=== PATIENT | female | born 1955 | race Caucasian/White ===

== ENCOUNTER 2019-09-24 20:10 | Observation (INO) | payer BC, SELFPAY ==
[2019-09-24] VITALS (7 sets, daily range): BP systolic 118–213; BP diastolic 63–106; PULSE 86–95; RESP 12–21; TEMP 36.7–37.2; O2SAT 86–98; BMI 42.7
--- NOTE | 2019-09-24 20:25 | ED.RN ---
PT HASN'T TAKEN BP MEDS YESTERDAY OR TODAY D/T, N/V.
--- NOTE | 2019-09-24 21:09 | RAD_ITS ---
STUDY: X-RAY CHEST REASON FOR EXAM: Female, 64 years old. Cough, congestion. TECHNIQUE: PA and lateral chest. COMPARISON: None. FINDINGS: Calcified granuloma in the right midlung. Mild atelectasis in the right lung base. The lungs are otherwise clear. No pleural effusion. Hilar and mediastinal shadows are normal. Soft tissues and bony structures are unremarkable. RAD/Chest PA and Lateral IMPRESSION: 1. Right basilar atelectasis, otherwise no acute findings. Electronically Signed: Alyssa Araujo MD at 22:00 EST Tel , Service support ,
[2019-09-24] MEDS: cloNIDine HCl 0.1 MG Tablet PO (21:10)
[2019-09-24 21:24] LABS: Absolute Lymphocyte Count 1.68 X10^3/uL (0.83-4.51); Absolute Neutrophil Count 12.8 X10^3/uL (2.0-7.7); Basophil# 0.02 X10^3/uL; Basophil% 0.1 % (0-1); Hematocrit 41.9 % (37-47); Lymphocyte # 1.68 X10^3/ul (4.0); Lymphocyte % 10.9 % (19-41); Mean Corp Hgb Conc 33.4 g/dL (32-36); Mean Corpuscular Hgb 31.7 pg (27.0-32.0); Mean Corpuscular Volume 94.8 fL (81-99); Monocyte# 0.75 X10^3/uL; Monocyte% 4.9 % (0-10); NRBC Flagged by Analyzer 0 % (0-5); Neutrophil # 12.84 X10^3/uL (2.7-7.7); Neutrophil % 83.5 % (47-70); Platelet Count 304 K/mm3 (150-450); RBC Distribution Width CV 13.2 % (11.6-14.6); RBC Distribution Width SD 45.4 fl (35.1-43.9); Red Blood Count 4.42 M/mm3 (4.2-5.4); White Blood Count 15.4 K/mm3 (4.4-11.0)
[2019-09-24] MEDS: Ipratropium/Albuterol Sulfate 3 ML AMPUL.NEB INHALATION (21:27)
[2019-09-24 21:39] LABS: Anion Gap 7 (5-15); BUN 18 mg/dL (7-18); BUN/Creat Ratio 22.5 RATIO (10-20); Calcium,Total 9.6 mg/dL (8.5-10.1); Chloride 102 mmol/L (98-107); EST Glomerular Filtration Rate 77 mL/min (>60); Est Glom Filt Rate - Afr Amer 94 mL/min (>60); Estimated Creatinine Clearance 60.31 ml/min; Glucose 129 mg/dL (74-106); Potassium 3.7 mmol/L (3.5-5.1); Sodium Level 140 mmol/L (136-145)
[2019-09-24] MEDS: Ketorolac 30 MG/ML Syringe IV (21:41)
[2019-09-25] VITALS (12 sets, daily range): BP systolic 155–163; BP diastolic 78–99; PULSE 74–88; RESP 12–20; TEMP 36.4–37.2; O2SAT 92–98; BMI 42.7; BMI 42.8
--- NOTE | 2019-09-25 00:03 | PCM.HP.STD ---
Problem List (1) Pneumonia Status: Acute Qualifiers: Pneumonia type: due to unspecified organism Laterality: unspecified laterality Lung location: unspecified part of lung Qualified Code(s): J18.9 - Pneumonia, unspecified organism (2) Hypoxia Status: Acute (3) Hypertension Status: Chronic Qualifiers: Hypertension type: essential hypertension Qualified Code(s): I10 - Essential (primary) hypertension (4) Asthma Status: Chronic Qualifiers: Asthma severity: unspecified severity Asthma persistence: unspecified Asthma complication type: unspecified Qualified Code(s): J45.909 - Unspecified asthma, uncomplicated (5) Morbid obesity Status: Chronic History of Present Illness Date of Admission: 09/25/19 Chief Complaint: Cough, congestion, dyspnea, sinus pressure, headache, N/V The patient is a 64 y/o F w/ PMHx: Morbid Obesity, HTN, Asthma who presents to the [facility] ED on 09/25/19 with history of recent onset of productive cough with sinus congestion, rhinorrhea, myalgia, intermittent throbbing diffuse headache with dyspnea, worse with activity with PCP initiation on Augmentin the day prior to current presentation but inability to take secondary to onset of intractable nausea with occasional emesis prompting eventual ED presentation. Patient does note concurrent subjective fevers and chills as well. Work-up in the ED included T 98.6, heart rate 89, BP initially 178/100 with repeat 150/78 as patient noted she had not taken her blood pressure medications for the last 24 to 48 hours, respiratory rate 18, initially 91% on room air however with exertion patient dropped to 86% on room air with improvement to 98% on 2 L nasal cannula, CBC with WC 15.4, hemoglobin 14, platelet 304 with left shift, BMP with glucose 129 otherwise unremarkable, chest x-ray with right basilar atelectasis otherwise no acute cardia pulmonary findings. In the ED patient administered DuoNeb, Toradol, Catapres 0.1 mg p.o. x1 in addition to Rocephin and azithromycin. Past Medical History Past Medical History (Chronic Problems): Chronic Problems Hypertension (Chronic) Asthma (Chronic) Morbid obesity (Chronic) Allergies Sulfa (Sulfonamide Antibiotics) Allergy (Verified 09/24/19 20:14) Rash sulfamethoxazole [From Bactrim] Allergy (Verified 09/24/19 20:14) Rash trimethoprim [From Bactrim] Allergy (Verified 09/24/19 20:14) Rash Home Medications: Ambulatory Orders Medication Instructions Recorded Amoxicillin/Potassium Clav 1 tab PO BID 09/24/19 [Amox-Clav 875-125 mg Tablet] Carvedilol 6.25 mg PO BID 09/24/19 Hydrochlorothiazide [Hctz] 25 mg PO DAILY 09/24/19 Surgical History: - - Cholecystectomy, right knee surgery, foot surgery and use. Psychiatric History: No pertinent psych hx DIRECTOR OF SOCIAL SERVICES History: No pertinent DIRECTOR OF SOCIAL SERVICES history Lives: With Family - Patient notes that her children and their children live with her. Smoking Status: Never smoker Tobacco Use: Non-smoker Alcohol: None Drugs: None - *Family History Maternal History Items: - - Patient notes a maternal family history of cancer, unclear type, at the age of 97. Paternal History Items: - - Patient notes a paternal family history of heart disease. Review of Systems Constitutional: Reports: Anorexia, Chills, Fever, Malaise, Weakness, Fatigue. Denies: Weight Change HEENT: Reports: Head Aches, Nasal Congestion, Post Nasal Drip, Sinus Congestion, Sinus Drainage Cardiovascular: Denies: Chest Pain, Palpitations Respiratory: Reports: Cough, Pleuritic Pain, Shortness of Breath, Shortness of breath at rest, Shortness of breath upon exertion, Sputum production Gastrointestinal: Reports: Nausea, Vomiting. Denies: Abdominal Pain Genitourinary: Denies: Dysuria Musculoskeletal: Reports: Joint Pain, Muscle pain. Denies: Joint Tenderness Skin: Denies: Rash, Wounds Neurological: Denies: Numbness, Tingling, Focal weakness Psychiatric: Denies: Anxiety, Depression, Homicidal Ideations, Suicidal Ideations Hematologic/ Lymphatic: Denies: Easy Bruising, Easy Bleeding VTE Information - Inpt Only VTE Present on Admission: No VTE Mechan Device Prophylaxis: SCD's VTE Pharm Prophylaxis ordered?: Yes Patient Problems: Active and Suspected Problems Pneumonia (Acute) Hypoxia (Acute) Subjective: Seated upright in ED bed, fatigued and ill-appearing. Objective: Physical Examination: General: awake, alert, oriented x 3 and cooperative, seated upright in the ED bed, fatigued appearance, ill-appearing. Skin: normal color, turgor, no icterus, cyanosis. HEENT: AT/NC, EOMI, PERRLA, dry MM, inflamed nares, rhinorrhea evident, posterior OP with erythema, no exudate, some discomfort with facial palpation no carotid bruits or JVD noted. Lungs: Diminished breath sounds throughout, greater bases, mildly rhonchorous, coughing elicited with deep inspiratory effort attempts, no rales or wheezing. Heart: Regular rate and rhythm; no gallop, rub audible. Abdomen: soft, obese, NTTP, ND, normal BS, no HSM. Extremities: no cyanosis, clubbing, or edema. Neurological: patient awake, alert, oriented x 3; cognitive function intact; pupils equally reactive to light and accomodation; cranial nerves II-XII grossly normal, moving all 4 extremities, no focal deficits, strength severely global decrease secondary to acute presentation. Psychiatric: affect appears fatigued, no acute evidence of depressive or anxiety feelings. - Physical Exam Vitals/I&O's: Vital Signs Temp Pulse Resp BP Pulse Ox 98.9 F 86 21 H 150/78 H 97 09/24/19 23:20 09/24/19 23:20 09/24/19 23:20 09/24/19 23:20 09/24/19 23:20 Oxygen Flow Rate (L/min) 2 Oxygen Delivery Method Nasal Cannula Weight: 241 lb 2.971 oz Body Mass Index (BMI) 42.7 Laboratory Results 09/24/19 21:10: WBC 15.4 H, RBC 4.42, Hgb 14.0, Hct 41.9, MCV 94.8, MCH 31.7, MCHC 33.4, RDW Std Deviation 45.4 H, RDW Coeff of Ximena 13.2, Plt Count 304, MPV 11.0, Immature Gran % (Auto) 0.600, Neut % (Auto) 83.5 H, Lymph % (Auto) 10.9 L, Lucas % (Auto) 4.9, Eos % (Auto) 0.0, Baso % (Auto) 0.1, Absolute Neuts (auto) 12.8 H, Absolute Lymphs (auto) 1.68, Nucleated RBC % 0 09/24/19 21:10: Sodium 140, Potassium 3.7, Chloride 102, Carbon Dioxide 31.0, Anion Gap 7, BUN 18, Creatinine 0.80, Estim Creat Clear Calc 60.31, Est GFR (MDRD) Af Amer 94, Est GFR (MDRD) Non-Af 77, BUN/Creatinine Ratio 22.5 H, Glucose 129 H, Calcium 9.6 Assessment/Plan All Active Problems Pneumonia (Acute) Hypoxia (Acute) The patient is a 64 y/o F w/ PMHx: Morbid Obesity, HTN, Asthma who presents to the [facility] ED on 09/25/19 with history of recent onset of productive cough with sinus congestion, rhinorrhea, myalgia, intermittent throbbing diffuse headache with dyspnea, worse with activity with PCP initiation on Augmentin the day prior to current presentation but inability to take secondary to onset of intractable nausea with occasional emesis prompting eventual ED presentation. 1. Community Acquired Pneumonia w/ Hypoxia: Will admit to [facility], maintain on oxygen with wean as tolerated to room air, continue ATC duonebs, PRN albuterol, maintained on IV Rocephin and Azithromycin, HOB, IS parameters w/ pending sputum cultures, respiratory viral panel and urine antigens. 2. Recent Sinus Infection: Recently diagnosed with a sinus infection although may be associated with #1, will maintain on antibiotic therapy as noted, Flonase, conservative interventions. 3. Chronic asthma: As noted above #1, will maintain on ATC DuoNebs, PRN albuterol, HOB, IS. 4. Hypertension: Continue home regimen including Coreg, hydrochlorthiazide if able to tolerate oral otherwise in the interim we will also have IV PRN hydralazine. 5. Morbid Obesity: Weight loss and lifestyle changes encouraged, nutrition consulted. 6. DVT prophylaxis: SCDs, Lovenox. Code Visit Inpatient E&M: 11976 Init Hosp L3
--- NOTE | 2019-09-25 00:03 | ED.VISSUMM ---
- ER Visit Summary Date of Service: 09/25/19 Chief Complaint: Cough, congestion, and sinus pressure History of Present Illness: The patient is a 64 F who presents with cough, congestion, and sinus pressure that is been getting worse over the past week. Patient was recently started on Augmentin for sinusitis. Patient states she has been having some nausea and vomiting and has not been able to keep anything down. Patient states she has pressure over her frontal and maxillary sinuses. Patient admits to a cough with clear sputum. Patient also admits to a sore throat and rhinorrhea. Patient admits to subjective chills and sweats. Patient did not take her temperature. Physical Examination: Vital signs showed an elevated blood pressure of 213/106. Patient is afebrile. Patient is in no acute distress. Oral mucosa is pink and moist. There is tenderness over the maxillary sinuses bilaterally, worse on the right. Neck is supple. Trachea is midline. There is no JVD. Heart was regular rate and rhythm. Lungs are diminished in the bases. There is good respiratory effort. Abdomen is soft. Bowel sounds are normal. There is no tenderness. Cranial nerves II through XII are intact. There are no focal motor or sensory deficits noted. Test Results: CBC shows a leukocytosis of 15.4. Basic metabolic profile showed glucose of 129. The remaining labs were normal. PA and lateral chest x-ray was obtained. There is atelectasis in the right base. There is no acute infiltrate noted. Emergency Department Course and Treatment: Patient was given a dose of clonidine here for her blood pressure. Patient had improvement of her blood pressure to 150/78. Patient was given a DuoNeb aerosol here. Patient was also given an injection of Toradol here for her headache. Patient was ambulated with a pulse oximeter. Patient's pulse oximeter was 87% on room air while ambulating. Patient was started on Rocephin and Zithromax. Case was discussed with the hospitalist. She will admit the patient to the hospital. Patient understood and was agreeable with the plan. All questions were answered. Disposition: Admit to hospital Impression: 1. Clinical pneumonia 2. Hypoxia This note was generated with [employer] software. It may contain incorrect words, spelling, and punctuation that were not noted in review of the chart prior to signing ED Disposition - Plan for ED Patient: Disposition: Acute Care Hospital [facility] Diagnosis: Pneumonia, Hypoxia Referrals: Denise Marvin MD [Primary Care Provider] -
[2019-09-25] MEDS: Ceftriaxone 1 GM/50 ML BAG IV (00:33)
[2019-09-25] MEDS: 0.9% Normal Saline 1,000 ML 125 ML IV ×2 (02:05→10:56)
[2019-09-25 05:46] LABS: Absolute Lymphocyte Count 3.37 X10^3/uL (0.83-4.51); Absolute Neutrophil Count 9.7 X10^3/uL (2.0-7.7); Basophil# 0.02 X10^3/uL; Basophil% 0.1 % (0-1); Eosinophil# 0.01 X10^3/uL; Eosinophils% 0.1 % (0-5); Hemoglobin 11.7 g/dL (12.0-15.0); Lymphocyte # 3.37 X10^3/ul (4.0); Lymphocyte % 23.7 % (19-41); Mean Corp Hgb Conc 32.5 g/dL (32-36); Mean Corpuscular Hgb 30.9 pg (27.0-32.0); Mean Platelet Vol. 11.4 fl (6.2-12.0); Monocyte# 1.11 X10^3/uL; Monocyte% 7.8 % (0-10); NRBC Flagged by Analyzer 0 % (0-5); Neutrophil # 9.67 X10^3/uL (2.7-7.7); Platelet Count 246 K/mm3 (150-450); RBC Distribution Width CV 13.4 % (11.6-14.6); RBC Distribution Width SD 46.3 fl (35.1-43.9); Red Blood Count 3.79 M/mm3 (4.2-5.4); White Blood Count 14.2 K/mm3 (4.4-11.0)
[2019-09-25 06:20] LABS: Anion Gap 5 (5-15); BUN 24 mg/dL (7-18); BUN/Creat Ratio 28.8 RATIO (10-20); Calcium,Total 8.9 mg/dL (8.5-10.1); Chloride 104 mmol/L (98-107); Creatinine, Serum 0.83 mg/dL (0.55-1.02); EST Glomerular Filtration Rate 74 mL/min (>60); Est Glom Filt Rate - Afr Amer 89 mL/min (>60); Estimated Creatinine Clearance 58.13 ml/min; Glucose 100 mg/dL (74-106); Potassium 3.4 mmol/L (3.5-5.1); Sodium Level 141 mmol/L (136-145)
[2019-09-25] MEDS: Ipratropium/Albuterol Sulfate 3 ML AMPUL.NEB INHALATION ×2 (07:05→10:52)
[2019-09-25] MEDS: Carvedilol 6.25 MG Tablet PO (08:01)
[2019-09-25] MEDS: Fluticasone 0.05% 1 SPRAY NASAL.SRY NASAL (08:01)
[2019-09-25] MEDS: Famotidine 20 MG Tablet PO (08:02)
[2019-09-25] MEDS: hydroCHLOROthiazide 25 MG Tablet PO (08:02)
[2019-09-25] MEDS: Acetaminophen 325 MG Tablet 650 MG PO (11:02)
[2019-09-25] MEDS: guaiFENesin 10 ML UDC (200MG/10ML) 20 ML PO (11:02)
--- NOTE | 2019-09-25 11:25 | CASEMGMT ---
RN CAITY Face to Face with patient for initial transition planning/care coordination assessment. RN CM introduced self and role at [facility]. Patient lying in bed, alert and oriented. Patient willing to participate in assessment and is able to answer all questions appropriately. Care providers, pharmacy, and demographics verified. Patient wishes to discharge home, denies need for home health at this time. Patient states he has no further needs or concerns at this time. CM to follow for discharge planning needs that may arise. PCP: Shavonne Specialists: None Preferred Pharmacy: [facility] Insurance: [employer] Prescription Benefit:yes Living Will/HPOA: sonKleber LNOK: son Living Arrangements: Patient lives with son in 1 story home with 3 steps to enter the home. Patient is independent at home. Transportation: self/son DME/HHC: Patient denies any DME in the home. Patient denies HHC. Disposition Plan: Patient to discharge home with family support and follow-up plans in place. Azeb CAMARILLO, RN, CM
--- NOTE | 2019-09-25 11:59 | DCINST_ITS ---
- Discharge Diagnoses Current Active Problems: Current Active and Chronic Problems Pneumonia (Acute) Hypoxia (Acute) Hypertension (Chronic) Asthma (Chronic) Morbid obesity (Chronic) You will use the following diet at home:: No restrictions Your food should be the consistency of: Regular Your liquids should be the consistency of: Regular/Thin Discharge Activity: Return to Normal Activity Weight Bearing Status: Full weight bearing Allergies/Adverse Reactions: Allergies Sulfa (Sulfonamide Antibiotics) Allergy (Verified 09/24/19 20:14) Rash sulfamethoxazole [From Bactrim] Allergy (Verified 09/24/19 20:14) Rash trimethoprim [From Bactrim] Allergy (Verified 09/24/19 20:14) Rash Medications to take at Discharge Carvedilol 6.25 mg PO BID 09/24/19 Hydrochlorothiazide [Hctz] 25 mg PO DAILY 09/24/19 Cefdinir [Omnicef [equiv]] 600 mg PO DAILY #20 cap 09/25/19 The following prescriptions were given: Cefdinir [Omnicef [equiv]] 600 mg PO DAILY #20 cap Transmission Status: Pending to [id number] Primary Care Physician: Denise Marvin MD [Primary Care Provider] - Please follow up with your Primary Care Physician in: in two Test Results: Test results from this visit will be discussed in further detail at your follow- up appointment, if applicable.
--- NOTE | 2019-09-25 18:29 | PCM.DC.SUM ---
Discharge Date and Diagnosis Date of Admission: 09/25/19 Date of Discharge: 09/25/19 - Primary Discharge Diagnosis #1 acute sinusitis #2 upper respiratory infection (viral) #3 nausea and vomiting-etiology unclear #4 transient hypoxia-etiology unclear #5 essential hypertension - Secondary Discharge Diagnosis Chronic Problems Hypertension (Chronic) Asthma (Chronic) Morbid obesity (Chronic) Hospital Course and Treatment Operations: None Procedures: None Summary of Care Provided: The patient is a 64 year old F was seen in the emergency room at [facility] with a chief complaint of cough, nasal congestion, and sinus pressure. Patient been taking Augmentin for sinusitis, she admitted to having some nausea and vomiting and has not been able to keep her medications down. Patient complained of pressure over her frontal and maxillary sinuses, she admitted to cough with clear sputum. She also admitted to some rhinorrhea. Work-up in the emergency room showed a leukocytosis with a white count of 15.4, PA and lateral chest x-ray was obtained which showed no evidence of acute infiltrate. Remaining labs are normal. Patient was slightly hypoxic on walking on room air. Patient was admitted for possible pneumonia based on clinical suspicion, she was given IV Rocephin and Zithromax, she was also placed on IV fluids. Patient was seen and examined later that day and she was able to eat breakfast without difficulty and also able to eat lunch. Patient was not on oxygen any longer, it was this examiner's feeling that the patient had acute sinusitis and an upper respiratory viral syndrome. It was felt that she would be safe for discharge, she had not taken her blood pressure medications in 2 days and her blood pressure was elevated and she was going to resume these at home. On examination she appeared in good health and spirits. Vital signs as documented. Skin warm and dry and without overt rashes. Neck without JVD. Lungs clear. Heart exam notable for regular rhythm, normal sounds and absence of murmurs, rubs or gallops. Abdomen unremarkable and without evidence of organomegaly, masses, or abdominal aortic enlargement. Extremities nonedematous. Neuro: Cranial nerves II through XII are grossly intact, no focal motor deficits were noted, sensation to light touch and pinprick is intact. Psych: Patient is alert and oriented x3, she does not appear anxious or depressed Patient was discharged on 09/25/2019 in stable condition Diagnosis of community-acquired pneumonia was ruled out. - Physical Exam Vitals/I&O's: Vital Signs Temp Pulse Resp BP Pulse Ox 97.5 F L 76 12 163/99 H 92 09/25/19 13:20 09/25/19 13:20 09/25/19 13:20 09/25/19 13:20 09/25/19 13:20 Oxygen Flow Rate (L/min) 2 Oxygen Delivery Method Room Air Weight: 109.5 kg Body Mass Index (BMI) 42.7 Intake and Output for Last 24 Hours 09/23/19 09/24/19 09/25/19 23:59 23:59 23:59 Intake Total 2125.24 / 2125.24 Balance 2125.24 / 2125. Microbiology Past 72 Hours 09/25/19 07:36 Sputum, Expectorated/Coughed Gram Stain - Final 09/25/19 05:15 Mucosa - Nasopharyngeal Respiratory Panel (PCR) - Final 09/25/19 07:00 Urine, Clean Catch Streptococcus pneumoniae Antigen (M - Final 09/25/19 07:00 Urine, Clean Catch Legionella Antigen - Final Laboratory Results 09/24/19 21:10: WBC 15.4 H, RBC 4.42, Hgb 14.0, Hct 41.9, MCV 94.8, MCH 31.7, MCHC 33.4, RDW Std Deviation 45.4 H, RDW Coeff of Ximena 13.2, Plt Count 304, MPV 11.0, Immature Gran % (Auto) 0.600, Neut % (Auto) 83.5 H, Lymph % (Auto) 10.9 L, [place] % (Auto) 4.9, Eos % (Auto) 0.0, Baso % (Auto) 0.1, Absolute Neuts (auto) 12.8 H, Absolute Lymphs (auto) 1.68, Nucleated RBC % 0 09/24/19 21:10: Sodium 140, Potassium 3.7, Chloride 102, Carbon Dioxide 31.0, Anion Gap 7, BUN 18, Creatinine 0.80, Estim Creat Clear Calc 60.31, Est GFR (MDRD) Af Amer 94, Est GFR (MDRD) Non-Af 77, BUN/Creatinine Ratio 22.5 H, Glucose 129 H, Calcium 9.6 09/25/19 05:00: WBC 14.2 H, RBC 3.79 L, Hgb 11.7 L, Hct 36.0 L, MCV 95.0, MCH 30.9, MCHC 32.5, RDW Std Deviation 46.3 H, RDW Coeff of Ximena 13.4, Plt Count 246, MPV 11.4, Immature Gran % (Auto) 0.300, Neut % (Auto) 68.0, Lymph % (Auto) 23.7, [place] % (Auto) 7.8, Eos % (Auto) 0.1, Baso % (Auto) 0.1, Absolute Neuts (auto) 9.7 H, Absolute Lymphs (auto) 3.37, Nucleated RBC % 0 09/25/19 05:00: Sodium 141, Potassium 3.4 L, Chloride 104, Carbon Dioxide 32.0, Anion Gap 5, BUN 24 H, Creatinine 0.83, Estim Creat Clear Calc 58.13, Est GFR (MDRD) Af Amer 89, Est GFR (MDRD) Non-Af 74, BUN/Creatinine Ratio 28.8 H, Glucose 100, Calcium 8.9 Discharge Activity: Return to Normal Activity Weight Bearing Status: Full weight bearing Home Medications: Medications to take at Discharge Carvedilol 6.25 mg PO BID 09/24/19 Hydrochlorothiazide [Hctz] 25 mg PO DAILY 09/24/19 Cefdinir [Omnicef [equiv]] 600 mg PO DAILY #20 cap 09/25/19 Following Prescrptions Were Given to Patient: Cefdinir [Omnicef [equiv]] 600 mg PO DAILY #20 cap Transmission Status: Received by [id number] Primary Care Physician: Denise Marvin MD [Primary Care Provider] - Please follow up with your Primary Care Physician in: in two Disposition: Home Minutes spent on discharge:: 30 Patient Condition:: Stable Medical Necessity - Tobacco Use Smoking Status: Never smoker Tobacco Use: Non-smoker Meaningful Use Info Meaningful Use Diagnoses (Choose all that apply): None applicable Code Visit OBSV E&M: 21157 Observ/hosp same date L3
== END 2019-09-25 13:25 | disposition home or self-care (01) ==
LOC: ED 20:47 → MS3 09-25 07:18
PROVIDERS: Admitting Provider Family Medicine; Emergency Provider Emergency Medicine; Family Provider Internal Medicine; PCP Internal Medicine; Visit Provider Internal Medicine
DX: J01.90 Acute sinusitis, unspecified (principal); J06.9 Acute upper respiratory infection, unspecified; I10 Essential (primary) hypertension; R11.2 Nausea with vomiting, unspecified; R09.02 Hypoxemia; J45.909 Unspecified asthma, uncomplicated; E66.01 Morbid (severe) obesity due to excess calories; Z68.41 Body mass index [BMI] 40.0-44.9, adult; Z71.3 Dietary counseling and surveillance; Z79.899 Other long term (current) drug therapy
CPT/HCPCS: 36415; 71046; 80048; 85025; 87070; 87205; 87449; 87633; 94640; 96361; 96365; 96367; 96375; 97802; 99218; 99251; 99285; J7030; J7050; A4216; G0378; G0463

== ENCOUNTER 2020-04-13 05:34 | Emergency (ER) | payer BC, SELFPAY ==
[2019-09-25 01:37] VITALS: BMI 42.7
[2020-04-13 05:35] VITALS: BP 212/113; PULSE 78; RESP 20; TEMP 36.4; O2SAT 99; BMI 47.3
[2020-04-13 05:58] VITALS: BP 218/114; PULSE 104; RESP 16; O2SAT 94
[2020-04-13] MEDS: cloNIDine HCl 0.1 MG Tablet 0.2 MG PO (06:28)
[2020-04-13] MEDS: Mixture 30 ML Bottle TOPICAL (06:42)
--- NOTE | 2020-04-13 07:05 | ED.DCSUM_ITS ---
History of Present Illness Chief Complaint: Nosebleed Informant: Patient Onset: Hours - 1 Context: Sudden Onset - spontaneous Timing: Continuous Quality: bleeding Location: both nostrils, seems worse on right Current Severity: Moderate Maximum Severity: Moderate Worsened by: nothing Relieved by: holding pressure on nose Associated Symptoms: none Narrative: Patient states she has never had a nosebleed like this. She does not take antiplatelet or anticoagulant medications. She has no other symptoms and incidentally in triage was noted to have a very high blood pressure. She does take medications for her blood pressure and has been compliant with them, with exception that she forgot her dose last night. When she woke up with a nosebleed, she did take that dose at about 4 AM. It is carvedilol 6.25 mg, she takes it twice daily. She does not have heart issues, she takes it only for blood pressure. She also states she was prescribed prednisone that she has been taking for 1 day so far, for a cough that she cannot seem to get rid of. She already was tested for COVID and tested negative. She denies any dyspnea or chest pain. - Past Medical History (1) Asthma Status: Chronic (2) Hypertension Status: Chronic (3) Morbid obesity Status: Chronic Past Medical History - Allergies and Home Meds Allergies/Adverse Reactions: Allergies Sulfa (Sulfonamide Antibiotics) Allergy (Verified 04/13/20 05:38) Rash sulfamethoxazole [From Bactrim] Allergy (Verified 04/13/20 05:38) Rash trimethoprim [From Bactrim] Allergy (Verified 04/13/20 05:38) Rash Primary Care Physician: Denise Marvin MD [Primary Care Provider] - 3-5 Days Surgical History: - - Cholecystectomy, right knee surgery, foot surgery and use. Smoking Status: Never smoker - Family History Maternal Family History: Reports: - - Patient notes a maternal family history of cancer, unclear type, at the age of 97. Paternal Family History: Reports: - - Patient notes a paternal family history of heart disease. Review of Systems General: Denies: Chills, Fever, Sweats Eyes: Denies: Visual changes - bilaterally, Diplopia ENT: Reports: Rhinorrhea - Nosebleed. See HPI.. Denies: Sore throat Cardiovascular: Denies: Chest pain, Palpitations Respiratory: Reports: Cough. Denies: Dyspnea, Sputum, Dyspnea on exertion Gastrointestinal: Denies: Abdominal pain, Nausea, Vomiting, Diarrhea, Melena, Hematochezia Genitourinary: Denies: Dysuria, Hematuria, Frequency Musculoskeletal: Denies: Back pain, Extremity Pain Skin: Denies: Rash, Wounds Neurological: Denies: Headache, Weakness, Numbness Physical Exam Vital Signs/Narrative: Vital Signs Temp Pulse Resp BP Pulse Ox 04/13/20 05:58 104 H 16 218/114 H 94 04/13/20 05:35 97.6 F L 78 20 H 212/113 H 99 Inital Vital Signs reviewed: Yes General: Well nourished, Well developed, Obese, No Acute Distress Head: Normocephalic, Atraumatic Eyes: Perrl, EOMI ENT: Moist mucous membranes, - - Blood present in both nares. No active bleeding at this time, examined just after removing nose clamp.. Negative for: Sinus tenderness Neck: Supple, Nontender, No lymphadenopathy Cardiovascular: Regular rate, Regular rhythm Respiratory: No distress, CTA bilaterally, Chest nontender Extremities: Nontender, No edema Skin: Normal color, No rash, No Trauma Neurological: Alert, Oriented x3, Cranial nerves II-XII grossly intact, Normal Strength, Normal Sensation, Normal Gait Psychological: Normal affect, Normal Mood Diagnostic/Tx/Re-eval - Medical Decision Making I had patient expel her nasal contents, which was very minimal, using tissues. This was followed by injecting 2 cc of Michael mix into her nose, having her taking it back into her throat, she spat it out, I immediately placed a nasal pledget soaked with same mix into her right nostril. She was observed for a while and had no recurrent bleeding. I took the pledget out and reexamined her. There is no blood or obvious etiology of the bleeding on the right, but on the left there is a very small punctate-sized clot on the septum. I dabbed it with a cotton ball, and it immediately started oozing blood. I placed the pledget that was removed from the right and had basically no blood on it into the left side, and observed her further. There was good hemostasis as a result. It was cauterized with silver nitrate successfully. She was given clonidine prior to all of this. On reevaluation of her blood pressure it is 167/96. I advised her to take another dose of her carvedilol when she gets home, possibly doubling it up tonight as well and then going back to her regular dosing. She is comfort able with that plan of following up with her doctor for recheck. Procedures Procedure(s): Epistaxis treatment/cauterization --see medical decision making for further details. Hemostasis at small lesion at Kesselbach plexus left naris obtained. Lightly cauterized with silver nitrate. No complications, hemostasis maintained. ED Disposition - Plan for ED Patient: Disposition: Home or Assisted Living Diagnosis: Acute anterior epistaxis, Episode of hypertension Instructions: ED Epistaxis Adult, ED High Blood Pressure Established Out of Control Referrals: Denise Marvin MD [Primary Care Provider] - 3-5 Days Additional Instructions: Take another carvedilol this morning, then double your dose tonight, taking 12.5 mg, then go back to normal dosing in the morning.
[2020-04-13 07:22] VITALS: BP 167/96; PULSE 81; RESP 18; O2SAT 93
[2020-04-13] MEDS: Silver Nitrate (BKC) 1 EACH TOPICAL (07:23)
[2020-04-13 07:52] VITALS: BP 148/75
== END 2020-04-13 07:55 | disposition home or self-care (01) ==
PROVIDERS: Emergency Provider Emergency Medicine; PCP Internal Medicine
DX: R04.0 Epistaxis (principal); I10 Essential (primary) hypertension; J45.909 Unspecified asthma, uncomplicated; E66.01 Morbid (severe) obesity due to excess calories; Z79.899 Other long term (current) drug therapy
CPT/HCPCS: 30901; 99283

== ENCOUNTER 2020-06-02 09:20 | Inpatient (IN) | payer BC, SELFPAY ==
[2020-06-02] VITALS (16 sets, daily range): BP systolic 145–215; BP diastolic 82–119; PULSE 70–88; RESP 15–21; TEMP 36.2–37.6; O2SAT 87–99; BMI 43.9; BMI 44.1
[2020-06-02] MEDS: 0.9% Normal Saline 1,000 ML 999 ML IV (10:10)
--- NOTE | 2020-06-02 10:23 | ED.DCSUM_ITS ---
- ER Visit Summary Date of Service: 06/02/20 Chief Complaint: Fever History of Present Illness: The patient is a [address] coffey to. She reports she has a fever that began today. Is been 102 degrees. She denies sore throat. She reports she has a little bit of cough that began this morning. It is productive yellow sputum without blood. Denies any chest pain or shortness of breath. She reports she has been nauseated, but has not vomited. She denies any abdominal pain. She does report she has dysuria and frequency that began yesterday. She denies any back pain or rash. Reports she has a headache yesterday, but does not have a headache today. She denies any numbness or weakness. Patient does report that she has had sick contacts and that her son and granddaughter both had headaches. However, she denies any known exposure to coronavirus. Physical Examination: Vitals: Stable. Afebrile. General: Well-nourished and well-developed. Head: Normocephalic atraumatic. Neck: Supple, no lymphadenopathy. No JVD. Nontender. Cardiovascular: Regular rate and rhythm. No murmurs. Respiratory: No respiratory distress. Clear to auscultation bilaterally. Abdominal: Soft, nontender, nondistended, normal bowel sounds. No guarding, rebound, or peritoneal signs. Back: Nontender. Extremities: Nontender, no edema. Skin: Normal color, no rash. Neurologic: Alert and oriented ?3. Cranial nerves II through XII are intact. Normal strength and sensation. Psych: Normal affect. Test Results: CBC shows segmented neutrophils 80 lymphocytes of 11. INR is 1.1. PTT is 28.3. UA is normal. Chem-7 shows a potassium 3.3 and glucose 115. LFTs are normal. Lactic acid is normal. Clinical Impression(s) from Imaging Studies Chest X-Ray 06/02/20 10:23 IMPRESSION: No active pulmonary disease. Electronically Signed: Abhay Jones MD at 11:00 EDT Tel , Service support , Emergency Department Course and Treatment: Patient had an IV placed. She was given a liter normal saline. She is resting comfortably. Patient was given a dose of Diflucan p.o. for the burning as she is concerned she may have a yeast infection. On repeat exam her pulse ox is 88% with a good waveform. Treatment Plan: Patient was discussed with the hospitalist. She will be admitted to the hospital for further evaluation and treatment. Disposition: To home in improved and stable condition. Impression: 1. Fever. 2. URI, possible COVID-19 infection. 3. Dysuria. 4. Hypoxia. This note was generated with [employer] dictation software. It may contain incorrect words, spelling, and punctuation that were not noted in review of the chart prior to signing ED Disposition - Plan for ED Patient: Instructions: ED Upper Resp Infec No Abx Tx Referrals: Denise Marvin MD [Primary Care Provider] - 10-14 Days if not better
--- NOTE | 2020-06-02 10:23 | RAD_ITS ---
STUDY: X-RAY CHEST REASON FOR EXAM: Female, 64 years old. Headache, Cough, Fever, Chills For 2 Days. TECHNIQUE: Single AP portable view of the chest. COMPARISON: 09/24/2019. FINDINGS: Mild elevation of the of the right hemidiaphragm. No focal infiltrate is seen. There is no demonstrated pleural abnormality. Normal size heart. Normal mediastinum and renetta. Normal visualized pulmonary arteries. There is atherosclerotic calcification of the aortic arch with tortuosity. Normal visualized thoracic spine. Normal visualized ribs, clavicles, and shoulders. There is no demonstrated abnormality of the visualized soft tissue structures of the upper abdomen. RAD/Chest 1 View (Portable) IMPRESSION: No active pulmonary disease. Electronically Signed: Abhay Jones MD at 11:00 EDT Tel , Service support ,
[2020-06-02 10:27] LABS: Bacteria 0 SEEN /hpf (None Seen); Mucous, Urine 0 SEEN /hpf (<or=2+); Red Blood Cells-Urine 0 SEEN /hpf (0-5); Squamous Epithelial Cells - UA 0 SEEN /hpf (5-10); White Blood Cells 0 SEEN /hpf (0-5)
[2020-06-02 10:33] LABS: Absolute Lymphocyte Count 1.21 X10^3/uL (0.83-4.51); Absolute Neutrophil Count 8.8 X10^3/uL (2.0-7.7); Basophil# 0.06 X10^3/uL; Basophil% 0.5 % (0-1); Eosinophil# 0.05 X10^3/uL; Eosinophils% 0.5 % (0-5); Hematocrit 41.3 % (37-47); Hemoglobin 13.2 g/dL (12.0-15.0); Lymphocyte # 1.21 X10^3/ul (4.0); Mean Corpuscular Hgb 30.1 pg (27.0-32.0); Mean Corpuscular Volume 94.1 fL (81-99); Monocyte# 0.85 X10^3/uL; Monocyte% 7.7 % (0-10); NRBC Flagged by Analyzer 0 % (0-5); Neutrophil # 8.76 X10^3/uL (2.7-7.7); Neutrophil % 79.9 % (47-70); Platelet Count 198 K/mm3 (150-450); RBC Distribution Width CV 13.4 % (11.6-14.6); RBC Distribution Width SD 46.3 fl (35.1-43.9); Red Blood Count 4.39 M/mm3 (4.2-5.4)
[2020-06-02 10:34] LABS: Color, Urine Yellow (Yellow); Glucose, Dipstick Normal (Normal); Ketone-Dipstick Negative (Negative); Leukocyte Esterase-Dipstick Negative /ul (Negative); Nitrite-Dipstick Negative (Negative); Occult Blood-Urine Negative /ul (Negative); Protein-Dipstick Negative (Negative); Specific Gravity, Urine 1.015 (1.002-1.030); Urine Bilirubin Dipstick Negative (Negative); Urine Clarity Clear (Clear); Urine Urobilinogen Normal (Normal); Urine pH 6.5 (5.0 - 8.0)
[2020-06-02 10:40] LABS: International Normalized Ratio 1.1; Prothrombin Time (Protime)PT. 13.2 SECONDS (11.7-14.9)
[2020-06-02 10:41] LABS: Partial Thromboplast Time 28.3 Seconds (24.1-36.2)
[2020-06-02 10:48] LABS: ALB/GLOB Ratio 0.9 RATIO (0.9-2.4); AST(SGOT) 25 U/L (15-37); Alanine Aminotransfer ALT/SGPT 35 U/L (13-56); Albumin, Serum 3.7 g/dL (3.2-5.0); Alkaline Phosphatase 99 U/L (45-117); Anion Gap 5 (5-15); BUN 9 mg/dL (7-18); Calcium,Total 8.8 mg/dL (8.5-10.1); Chloride 104 mmol/L (98-107); Creatinine, Serum 0.82 mg/dL (0.55-1.02); EST Glomerular Filtration Rate 75 mL/min (>60); Est Glom Filt Rate - Afr Amer 91 mL/min (>60); Estimated Creatinine Clearance 58.84 ml/min; Glucose 115 mg/dL (74-106); Potassium 3.3 mmol/L (3.5-5.1); Protein, Total 7.7 g/dL (6.4-8.2); Sodium Level 139 mmol/L (136-145)
[2020-06-02 10:59] LABS: Lactic Acid 0.9 mmol/L (0.4-1.9)
--- NOTE | 2020-06-02 11:34 | PCM.HP.STD ---
Problem List (1) Hypoxia Status: Acute (2) Hypertension Status: Chronic Qualifiers: Hypertension type: essential hypertension Qualified Code(s): I10 - Essential (primary) hypertension (3) Asthma Status: Chronic Qualifiers: Asthma severity: unspecified severity Asthma persistence: unspecified Asthma complication type: unspecified Qualified Code(s): J45.909 - Unspecified asthma, uncomplicated (4) Morbid obesity Status: Chronic (5) Suspected COVID-19 virus infection Status: Acute History of Present Illness Date of Admission: 06/02/20 Chief Complaint: Headache, high-grade fever The patient is a 64 year old F with history of asthma but is stable on occasional rescue inhaler came to ED with headache for 2 to 3 days along with high fever. Fever started today with 102 degrees F at home, along with nausea and cough. Cough is productive with yellow sputum. Denies any chest pain or subjective shortness of breath. Patient denies vomiting, diarrhea,hematemesis or melena. Patient came in contact with her daughter who came from [place] about 2 to 3 days ago. Her daughter herself is asymptomatic. In ED, vitals shows blood pressure 195/109, heart rate 83 but afebrile. Pulse ox 89% on room air. Blood pressure is still high. Chest x-ray was done shows chronic mild elevation of right hemidiaphragm but no new focal infiltrate. Past Medical History Past Medical History (Chronic Problems): Chronic Problems Hypertension (Chronic) Asthma (Chronic) Morbid obesity (Chronic) Allergies Sulfa (Sulfonamide Antibiotics) Allergy (Verified 06/02/20 09:23) Rash sulfamethoxazole [From Bactrim] Allergy (Verified 06/02/20 09:23) Rash trimethoprim [From Bactrim] Allergy (Verified 06/02/20 09:23) Rash Home Medications: Ambulatory Orders Medication Instructions Recorded Carvedilol 6.25 mg PO BID 09/24/19 Hydrochlorothiazide [Hctz] 25 mg PO DAILY 09/24/19 Surgical History: - - Cholecystectomy, right knee surgery, foot surgery and use. 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 Paternal History Items: - - Patient notes a paternal family history of heart disease. Review of Systems Constitutional: Reports: Anorexia, Chills, Fever, Malaise, Weakness, Fatigue HEENT: Denies: Head Aches, Sinus Congestion, Sinus Drainage Cardiovascular: Denies: Chest Pain, Palpitations Respiratory: Reports: Cough, Shortness of breath upon exertion. Denies: Hemoptysis, Shortness of breath at rest, Sputum production Gastrointestinal: Reports: Nausea. Denies: Abdominal Pain, Constipation, Diarrhea, Hematemesis, Hematochezia, Melena, Vomiting Genitourinary: Denies: Dysuria, Frequency, Incontinence, Urgency Musculoskeletal: Reports: Joint Pain. Denies: Joint Tenderness Skin: Denies: Rash, Wounds Neurological: Denies: Numbness, Tingling, Focal weakness Psychiatric: Denies: Anxiety, Depression, Homicidal Ideations, Suicidal Ideations Hematologic/ Lymphatic: Denies: Easy Bruising, Easy Bleeding VTE Information - Inpt Only VTE Present on Admission: No VTE Mechan Device Prophylaxis: None VTE Pharm Prophylaxis ordered?: Yes Patient Problems: Active and Suspected Problems Suspected COVID-19 virus infection (Acute) - Physical Exam Vitals/I&O's: Vital Signs Temp Pulse Resp BP Pulse Ox 97.5 F L 82 21 H 190/109 H 89 06/02/20 09:24 06/02/20 10:23 06/02/20 10:23 06/02/20 10:23 06/02/20 10:23 Oxygen Delivery Method Room Air Weight: 248 lb Body Mass Index (BMI) 43.9 General: Alert, Oriented x3, Cooperative HEENT: Atraumatic, PERRLA, EOMI, Normocephalic Oral: No Gingival or Mucosal Lesions/ Ulcerations, Dry Mucosa Neck: Supple, No JVD, Negative Carotid Bruits Lungs: No rhonchi, No wheeze, No rales, Diminished - Air entry diminished in bilateral lungs. Cardiovascular: Regular rate, Regular Rhythm, Normal S1, Normal S2, No murmurs Abdomen: Bowel Sounds Present, Soft, Non Tender, Non-Distended Extremities: Capillary Refill Less than 3 Seconds, Edema Skin: No rashes, No breakdown Musculoskeletal: No Tenderness to Palpation of Joints or Extremities, Arthritic Changes Neurological: Cranial nerves II-XII grossly intact, Deep Tendon Reflexes 2+/4 and Symmetrical, Neuro grossly intact Psych/Mental Status: Normal Affect, Appropriate Laboratory Results 06/02/20 10:00: COVID-19 ([place]) Pending 06/02/20 10:00: Urine Color Yellow, Urine Clarity Clear, Urine pH 6.5, Ur Specific [place] 1.015, Urine Protein Negative, Urine Glucose (UA) Normal, Urine Ketones Negative, Urine Occult Blood Negative, Urine Nitrite Negative, Urine Bilirubin Negative, Urine Urobilinogen Normal, Ur Leukocyte Esterase Negative, Urine RBC 0 SEEN, Urine WBC 0 SEEN, Ur Squamous Epith Cells 0 SEEN, Urine Bacteria 0 SEEN, Urine Mucus 0 SEEN 06/02/20 10:10: WBC 11.0, RBC 4.39, Hgb 13.2, Hct 41.3, MCV 94.1, MCH 30.1, MCHC 32.0, RDW Std Deviation 46.3 H, RDW Coeff of Ximena 13.4, Plt Count 198, MPV 11.0, Immature Gran % (Auto) 0.400, Neut % (Auto) 79.9 H, Lymph % (Auto) 11.0 L, [place] % (Auto) 7.7, Eos % (Auto) 0.5, Baso % (Auto) 0.5, Absolute Neuts (auto) 8.8 H, Absolute Lymphs (auto) 1.21, Nucleated RBC % 0 06/02/20 10:10: PT 13.2, INR 1.1, APTT 28.3 06/02/20 10:10: Sodium 139, Potassium 3.3 L, Chloride 104, Carbon Dioxide 30.0, Anion Gap 5, BUN 9, Creatinine 0.82, Estim Creat Clear Calc 58.84, Est GFR (MDRD) Af Amer 91, Est GFR (MDRD) Non-Af 75, BUN/Creatinine Ratio 11.0, Glucose 115 H, Calcium 8.8, Total Bilirubin 0.60, AST 25, ALT 35, Alkaline Phosphatase 99, Total Protein 7.7, Albumin 3.7, Globulin 4.0, Albumin/Globulin Ratio 0.9 06/02/20 10:10: Lactic Acid 0.9 Current Medications Labetalol HCl (Trandate) 10 mg IV X1 ONE Stop: 06/02/20 11:30 Assessment/Plan All Active Problems Hypoxia (Acute) Suspected COVID-19 virus infection (Acute) The patient is a 64 year old F with history of asthma but is stable on occasional rescue inhaler came to ED with headache for 2 to 3 days along with high fever. Clinical assessment consistent with high suspicion of COVID-19. In ED, vitals shows blood pressure 195/109, heart rate 83 but afebrile. Pulse ox 89% on room air. Chest x-ray was done shows chronic mild elevation of right hemidiaphragm but no new focal infiltrate. 1. High suspicion of COVID-19 infection: Although COVID-19 PCR is negative but patient came in contact with the daughter who came from [place] along with high-grade fever, productive cough and severe headache. Admit on the COVID floor. Started empirically on IV ceftriaxone and Zithromax for high fever. Lactic acid normal. Inflammatory markers were ordered. D-dimer 2.73, fibrinogen 479. CRP, CK, LDH elevated. BNP 180. Procalcitonin 0.[address] angiogram of chest was done was negative for PE but shows left atrium severely enlarged, LV mildly enlarged. Diffuse mosaic attenuation of pulmonary parenchyma without focal renal lesion. UA is negative. WBC count 11,000, lymphocyte count 11%. ID consult. 2. Asthma: Patient does not have wheezing on very short of breath. Bronchodilator every 6 hourly, albuterol PRN, Pulmicort inhalation. Incentive spirometry, chest physiotherapy. 3. Hypertensive emergency: Patient has headache for about 2-3 days along with high blood pressure 195/109. Labetalol 10 mg IV ordered. Patient home medication HCTZ and Coreg resumed. Labetalol and hydralazine IV PRN ordered. Patient also has leg edema, recent onset. BNP elevated but as patient had CT angiogram, will continue IV fluid. CT head without contrast reported as normal. 4. Morbid obesity: Weight loss counseling done. DVT prophylaxis: On Lovenox 40 mg subcu twice daily. Living will/advanced directive/end of life care: Patient does have living will or advanced directive. Her son Kleber is power of pharmacy salesperson for health. After discussion of procedures involved with full code, DNR CC arrest and DNR CC, the patient opted for full code. Patient does want artificial life support including intubation, tube feed, ventilator and/chest compression, central venous catheter, vasopressor and DC shock if needed Total time spent in [id number] encounter in discussion of advanced directive 16 minutes Inpatient E&M: 60598 Init Hosp L3 Procedures: 26039 Advncd Care Plan 30 Min
[2020-06-02] MEDS: Fluconazole 100 MG Tablet 150 MG PO (11:43)
--- NOTE | 2020-06-02 11:56 | EKG12_ITS ---
Test Reason : Blood Pressure : / mmHG Vent. Rate : 087 BPM Atrial Rate : 087 BPM P-R Int : 140 ms QRS Dur : 098 ms QT Int : 378 ms P-R-T Axes : 054 040 080 degrees QTc Int : 454 ms Sinus rhythm with Premature atrial complexes Nonspecific ST/T wave abnormality Confirmed by AUGUSTUS VEGA, CHRIS ([id number]), editor department HUAN STOVER ([id number]) on 06/06/2020 4:01:05 PM Referred By: JAMIE Confirmed By:CHRIS COFFMAN MD
[2020-06-02 12:05] LABS: Probe Check PASS; Specimen Processing Control PASS
[2020-06-02 12:34] LABS: Fibrinogen 479 mg/dl (203-444)
[2020-06-02 12:35] LABS: CPK Total, Creatine Kinase 195 U/L (26-192); D-Dimer Quantitative (DVT/PE) 2.73 FEU/ug/m (0.27-0.49)
[2020-06-02 12:38] LABS: BNP,B-Type NATRIURETIC PEPTIDE 183.8 pg/mL (0-100)
[2020-06-02 12:42] LABS: Ferritin 77 ng/mL (8-252); LDH 292 U/L (84-246); Magnesium 1.9 mg/dL (1.6-2.6)
--- NOTE | 2020-06-02 12:42 | CT_ITS ---
STUDY: CT BRAIN WITHOUT CONTRAST REASON FOR EXAM: Female, 64 years old. Headache and fever RADIATION DOSAGE (If Supplied By Facility): CTDIvol = ( 44.99 ) mGy, DLP = ( 796.11 ) mGycm TECHNIQUE: Transaxial CT imaging of the brain was performed without administration of intravenous contrast material. Individualized dose optimization techniques were used for this CT. COMPARISON: April 03 2011 FINDINGS: Brain parenchyma is without focal lesions, mass effect, acute intracranial hemorrhage, extra parenchymal fluid collections, hydrocephalus or herniation. The skull is intact. CT/Brain/Head without Contrast IMPRESSION: 1. Normal CT brain. Electronically Signed: Brenton Francisco, at 13:32 EDT Tel , Service support ,
--- NOTE | 2020-06-02 12:52 | CT_ITS ---
STUDY: CTA CHEST REASON FOR EXAM: Female, 64 years old. Shortness of breath fever cough elevated d-dimer evaluation for pulmonary embolism RADIATION DOSAGE (If Supplied By Facility): CTDIvol = ( 13.88 ) mGy, DLP = ( 479.45 ) mGycm TECHNIQUE: The examination was performed with the intravenous administration of 100 ML ISOVUE 370. Post-processing of the angiographic images was performed, with multiplanar reformation and 3D reconstruction. Individualized dose optimization techniques were used for this CT. COMPARISON: None. FINDINGS: There is no acute or chronic pulmonary embolism. Aorta is of normal caliber. Central pulmonary arteries are mildly enlarged. Right ventricle and right atrium are normal. Left ventricle is mildly enlarged. Left atrium is severely enlarged. Left atrial appendage is clear. Pericardium is normal. There are reactive mediastinal lymph nodes. There is diffuse mosaic attenuation of the pulmonary parenchyma without focal or regional lesions. This is a chronic pulmonary finding and does not require acute medical attention. Central airways are patent. The liver is diffusely fatty infiltrated. There is abdominal lipomatosis and elevated BMI. CT/CTA Chest W/WO Contrast IMPRESSION: 1. No pulmonary embolism 2. Left heart enlargement, presumed diastolic/systolic dysfunction. Echocardiography and cardiology referral are advised. 3. Possible early pulmonary arterial hypertension. 4. Mosaic attenuation of the lungs. Pulmonary referral is advised. This can be definitively evaluated with elective follow-up pulmonary protocol high resolution CT. 5. Hepatic steatosis. Hepatology referral is advised. Electronically Signed: Amarilismoris Maryam, at 14:18 EDT Tel , Service support ,
[2020-06-02 13:25] LABS: Procalcitonin 0.13 ng/mL (0.00-0.09)
[2020-06-02] MEDS: Labetalol (Prefilled) 20 MG/4 ML 10 MG IV (14:20)
[2020-06-02] MEDS: Ipratropium/Albuterol Sulfate 3 ML AMPUL.NEB INHALATION (19:11)
[2020-06-02] MEDS: Budesonide Respules 0.5 MG/2 ML AMPUL.NEB. INHALATION (19:12)
[2020-06-02] MEDS: hydroCHLOROthiazide 25 MG Tablet PO (20:57)
[2020-06-02] MEDS: Acetaminophen 325 MG Tablet 650 MG PO (22:16)
[2020-06-03] VITALS (10 sets, daily range): BP systolic 153–155; BP diastolic 85–90; PULSE 65–100; RESP 18; TEMP 36.7–37.4; O2SAT 95–96
[2020-06-03] MEDS: 0.9% Saline Lock 10 ML Syringe IV ×2 (04:12→10:10)
--- NOTE | 2020-06-03 05:55 | ECHOD_ITS ---
Reason For Study: HTN Procedure This was a 2D Doppler, Color Flow transthoracic echocardiogram. The study was technically difficult. Due to COVID PRECAUTIONS. Exam performed portable in ICU/CCU. The exam was abbreviated due to the COVID 19 protocol. Left Ventricle Normal LV size. Left ventricular systolic function is normal. The estimated ejection fraction is 60 %. Stage 2 diastolic dysfunction. No regional wall motion abnormalities noted. Right Ventricle Normal RV size. Normal systolic function. Atria The left atrium is mildly enlarged. Normal right atrium. Mitral Valve Normal mitral valve. Tricuspid Valve Normal tricuspid valve. Aortic Valve Normal aortic valve. Trisinus/trileaflet aortic valve. Pulmonic Valve Normal pulmonic valve. Great Vessels Normal aortic root. The pulmonary artery is normal size. Normal inferior vena cava. Pericardium/Pleural No pericardial effusion. MMode/2D Measurements & Calculations LVIDd: 5.3 cm IVSd: 1.0 cm Ao root diam: 3.4 cm LVIDs: 3.1 cm LVPWd: 0.98 cm RVDd: 3.5 cm FS: 41.8 % LAV(MOD-bp): 87.3 ml LA A4 area: 24.2 cm2 RA A4 area: 15.6 cm2 LAV(MOD-bp) Indexed: 41.1 ml/m2 LAV(MOD-sp2): 94.4 ml LAV(MOD-sp4): 80.5 ml Time Measurements MV dec time: 0.16 sec Doppler Measurements & Calculations MV E max topher: 107.8 cm/sec Lat Peak E' Topher: 10.2 cm/sec Med Peak E' Topher: 6.9 cm/sec MV A max topher: 60.7 cm/sec E/E' lat: 10.6 E/E' med: 15.6 MV E/A: 1.8 Ao V2 max: 158.2 cm/sec LV V1 max: 149.9 cm/sec PA V2 max: 115.6 cm/sec Ao max P.0 mmHg LV V1 max P.0 mmHg Interpretation Summary Normal LV size. Left ventricular systolic function is normal. The estimated ejection fraction is 60 %. The left atrium is mildly enlarged. Stage 2 diastolic dysfunction. Structurally normal valves. Ordering Physician: Brendon Pineda Referring Physician: Denise Marvin Performed By: Joyce Mcdonald, MIKCS, RVT
[2020-06-03] MEDS: Ipratropium/Albuterol Sulfate 3 ML AMPUL.NEB INHALATION ×2 (06:59→13:28)
[2020-06-03] MEDS: Budesonide Respules 0.5 MG/2 ML AMPUL.NEB. INHALATION (06:59)
[2020-06-03] MEDS: hydroCHLOROthiazide 25 MG Tablet PO (10:29)
[2020-06-03] MEDS: Acetaminophen 325 MG Tablet 650 MG PO (10:31)
--- NOTE | 2020-06-03 10:50 | PCM.HP.ID ---
Problem List (1) Suspected COVID-19 virus infection Status: Acute Reason for Consult: suspected covid Consulted by: Dr. Pineda History of Present Illness: The patient is a 64 year old F who presented yesterday to ED with 2-3 days of cough, headache, congestion, mild fever/chills. No change in taste or smell. No muscle aches, no n/v/d. Son and 12 yo granddaughter with several days of headaches about a week prior. Daughter got back from trip to [place] about 2-3 days ago but has been asymptomatic. No known covid (+) contacts. Came to ED, hypoxic to 89%, started on azithro/ceftriaxone. Now off O2, feeling ok. Some clear sputum. Full ROS performed and neg except as noted above. - Medical History Past Medical History (Chronic Problems): Chronic Problems Hypertension (Chronic) Asthma (Chronic) Morbid obesity (Chronic) Allergies/Adverse Reactions: Allergies Sulfa (Sulfonamide Antibiotics) Allergy (Verified 06/02/20 09:23) Rash sulfamethoxazole [From Bactrim] Allergy (Verified 06/02/20 09:23) Rash trimethoprim [From Bactrim] Allergy (Verified 06/02/20 09:23) Rash Home Medications: Ambulatory Orders Medication Instructions Recorded Carvedilol 6.25 mg PO BID 09/24/19 Hydrochlorothiazide [Hctz] 12.5 mg PO DAILY 09/24/19 - Social History Tobacco Use: non-smoker Vital Signs Temp Pulse Resp BP Pulse Ox 99.4 F H 85 18 155/90 H 95 06/03/20 10:23 06/03/20 10:23 06/03/20 10:23 06/03/20 10:23 06/03/20 10:23 Oxygen Flow Rate (L/min) 2 Oxygen Delivery Method Room Air Weight: 113 kg Body Mass Index (BMI) 44.1 Laboratory Tests Past 24 Hrs 06/02/20 06/02/20 06/02/20 10:00 10:10 10:10 Fibrinogen 479 H D-Dimer Quant (PE/DVT) 2.73 H* Lactic Acid 0.9 Magnesium Ferritin Lactate Dehydrogenase Total Creatine Kinase C-React Prot Ext Range B-Natriuretic Peptide Procalcitonin COVID-19 ([facility]) Negative 06/02/20 06/02/20 06/02/20 10:10 10:10 10:10 Fibrinogen D-Dimer Quant (PE/DVT) Lactic Acid Magnesium 1.9 Ferritin 77 Lactate Dehydrogenase 292 H Total Creatine Kinase 195 H C-React Prot Ext Range 26.80 H B-Natriuretic Peptide 183.8 H Procalcitonin COVID-19 ([facility]) 06/02/20 06/03/20 12:30 10:32 Fibrinogen D-Dimer Quant (PE/DVT) Lactic Acid Magnesium Ferritin Lactate Dehydrogenase Total Creatine Kinase C-React Prot Ext Range B-Natriuretic Peptide Procalcitonin 0.13 H COVID-19 ([place]) Pending - Other Studies Radiology: [] reviewed CT images, mild diffuse changes Other Studies: [] Route of nutrition/ use of supplements: [] Nutritional Intake: [] IV Site: [] Almendarez Catheter: [] - Physical Exam General: Alert, Oriented x3, Cooperative HEENT: Atraumatic, PERRLA, EOMI Neck: Supple, No Nodes Lungs: Clear to auscultation, Normal air movement Cardiovascular: Regular rate, Regular Rhythm Abdomen: Soft, Non Tender, Non-Distended Extremities: No edema Skin: No rashes IV Site: Peripheral, without redness Musculoskeletal: No Tenderness to Palpation of Joints or Extremities Neurological: Cranial nerves II-XII grossly intact - Assessment/Plan Antibiotics: [] Assessment/Plan: [] Active and Suspected Problems Suspected COVID-19 virus infection (Acute) Elevated d-dimer, some hypoxia, no fever overnight, overall feeling ok. No lymphopenia. Increased CRP. Does live with family who recently had several days of headaches. Will repeat covid and do resp pcr panel. With hypoxia, will start dexamethasone. Possible discharge home today or tomorrow if she is feeling better, remains off O2. Would recommend quarantine for 2 weeks at home starting from initial symptoms. Will follow, thank you, d/w Dr. Rowley.
[2020-06-03] MEDS: dexAMETHasone 4 MG Tablet 6 MG PO (11:34)
--- NOTE | 2020-06-03 13:18 | CASEMGMT ---
RN CM Assessment Note Intro role of CM to patient via phone to room. Pt is awake, alert and able to participate in assessment. COVID testing has returned negative x 2. Pt states she is independent, no ambulatory DME and does not anticipate any needs on discharge. Presentation: cough, congestion, fever, chills. Diagnosis: Suspected COVID- testing negative PCP: Dr. Marvin Specialists: None Insurance: [facility]: [facility] Prescription Benefit: yes LNOK: [facility] Living Arrangements: Lives independently, no care needs. Tranportation: drives DME: none HHC: none SNF: none Patient DC Goals: Home DC Plan: Home on discharge today. Patient is on room air. No discharge needs identified. Dino CAMARILLO RN ACM
--- NOTE | 2020-06-03 13:30 | DCINST_ITS ---
- Discharge Diagnoses Current Active Problems: Current Active and Chronic Problems Suspected COVID-19 virus infection (Acute) You will use the following diet at home:: No restrictions Your food should be the consistency of: Regular Your liquids should be the consistency of: Regular/Thin Discharge Activity: Return to Normal Activity Call your doctor if you observe: Fever of 101 or Higher, Shortness of breath Instructions: ED Upper Resp Infec No Abx Tx Additional Instructions: Quarantine for the next week. Wear a mask around others. Allergies/Adverse Reactions: Allergies Sulfa (Sulfonamide Antibiotics) Allergy (Verified 06/02/20 09:23) Rash sulfamethoxazole [From Bactrim] Allergy (Verified 06/02/20 09:23) Rash trimethoprim [From Bactrim] Allergy (Verified 06/02/20 09:23) Rash Medications to take at Discharge Carvedilol 6.25 mg PO BID 09/24/19 Hydrochlorothiazide [Hctz] 12.5 mg PO DAILY 09/24/19 Primary Care Physician: Denise Marvin MD [Primary Care Provider] - 10-14 Days if not better Test Results: Test results from this visit will be discussed in further detail at your follow- up appointment, if applicable. Proposed Discharge Date: 06/03/20
--- NOTE | 2020-06-03 13:32 | PCM.DC.SUM ---
Discharge Date and Diagnosis Date of Admission: 06/02/20 Date of Discharge: 06/03/20 - Primary Discharge Diagnosis Acute Problems: Active Problems acute hypoxic respiratory insufficiency - Secondary Discharge Diagnosis Chronic Problems: Chronic Problems Hypertension (Chronic) Asthma (Chronic) Morbid obesity (Chronic) Hospital Course and Treatment Imaging Results: 06/03/20 05:55 Echo Complete [ECHO] Routine Operations: None Procedures: None Summary of Care Provided: The patient is a 64 year old F presents with headache, fever and was hypoxic at 89% on room air. No clear COVID-19 contacts, COVID-19 test was negative. Seen by ID who recommends patient to quarantine for the next week. Patient is overall improving. Discharge home. Will check an ambulatory pulse ox prior to discharge. [] - Physical Exam Vitals/I&O's: Vital Signs Temp Pulse Resp BP Pulse Ox 36.7 C 100 18 154/85 H 96 06/03/20 12:57 06/03/20 13:29 06/03/20 13:29 06/03/20 12:57 06/03/20 12:57 Oxygen Flow Rate (L/min) 2 Oxygen Delivery Method Room Air Weight: 113 kg Body Mass Index (BMI) 44.1 Intake and Output for Last 24 Hours 06/01/20 06/02/20 06/03/20 23:59 23:59 23:59 Intake Total 2145 / 2145 800 / 800 Output Total 800 / 800 850 / 850 Balance 1345 / 1345 -50 / -50 General: Alert, No apparent distress HEENT: Atraumatic, Normocephalic Oral: Moist Mucosa, No Gingival or Mucosal Lesions/ Ulcerations Neck: No Nodes, Thyroid Normal Size and Texture Lungs: Clear to auscultation, Normal air movement, No rhonchi, No wheeze, No rales Cardiovascular: Regular rate, Regular Rhythm, Normal S1, Normal S2, No murmurs Abdomen: Bowel Sounds Present, Soft, Non Tender, Non-Distended Extremities: No edema, No Calf Tenderness Psych/Mental Status: Normal Affect, Appropriate Microbiology Past 72 Hours 06/02/20 10:00 Urine, Clean Catch Urine Culture - Final Mixed Gram Positive Organisms Laboratory Results 06/03/20 10:32: COVID-19 ([facility]) Not Detected Current Medications Acetaminophen (Tylenol) 650 mg PO Q6H PRN PRN PRN Reason: HEADACHE Last Admin: 06/03/20 10:31 Dose: 650 mg Documented by: Albuterol/Ipratropium (Duoneb) 3 ml INHALATION Q6HWA.RT [facility] Last Admin: 06/03/20 13:28 Dose: 3 ml Documented by: Budesonide (Pulmicort Aerosol) 0.5 mg INHALATION Q12H.RT [facility] Last Admin: 06/03/20 06:59 Dose: 0.5 mg Documented by: Enoxaparin Sodium (Lovenox) 40 mg SC BID [facility] Last Admin: 06/03/20 10:30 Dose: Not Given Documented by: Hydrochlorothiazide (Hctz) 25 mg PO DAILY [facility] Last Admin: 06/03/20 10:29 Dose: 25 mg Documented by: Azithromycin 500 mg/ Dextrose 255 mls @ 250 mls/hr IV Q24 [facility] Last Admin: 06/03/20 12:30 Dose: Not Given Documented by: Ceftriaxone Sodium 2 gm/ (Sodium Chloride) 50 mls @ 100 mls/hr IV Q24 [facility] Last Admin: 06/03/20 12:30 Dose: Not Given Documented by: Sodium Chloride () 10 - 40 ml IV UD PRN PRN Reason: SALINE FLUSH Last Admin: 06/03/20 10:10 Dose: 10 ml Documented by: Discharge Diet: No Restrictions Discharge Activity: Return to Normal Activity Call your doctor if you observe: Fever of 101 or Higher, Shortness of breath Home Medications: Medications to take at Discharge Carvedilol 6.25 mg PO BID 09/24/19 Hydrochlorothiazide [Hctz] 12.5 mg PO DAILY 09/24/19 Primary Care Physician: Denise Marvin MD [Primary Care Provider] - 10-14 Days if not better Patient Instructions: ED Upper Resp Infec No Abx Tx Disposition: Home Minutes spent on discharge:: 32 Patient Condition:: Fair Medical Necessity - Tobacco Use Smoking Status: Never smoker Meaningful Use Info Meaningful Use Diagnoses (Choose all that apply): None applicable Inpatient E&M: 90525 Disch Hosp
--- NOTE | 2020-06-04 13:50 | CASEMGMT ---
[place] [place] DC PHONE CALL DC DATE: 06/03/2020 DC DISPOSITION: Home DC DIAGNOSIS: Hypoxic Resp Insufficiency. COVID testing negative LACE/STRATA: 10 F/U APPTS MADE PRIOR TO DC: No PRESCRIPTIONS ACQUIRED BY PT: no new prescriptions ordered Intro role of CM to patient at home. Pt states she is feeling better but did not know why she was not given prescription for antibiotic on dc. RN CAITY reviewed that she received antibiotic during her stay, but physician note did not mention po antibiotics for discharge. Reviewed symptoms of fever, shortness of breath, worsening cough or return of sputum production (pt stated she had on admission, but had resolved) and to notify PCP if any of these recur. Reviewed that recommendation is patient remain quarantined for 2 weeks on discharge. Patient is able to do this and has people to assist with bringing groceries, etc. No further questions, and patient does not have care improvement suggestions. Dino VALLEN RN ACM
== END 2020-06-03 14:20 | disposition home or self-care (01) | DRG 206 ==
LOC: ED 11:16 → ICU 06-03 07:21
PROVIDERS: Internal Medicine Infectious Disease; Admitting Provider Internal Medicine; Emergency Provider Emergency Medicine; PCP Internal Medicine
DX: R09.02 Hypoxemia (principal); Z68.41 Body mass index [BMI] 40.0-44.9, adult; I16.1 Hypertensive emergency; R06.89 Other abnormalities of breathing; I10 Essential (primary) hypertension; J45.909 Unspecified asthma, uncomplicated; E66.01 Morbid (severe) obesity due to excess calories; Z79.899 Other long term (current) drug therapy; Z03.818 Encounter for observation for suspected exposure to other biological agents ruled out
CPT/HCPCS: 70450; 71045; 71275; 80053; 81001; 82550; 82728; 83605; 83615; 83735; 83880; 84145; 85025; 85379; 85384; 85610; 85730; 86140; 87040; 87086; 87088; 87633; 87635; 93005; 93306; 94640; 94667; 94668; 94799; 99251; 99285; J7030; Q9957; Q9967; A4216; G0463; J0696; U0003

== ENCOUNTER 2020-12-17 15:17 | Emergency (ER) | payer BC, SELFPAY ==
[2020-06-02 13:46] VITALS: BMI 44.1
[2020-12-17 15:18] VITALS: BP 198/104; PULSE 99; RESP 19; TEMP 37.7; O2SAT 92; BMI 44.9
[2020-12-17 15:22] VITALS: BP 187/102
--- NOTE | 2020-12-17 16:07 | ED.VIS.GEN ---
History of Present Illness Chief Complaint: Shortness of Breath Informant: Patient Narrative: 65-year-old female presents with shortness of breath. Patient states that on Wednesday she began to have fever headache diarrhea cough loss of taste/smell. She found out today she tested Covid positive. She states that she went to her doctor's office today and they recommended that she come here because her pulse ox was 91%. She has a history of asthma and hypertension. She uses albuterol MDI. She feels tightness in her chest. Cough nonproductive. - Past Medical History (1) Asthma Status: Chronic (2) Hypertension Status: Chronic (3) Morbid obesity Status: Chronic Past Medical History - Allergies and Home Meds Allergies/Adverse Reactions: Allergies Sulfa (Sulfonamide Antibiotics) Allergy (Verified 12/17/20 15:17) Rash sulfamethoxazole [From Bactrim] Allergy (Verified 12/17/20 15:17) Rash trimethoprim [From Bactrim] Allergy (Verified 12/17/20 15:17) Rash Primary Care Physician: Denise Marvin MD [Primary Care Provider] - Surgical History: - - Cholecystectomy, right knee surgery, foot surgery and use. Smoking Status: Never smoker - Family History Maternal Family History: Reports: - - Patient notes a maternal family history of cancer, unclear type, at the age of 97. Paternal Family History: Reports: - - Patient notes a paternal family history of heart disease. Review of Systems General: Reports: Chills, Fever, Malaise. Denies: Sweats Eyes: Denies: Visual changes - bilaterally, Diplopia ENT: Denies: Rhinorrhea, Sore throat Cardiovascular: Denies: Chest pain, Palpitations Respiratory: Reports: Dyspnea, Cough. Denies: Dyspnea on exertion Gastrointestinal: Reports: Diarrhea. Denies: Abdominal pain, Nausea, Vomiting, Melena, Hematochezia Genitourinary: Denies: Dysuria, Hematuria, Frequency Musculoskeletal: Reports: Myalgias. Denies: Back pain, Extremity Pain Skin: Denies: Rash, Wounds Neurological: Reports: Headache. Denies: Weakness, Numbness Physical Exam Vital Signs/Narrative: Vital Signs Temp Pulse Resp BP Pulse Ox 12/17/20 15:22 187/102 H 12/17/20 15:18 100 F H 99 19 H 198/104 H 92 Inital Vital Signs reviewed: Yes General: Well nourished, Well developed, Obese, No Acute Distress Head: Normocephalic, Atraumatic Eyes: Perrl, EOMI ENT: Moist mucous membranes, No rhinorrhea Neck: Supple, Nontender Cardiovascular: Regular rate, Regular rhythm, No murmurs Respiratory: No distress, CTA bilaterally, Chest nontender Abdomen: Soft, Nontender, Nondistended, Normal bowel sounds Back: Nontender, Normal Inspection Extremities: Nontender, No edema Skin: Normal color, No rash Neurological: Alert, Oriented x3, Cranial nerves II-XII grossly intact, Normal Strength, Normal Sensation Psychological: Normal affect, Normal Mood Diagnostic/Tx/Re-eval Clinical Impression(s) from Imaging Studies Chest X-Ray 12/17/20 16:35 IMPRESSION: No active disease. Electronically Signed: Damien Parr MD at 16:59 EST Tel , Service support , Chest CTA 12/17/20 17:32 IMPRESSION: 1. No CT evidence of pulmonary embolism. 2. Bilateral patchy groundglass opacities which may represent subsegmental atelectasis, pneumonitis, or nodules. 3. Mild mediastinal lymphadenopathy which may be reactive. However, primary tuberculosis should be excluded. Electronically Signed: Damien Parr MD at 18:05 EST Tel , Service support , Laboratory Last Values WBC 7.8 K/mm3 (4.4-11.0) 12/17/20 16: RBC 4.73 M/mm3 (4.2-5.4) 12/17/20 16: Hgb 14.2 g/dL (12.0-15.0) 12/17/20 16: Hct 44.2 % (37-47) 12/17/20 16: MCV 93.4 fL (81-99) 12/17/20 16: MCH 30.0 pg (27.0-32.0) 12/17/20 16: MCHC 32.1 g/dL (32-36) 12/17/20 16:27 RDW Std Deviation 46.5 fl (35.1-43.9) H 12/17/20 16: RDW Coeff of Ximena 13.5 % (11.6-14.6) 12/17/20: Plt Count 228 K/mm3 (150-450) 12/17/20 16: MPV 10.5 fl (6.2-12.0) 12/17/20: Immature Gran % (Auto) 0.300 % (0.0-0.9) 12/17/20 16: Neut % (Auto) 76.5 % (47-70) H 12/17/20 16: Lymph % (Auto) 12.0 % (19-41) L 12/17/20: [place] % (Auto) 10.8 % (0-10) H 12/17/20: Eos % (Auto) 0.1 % (0-5) 12/17/20: Baso % (Auto) 0.3 % (0-1) 12/17/20: Absolute Neuts (auto) 6.0 X10^3/uL (2.0-7.7) 12/17/20 16: Absolute Lymphs (auto) 0.94 X10^3/uL (0.83-4.51) 12/17/20: Nucleated RBC % 0 % (0-5) 12/17/20: Fibrinogen 571 mg/dl (203-444) H 12/17/20 16: D-Dimer Quant (PE/DVT) 0.62 FEU/ug/m (0.27-0.49) H* 12/17/20 16: Sodium 137 mmol/L (136-145) 12/17/20 16: Potassium 3.5 mmol/L (3.5-5.1) 12/17/20 16: Chloride 102 mmol/L (98-107) 12/17/20 16: Carbon Dioxide 32.0 mmol/L (21.0-32.0) 12/17/20 16: Anion Gap 3 (5-15) L 12/17/20: BUN 13 mg/dL (7-18) 12/17/20 16: Creatinine 0.83 mg/dL (0.55-1.02) 12/17/20 16:27 Estim Creat Clear Calc 59.91 ml/min 12/17/20 16: Est GFR (MDRD) Af Amer 89 mL/min (>60) 12/17/20 16: Est GFR (MDRD) Non-Af 74 mL/min (>60) 12/17/20 16: BUN/Creatinine Ratio 15.7 RATIO (10-20) 12/17/20 16: Glucose 103 mg/dL (74-106) 12/17/20 16: Calcium 9.0 mg/dL (8.5-10.1) 12/17/20 16: Total Bilirubin 0.40 mg/dL (0.20-1.00) 12/17/20: AST 33 U/L (15-37) 12/17/20: ALT 46 U/L (13-56) 12/17/20: Alkaline Phosphatase 106 U/L (45-117) 12/17/20: Total Creatine Kinase 265 U/L (26-192) H 12/17/20 16: Troponin I < 0.015 ng/mL (<0.045) 12/17/20: Total Protein 8.1 g/dL (6.4-8.2) 12/17/20: Albumin 3.8 g/dL (3.2-5.0) 12/17/20: Globulin 4.3 g/dL (2.2-4.2) H 12/17/20: Albumin/Globulin Ratio 0.9 RATIO (0.9-2.4) 12/17/20 16: - Medical Decision Making My interpretation of the portable single view chest x-ray is no acute process. CTA demonstrates focal areas of pneumonitis but no pulmonary embolism. The patient has had some desaturations to 86%. She is stable around 90-91 with focus of breathing. Blood work shows a slight elevation in fibrinogen and D-dimer. Her lung sounds are clear. Request see if we can get her set up for home oxygen. If we get her set up on home oxygen I will write for half Decadron because of the elevated fibrinogen and D-dimer we will also set her up for Eliquis for the next 30 days. Risk benefits were discussed with the patient who notes understanding. ED Disposition - Plan for ED Patient: Disposition: Home or Assisted Living Diagnosis: COVID-19, Hypoxemia, Dyspnea Instructions: Coronavirus Disease 2019 (COVID-19): Caring for Yourself or Others Prescriptions: Dexamethasone [Decadron] 6 mg PO DAILY 5 Days #5 tab Prescription Printed Apixaban [Eliquis] 5 mg PO BID #74 tab Prescription Printed Albuterol Inhaler [Ventolin Hfa] 2 puff INHALATION Q4H PRN PRN #1 inhaler PRN Reason: Wheezing Prescription Printed Referrals: Denise Marvin MD [Primary Care Provider] - As Needed
--- NOTE | 2020-12-17 16:35 | RAD_ITS ---
STUDY: X-RAY CHEST REASON FOR EXAM: Female, 65 years old. PT COVID POSITIVE YESTERDAY, SX STARTED WEDNESDAY, INCREASED SOB, FEVER, COUGH, WHEEZING. TECHNIQUE: Single AP portable view of the chest. COMPARISON: 06/02/2020 FINDINGS: The lungs are clear and expanded. Slightly elevated right hemidiaphragm which is unchanged. Normal size heart. Normal mediastinum and renetta. Normal visualized pulmonary arteries. Normal visualized aortic arch and descending thoracic aorta. Normal visualized thoracic spine. Normal visualized ribs, clavicles, and shoulders. There is no demonstrated abnormality of the visualized soft tissue structures of the upper abdomen. RAD/Chest 1 View (Portable) IMPRESSION: No active disease. Electronically Signed: Damien Parr MD at 16:59 EST Tel , Service support ,
[2020-12-17 16:48] LABS: Absolute Lymphocyte Count 0.94 X10^3/uL (0.83-4.51); Basophil# 0.02 X10^3/uL; Basophil% 0.3 % (0-1); Eosinophil# 0.01 X10^3/uL; Eosinophils% 0.1 % (0-5); Hematocrit 44.2 % (37-47); Hemoglobin 14.2 g/dL (12.0-15.0); Lymphocyte # 0.94 X10^3/ul (4.0); Mean Corp Hgb Conc 32.1 g/dL (32-36); Mean Corpuscular Volume 93.4 fL (81-99); Mean Platelet Vol. 10.5 fl (6.2-12.0); Monocyte# 0.85 X10^3/uL; Monocyte% 10.8 % (0-10); NRBC Flagged by Analyzer 0 % (0-5); Neutrophil % 76.5 % (47-70); Platelet Count 228 K/mm3 (150-450); RBC Distribution Width CV 13.5 % (11.6-14.6); RBC Distribution Width SD 46.5 fl (35.1-43.9); Red Blood Count 4.73 M/mm3 (4.2-5.4); White Blood Count 7.8 K/mm3 (4.4-11.0)
[2020-12-17 16:58] LABS: Fibrinogen 571 mg/dl (203-444)
[2020-12-17 17:00] LABS: ALB/GLOB Ratio 0.9 RATIO (0.9-2.4); AST(SGOT) 33 U/L (15-37); Alanine Aminotransfer ALT/SGPT 46 U/L (13-56); Albumin, Serum 3.8 g/dL (3.2-5.0); Alkaline Phosphatase 106 U/L (45-117); Anion Gap 3 (5-15); BUN 13 mg/dL (7-18); BUN/Creat Ratio 15.7 RATIO (10-20); CPK Total, Creatine Kinase 265 U/L (26-192); Chloride 102 mmol/L (98-107); Creatinine, Serum 0.83 mg/dL (0.55-1.02); EST Glomerular Filtration Rate 74 mL/min (>60); Est Glom Filt Rate - Afr Amer 89 mL/min (>60); Estimated Creatinine Clearance 59.91 ml/min; Globulin 4.3 g/dL (2.2-4.2); Glucose 103 mg/dL (74-106); Potassium 3.5 mmol/L (3.5-5.1); Protein, Total 8.1 g/dL (6.4-8.2); Sodium Level 137 mmol/L (136-145)
[2020-12-17 17:17] VITALS: BP 168/100; PULSE 99; RESP 24; O2SAT 92
[2020-12-17] MEDS: Ibuprofen 400 MG Tablet 800 MG PO (17:28)
[2020-12-17 17:32] LABS: D-Dimer Quantitative (DVT/PE) 0.62 FEU/ug/m (0.27-0.49)
--- NOTE | 2020-12-17 17:32 | CT_ITS ---
STUDY: CTA CHEST REASON FOR EXAM: Female, 65 years old. Worsening dyspnea, COVID +, fever, cough, wheezing. Hx hypertension. RADIATION DOSAGE (If Supplied By Facility): CTDIvol = ( 11.45 ) mGy, DLP = ( 514.57 ) mGycm TECHNIQUE: The examination was performed with the intravenous administration of IV 100mL Isovue-370. Post-processing of the angiographic images was performed, with multiplanar reformation and 3D reconstruction. Individualized dose optimization techniques were used for this CT. COMPARISON: 06/02/2020 FINDINGS: Normal enhancement of the main pulmonary artery and right and left pulmonary arteries. Normal enhancement of the bilateral peripheral pulmonary arteries. There is no demonstrated pulmonary embolism. Normal thoracic aorta and visualized great vessels. There is no demonstrated aortic dissection. Normal heart and pericardium. Several mediastinal lymph nodes including precarinal lymph node measuring 1.2 x 1.8 cm a subcarinal lymph node measuring 1.0 x 2.0 cm. Normal hilar regions. Normal visualized trachea and bronchi. The lungs are well expanded. Bilateral patchy groundglass opacities may represent subsegmental atelectasis, pneumonitis, or nodules. Normal pleura. Normal chest wall structures. Normal osseous structures. Normal visualized upper abdomen. CT/CTA Chest W/WO Contrast IMPRESSION: 1. No CT evidence of pulmonary embolism. 2. Bilateral patchy groundglass opacities which may represent subsegmental atelectasis, pneumonitis, or nodules. 3. Mild mediastinal lymphadenopathy which may be reactive. However, primary tuberculosis should be excluded. Electronically Signed: Damien Parr MD at 18:05 EST Tel , Service support ,
--- NOTE | 2020-12-17 18:40 | ED.RN ---
this rn has attempted multiple times to contact [facility] urgent care to obtain pt positive covid results to place on chart. not able to contact
--- NOTE | 2020-12-17 18:45 | CM.ED ---
SOCIAL WORK Informant: Dr. Estrella Reason for Consult: Discharge Planning-Home O2 due to COVID-19 positive Call to patient due to positive COVID-19 precautions. Discussed home O2 needs. Patient reports lives home with family, does not smoke and does not have pulse ox. Patient in agreement with home O2 needs being set up through [employer]. Informed a pulse ox will be provided with portable tank. [facility]'s need for home O2. Worker states a volunteer patient representative will be out to deliver portable tank as one is not available here in the ER. [facility], COVID-19 positive test result and ER physician report faxed to [employer] [facility]. Plan: Home with home O2 through [employer]. Case management notified of patient's discharge with home O2. Fermin Avendaño, LOOM CLEANER, [employer]
--- NOTE | 2020-12-17 18:51 | ED.RN ---
Spoke with Sharon at [facility] urgent care in [place], she is faxing over patients positive COVID results to the ED for patient being sent home with home O2.
[2020-12-17 19:39] VITALS: BP 167/89; PULSE 89; RESP 19; O2SAT 93
--- NOTE | 2020-12-18 13:44 | CASEMGMT ---
Addendum entered by David Moura 12/18/20 14:57: Call received from [facility] pharmacist, Ree, who states the $10 co-pay card would not go through. She was provided with Free 30-day trial offer card information and was able to process the Eliquis. Medication will be free for pt. Original Note: [facility] [place] COVID ER f/u phone call: Pt was @ [facility] ER 12/17/20 and was discharged home w/oxygen. Call placed to pt at this time to inquire about how she is doing. She states she has been wearing the oxygen on/off today, depending on what her oxygen levels have been. She states pulse ox has been showing in 80's at times and then she will put the oxygen on (at 2 L) but states she has not checked it again with the oxygen in place. [place] advised her to also check her oxygen level periodically with the oxygen in place to ensure that it is staying in the 90's. When inquired if she has been having any shortness of breath, she states it is mostly more of wheezing and coughing that has been bothering her, not the SOB. She states she has not gotten her prescriptions filled yet, but she has someone coming to [place] pick[place] the scripts today and will take them to [facility] to have them filled. [place] [place] provided pt with Eliquis savings card info/numbers and instructed on use. She was also provided with this RN CM contact number and instructed to call this RN CM back if there are any issues at the pharmacy with having the prescription filled or with high cost. She voices understanding. [place] advised pt to take the medications as soon as she gets them, as the inhaler and steroid may help with the wheezing and coughing. She was also made aware that the Eliquis is to be taken twice a day, but since it will be later in the day today, to not double-dose it in an attempt to get caught up. She voices understanding. Pt made aware this RN CAITY will be available until 4 PM today and to call if she has any concerns/questions. Otherwise, this RN CAITY will f/u with her again tomorrow to inquire how she is doing. She voices appreciation. Petty CAMARILLO RN, CM
--- NOTE | 2020-12-19 13:35 | CASEMGMT ---
[facility] [place] COVID ER discharge with O2 f/u phone call: Call placed to pt to inquire how she is doing. She states she was able to get her prescriptions yesterday and she is taking them as prescribed. She states she is still having some wheezing and the inhaler is helping. She is still coughing frequently and has some pink-tinged sputum, but this has not changed. She states she was having that when she came into the ER and before starting the Eliquis and the color/frequency has not changed. She has also notified her doctor of this. [place] [place] instructed pt to carefully monitor for any increase in pink-tinged sputum. She was made aware that if she would notice any bright red blood in her sputum or blood/bleeding elsewhere to notify her PCP or to come to the ED. She voices understanding. She states her pulse ox has been maintaining close to 90 on RA and then when she has the O2 on, it has been around 94%. She states she has been sleeping sitting up, as it helps with the frequent coughing and has been wearing the O2 @ HS as it helps her feel better. She denies having any SOB when ambulating/with exertion. Pt states she has been having some eye pain. She denies any change in her vision or headache. ALL[place] [place] informed pt this may be d/t the frequent coughing. Pt was advised to notify her MD if she would notice any vision changes or other concerns. She voices understanding. She denies further questions/concerns. Petty CAMARILLO RN, CM
--- NOTE | 2020-12-20 11:34 | CASEMGMT ---
[facility] [place] COVID ER discharge with O2 f/u phone call: Call placed to pt and inquired how she is doing today. She states she is hanging in there and states breathing is about the same. She is still wearing the oxygen intermittently during the day and @ HS. She states pulse ox occasionally will be 91-92% RA at times, but if it drops down, then she will apply the oxygen and pulse ox comes up to low 90's. She states she is still coughing a lot, but that she just got a nebulizer (ordered by Dr Marvin) with Albuterol and is going to start using that. It is ordered for Q 6 hrs. Education provided with pt that this is the same medication as was ordered via inhaler by ER MD and that she should use one or the other, not both. She voices understanding and appreciation of this information. She states she is still having some pink-tinged sputum but it is getting contracts manager. Her eye pain is improving. She states she has 2 more tabs of Decadron remaining and inquired if she should call her doctor to have more prescribed. [place] [place] advised her to take it Sat and Sun as ordered, and if by Wednesday if she does not feel any improvement or continues to have a lot of coughing/wheezing to f/u with her PCP at that time. She denies having other questions and denies concerns. Petty CAMARILLO RN, CM
== END 2020-12-17 19:58 | disposition home or self-care (01) ==
PROVIDERS: Emergency Provider Emergency Medicine; PCP Internal Medicine
DX: U07.1 COVID-19 (principal); R09.02 Hypoxemia; R06.02 Shortness of breath; I10 Essential (primary) hypertension; J45.909 Unspecified asthma, uncomplicated; E66.01 Morbid (severe) obesity due to excess calories; Z79.51 Long term (current) use of inhaled steroids; Z79.899 Other long term (current) drug therapy
CPT/HCPCS: 71045; 71275; 80053; 82550; 84484; 85025; 85379; 85384; 99284; Q9967; A4216

== ENCOUNTER 2023-02-08 17:00 | Inpatient (IN) | payer MEDICARE, SELFPAY ==
[2023-02-08] VITALS (11 sets, daily range): BP systolic 136–174; BP diastolic 86–133; PULSE 60–165; RESP 17–29; TEMP 36.2–37.3; O2SAT 91–98; BMI 46.2; BMI 45.3
--- NOTE | 2023-02-08 17:39 | ED.VIS.DYS ---
HPI History of Present Illness Chief Complaint: Palpitations Narrative Narrative: 67-year-old female presenting in new onset A-fib. This was presumed by her primary care physician who saw her in office and noted that her heart rate was tachycardic and possibly irregular. She did not perform an EKG in office. Patient states that she has a history of asthma but notes that over the last couple of weeks she has been very dyspneic with exertion. She is walking shorter distance. She states she only sleeps a little bit elevated at night. She does note lower extremity edema. She is not able to tell me she had a weight change. She states she has not been eating as much as she normally does. No chest pain. Patient states she was previously on Eliquis during COVID as a preventative measure to prevent blood clots. She states he has not had one. No fevers or chills. No history of A-fib. [facility] Medical History Asthma Cholecystectomy planned HTN (hypertension) Morbid obesity Home Medications carvedilol 6.25 mg tablet 6.25 mg PO BID BP 09/24/19 [History Last Taken 02/08/23] hydrochlorothiazide 25 mg tablet 12.5 mg PO DAILY bp 09/24/19 [History Last Taken 02/08/23] albuterol sulfate 90 mcg/actuation aerosol inhaler 2 puff IH Q4H PRN PRN Wheezing 12/17/20 [History Last Taken 02/08/23] losartan 25 mg tablet 25 mg PO DAILY 12/17/20 [History Last Taken 02/08/23] L.acidophilus-L.plantarum-B.animalis-B.longum 2 billion cell capsule (Probiotic Acidophilus Beads) 1 cap PO DAILY 02/08/23 [History Last Taken 02/08/23] albuterol sulfate 2.5 mg/3 mL (0.083 %) solution for nebulization 2.5 mg continuous nebulization Q6H PRN SOB 02/08/23 [History Last Taken 02/08/23] dicyclomine 10 mg capsule 10 mg PO ACHS . 02/08/23 [History Last Taken 02/08/23] multivitamin 1 tab PO DAILY 02/08/23 [History Last Taken 02/08/23] omega-3 fatty acids 1,000 mg PO DAILY 02/08/23 [History Last Taken 02/08/23] psyllium husk-calcium 1 gram-60 mg capsule (Metamucil Plus Calcium) 1 cap PO DAILY 02/08/23 [History Last Taken 02/08/23] Allergy/AdvReac Type Severity Reaction Status Date / Time Sulfa (Sulfonamide Allergy Rash Verified 02/08/23 17:03 Antibiotics) sulfamethoxazole Allergy Rash Verified 02/08/23 17:03 [From Bactrim] trimethoprim [From Bactrim] Allergy Rash Verified 02/08/23 17:03 Family History (Updated 02/08/23 @ 21:[address] Nargis Cochran DO) Other Diabetes Hypertension Social History (Updated 02/08/23 @ 21:[address] Nargis Cochran DO) household members: spouse housing: house Smoking Status: Never smoker alcohol intake: never substance use type: does not use ROS ROS ED Constitutional Constitutional ED: Denies chills or fever(s) Eyes Eyes: Denies change in vision or diplopia ENT ENT ED: Denies rhinorrhea or sore throat Cardiovascular Cardiovascular: Reports palpitations and racing heartbeat; Denies chest pain Respiratory/Chest Respiratory/Chest: Reports cough and dyspnea Gastrointestinal Gastrointestinal: Denies abdominal pain, nausea or vomiting Genitourinary Genitourinary ED: Denies dysuria or hematuria Musculoskeletal Musculoskeletal: Denies arthralgias Integumentary Denies abscess or Abrasions Neurologic Neurologic: Denies headache(s) Psychiatric Psychiatric: Denies anxiety or depression EXAM Physical Exam Const Vital Signs: 02/08/23 17:01 02/08/23 17:25 02/08/23 17:28 Temperature 97.2 F L Temperature Source Temporal Pulse Rate 60 139 H Respiratory Rate 18 Respiratory Effort Blood Pressure 165/133 H Blood Pressure Mean 143 Pulse Ox 98 96 Oxygen Delivery Method Room Air Room Air 02/08/23 17:28 02/08/23 17:43 02/08/23 17:47 Temperature Temperature Source Pulse Rate 165 H 94 Respiratory Rate 24 H 24 H Respiratory Effort Short of Breath Blood Pressure 174/132 H 145/93 H Blood Pressure Mean 146 110 Pulse Ox 98 95 Oxygen Delivery Method Room Air Room Air 02/08/23 18:00 02/08/23 19:33 04/10/23 20:19 Temperature Temperature Source Pulse Rate 109 H 110 H 133 H Respiratory Rate 29 H 24 H 18 Respiratory Effort Blood Pressure 155/86 H 174/103 H 169/105 H Blood Pressure Mean 109 126 126 Pulse Ox 92 91 Oxygen Delivery Method Room Air Room Air Positive well nourished and obese General Appearance ED: NAD; Negative for pallor Nutritional Appearance: obese HEENT Reports moist mucous membranes atraumatic Eyes PERRL and EOMs intact bilaterally Resp normal respiratory effort Auscultation: Negative for rales, rhonchi or wheezes Cardio Rate: tachycardic Rhythm: abnormal rhythm irregularly irregular Back/Spine no CVA tenderness Extremity General Extremety ED: Yes edema; Negative for tenderness General Extremity: edema Neuro oriented x3 and CN's II-XII intact bilaterally Motor Exam: strength 5/5 throughout Psych mental status grossly normal Skin no wounds General Skin Exam: Negative for jaundice or pallor MDM MDM MDM Narrative Medical decision making narrative: 67-year-old female presenting with shortness of breath. She also has lower extremity edema, dyspnea with exertion which is worse. She is in A-fib. EKG was obtained and on my interpretation she is in atrial fibrillation at a rate of 139 bpm. Differential diagnosis ACS, PE, pneumonia, CHF, asthma flare. Most likely patient has been in atrial fibrillation at a rapid ventricular rate and is post into heart failure. CBC to assess white blood cell count, hemoglobin, platelet, differential. BMP to assess renal function, electrolytes, glucose, anion gap. High-sensitivity troponin presents for cardiac senior. BNP was used to assess for CHF. Chest x-ray will be obtained due to shortness of breath to rule out pneumonia versus heart failure. Cardizem 25 mg IV was given to the patient for rate control. D-dimer was added to rule out PE. Repeat EKG A-fib at [address] elevations or depressions. Chest x-ray showing interstitial edema on my interpretation. Radiologist are present and agrees and states it could be an atypical pneumonia versus interstitial past. White blood cell count 15.5. Hemoglobin 13.3, micro 44.3, platelets 280. Potassium slightly low at 3.2. Renal function within normal limits. Glucose 121. BNP elevated at 4.1. D-dimer elevated 1.9 therefore patient had a CTA of the chest performed which shows pleural effusions there is also a small pericardial effusion. No PEs or dissection. Patient's heart rate did become fast again she was given 20 of Cardizem. At this point she was given 25 mg of her home carvedilol. Her blood pressure has been elevated. This will need to be monitored. Patient with new onset A-fib likely pushed into CHF she will need admission and treatment. Discussed with hospitalist. She requested rapid COVID and rapid influenza as well as viral respiratory panel. This was performed. Patient mated stable condition. Impression: 1. Acute CHF 2. A-fib with RVR 3. Leukocytosis 4. Dyspnea Lab Data Labs: Laboratory Results - last 24 hr 02/08/23 02/08/23 02/08/23 17:22 17:22 17:22 WBC 15.5 H RBC 4.67 Hgb 13.3 Hct 44.3 MCV 94.9 MCH 28.5 MCHC 30.0 L RDW Std Deviation 49.8 H RDW Coeff of Ximena 14.3 Plt Count 280 MPV 11.9 Immature Gran % (Auto) 0.500 Neut % (Auto) 76.5 H Lymph % (Auto) 14.4 L Garrett % (Auto) 7.5 Eos % (Auto) 0.6 Baso % (Auto) 0.5 Absolute Neuts (auto) 11.9 H Absolute Lymphs (auto) 2.24 Nucleated RBC % 0 D-Dimer Quant (PE/DVT) 1.90 H* Sodium 141 Potassium 3.2 L Chloride 103 Carbon Dioxide 34.0 H Anion Gap 4 L BUN 13 Creatinine 0.88 Estim Creat Clear Calc 55.04 Est GFR (MDRD) Af Amer 83 Est GFR (MDRD) Non-Af 68 BUN/Creatinine Ratio 14.8 Glucose 121 H Calcium 10.0 Troponin I High Sens 16 B-Natriuretic Peptide 02/08/23 17:22 WBC RBC Hgb Hct MCV MCH MCHC RDW Std Deviation RDW Coeff of Ximena Plt Count MPV Immature Gran % (Auto) Neut % (Auto) Lymph % (Auto) Garrett % (Auto) Eos % (Auto) Baso % (Auto) Absolute Neuts (auto) Absolute Lymphs (auto) Nucleated RBC % D-Dimer Quant (PE/DVT) Sodium Potassium Chloride Carbon Dioxide Anion Gap BUN Creatinine Estim Creat Clear Calc Est GFR (MDRD) Af Amer Est GFR (MDRD) Non-Af BUN/Creatinine Ratio Glucose Calcium Troponin I High Sens B-Natriuretic Peptide 504.1 H Radiography Diagnostic Testing: Clinical Impression(s) from Imaging Studies Chest X-Ray 02/08/23 17:41 IMPRESSION: Interstitial opacities in the lung bases, possible atypical pneumonia. Electronically Signed: Gregory Styles MD at 18:04 EDT , Chest CTA 02/08/23 18:49 IMPRESSION: No pulmonary embolism or aortic dissection. Small pericardial effusion. Trace right pleural effusion and right basilar atelectasis. Mosaic attenuation appearance of the lungs, atelectasis, edema or air trapping. Persistent enlarged mediastinal lymph nodes. Small ascites. Electronically Signed: Gregory Styles MD at 20:07 EDT , Discharge Plan Disposition Disposition: Acute Care Hospital [facility] Discharge Date/Time: 02/08/23 22:12
--- NOTE | 2023-02-08 17:41 | RAD_ITS ---
INDICATION: Chest pain. EXAMINATION/TECHNIQUE: X-RAY - XR Chest 1 View COMPARISON: December 17, 2020 chest x-ray. FINDINGS: LINES/DEVICES: None. LUNGS: Interstitial thickening/opacities in the lung bases. Low lung volumes, elevation of the rectum. No pneumothorax. MEDIASTINUM AND CARDIOVASCULAR STRUCTURES: Cardiac silhouette mildly enlarged, stable. Aortic calcification unchanged. Pulmonary vascularity unchanged. BONES AND SOFT TISSUES: Stable degenerative changes. RAD/Chest 1 View (Portable) IMPRESSION: Interstitial opacities in the lung bases, possible atypical pneumonia. Electronically Signed: Gregory Styles MD at 18:04 EDT ,
[2023-02-08] MEDS: dilTIAZem 25 MG/5 ML Vial IV BOLUS (17:42)
[2023-02-08 18:00] LABS: Absolute Lymphocyte Count 2.24 X10^3/uL (0.83-4.51); Absolute Neutrophil Count 11.9 X10^3/uL (2.0-7.7); Basophil# 0.07 X10^3/uL; Basophil% 0.5 % (0-1); Eosinophil# 0.09 X10^3/uL; Eosinophils% 0.6 % (0-5); Hematocrit 44.3 % (37-47); Hemoglobin 13.3 g/dL (12.0-15.0); Lymphocyte # 2.24 X10^3/ul (0.83-4.51); Lymphocyte % 14.4 % (19-41); Mean Corpuscular Hgb 28.5 pg (27.0-32.0); Mean Corpuscular Volume 94.9 fL (81-99); Mean Platelet Vol. 11.9 fl (6.2-12.0); Monocyte# 1.16 X10^3/uL; Monocyte% 7.5 % (0-10); NRBC Flagged by Analyzer 0 % (0-5); Neutrophil % 76.5 % (47-70); Platelet Count 280 K/mm3 (150-450); RBC Distribution Width CV 14.3 % (11.6-14.6); RBC Distribution Width SD 49.8 fl (35.1-43.9); Red Blood Count 4.67 M/mm3 (4.2-5.4); White Blood Count 15.5 K/mm3 (4.4-11.0)
[2023-02-08 18:06] LABS: Anion Gap 4 (5-15); BUN 13 mg/dL (7-18); BUN/Creat Ratio 14.8 RATIO (10-20); Chloride 103 mmol/L (98-107); Creatinine, Serum 0.88 mg/dL (0.55-1.02); EST Glomerular Filtration Rate 68 mL/min (>60); Est Glom Filt Rate - Afr Amer 83 mL/min (>60); Estimated Creatinine Clearance 55.04 ml/min; Glucose 121 mg/dL (74-106); Potassium 3.2 mmol/L (3.5-5.1); Sodium Level 141 mmol/L (136-145); Troponin-I HS (w/2H Reflex) 16 pg/mL (3.0-54.0)
[2023-02-08 18:37] LABS: BNP,B-Type NATRIURETIC PEPTIDE 504.1 pg/mL (0-100)
--- NOTE | 2023-02-08 18:49 | CT_ITS ---
STUDY: CTA CHEST REASON FOR EXAM: Female, 67 years old. Chest pain. Dyspnea. RADIATION DOSAGE (If Supplied By Facility): CTDIvol = ( 14.93 ) mGy, DLP = ( 471.42 ) mGycm TECHNIQUE: The examination was performed with the intravenous administration of IV 100 mL [id number]. Post-processing of the angiographic images was performed, with multiplanar reformation and 3D reconstruction. Individualized dose optimization techniques were used for this CT. COMPARISON: CTA chest December 17, 2020. Chest x-ray February 08, 2023. FINDINGS: Upper normal caliber. Normal enhancement of the main pulmonary artery and right and left pulmonary arteries. Normal enhancement of the bilateral peripheral pulmonary arteries. There is no demonstrated pulmonary embolism. Normal caliber thoracic aorta and visualized great vessels. No dissection. Mild cardiomegaly. Small pericardial effusion. No significant coronary artery calcification. Mild central pulmonary venous congestion. Elevation of the right hemidiaphragm. Trace right pleural effusion. Scattered groundglass opacities, mosaic attenuation appearance of the lungs. Right basilar atelectasis. No focal consolidation. No pneumothorax. Mildly enlarged mediastinal lymph nodes. Small hilar lymph nodes. Trachea and esophagus are unremarkable. Thyroid gland is unremarkable. Small ascites surrounding the liver. Degenerative changes without acute osseous injury. CT/CTA Chest W/WO Contrast IMPRESSION: No pulmonary embolism or aortic dissection. Small pericardial effusion. Trace right pleural effusion and right basilar atelectasis. Mosaic attenuation appearance of the lungs, atelectasis, edema or air trapping. Persistent enlarged mediastinal lymph nodes. Small ascites. Electronically Signed: Gregory Styles MD at 20:07 EDT ,
[2023-02-08] MEDS: dilTIAZem 25 MG/5 ML Vial 20 MG IV BOLUS (20:17)
--- NOTE | 2023-02-08 20:38 | PCM.HP.STD ---
HPI - General General Date of Admission: 02/08/23 Date of Service: 02/08/23 Chief Complaint: Palpitations HPI Narrative MAGUI PULIDO, is a 67 F who presented to see department at [facility] due to worsening lower extremity swelling. Patient states over the last 2 weeks she is developed more swelling in her lower extremities, shortness of breath with exertion and she feels that now the swelling is moved up and she has some tightness in her abdomen. She is never had this before. She does have a history of sleep apnea for which she has a CPAP but has not been compliant with this as it is a new machine and she has not been able to get set up as of yet. She has no history of atrial fibrillation. She denies any fever or chills associated with this, she has a chronic cough its been ongoing for proximately 3 years but has not really complained to anybody else with regards to this. It does appear her blood pressures are chronically elevated. Patient does report she is compliant with her home antihypertensives. Upon presentation she was found to be in new onset A-fib with RVR. Vital signs on presentation demonstrated temperature of 97.2, heart rate 139 with a max of 165. At the time of my evaluation heart rate rate was in the low 100s to 110 range. Blood pressure has been elevated in the 160s to 170s over 80s to 100s, respiratory rate has been anywhere from 18-29 and oxygen saturations have been anywhere from 91-95 on room air. CBC shows a leukocytosis with a white count of 15.5 and a left shift that 76.5% neutrophilia but was otherwise unremarkable. Chemistry panel shows mild hypokalemia with potassium of 3.2 and an elevated serum bicarb at 34. This appears to be close to her baseline. Her glucose was slightly elevated at 121. Initial troponin was 16. BNP was elevated at 504.1. Chest x-ray showed interstitial opacities in the lung bases. They did obtain a D-dimer which was elevated and therefore CTA of her chest was performed and showed no pulmonary embolism, small pericardial effusion, trace right pleural effusion with right basilar atelectasis, pulmonary edema, chronically enlarged mediastinal lymph nodes and small ascites. EKG shows A-fib with RVR, normal intervals and no ST-T wave changes concerning for acute ischemia. The emergency department she was given Cardizem and request for admission was made. [facility] Medical History Asthma Cholecystectomy planned HTN (hypertension) Morbid obesity Home Medications carvedilol 6.25 mg tablet 6.25 mg PO BID BP 09/24/19 [History Last Taken 02/08/23] hydrochlorothiazide 25 mg tablet 12.5 mg PO DAILY bp 09/24/19 [History Last Taken 02/08/23] albuterol sulfate 90 mcg/actuation aerosol inhaler 2 puff IH Q4H PRN PRN Wheezing 12/17/20 [History Last Taken 02/08/23] losartan 25 mg tablet 25 mg PO DAILY 12/17/20 [History Last Taken 02/08/23] L.acidophilus-L.plantarum-B.animalis-B.longum 2 billion cell capsule (Probiotic Acidophilus Beads) 1 cap PO DAILY 02/08/23 [History Last Taken 02/08/23] albuterol sulfate 2.5 mg/3 mL (0.083 %) solution for nebulization 2.5 mg continuous nebulization Q6H PRN SOB 02/08/23 [History Last Taken 02/08/23] dicyclomine 10 mg capsule 10 mg PO ACHS . 02/08/23 [History Last Taken 02/08/23] multivitamin 1 tab PO DAILY 02/08/23 [History Last Taken 02/08/23] omega-3 fatty acids 1,000 mg PO DAILY 02/08/23 [History Last Taken 02/08/23] psyllium husk-calcium 1 gram-60 mg capsule (Metamucil Plus Calcium) 1 cap PO DAILY 02/08/23 [History Last Taken 02/08/23] Allergy/AdvReac Type Severity Reaction Status Date / Time Sulfa (Sulfonamide Allergy Rash Verified 02/08/23 17:03 Antibiotics) sulfamethoxazole Allergy Rash Verified 02/08/23 17:03 [From Bactrim] trimethoprim [From Bactrim] Allergy Rash Verified 02/08/23 17:03 Family History (Updated 02/08/23 @ 21:[address] Nargis Cochran DO) Other Diabetes Hypertension no surgical history Social History (Updated 02/08/23 @ 21:[address] Nargis Cochran DO) household members: spouse housing: house Smoking Status: Never smoker alcohol intake: never substance use type: does not use ROS Constitutional Constitutional: Reports fatigue and weakness; Denies anorexia, change in weight, chills, fever(s), malaise, night sweats or other Eyes Eyes: Denies blurry vision, change in eye color, change in vision, discharge from eye(s), double vision, erythema, eye pain, loss of vision or other ENT HEENT: Denies abnormal hearing, dysphagia, ear pain, epistaxis, headache(s), hearing loss, nasal congestion, nasal discharge, post nasal drip, sinus pressure, sore throat or other Cardiovascular Cardiovascular: Reports dyspnea on exertion, edema, orthopnea and palpitations; Denies chest pain, claudication, lightheadedness, paroxysmal nocturnal dyspnea, rapid heart rate, syncope or other Respiratory/Chest Respiratory/Chest: Reports cough, dyspnea, shortness of breath at rest and shortness of breath with exertion; Denies excessive phlegm production, hemoptysis, productive cough, wheezing or other Gastrointestinal Gastrointestinal: Reports other Details: Patient notes some swelling in the abdomen that has progressively gotten worse with time ; Denies abdominal pain, coffee ground emesis, constipation, diarrhea, dyspepsia, hematemesis, hematochezia, loose stools, melena, nausea or vomiting Musculoskeletal Musculoskeletal: Denies arthralgias, back pain, joint pain, joint stiffness, joint swelling, myalgias, neck pain or other Psychiatric Psychiatric: Denies anxiety, depression, homicidal ideation, suicidal ideation or other Endocrine Endocrinology: Denies change in body appearance, cold intolerance, excessive sweating, heat intolerance, polydipsia, polyuria or other Hematologic/Lymphatic Hematologic/Lymphatic: Denies anemia, easy bleeding, easy bruising, lymphadenopathy or other Allergic/Immunologic Allergic/Immunologic: Denies rhinitis, hives, eczemia, asthma or other Vital Signs Vital Signs Vital Signs: 02/08/23 17:01 02/08/23 17:25 02/08/23 17:28 Temperature 97.2 F L Temperature Source Temporal Pulse Rate 60 139 H Respiratory Rate 18 Respiratory Effort Blood Pressure 165/133 H Blood Pressure Mean 143 Pulse Ox 98 96 Oxygen Delivery Method Room Air Room Air 02/08/23 17:28 02/08/23 17:43 02/08/23 17:47 Temperature Temperature Source Pulse Rate 165 H 94 Respiratory Rate 24 H 24 H Respiratory Effort Short of Breath Blood Pressure 174/132 H 145/93 H Blood Pressure Mean 146 110 Pulse Ox 98 95 Oxygen Delivery Method Room Air Room Air 02/08/23 18:00 02/08/23 19:33 02/08/23 20:19 Temperature Temperature Source Pulse Rate 109 H 110 H 133 H Respiratory Rate 29 H 24 H 18 Respiratory Effort Blood Pressure 155/86 H 174/103 H 169/105 H Blood Pressure Mean 109 126 126 Pulse Ox 92 91 Oxygen Delivery Method Room Air Room Air Weight Weight: 122.2 kg Body Mass Index (BMI) 46.2 Physical Exam Const alert, oriented x3, no apparent distress and well nourished Constitutional Narrative: Morbidly obese, upper middle-aged white female, sitting up in bed, family at bedside, patient appears comfortable and nontoxic at this time General Appearance: cooperative HEENT normocephalic, head/scalp atraumatic, hearing grossly normal bilaterally and moist oral mucous membranes HEENT Narrative: Marion 3, no thrush, dentition is good Eyes PERRL, EOMs intact bilaterally and conjunctivae normal Eyes Narrative: No scleral icterus Neck no lymphadenopathy, supple, No no JVD and no carotid bruits Neck Narrative: Mild JVD, trachea is midline, no thyroid enlargement or nodules noted on exam Resp no retractions and no use of accessory muscles Resp Narrative: Few crackles at the bases bilaterally, very mild tachypnea Auscultation: crackles; Negative for rhonchi or wheezes Cardio S1 normal heart sound, S2 normal heart sound, no murmurs, no rub, no gallops and no clicks; Negative for regular rate or regular rhythm Cardio Narrative: Mild tachycardia with irregularly irregular rhythm GI normal to inspection, nondistended, normoactive bowel sounds, soft to palpation and non-tender Extremity Extremity Narrative: 2+ bilateral lower extremity pitting edema, no cyanosis or clubbing Skin no rashes or lesions noted, no wounds, skin turgor normal, no jaundice, no petechiae and no mottling Neuro oriented x3, CN's II-XII intact bilaterally, moves all extremities and no focal motor deficits Speech: speech normal Motor Exam: strength 5/5 throughout Psych affect normal Psych Narrative: Very pleasant, appropriately interactive Results Lab / Micro Data Attestation: I reviewed the patient's lab results. Result Diagrams: 02/08/23 17:22 02/08/23 17:22 Labs: Laboratory Results - last 24 hr 02/08/23 17:22: WBC 15.5 H, RBC 4.67, Hgb 13.3, Hct 44.3, MCV 94.9, MCH 28.5, MCHC 30.0 L, RDW Std Deviation 49.8 H, RDW Coeff of Ximena 14.3, Plt Count 280, MPV 11.9, Immature Gran % (Auto) 0.500, Neut % (Auto) 76.5 H, Lymph % (Auto) 14.4 L, Mckean % (Auto) 7.5, Eos % (Auto) 0.6, Baso % (Auto) 0.5, Absolute Neuts (auto) 11.9 H, Absolute Lymphs (auto) 2.24, Nucleated RBC % 0 02/08/23 17:22: Sodium 141, Potassium 3.2 L, Chloride 103, Carbon Dioxide 34.0 H, Anion Gap 4 L, BUN 13, Creatinine 0.88, Estim Creat Clear Calc 55.04, Est GFR (MDRD) Af Amer 83, Est GFR (MDRD) Non-Af 68, BUN/Creatinine Ratio 14.8, Glucose 121 H, Calcium 10.0, Troponin I High Sens 16 02/08/23 17:22: D-Dimer Quant (PE/DVT) 1.90 H* 02/08/23 17:22: B-Natriuretic Peptide 504.1 H Radiology Impression Chest X-Ray 02/08/23 17:41 IMPRESSION: Interstitial opacities in the lung bases, possible atypical pneumonia. Electronically Signed: Gregory Styles MD at 18:04 EDT , Chest CTA 02/08/23 18:49 IMPRESSION: No pulmonary embolism or aortic dissection. Small pericardial effusion. Trace right pleural effusion and right basilar atelectasis. Mosaic attenuation appearance of the lungs, atelectasis, edema or air trapping. Persistent enlarged mediastinal lymph nodes. Small ascites. Electronically Signed: Gregory Styles MD at 20:07 EDT , Assessment & Plan Assessment/Plan (1) Hypertension: QUALIFIERS: Hypertension type: essential hypertension Qualified Code(s): I10 - Essential (primary) hypertension (2) Paroxysmal atrial fibrillation with RVR: (3) Acute heart failure with preserved ejection fraction (HFpEF): (4) Hypokalemia: (5) Leukocytosis: (6) Elevated d-dimer: (7) Hyperglycemia: PLAN: Plan New onset A-fib with RVR -Recommend improved compliance with CPAP -Current heart rates after 2 doses of Cardizem are in the low 100s to 110 -Patient is on Coreg at home and has plenty of blood pressure so we will increase this from 6.25 twice daily to 25 p.o. twice daily with a dose given now -Start Eliquis -Check echocardiogram -Patient has previous echocardiogram from June 03, 2020 that shows an EF of 60%, mildly enlarged left atrium and stage II diastolic dysfunction with normal valves -Check TSH -Patient overall will likely not tolerate A-fib with RVR well with her marked diastolic dysfunction at baseline and blood pressures are still elevated so improved control with this needs to be addressed Acute decompensated HFpEF -Secondary to the development of A-fib and diastolic dysfunction -Check echo as above -Daily weights -Fluid restrict -Sodium restriction -Bilateral lower extremity Butch bandages -Check TSH -Lasix 40 mg IV push twice daily Uncontrolled hypertension -Patient has been on Coreg 6.25 mg p.o. twice daily as well as losartan 25 mg p.o. twice daily at home -Stage II diastolic dysfunction noted on echocardiogram from 2019 -Review of our data with regard to her blood pressure shows chronically elevated blood pressure -Continue losartan as above -Increase Coreg to 25 mg p.o. twice daily to help with blood pressure and rate control -Recommend improved compliance with CPAP as this may improve her blood pressure control as well Leukocytosis -Etiology unclear -Suspect reactive -Viral etiology work-up pending Elevated D-dimer -CTA of the chest was negative for any PE -With lower extremity edema we will check ultrasound however patient will be started on Eliquis but dosing change would need to be pursued with loading dose if patient does have VTE Hypokalemia -40 mill equivalents p.o. potassium given -Repeat lab in a.m. -Check a.m. magnesium level -We will have to monitor closely with initiation of diuretics Hyperglycemia -Mild -Check hemoglobin A1c DEBRA -Patient has CPAP machine but has not yet started utilizing -Patient to bring in CPAP machine and will initiate here -Strongly recommend improved compliance with treatment for her sleep apnea Asthma -As needed albuterol IBS -Continue home dicyclomine Morbid obesity -BMI is 46.2 -Recommend weight loss -Complicates treatment, prognosis, outcomes -Suspect some of this is fluid weight related to heart failure as above CODE STATUS Full code Charges/Coding Visit Charges Inpatient E&M: 71753 Init Hosp L3
[2023-02-08] MEDS: Carvedilol 25 MG Tablet PO (21:38)
--- NOTE | 2023-02-08 22:19 | VDLE_ITS ---
Reason For Study: Swelling RIGHT LEFT GSV is normal. GSV is normal. CFV is compressible, spontaneous, phasic, CFV is compressible, spontaneous, phasic, competent and demonstrates normal competent, and demonstrates normal augmentation. augmentation. FV is compressible, spontaneous, phasic, FV is compressible, spontaneous, phasic, competent and demonstrates normal competent and demonstrates normal augmentation. augmentation. POP V is compressible, spontaneous, phasic, POP V is compressible, spontaneous, phasic, competent and demonstrates normal competent and demonstrates normal augmentation. augmentation. T/P Trunk is compressible. T/P Trunk is compressible. PTV is compressible. PTV is compressible. RT PerV is compressible. LT PerV is compressible. Procedure This is a venous duplex using B-mode, color flow and spectral Doppler. Exam performed portable in patient room. A preliminary report was called and/or faxed to [facility]. VL/Venous Duplex US - Justin Extrem Interpretation Summary Deep veins of the bilateral lower extremities are patent and compressible segme ntally. There is no evidence of bilateral lower extremity deep vein thrombosis. The bilateral great saphenous veins appear patent and compressible segmentally Ordering Physician: Nargis Cochran Referring Physician: Denise Marvin Performed By: Azeb Addison RVT
--- NOTE | 2023-02-08 22:19 | ECHOD_ITS ---
Reason For Study: New Onset AFib Procedure This was a 2D Doppler, Color Flow transthoracic echocardiogram. Exam performed portable in patient room. Left Ventricle Normal LV size. Mild concentric left ventricular hypertrophy. The left ventricular ejection fraction is 55 %. Unable to assess diastolic dysfunction due to arrhythmia. Right Ventricle Normal right ventricle. Atria The left atrium is severely enlarged. The right atrium is moderately enlarged. Bubble contrast study is negative for PFO/ASD. Mitral Valve Mild (1+) mitral valve insufficiency. Tricuspid Valve Moderate (2+) tricuspid valve insufficiency. Pulmonary artery systolic pressure is 46 mmHg. Mild pulmonary hypertension. Aortic Valve Trisinus/trileaflet aortic valve. Trivial aortic valve insufficiency. Pulmonic Valve The pulmonic valve is not well visualized. Great Vessels Normal sized aortic root. Pericardium/Pleural No pericardial effusion. Medication Performed a rapid injection of agitated mix of 9 cc saline and 1cc air to assess for atrial septal defect. MMode/2D Measurements & Calculations LVIDd: 4.9 cm IVSd: 1.5 cm Ao root diam: 3.5 cm LVIDs: 2.9 cm LVPWd: 1.2 cm LA dimension: 4.8 cm RVDd: 4.1 cm FS: 40.5 % LAV(MOD-bp): 80.4 ml LA A4 area: 24.5 cm2 RA A4 area: 18.6 cm2 LAV(MOD-bp) Indexed: 36.5 ml/m2 LAV(MOD-sp2): 84.5 ml LAV(MOD-sp4): 76.8 ml Doppler Measurements & Calculations MV E max henrry: 89.7 cm/sec MV V2 max: 92.1 cm/sec Ao V2 max: 126.4 cm/sec MV max P.5 mmHg Ao max P.4 mmHg MV V2 mean: 55.9 cm/sec Ao V2 mean: 91.9 cm/sec MV mean P.5 mmHg Ao mean P.7 mmHg MV V2 VTI: 21.6 cm Ao V2 VTI: 19.8 cm AV (velocity ratio): 0.83 LV V1 max: 90.9 cm/sec MR max henrry: 514.2 cm/sec PA V2 max: 91.2 cm/sec LV V1 max P.3 mmHg MR max P.8 mmHg LV V1 mean P.8 mmHg MR mean henrry: 461.1 cm/sec LV V1 mean: 62.5 cm/sec MR mean P.2 mmHg LV V1 VTI: 16.4 cm MR VTI: 172.9 cm TR max henrry: 321.3 cm/sec TR max P.3 mmHg ECHO/Echo Complete Interpretation Summary Mild concentric left ventricular hypertrophy. The left ventricular ejection fraction is 55 %. Unable to assess diastolic dysfunction due to arrhythmia. The left atrium is severely enlarged. Mild (1+) mitral valve insufficiency. Moderate (2+) tricuspid valve insufficiency. Mild pulmonary hypertension. The right atrium is moderately enlarged. Ordering Physician: Nargis Cochran Referring Physician: Denise Marvin Performed By: Hung Richard RCS
[2023-02-08 23:35] LABS: Troponin-I HS 19 pg/mL (3.0-54.0)
[2023-02-08] MEDS: APIXABAN 5 MG TABLET PO (23:57)
[2023-02-08] MEDS: Furosemide 40 MG/4 ML Vial IV (23:58)
[2023-02-09 01:34] LABS: Troponin-I HS 17 pg/mL (3.0-54.0)
--- NOTE | 2023-02-09 01:41 | CPS ---
Pt is on home cpap unit with a 2L 02 bleed in
[2023-02-09 03:39] VITALS: BP 134/111; PULSE 90; RESP 16; TEMP 36.9; O2SAT 97
[2023-02-09 04:09] VITALS: BMI 45.3
[2023-02-09 05:16] LABS: Absolute Lymphocyte Count 2.29 X10^3/uL (0.83-4.51); Absolute Neutrophil Count 10.2 X10^3/uL (2.0-7.7); Basophil# 0.06 X10^3/uL; Basophil% 0.4 % (0-1); Eosinophil# 0.06 X10^3/uL; Eosinophils% 0.4 % (0-5); Hematocrit 39.3 % (37-47); Hemoglobin 11.9 g/dL (12.0-15.0); Lymphocyte # 2.29 X10^3/ul (0.83-4.51); Lymphocyte % 16.7 % (19-41); Mean Corp Hgb Conc 30.3 g/dL (32-36); Mean Corpuscular Hgb 28.5 pg (27.0-32.0); Mean Corpuscular Volume 94.2 fL (81-99); Mean Platelet Vol. 11.4 fl (6.2-12.0); Monocyte# 1.05 X10^3/uL; Monocyte% 7.7 % (0-10); NRBC Flagged by Analyzer 0 % (0-5); Neutrophil # 10.18 X10^3/uL (2.7-7.7); Neutrophil % 74.4 % (47-70); Platelet Count 223 K/mm3 (150-450); RBC Distribution Width CV 14.4 % (11.6-14.6); RBC Distribution Width SD 49.7 fl (35.1-43.9); Red Blood Count 4.17 M/mm3 (4.2-5.4); White Blood Count 13.7 K/mm3 (4.4-11.0)
[2023-02-09 05:48] LABS: Troponin-I HS 17 pg/mL (3.0-54.0)
[2023-02-09 06:35] LABS: BUN 12 mg/dL (7-18); Creatinine, Serum 0.82 mg/dL (0.55-1.02); EST Glomerular Filtration Rate 75 mL/min (>60); Estimated Creatinine Clearance 59.06 ml/min; Glucose 97 mg/dL (74-106)
[2023-02-09 06:36] LABS: ALB/GLOB Ratio 0.9 RATIO (0.9-2.4); AST(SGOT) 46 U/L (15-37); Alanine Aminotransfer ALT/SGPT 30 U/L (13-56); Albumin, Serum 3.1 g/dL (3.2-5.0); Alkaline Phosphatase 127 U/L (45-117); Anion Gap 2 (5-15); BUN/Creat Ratio 14.7 RATIO (10-20); Calcium,Total 9.6 mg/dL (8.5-10.1); Chloride 104 mmol/L (98-107); Cholesterol 141 mg/dL (200); Est Glom Filt Rate - Afr Amer 90 mL/min (>60); Globulin 3.5 g/dL (2.2-4.2); High Density Lipoprotein 29 mg/dL; Magnesium 1.8 mg/dL (1.6-2.6); Phosphorus 3.3 mg/dL (2.5-4.9); Potassium 3.2 mmol/L (3.5-5.1); Protein, Total 6.6 g/dL (6.4-8.2); Sodium Level 141 mmol/L (136-145); Thyroid Stim Hormone (TSH) 2.33 uIU/mL (0.358-3.74); Triglycerides 99 mg/dL; Very Low Density Lipoprotein 20 mg/dL (5-40)
[2023-02-09 08:03] LABS: Hemoglobin A1c 5.4 % (3.8-5.6)
[2023-02-09] MEDS: Multivitamins,Therapeutic Tablet 1 TABLET PO (08:55)
[2023-02-09] MEDS: 0.9% Saline Lock 10 ML Syringe IV ×2 (09:00→17:52)
[2023-02-09] MEDS: Psyllium 1 PACKET PO (09:01)
[2023-02-09] MEDS: APIXABAN 5 MG TABLET PO ×2 (09:01→21:35)
[2023-02-09] MEDS: Carvedilol 25 MG Tablet PO ×2 (09:01→21:35)
[2023-02-09] MEDS: Furosemide 40 MG/4 ML Vial IV ×2 (09:01→17:52)
[2023-02-09] MEDS: Losartan Potassium 25 MG Tablet PO (09:01)
[2023-02-09 09:30] VITALS: BP 152/124; PULSE 109; RESP 18; TEMP 36.7; O2SAT 95
--- NOTE | 2023-02-09 10:19 | PCM.PN.HOSP ---
Reason for Visit Reason for Visit: Diagnoses Elevated white blood cell count, unspecified (02/08/23) Hypokalemia (02/08/23) Essential (primary) hypertension (02/08/23) Paroxysmal atrial fibrillation (02/08/23) Acute diastolic (congestive) heart failure (02/08/23) Hyperglycemia, unspecified (02/08/23) Other specified abnormal findings of blood chemistry (02/08/23) Subjective Subjective Still some swelling in her legs and some shortness of breath and intermittent productive cough Objective Data Objective Data Vital Signs: Vital Signs Temp Pulse Resp BP Pulse Ox O2 Del Method O2 Flow Rate 98.4 F 90 16 134/111 H 97 Nasal Cannula 2 02/09/23 03:39 02/09/23 03:39 02/09/23 03:39 02/09/23 03:39 02/09/23 03:39 02/09/23 09:11 02/09/23 09:11 Oxygen Flow Rate (L/min) 2 Oxygen Delivery Method Nasal Cannula Weight: 119.9 kg Body Mass Index (BMI) 45.3 Intake & Output: Intake and Output for Last 24 Hours 02/07/23 02/08/23 02/09/23 23:59 23:59 23:59 Output Total 1400 / 1400 Balance -1400 / -1400 Lab / Micro Data Result Diagrams: 02/09/23 04:58 02/09/23 04:58 Labs: Laboratory Results - last 24 hr 02/08/23 17:22: WBC 15.5 H, RBC 4.67, Hgb 13.3, Hct 44.3, MCV 94.9, MCH 28.5, MCHC 30.0 L, RDW Std Deviation 49.8 H, RDW Coeff of Ximena 14.3, Plt Count 280, MPV 11.9, Immature Gran % (Auto) 0.500, Neut % (Auto) 76.5 H, Lymph % (Auto) 14.4 L, [place] % (Auto) 7.5, Eos % (Auto) 0.6, Baso % (Auto) 0.5, Absolute Neuts (auto) 11.9 H, Absolute Lymphs (auto) 2.24, Nucleated RBC % 0 02/08/23 17:22: Sodium 141, Potassium 3.2 L, Chloride 103, Carbon Dioxide 34.0 H, Anion Gap 4 L, BUN 13, Creatinine 0.88, Estim Creat Clear Calc 55.04, Est GFR (MDRD) Af Amer 83, Est GFR (MDRD) Non-Af 68, BUN/Creatinine Ratio 14.8, Glucose 121 H, Calcium 10.0, Troponin I High Sens 16 02/08/23 17:22: D-Dimer Quant (PE/DVT) 1.90 H* 02/08/23 17:22: B-Natriuretic Peptide 504.1 H 02/08/23 22:50: Troponin I High Sens 19 02/09/23 01:10: Troponin I High Sens 17 02/09/23 04:58: Hemoglobin A1c 5.4 02/09/23 04:58: WBC 13.7 H, RBC 4.17 L, Hgb 11.9 L, Hct 39.3, MCV 94.2, MCH 28.5, MCHC 30.3 L, RDW Std Deviation 49.7 H, RDW Coeff of Ximena 14.4, Plt Count 223, MPV 11.4, Immature Gran % (Auto) 0.400, Neut % (Auto) 74.4 H, Lymph % (Auto) 16.7 L, [place] % (Auto) 7.7, Eos % (Auto) 0.4, Baso % (Auto) 0.4, Absolute Neuts (auto) 10.2 H, Absolute Lymphs (auto) 2.29, Nucleated RBC % 0 02/09/23 04:58: Sodium 141, Potassium 3.2 L, Chloride 104, Carbon Dioxide 35.0 H, Anion Gap 2 L, BUN 12, Creatinine 0.82, Estim Creat Clear Calc 59.06, Est GFR (MDRD) Af Amer 90, Est GFR (MDRD) Non-Af 75, BUN/Creatinine Ratio 14.7, Glucose 97, Calcium 9.6, Phosphorus 3.3, Magnesium 1.8, Total Bilirubin 0.80, AST 46 H, ALT 30, Alkaline Phosphatase 127 H, Total Protein 6.6, Albumin 3.1 L, Globulin 3.5, Albumin/Globulin Ratio 0.9, Triglycerides 99, Cholesterol 141, LDL Cholesterol 92, VLDL Cholesterol 20, HDL Cholesterol 29 L, TSH 2.33 02/09/23 04:58: Troponin I High Sens 17 Micro: Microbiology 02/08/23 20:52 Nasal Secretion SARS-CoV-2 & FLU Antigen (Rapid) - Final Radiography Diagnostic Testing: Radiology Impression Chest X-Ray 02/08/23 17:41 IMPRESSION: Interstitial opacities in the lung bases, possible atypical pneumonia. Electronically Signed: Gregory Styles MD at 18:04 EDT , Chest CTA 02/08/23 18:49 IMPRESSION: No pulmonary embolism or aortic dissection. Small pericardial effusion. Trace right pleural effusion and right basilar atelectasis. Mosaic attenuation appearance of the lungs, atelectasis, edema or air trapping. Persistent enlarged mediastinal lymph nodes. Small ascites. Electronically Signed: Gregory Styles MD at 20:07 EDT , Physical Exam Narrative General: Alert, oriented, no apparent distress HEENT: Atraumatic, normocephalic Eyes: Anicteric, normal conjunctiva, extraocular movements grossly intact Neck: Supple Respiratory: Somewhat diminished at the bases, normal respiratory effort Cardiovascular: Irregularly irregular GI: Soft, nontender, nondistended Extremities: 1+ bilateral lower extremity edema Musculoskeletal: Moving all extremities Neuro: No overt focal neurological deficits Skin: No rashes appreciated Psych: Cooperative Assessment & Plan Assessment/Plan (1) Hypertension: QUALIFIERS: Hypertension type: essential hypertension Qualified Code(s): I10 - Essential (primary) hypertension (2) Paroxysmal atrial fibrillation with RVR: (3) Acute heart failure with preserved ejection fraction (HFpEF): (4) Hypokalemia: (5) Leukocytosis: (6) Elevated d-dimer: (7) Hyperglycemia: PLAN: Plan #New onset A-fib with RVR -Recommend improved compliance with CPAP -Current heart rates after 2 doses of Cardizem are in the low 100s to 110 -Patient is on Coreg at home and has plenty of blood pressure so we will increase this from 6.25 twice daily to 25 p.o. twice daily with a dose given now -Start Eliquis -Check echocardiogram -Patient has previous echocardiogram from June 03, 2020 that shows an EF of 60%, mildly enlarged left atrium and stage II diastolic dysfunction with normal valves -Check TSH -Patient overall will likely not tolerate A-fib with RVR well with her marked diastolic dysfunction at baseline and blood pressures are still elevated so improved control with this needs to be addressed -02/09: Given persistently elevated heart rate and blood pressure will give an additional 12.5 of Coreg and monitor how she does, echo pending. Continue to monitor on telemetry #Acute decompensated HFpEF -Secondary to the development of A-fib and diastolic dysfunction -Check echo as above -Daily weights -Fluid restrict -Sodium restriction -Bilateral lower extremity Butch bandages -Check TSH -Lasix 40 mg IV push twice daily -02/09: Continue daily weights and current dose of Lasix, distal of some swelling in lower extremities. Echo pending #Uncontrolled hypertension -Patient has been on Coreg 6.25 mg p.o. twice daily as well as losartan 25 mg p.o. twice daily at home -Stage II diastolic dysfunction noted on echocardiogram from 2019 -Review of our data with regard to her blood pressure shows chronically elevated blood pressure -Continue losartan as above -Increase Coreg to 25 mg p.o. twice daily to help with blood pressure and rate control -Recommend improved compliance with CPAP as this may improve her blood pressure control as well -02/09: Added Coreg dose as above, will continue to adjust medications #Leukocytosis -Etiology unclear -Suspect reactive -Viral etiology work-up pending -02/09: Respiratory panel pending, COVID-negative, downtrending without antibiotics, low suspicion for infection #Elevated D-dimer -CTA of the chest was negative for any PE -With lower extremity edema we will check ultrasound however patient will be started on Eliquis but dosing change would need to be pursued with loading dose if patient does have VTE -02/09: Lower extremity duplex also negative for DVT, continue current dose of Eliquis Hypokalemia -40 mill equivalents p.o. potassium given -Repeat lab in a.m. -Check a.m. magnesium level -We will have to monitor closely with initiation of diuretics -02/09: Replaced Hyperglycemia -Mild -Check hemoglobin A1c -02/09: Hemoglobin A1c 5.4 #DEBRA -Patient has CPAP machine but has not yet started utilizing -Patient to bring in CPAP machine and will initiate here -Strongly recommend improved compliance with treatment for her sleep apnea #Asthma -As needed albuterol #IBS -Continue home dicyclomine #Morbid obesity -BMI is 46.2 -Recommend weight loss -Complicates treatment, prognosis, outcomes -Suspect some of this is fluid weight related to heart failure as above DVT ppx: eliquis Charges/Coding Visit Charges Inpatient E&M: 80164 Subs Hosp L2
--- NOTE | 2023-02-09 10:35 | CASEMGMT ---
RN CM Face to Face with patient for initial transition planning/care coordination assessment. RN CM introduced self and role at [facility]. Patient sitting in chair, alert and oriented. Patient willing to participate in assessment and is able to answer all questions appropriately. Care providers, pharmacy, and demographics verified. Patient wishes to discharge home, denies need for home health at this time. Patient states she has no further needs or concerns at this time. CM to follow for discharge planning needs that may arise. PCP: Shavonne Specialists: none Preferred Pharmacy: [facility] Insurance: [employer] [facility] Prescription Benefit: yes Living Will/HPOA: yes, son Kleber [place] LNOK: son Living Arrangements: Patient lives with son and granddaughter in a single story home with 4 steps to enter the home. Patient states she is independent at home. Transportation: self, son DME/HHC: Patient has grab bars, cpap, nebulizer, and [employer] at 2lpm at . No previous HHC or SNF. Will monitor for increase in home oxygen. Disposition Plan: Patient to discharge home with family support and follow-up plans in place. Azeb CAMARILLO, RN, CM
[2023-02-09] MEDS: Potassium Chloride Oral Tablet 20 MEQ 40 MEQ PO ×2 (12:22)
[2023-02-09] MEDS: Carvedilol 12.5 MG Tablet PO (13:26)
[2023-02-09 13:35] VITALS: O2SAT 92
--- NOTE | 2023-02-09 13:35 | CPS ---
Patient has 2lpm oxygen bled in to her own CPAP
[2023-02-09 15:30] VITALS: BP 140/66; PULSE 97; RESP 18; TEMP 36.5; O2SAT 97
[2023-02-09 21:30] VITALS: BP 150/105; PULSE 86; RESP 16; TEMP 36.6; O2SAT 96
[2023-02-10 04:16] VITALS: BP 127/100; PULSE 101; RESP 18; TEMP 36.6; O2SAT 96
[2023-02-10 06:00] VITALS: BMI 44.6
[2023-02-10 06:23] LABS: Absolute Lymphocyte Count 2.37 X10^3/uL (0.83-4.51); Absolute Neutrophil Count 8.9 X10^3/uL (2.0-7.7); Basophil# 0.06 X10^3/uL; Basophil% 0.5 % (0-1); Eosinophil# 0.13 X10^3/uL; Hematocrit 42.6 % (37-47); Hemoglobin 12.8 g/dL (12.0-15.0); Lymphocyte # 2.37 X10^3/ul (0.83-4.51); Mean Corpuscular Hgb 28.7 pg (27.0-32.0); Mean Corpuscular Volume 95.5 fL (81-99); Mean Platelet Vol. 11.7 fl (6.2-12.0); Monocyte# 0.98 X10^3/uL; Monocyte% 7.8 % (0-10); NRBC Flagged by Analyzer 0 % (0-5); Neutrophil # 8.89 X10^3/uL (2.7-7.7); Neutrophil % 71.2 % (47-70); Platelet Count 238 K/mm3 (150-450); RBC Distribution Width CV 14.3 % (11.6-14.6); RBC Distribution Width SD 49.7 fl (35.1-43.9); Red Blood Count 4.46 M/mm3 (4.2-5.4); White Blood Count 12.5 K/mm3 (4.4-11.0)
[2023-02-10 06:42] LABS: Anion Gap 2 (5-15); BUN 14 mg/dL (7-18); BUN/Creat Ratio 16.2 RATIO (10-20); Calcium,Total 9.6 mg/dL (8.5-10.1); Chloride 102 mmol/L (98-107); Creatinine, Serum 0.86 mg/dL (0.55-1.02); EST Glomerular Filtration Rate 70 mL/min (>60); Est Glom Filt Rate - Afr Amer 85 mL/min (>60); Estimated Creatinine Clearance 56.32 ml/min; Glucose 88 mg/dL (74-106); Potassium 3.1 mmol/L (3.5-5.1); Sodium Level 141 mmol/L (136-145)
[2023-02-10 08:21] VITALS: O2SAT 98
[2023-02-10 08:21] LABS: Magnesium 1.7 mg/dL (1.6-2.6)
[2023-02-10 10:00] VITALS: BP 140/96; PULSE 87; RESP 18; TEMP 36.5; O2SAT 95
[2023-02-10] MEDS: Potassium Chloride Oral Tablet 20 MEQ 60 MEQ PO (10:10)
[2023-02-10] MEDS: Carvedilol 25 MG Tablet 37.5 MG PO ×2 (10:12→21:15)
[2023-02-10] MEDS: Multivitamins,Therapeutic Tablet 1 TABLET PO (10:12)
[2023-02-10] MEDS: APIXABAN 5 MG TABLET PO ×2 (10:13→21:15)
[2023-02-10] MEDS: Losartan Potassium 25 MG Tablet PO (10:13)
[2023-02-10] MEDS: Furosemide 40 MG Tablet PO (10:17)
--- NOTE | 2023-02-10 12:20 | PN.HOSP_ITS ---
Reason for Visit Reason for Visit: Diagnoses Elevated white blood cell count, unspecified (02/08/23) Hypokalemia (02/08/23) Essential (primary) hypertension (02/08/23) Paroxysmal atrial fibrillation (02/08/23) Acute diastolic (congestive) heart failure (02/08/23) Hyperglycemia, unspecified (02/08/23) Other specified abnormal findings of blood chemistry (02/08/23) Subjective Subjective Still some shortness of breath and leg swelling but is slowly beginning to feel better. Still has some cough Objective Data Objective Data Vital Signs: Vital Signs Temp Pulse Resp BP Pulse Ox O2 Del Method O2 Flow Rate 97.7 F L 87 18 140/96 H 95 Room Air 2 02/10/23 10:00 02/10/23 10:00 02/10/23 10:00 02/10/23 10:00 02/10/23 10:00 02/10/23 10:00 02/10/23 08:21 Oxygen Flow Rate (L/min) 2 Oxygen Delivery Method Room Air Weight: 118.1 kg Body Mass Index (BMI) 44.6 Intake & Output: Intake and Output for Last 24 Hours 02/08/23 02/09/23 02/10/23 23:59 23:59 23:59 Output Total 3900 / 3900 200 / 200 Balance -3900 / -3900 -200 / -200 Lab / Micro Data Result Diagrams: 02/10/23 05:22 02/10/23 05:22 Labs: Laboratory Results - last 24 hr 02/10/23 05:22: WBC 12.5 H, RBC 4.46, Hgb 12.8, Hct 42.6, MCV 95.5, MCH 28.7, MCHC 30.0 L, RDW Std Deviation 49.7 H, RDW Coeff of Ximena 14.3, Plt Count 238, MPV 11.7, Immature Gran % (Auto) 0.500, Neut % (Auto) 71.2 H, Lymph % (Auto) 19.0, [place] % (Auto) 7.8, Eos % (Auto) 1.0, Baso % (Auto) 0.5, Absolute Neuts (auto) 8.9 H, Absolute Lymphs (auto) 2.37, Nucleated RBC % 0 02/10/23 05:22: Sodium 141, Potassium 3.1 L, Chloride 102, Carbon Dioxide 37.0 H , Anion Gap 2 L, BUN 14, Creatinine 0.86, Estim Creat Clear Calc 56.32, Est GFR (MDRD) Af Amer 85, Est GFR (MDRD) Non-Af 70, BUN/Creatinine Ratio 16.2, Glucose 88, Calcium 9.6 02/10/23 05:22: Magnesium 1.7 Micro: Microbiology 02/08/23 20:52 Mucosa - Nasopharyngeal Respiratory Panel (PCR) - Final 02/08/23 20:52 Nasal Secretion SARS-CoV-2 & FLU Antigen (Rapid) - Final Radiography Diagnostic Testing: Radiology Impression Echocardiogram 02/08/23 22:19 Interpretation Summary Mild concentric left ventricular hypertrophy. The left ventricular ejection fraction is 55 %. Unable to assess diastolic dysfunction due to arrhythmia. The left atrium is severely enlarged. Mild (1+) mitral valve insufficiency. Moderate (2+) tricuspid valve insufficiency. Mild pulmonary hypertension. The right atrium is moderately enlarged. Ordering Physician: Nargis Cochran Referring Physician: Denise Marvin Performed By: Hung Richard RCS Physical Exam Narrative General: Alert, oriented, no apparent distress HEENT: Atraumatic, normocephalic Eyes: Anicteric, normal conjunctiva, extraocular movements grossly intact Neck: Supple Respiratory: Somewhat diminished at the bases, normal respiratory effort Cardiovascular: Irregularly irregular GI: Soft, nontender, nondistended Extremities: 1+ bilateral lower extremity edema Musculoskeletal: Moving all extremities Neuro: No overt focal neurological deficits Skin: No rashes appreciated Psych: Cooperative Assessment & Plan Assessment/Plan (1) Hypertension: QUALIFIERS: Hypertension type: essential hypertension Qualified Code(s): I10 - Essential (primary) hypertension (2) Paroxysmal atrial fibrillation with RVR: (3) Acute heart failure with preserved ejection fraction (HFpEF): (4) Hypokalemia: (5) Leukocytosis: (6) Elevated d-dimer: (7) Hyperglycemia: PLAN: Plan #New onset A-fib with RVR -Recommend improved compliance with CPAP -Current heart rates after 2 doses of Cardizem are in the low 100s to 110 -Patient is on Coreg at home and has plenty of blood pressure so we will increase this from 6.25 twice daily to 25 p.o. twice daily with a dose given now -Start Eliquis -Check echocardiogram -Patient has previous echocardiogram from June 03, 2020 that shows an EF of 60%, mildly enlarged left atrium and stage II diastolic dysfunction with normal valves -Check TSH -Patient overall will likely not tolerate A-fib with RVR well with her marked di astolic dysfunction at baseline and blood pressures are still elevated so improved control with this needs to be addressed -02/09: Given persistently elevated heart rate and blood pressure will give an additional 12.5 of Coreg and monitor how she does, echo pending. Continue to monitor on telemetry -02/10: Improving, increased Coreg #Acute decompensated HFpEF -Secondary to the development of A-fib and diastolic dysfunction -Check echo as above -Daily weights -Fluid restrict -Sodium restriction -Bilateral lower extremity Butch bandages -Check TSH -Lasix 40 mg IV push twice daily -02/09: Continue daily weights and current dose of Lasix, distal of some swelling in lower extremities. Echo pending -02/10: Echo resulted with EF of 55%, moderate tricuspid valve insufficiency, mild pulmonary hypertension, unable to comment on diastolic function. Lasix changed to p.o. today. Patient tolerates oral Lasix and heart rate under control with present medication may be able to DC tomorrow #Uncontrolled hypertension -Patient has been on Coreg 6.25 mg p.o. twice daily as well as losartan 25 mg p.o. twice daily at home -Stage II diastolic dysfunction noted on echocardiogram from 2019 -Review of our data with regard to her blood pressure shows chronically elevated blood pressure -Continue losartan as above -Increase Coreg to 25 mg p.o. twice daily to help with blood pressure and rate control -Recommend improved compliance with CPAP as this may improve her blood pressure control as well -02/09: Added Coreg dose as above, will continue to adjust medications #Leukocytosis -Etiology unclear -Suspect reactive -Viral etiology work-up pending -02/09: Respiratory panel pending, COVID-negative, downtrending without antibiotics, low suspicion for infection -02/10: Downtrending #Elevated D-dimer -CTA of the chest was negative for any PE -With lower extremity edema we will check ultrasound however patient will be started on Eliquis but dosing change would need to be pursued with loading dose if patient does have VTE -02/09: Lower extremity duplex also negative for DVT, continue current dose of Eliquis Hypokalemia -40 mill equivalents p.o. potassium given -Repeat lab in a.m. -Check a.m. magnesium level -We will have to monitor closely with initiation of diuretics -02/09: Replaced Hyperglycemia -Mild -Check hemoglobin A1c -02/09: Hemoglobin A1c 5.4 #DEBRA -Patient has CPAP machine but has not yet started utilizing -Patient to bring in CPAP machine and will initiate here -Strongly recommend improved compliance with treatment for her sleep apnea #Asthma -As needed albuterol #IBS -Continue home dicyclomine #Morbid obesity -BMI is 46.2 -Recommend weight loss -Complicates treatment, prognosis, outcomes -Suspect some of this is fluid weight related to heart failure as above DVT ppx: eliquis Charges/Coding Visit Charges Inpatient E&M: 62935 Subs Hosp L2
[2023-02-10] MEDS: 0.9% Saline Lock 10 ML Syringe IV (15:08)
[2023-02-10 15:25] VITALS: BP 121/69; PULSE 99; RESP 16; TEMP 36.6; O2SAT 95
[2023-02-10 21:30] VITALS: BP 139/103; PULSE 92; RESP 16; TEMP 36.8; O2SAT 95
[2023-02-11] VITALS (7 sets, daily range): BP systolic 109–155; BP diastolic 74–118; PULSE 70–105; RESP 15–20; TEMP 36.5–36.8; O2SAT 91–96; BMI 44.6
[2023-02-11 05:49] LABS: Absolute Lymphocyte Count 2.35 X10^3/uL (0.83-4.51); Absolute Neutrophil Count 8.7 X10^3/uL (2.0-7.7); Basophil# 0.06 X10^3/uL; Basophil% 0.5 % (0-1); Eosinophil# 0.12 X10^3/uL; Hematocrit 40.2 % (37-47); Hemoglobin 12.7 g/dL (12.0-15.0); Lymphocyte # 2.35 X10^3/ul (0.83-4.51); Lymphocyte % 19.2 % (19-41); Mean Corp Hgb Conc 31.6 g/dL (32-36); Mean Corpuscular Hgb 29.6 pg (27.0-32.0); Mean Corpuscular Volume 93.7 fL (81-99); Mean Platelet Vol. 11.4 fl (6.2-12.0); Monocyte% 8.2 % (0-10); NRBC Flagged by Analyzer 0 % (0-5); Neutrophil # 8.66 X10^3/uL (2.7-7.7); Neutrophil % 70.8 % (47-70); Platelet Count 234 K/mm3 (150-450); RBC Distribution Width CV 14.4 % (11.6-14.6); RBC Distribution Width SD 49.8 fl (35.1-43.9); Red Blood Count 4.29 M/mm3 (4.2-5.4); White Blood Count 12.2 K/mm3 (4.4-11.0)
[2023-02-11 06:14] LABS: Anion Gap 3 (5-15); BUN 17 mg/dL (7-18); BUN/Creat Ratio 20.6 RATIO (10-20); Calcium,Total 9.2 mg/dL (8.5-10.1); Chloride 104 mmol/L (98-107); Creatinine, Serum 0.83 mg/dL (0.55-1.02); EST Glomerular Filtration Rate 74 mL/min (>60); Est Glom Filt Rate - Afr Amer 89 mL/min (>60); Estimated Creatinine Clearance 58.35 ml/min; Glucose 89 mg/dL (74-106); Magnesium 2.1 mg/dL (1.6-2.6); Potassium 3.2 mmol/L (3.5-5.1); Sodium Level 141 mmol/L (136-145)
[2023-02-11] MEDS: Potassium Chloride Oral Tablet 20 MEQ 60 MEQ PO (08:21)
[2023-02-11] MEDS: Carvedilol 25 MG Tablet 50 MG PO (08:22)
[2023-02-11] MEDS: Furosemide 40 MG Tablet PO (08:23)
[2023-02-11] MEDS: Losartan Potassium 25 MG Tablet PO (08:23)
[2023-02-11] MEDS: Multivitamins,Therapeutic Tablet 1 TABLET PO (08:23)
[2023-02-11] MEDS: APIXABAN 5 MG TABLET PO ×2 (08:23→22:49)
--- NOTE | 2023-02-11 09:20 | PCM.CONS.C ---
Assessment & Plan Assessment/Plan (1) Atrial fibrillation with rapid ventricular response: PLAN: Start on diltiazem 60 mg every 6 hours. Decrease carvedilol back to 25 mg twice daily. Continue Eliquis for prophylaxis of thromboembolic phenomenon. Discussed with patient. Risks and benefits of chronic oral anticoagulation discussed. She understands and agrees. (2) Hypertension: QUALIFIERS: Hypertension type: essential hypertension Qualified Code(s): I10 - Essential (primary) hypertension PLAN: Uncontrolled. Add diltiazem as noted above. Start losartan. Continue diuretics. (3) Acute heart failure with preserved ejection fraction (HFpEF): PLAN: Change Lasix to IV. Start on SGLT2 inhibitors. For ventricular rate control. (4) Morbid obesity: PLAN: Lose weight. (5) Hypokalemia: PLAN: Replace as per internal medicine. HPI Consult Data Date of Consult: 02/11/23 HPI Narrative Reason for Consultation: Atrial fibrillation HPI Narrative: The patient presented to the hospital with complaints of progressive swelling of her lower extremities over the last 4 weeks. Also complaining of increasing shortness of breath with exertion. No chest pain. In the hospital, she was noted to have atrial fibrillation. Her beta-horacio dose has since been escalated however her ventricular rate is still not controlled. We have therefore been consulted. Patient denies any palpitations. She has obstructive sleep apnea and sleeps with CPAP. Echocardiogram done showed normal left ventricular systolic function. Mild pulmonary hypertension noted. Severely dilated left atrium. [facility] Medical History (Updated 02/11/23 @ 09:[address] Douglas Russo MD) Asthma Cholecystectomy planned HTN (hypertension) Morbid obesity Home Medications carvedilol 6.25 mg tablet 6.25 mg PO BID BP 09/24/19 [History Last Taken 02/08/23] hydrochlorothiazide 25 mg tablet 12.5 mg PO DAILY bp 09/24/19 [History Last Taken 02/08/23] albuterol sulfate 90 mcg/actuation aerosol inhaler 2 puff IH Q4H PRN PRN Wheezing 12/17/20 [History Last Taken 02/08/23] losartan 25 mg tablet 25 mg PO DAILY 12/17/20 [History Last Taken 02/08/23] L.acidophilus-L.plantarum-B.animalis-B.longum 2 billion cell capsule (Probiotic Acidophilus Beads) 1 cap PO DAILY 02/08/23 [History Last Taken 02/08/23] albuterol sulfate 2.5 mg/3 mL (0.083 %) solution for nebulization 2.5 mg continuous nebulization Q6H PRN SOB 02/08/23 [History Last Taken 02/08/23] dicyclomine 10 mg capsule 10 mg PO ACHS . 02/08/23 [History Last Taken 02/08/23] multivitamin 1 tab PO DAILY 02/08/23 [History Last Taken 02/08/23] omega-3 fatty acids 1,000 mg PO DAILY 02/08/23 [History Last Taken 02/08/23] psyllium husk-calcium 1 gram-60 mg capsule (Metamucil Plus Calcium) 1 cap PO DAILY 02/08/23 [History Last Taken 02/08/23] Allergy/AdvReac Type Severity Reaction Status Date / Time Sulfa (Sulfonamide Allergy Rash Verified 02/08/23 17:03 Antibiotics) sulfamethoxazole Allergy Rash Verified 02/08/23 17:03 [From Bactrim] trimethoprim [From Bactrim] Allergy Rash Verified 02/08/23 17:03 Family History (Updated 02/08/23 @ 21:[address] Nargis Cochran DO) Other Diabetes Hypertension Surgical History no surgical history Social History (Updated 02/08/23 @ 21:[address] Nargis Cochran DO) household members: spouse housing: house Smoking Status: Never smoker alcohol intake: never substance use type: does not use Physical Exam Narrative Obese. Comfortable. No apparent distress. Positive jugular venous distention. Heart sounds 1 and 2 noted. Irregularly irregular. Chest clear to auscultation bilaterally. Abdomen soft. Alert oriented x3. 3+ bilateral lower extremity edema. Risk Stratification Risk Stratification Applicable: No Objective Data Vital Signs: Vital Signs Temp Pulse Resp BP Pulse Ox O2 Del Method O2 Flow Rate 98.1 F 100 15 155/86 H 91 Room Air 2 02/11/23 08:17 02/11/23 08:17 02/11/23 08:17 02/11/23 08:17 02/11/23 08:17 02/11/23 08:32 02/10/23 08:21 Oxygen Flow Rate (L/min) 2 Oxygen Delivery Method Room Air Weight: 259 lb 11.272 oz Body Mass Index (BMI) 44.6 Intake & Output: Intake and Output for Last 24 Hours 02/09/23 02/10/23 02/11/23 23:59 23:59 23:59 Intake Total 104 / 104 375 / 375 Output Total 3900 / 3900 600 / 600 Balance -3900 / -3900 -496 / -496 375 / 375 Lab / Micro Data Attestation: I reviewed the patient's lab results. Result Diagrams: 02/11/23 05:19 02/11/23 05:19 Labs: Laboratory Results - last 24 hr 02/11/23 05:19: WBC 12.2 H, RBC 4.29, Hgb 12.7, Hct 40.2, MCV 93.7, MCH 29.6, MCHC 31.6 L D, RDW Std Deviation 49.8 H, RDW Coeff of Ximena 14.4, Plt Count 234, MPV 11.4, Immature Gran % (Auto) 0.300, Neut % (Auto) 70.8 H, Lymph % (Auto) 19.2, [place] % (Auto) 8.2, Eos % (Auto) 1.0, Baso % (Auto) 0.5, Absolute Neuts (auto) 8.7 H, Absolute Lymphs (auto) 2.35, Nucleated RBC % 0 02/11/23 05:19: Sodium 141, Potassium 3.2 L, Chloride 104, Carbon Dioxide 34.0 H, Anion Gap 3 L, BUN 17, Creatinine 0.83, Estim Creat Clear Calc 58.35, Est GFR (MDRD) Af Amer 89, Est GFR (MDRD) Non-Af 74, BUN/Creatinine Ratio 20.6 H, Glucose 89, Calcium 9.2, Magnesium 2.1 Rhythm Strip Rhythm Strip: A-fib Cardiology Labs/Tests 02/11/23 05:19: WBC 12.2 H, RBC 4.29, Hgb 12.7, Hct 40.2, MCV 93.7, MCH 29.6, MCHC 31.6 L D, Plt Count 234, MPV 11.4, Immature Gran % (Auto) 0.300, Neut % (Auto) 70.8 H, Lymph % (Auto) 19.2, [place] % (Auto) 8.2, Eos % (Auto) 1.0, Baso % (Auto) 0.5, Absolute Neuts (auto) 8.7 H, Nucleated RBC % 0 02/11/23 05:19: Sodium 141, Potassium 3.2 L, Chloride 104, Carbon Dioxide 34.0 H, Anion Gap 3 L, BUN 17, Creatinine 0.83, Est GFR (MDRD) Af Amer 89, Est GFR (MDRD) Non-Af 74, BUN/Creatinine Ratio 20.6 H, Glucose 89, Calcium 9.2, Magnesium 2.1 Rhythm: Atrial fibrillation with rapid ventricular response EKG: Atrial fibrillation ECHO: Stress Test: Cardiac Cath: PCI: CT Surgery: Holter monitor: EPS: PPM: CXR: Chest CT Scan:
--- NOTE | 2023-02-11 09:33 | PN.HOSP_ITS ---
Reason for Visit Reason for Visit: Diagnoses Elevated white blood cell count, unspecified (02/08/23) Morbid (severe) obesity due to excess calories (02/08/23) Hypokalemia (02/08/23) Essential (primary) hypertension (02/08/23) Paroxysmal atrial fibrillation (02/08/23) Unspecified atrial fibrillation (02/08/23) Acute diastolic (congestive) heart failure (02/08/23) Hyperglycemia, unspecified (02/08/23) Other specified abnormal findings of blood chemistry (02/08/23) Subjective Subjective Slowly improving but on telemetry overnight continue to have heart rates from 140s to 170s despite escalating beta-horacio doses Objective Data Objective Data Vital Signs: Vital Signs Temp Pulse Resp BP Pulse Ox O2 Del Method O2 Flow Rate 98.1 F 100 15 155/86 H 91 Room Air 2 02/11/23 08:17 02/11/23 08:17 02/11/23 08:17 02/11/23 08:17 02/11/23 08:17 02/11/23 08:32 02/10/23 08:21 Oxygen Flow Rate (L/min) 2 Oxygen Delivery Method Room Air Weight: 117.8 kg Body Mass Index (BMI) 44.6 Intake & Output: Intake and Output for Last 24 Hours 02/09/23 02/10/23 02/11/23 23:59 23:59 23:59 Intake Total 104 / 104 375 / 375 Output Total 3900 / 3900 600 / 600 Balance -3900 / -3900 -496 / -496 375 / 375 Lab / Micro Data Result Diagrams: 02/11/23 05:19 02/11/23 05:19 Labs: Laboratory Results - last 24 hr 02/11/23 05:19: WBC 12.2 H, RBC 4.29, Hgb 12.7, Hct 40.2, MCV 93.7, MCH 29.6, MCHC 31.6 L D, RDW Std Deviation 49.8 H, RDW Coeff of Ximena 14.4, Plt Count 234, MPV 11.4, Immature Gran % (Auto) 0.300, Neut % (Auto) 70.8 H, Lymph % (Auto) 19.2, [place] % (Auto) 8.2, Eos % (Auto) 1.0, Baso % (Auto) 0.5, Absolute Neuts (auto) 8.7 H, Absolute Lymphs (auto) 2.35, Nucleated RBC % 0 02/11/23 05:19: Sodium 141, Potassium 3.2 L, Chloride 104, Carbon Dioxide 34.0 H , Anion Gap 3 L, BUN 17, Creatinine 0.83, Estim Creat Clear Calc 58.35, Est GFR (MDRD) Af Amer 89, Est GFR (MDRD) Non-Af 74, BUN/Creatinine Ratio 20.6 H, Glucose 89, Calcium 9.2, Magnesium 2.1 Micro: Microbiology 02/08/23 20:52 Mucosa - Nasopharyngeal Respiratory Panel (PCR) - Final 02/08/23 20:52 Nasal Secretion SARS-CoV-2 & FLU Antigen (Rapid) - Final Rhythm Strip Rhythm Strip: A-fib Physical Exam Narrative General: Alert, oriented, no apparent distress HEENT: Atraumatic, normocephalic Eyes: Anicteric, normal conjunctiva, extraocular movements grossly intact Neck: Supple Respiratory: Somewhat diminished at the bases, normal respiratory effort Cardiovascular: Irregularly irregular GI: Soft, nontender, nondistended Extremities: 1+ bilateral lower extremity edema Musculoskeletal: Moving all extremities Neuro: No overt focal neurological deficits Skin: No rashes appreciated Psych: Cooperative Assessment & Plan Assessment/Plan (1) Hypertension: QUALIFIERS: Hypertension type: essential hypertension Qualified Code(s): I10 - Essential (primary) hypertension (2) Paroxysmal atrial fibrillation with RVR: (3) Acute heart failure with preserved ejection fraction (HFpEF): (4) Hypokalemia: (5) Leukocytosis: (6) Elevated d-dimer: (7) Hyperglycemia: PLAN: Plan #New onset A-fib with RVR * -Recommend improved compliance with CPAP * -Current heart rates after 2 doses of Cardizem are in the low 100s to 110 * -Patient is on Coreg at home and has plenty of blood pressure so we will increase this from 6.25 twice daily to 25 p.o. twice daily with a dose given now * -Start Eliquis * -Check echocardiogram * -Patient has previous echocardiogram from June 03, 2020 that shows an EF of 60%, mildly enlarged left atrium and stage II diastolic dysfunction with normal valves * -Check TSH * -Patient overall will likely not tolerate A-fib with RVR well with her marked diastolic dysfunction at baseline and blood pressures are still elevated so improved control with this needs to be addressed -02/09: Given persistently elevated heart rate and blood pressure will give an additional 12.5 of Coreg and monitor how she does, echo pending. Continue to monitor on telemetry -02/10: Improving, increased Coreg -02/11: Despite medication adjustments heart rate was 140s to 170s overnight, cardiology consulted and decrease carvedilol back to 25 mg twice daily and started on diltiazem 60 mg every 6 hours. Lasix changed back to IV twice daily and she was started on SGLT2 inhibitor #Acute decompensated HFpEF * -Secondary to the development of A-fib and diastolic dysfunction * -Check echo as above * -Daily weights * -Fluid restrict * -Sodium restriction * -Bilateral lower extremity Butch bandages * -Check TSH * -Lasix 40 mg IV push twice daily -02/09: Continue daily weights and current dose of Lasix, distal of some swelling in lower extremities. Echo pending -02/10: Echo resulted with EF of 55%, moderate tricuspid valve insufficiency, mild pulmonary hypertension, unable to comment on diastolic function. Lasix changed to p.o. today. Patient tolerates oral Lasix and heart rate under control with present medication may be able to DC tomorrow -02/11: Lasix changed back to IV twice daily, SGLT2 inhibitor started, carvedilol decreased to 25 twice daily and diltiazem started. #Uncontrolled hypertension * -Patient has been on Coreg 6.25 mg p.o. twice daily as well as losartan 25 mg p.o. twice daily at home * -Stage II diastolic dysfunction noted on echocardiogram from 2019 * -Review of our data with regard to her blood pressure shows chronically elevated blood pressure * -Continue losartan as above * -Increase Coreg to 25 mg p.o. twice daily to help with blood pressure and rate control * -Recommend improved compliance with CPAP as this may improve her blood pressure control as well -02/09: Added Coreg dose as above, will continue to adjust medications -02/11: Medications adjusted as above #Leukocytosis * -Etiology unclear * -Suspect reactive * -Viral etiology work-up pending -02/09: Respiratory panel pending, COVID-negative, downtrending without antibiotics, low suspicion for infection -02/10: Downtrending #Elevated D-dimer * -CTA of the chest was negative for any PE * -With lower extremity edema we will check ultrasound however patient will be started on Eliquis but dosing change would need to be pursued with loading dose if patient does have VTE -02/09: Lower extremity duplex also negative for DVT, continue current dose of Eliquis Hypokalemia * -40 mill equivalents p.o. potassium given * -Repeat lab in a.m. * -Check a.m. magnesium level * -We will have to monitor closely with initiation of diuretics -02/09: Replaced Hyperglycemia * -Mild * -Check hemoglobin A1c -02/09: Hemoglobin A1c 5.4 #DEBRA * -Patient has CPAP machine but has not yet started utilizing * -Patient to bring in CPAP machine and will initiate here * -Strongly recommend improved compliance with treatment for her sleep apnea #Asthma * -As needed albuterol #IBS * -Continue home dicyclomine #Morbid obesity * -BMI is 46.2 * -Recommend weight loss * -Complicates treatment, prognosis, outcomes * -Suspect some of this is fluid weight related to heart failure as above DVT ppx: [email or web address] Charges/Coding Visit Charges Inpatient E&M: 89064 Subs Hosp L2
[2023-02-11] MEDS: Empagliflozin 10 MG Tablet PO (11:31)
[2023-02-11] MEDS: 0.9% Saline Lock 10 ML Syringe IV ×3 (11:31→18:06)
[2023-02-11] MEDS: dilTIAZem 60 MG Tablet PO ×3 (11:31→22:49)
[2023-02-11] MEDS: Furosemide 40 MG/4 ML Vial IV ×2 (11:31→17:21)
[2023-02-11] MEDS: Carvedilol 25 MG Tablet PO (17:21)
[2023-02-11] MEDS: Potassium Chloride Oral Tablet 20 MEQ PO (17:21)
[2023-02-11] MEDS: Benzonatate 100 MG Capsule PO (22:49)
[2023-02-12 04:49] VITALS: O2SAT 88
[2023-02-12 04:51] VITALS: BP 118/89; PULSE 84; RESP 18; TEMP 36.7; O2SAT 98
[2023-02-12] MEDS: dilTIAZem 60 MG Tablet PO ×2 (04:57→11:50)
[2023-02-12] MEDS: Benzonatate 100 MG Capsule PO (04:57)
[2023-02-12 06:00] VITALS: BMI 44.6
[2023-02-12 06:32] LABS: Absolute Lymphocyte Count 2.23 X10^3/uL (0.83-4.51); Absolute Neutrophil Count 9.5 X10^3/uL (2.0-7.7); Basophil# 0.06 X10^3/uL; Basophil% 0.5 % (0-1); Eosinophil# 0.14 X10^3/uL; Eosinophils% 1.1 % (0-5); Hematocrit 40.3 % (37-47); Hemoglobin 12.2 g/dL (12.0-15.0); Lymphocyte # 2.23 X10^3/ul (0.83-4.51); Lymphocyte % 17.2 % (19-41); Mean Corp Hgb Conc 30.3 g/dL (32-36); Mean Corpuscular Hgb 28.7 pg (27.0-32.0); Mean Corpuscular Volume 94.8 fL (81-99); Mean Platelet Vol. 11.5 fl (6.2-12.0); Monocyte% 7.7 % (0-10); NRBC Flagged by Analyzer 0 % (0-5); Neutrophil # 9.47 X10^3/uL (2.7-7.7); Platelet Count 214 K/mm3 (150-450); RBC Distribution Width CV 14.6 % (11.6-14.6); Red Blood Count 4.25 M/mm3 (4.2-5.4)
[2023-02-12 07:33] LABS: Anion Gap 4 (5-15); BUN 18 mg/dL (7-18); BUN/Creat Ratio 21.3 RATIO (10-20); Calcium,Total 9.3 mg/dL (8.5-10.1); Chloride 102 mmol/L (98-107); Creatinine, Serum 0.85 mg/dL (0.55-1.02); EST Glomerular Filtration Rate 72 mL/min (>60); Est Glom Filt Rate - Afr Amer 87 mL/min (>60); Estimated Creatinine Clearance 56.98 ml/min; Glucose 81 mg/dL (74-106); Magnesium 2.4 mg/dL (1.6-2.6); Potassium 3.2 mmol/L (3.5-5.1); Sodium Level 140 mmol/L (136-145)
[2023-02-12 07:46] VITALS: O2SAT 98
[2023-02-12 09:50] VITALS: BP 138/98; PULSE 84; RESP 18; TEMP 36.7; O2SAT 94
[2023-02-12] MEDS: APIXABAN 5 MG TABLET PO ×2 (09:56→22:48)
[2023-02-12] MEDS: Carvedilol 25 MG Tablet PO ×2 (09:56→16:33)
[2023-02-12] MEDS: Empagliflozin 10 MG Tablet PO (09:56)
[2023-02-12] MEDS: Losartan Potassium 25 MG Tablet PO (09:57)
[2023-02-12] MEDS: Potassium Chloride Oral Tablet 20 MEQ PO (09:57)
[2023-02-12] MEDS: Furosemide 40 MG/4 ML Vial IV ×2 (09:57→17:47)
[2023-02-12] MEDS: 0.9% Saline Lock 10 ML Syringe IV ×2 (09:57→17:47)
[2023-02-12] MEDS: Multivitamins,Therapeutic Tablet 1 TABLET PO (09:57)
--- NOTE | 2023-02-12 10:49 | PN.HOSP_ITS ---
Reason for Visit Reason for Visit: Diagnoses Elevated white blood cell count, unspecified (02/08/23) Morbid (severe) obesity due to excess calories (02/08/23) Hypokalemia (02/08/23) Essential (primary) hypertension (02/08/23) Paroxysmal atrial fibrillation (02/08/23) Unspecified atrial fibrillation (02/08/23) Acute diastolic (congestive) heart failure (02/08/23) Hyperglycemia, unspecified (02/08/23) Other specified abnormal findings of blood chemistry (02/08/23) Subjective Subjective Still having some shortness of breath, still complains of a dry cough. Does also still have some lower extremity swelling Objective Data Objective Data Vital Signs: Vital Signs Temp Pulse Resp BP Pulse Ox O2 Del Method O2 Flow Rate 98.1 F 84 18 138/98 H 94 Room Air 2 02/12/23 09:50 02/12/23 09:50 02/12/23 09:50 02/12/23 09:50 02/12/23 09:50 02/12/23 09:50 02/12/23 07:46 Oxygen Flow Rate (L/min) 2 Oxygen Delivery Method Room Air Weight: 117.8 kg Body Mass Index (BMI) 44.6 Intake & Output: Intake and Output for Last 24 Hours 02/10/23 02/11/23 02/12/23 23:59 23:59 23:59 Intake Total 104 / 104 1185 / 1185 Output Total 600 / 600 2575 / 2575 200 / 200 Balance -496 / -496 -1390 / -1390 -200 / -200 Lab / Micro Data Result Diagrams: 02/12/23 05:43 02/12/23 05:43 Labs: Laboratory Results - last 24 hr 02/12/23 05:43: WBC 13.0 H, RBC 4.25, Hgb 12.2, Hct 40.3, MCV 94.8, MCH 28.7, MCHC 30.3 L, RDW Std Deviation 50.0 H, RDW Coeff of Ximena 14.6, Plt Count 214, MPV 11.5, Immature Gran % (Auto) 0.500, Neut % (Auto) 73.0 H, Lymph % (Auto) 17.2 L, [place] % (Auto) 7.7, Eos % (Auto) 1.1, Baso % (Auto) 0.5, Absolute Neuts (auto) 9.5 H, Absolute Lymphs (auto) 2.23, Nucleated RBC % 0 02/12/23 05:43: Sodium 140, Potassium 3.2 L, Chloride 102, Carbon Dioxide 34.0 H , Anion Gap 4 L, BUN 18, Creatinine 0.85, Estim Creat Clear Calc 56.98, Est GFR (MDRD) Af Amer 87, Est GFR (MDRD) Non-Af 72, BUN/Creatinine Ratio 21.3 H, Glucose 81, Calcium 9.3, Magnesium 2.4 Micro: Microbiology 02/08/23 20:52 Mucosa - Nasopharyngeal Respiratory Panel (PCR) - Final 02/08/23 20:52 Nasal Secretion SARS-CoV-2 & FLU Antigen (Rapid) - Final Rhythm Strip Rhythm Strip: A-fib Physical Exam Narrative General: Alert, oriented, no apparent distress HEENT: Atraumatic, normocephalic Eyes: Anicteric, normal conjunctiva, extraocular movements grossly intact Neck: Supple Respiratory: Somewhat diminished at the bases, normal respiratory effort Cardiovascular: Irregularly irregular GI: Soft, nontender, nondistended Extremities: 1+ bilateral lower extremity edema Musculoskeletal: Moving all extremities Neuro: No overt focal neurological deficits Skin: No rashes appreciated Psych: Cooperative Assessment & Plan Assessment/Plan (1) Hypertension: QUALIFIERS: Hypertension type: essential hypertension Qualified Code(s): I10 - Essential (primary) hypertension (2) Paroxysmal atrial fibrillation with RVR: (3) Acute heart failure with preserved ejection fraction (HFpEF): (4) Hypokalemia: (5) Leukocytosis: (6) Elevated d-dimer: (7) Hyperglycemia: PLAN: Plan #New onset A-fib with RVR * -Recommend improved compliance with CPAP * -Current heart rates after 2 doses of Cardizem are in the low 100s to 110 * -Patient is on Coreg at home and has plenty of blood pressure so we will increase this from 6.25 twice daily to 25 p.o. twice daily with a dose given now * -Start Eliquis * -Check echocardiogram * -Patient has previous echocardiogram from June 03, 2020 that shows an EF of 60%, mildly enlarged left atrium and stage II diastolic dysfunction with normal valves * -Check TSH * -Patient overall will likely not tolerate A-fib with RVR well with her marked diastolic dysfunction at baseline and blood pressures are still elevated so improved control with this needs to be addressed -02/09: Given persistently elevated heart rate and blood pressure will give an additional 12.5 of Coreg and monitor how she does, echo pending. Continue to monitor on telemetry -02/10: Improving, increased Coreg -02/11: Despite medication adjustments heart rate was 140s to 170s overnight, cardiology consulted and decrease carvedilol back to 25 mg twice daily and started on diltiazem 60 mg every 6 hours. Lasix changed back to IV twice daily and she was started on SGLT2 inhibitor -02/12: Improving on present management, remains on Lasix IV twice daily. Will assess BMP and clinical status tomorrow and possibly de-escalate Lasix for the following day #Acute decompensated HFpEF * -Secondary to the development of A-fib and diastolic dysfunction * -Check echo as above * -Daily weights * -Fluid restrict * -Sodium restriction * -Bilateral lower extremity Butch bandages * -Check TSH * -Lasix 40 mg IV push twice daily -02/09: Continue daily weights and current dose of Lasix, distal of some swelling in lower extremities. Echo pending -02/10: Echo resulted with EF of 55%, moderate tricuspid valve insufficiency, mild pulmonary hypertension, unable to comment on diastolic function. Lasix changed to p.o. today. Patient tolerates oral Lasix and heart rate under control with present medication may be able to DC tomorrow -02/11: Lasix changed back to IV twice daily, SGLT2 inhibitor started, carvedilol decreased to 25 twice daily and diltiazem started. -02/12:Improving on present management, remains on Lasix IV twice daily. Will assess BMP and clinical status tomorrow and possibly de-escalate Lasix for the following day #Uncontrolled hypertension * -Patient has been on Coreg 6.25 mg p.o. twice daily as well as losartan 25 mg p.o. twice daily at home * -Stage II diastolic dysfunction noted on echocardiogram from 2019 * -Review of our data with regard to her blood pressure shows chronically elevated blood pressure * -Continue losartan as above * -Increase Coreg to 25 mg p.o. twice daily to help with blood pressure and rate control * -Recommend improved compliance with CPAP as this may improve her blood pressure control as well -02/09: Added Coreg dose as above, will continue to adjust medications -02/11: Medications adjusted as above #Leukocytosis * -Etiology unclear * -Suspect reactive * -Viral etiology work-up pending -02/09: Respiratory panel pending, COVID-negative, downtrending without antibiotics, low suspicion for infection -02/10: Downtrending #Elevated D-dimer * -CTA of the chest was negative for any PE * -With lower extremity edema we will check ultrasound however patient will be started on Eliquis but dosing change would need to be pursued with loading dose if patient does have VTE -02/09: Lower extremity duplex also negative for DVT, continue current dose of Eliquis Hypokalemia * -40 mill equivalents p.o. potassium given * -Repeat lab in a.m. * -Check a.m. magnesium level * -We will have to monitor closely with initiation of diuretics -02/09: Replaced Hyperglycemia * -Mild * -Check hemoglobin A1c -02/09: Hemoglobin A1c 5.4 #DEBRA * -Patient has CPAP machine but has not yet started utilizing * -Patient to bring in CPAP machine and will initiate here * -Strongly recommend improved compliance with treatment for her sleep apnea #Asthma * -As needed albuterol #IBS * -Continue home dicyclomine #Morbid obesity * -BMI is 46.2 * -Recommend weight loss * -Complicates treatment, prognosis, outcomes * -Suspect some of this is fluid weight related to heart failure as above DVT ppx: [email or web address] Charges/Coding Visit Charges Inpatient E&M: 98329 [facility] Hosp L2
[2023-02-12] MEDS: Potassium Chloride Oral Tablet 20 MEQ 40 MEQ PO (11:50)
--- NOTE | 2023-02-12 14:00 | PN.CARD_ITS ---
Subjective Subjective Seen and valuated today at bedside Still having symptoms of shortness of breath walking to the bathroom and still having lower extremity swelling and edema. Objective Data Vital Signs: Vital Signs Temp Pulse Resp BP Pulse Ox O2 Del Method O2 Flow Rate 98.1 F 84 18 138/98 H 94 Room Air 2 02/12/23 09:50 02/12/23 09:50 02/12/23 09:50 02/12/23 09:50 02/12/23 09:50 02/12/23 09:50 02/12/23 07:46 Oxygen Flow Rate (L/min) 2 Oxygen Delivery Method Room Air Weight: 259 lb 11.272 oz Body Mass Index (BMI) 44.6 Intake & Output: Intake and Output for Last 24 Hours 02/10/23 02/11/23 02/12/23 23:59 23:59 23:59 Intake Total 104 / 104 1185 / 1185 240 / 240 Output Total 600 / 600 2575 / 2575 800 / 800 Balance -496 / -496 -1390 / -1390 -560 / -560 Lab / Micro Data Result Diagrams: 02/12/23 05:43 02/12/23 05:43 Labs: Laboratory Results - last 24 hr 02/12/23 05:43: WBC 13.0 H, RBC 4.25, Hgb 12.2, Hct 40.3, MCV 94.8, MCH 28.7, MCHC 30.3 L, RDW Std Deviation 50.0 H, RDW Coeff of Ximena 14.6, Plt Count 214, MPV 11.5, Immature Gran % (Auto) 0.500, Neut % (Auto) 73.0 H, Lymph % (Auto) 17.2 L, [place] % (Auto) 7.7, Eos % (Auto) 1.1, Baso % (Auto) 0.5, Absolute Neuts (auto) 9.5 H, Absolute Lymphs (auto) 2.23, Nucleated RBC % 0 02/12/23 05:43: Sodium 140, Potassium 3.2 L, Chloride 102, Carbon Dioxide 34.0 H , Anion Gap 4 L, BUN 18, Creatinine 0.85, Estim Creat Clear Calc 56.98, Est GFR (MDRD) Af Amer 87, Est GFR (MDRD) Non-Af 72, BUN/Creatinine Ratio 21.3 H, Glucose 81, Calcium 9.3, Magnesium 2.4 Rhythm Strip Rhythm Strip: A-fib Cardiology Labs/Tests 02/12/23 05:43: WBC 13.0 H, RBC 4.25, Hgb 12.2, Hct 40.3, MCV 94.8, MCH 28.7, MCHC 30.3 L, Plt Count 214, MPV 11.5, Immature Gran % (Auto) 0.500, Neut % (Auto) 73.0 H, Lymph % (Auto) 17.2 L, [place] % (Auto) 7.7, Eos % (Auto) 1.1, Baso % (Auto) 0.5, Absolute Neuts (auto) 9.5 H, Nucleated RBC % 0 02/12/23 05:43: Sodium 140, Potassium 3.2 L, Chloride 102, Carbon Dioxide 34.0 H , Anion Gap 4 L, BUN 18, Creatinine 0.85, Est GFR (MDRD) Af Amer 87, Est GFR (MDRD) Non-Af 72, BUN/Creatinine Ratio 21.3 H, Glucose 81, Calcium 9.3, Magnesium 2.4 Rhythm: EKG: ECHO: Stress Test: Cardiac Cath: PCI: CT Surgery: Holter monitor: EPS: PPM: CXR: Chest CT Scan: Physical Exam Narrative Review of cardiac telemetry patient had underlying A-fib with controlled ventricular rate Cardiovascular exam S1-S2 is regular Chest exam she had mild bilateral basal rales Examination lower extremity she had +2 lower extremity edema. Assessment & Plan Assessment/Plan (1) Acute heart failure with preserved ejection fraction (HFpEF): (2) Hypertension: QUALIFIERS: Hypertension type: essential hypertension Qualified Code(s): I10 - Essential (primary) hypertension (3) Hypokalemia: (4) Morbid obesity: (5) Atrial fibrillation with rapid ventricular response: PLAN: Plan 67-year-old patient, with new onset A-fib with RVR Based on [id number] score high risk of stroke was high and started on antic oagulation for prevention of thromboembolic stroke Patient has heart failure with preserved ejection fraction Has A-fib with RVR currently rate is better controlled on medical treatment Including calcium channel horacio, beta-horcaio as well patient is in anticoagulation with Eliquis Cardiac care plan recommendations; We will continue to monitor and follow-up clinically Patient understand the need of taking long-term anticoagulation We will continue to monitor the electrolytes and correction of the hyperkalemia Also patient advised weight loss due to morbid obesity and the blood pressure is controlled on the current treatment. 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 Son at [facility] team
[2023-02-12 16:31] VITALS: BP 145/91; PULSE 87; RESP 20; TEMP 36.6; O2SAT 94
[2023-02-12] MEDS: guaiFENesin 10 ML UDC (200MG/10ML) PO ×2 (17:47→22:50)
[2023-02-12 22:57] VITALS: BP 122/84; PULSE 95; RESP 18; TEMP 36.5; O2SAT 98
[2023-02-13 04:05] VITALS: BP 135/90; PULSE 116; RESP 16; TEMP 36.7; O2SAT 93
[2023-02-13] MEDS: guaiFENesin 10 ML UDC (200MG/10ML) PO ×2 (04:34→21:16)
[2023-02-13 06:00] VITALS: BMI 44.1
[2023-02-13 07:40] LABS: Absolute Lymphocyte Count 2.13 X10^3/uL (0.83-4.51); Absolute Neutrophil Count 9.6 X10^3/uL (2.0-7.7); Basophil# 0.07 X10^3/uL; Basophil% 0.5 % (0-1); Eosinophil# 0.11 X10^3/uL; Eosinophils% 0.8 % (0-5); Hematocrit 41.3 % (37-47); Hemoglobin 12.3 g/dL (12.0-15.0); Lymphocyte # 2.13 X10^3/ul (0.83-4.51); Lymphocyte % 16.3 % (19-41); Mean Corp Hgb Conc 29.8 g/dL (32-36); Mean Corpuscular Hgb 28.3 pg (27.0-32.0); Mean Corpuscular Volume 95.2 fL (81-99); Mean Platelet Vol. 11.7 fl (6.2-12.0); Monocyte# 1.09 X10^3/uL; Monocyte% 8.4 % (0-10); NRBC Flagged by Analyzer 0 % (0-5); Neutrophil % 73.7 % (47-70); Platelet Count 219 K/mm3 (150-450); RBC Distribution Width CV 14.5 % (11.6-14.6); RBC Distribution Width SD 50.7 fl (35.1-43.9); Red Blood Count 4.34 M/mm3 (4.2-5.4)
[2023-02-13 08:00] VITALS: PULSE 142
[2023-02-13] MEDS: dilTIAZem CD 120 MG Capsule PO (08:26)
[2023-02-13] MEDS: Carvedilol 25 MG Tablet PO ×2 (08:27→18:01)
[2023-02-13] MEDS: Multivitamins,Therapeutic Tablet 1 TABLET PO (08:27)
[2023-02-13] MEDS: Potassium Chloride Oral Tablet 20 MEQ PO (08:29)
[2023-02-13 08:42] LABS: Anion Gap 3 (5-15); BUN 17 mg/dL (7-18); BUN/Creat Ratio 19.9 RATIO (10-20); Calcium,Total 9.3 mg/dL (8.5-10.1); Chloride 104 mmol/L (98-107); Creatinine, Serum 0.85 mg/dL (0.55-1.02); EST Glomerular Filtration Rate 71 mL/min (>60); Est Glom Filt Rate - Afr Amer 86 mL/min (>60); Estimated Creatinine Clearance 56.98 ml/min; Glucose 79 mg/dL (74-106); Magnesium 2.3 mg/dL (1.6-2.6); Potassium 3.6 mmol/L (3.5-5.1); Sodium Level 140 mmol/L (136-145)
--- NOTE | 2023-02-13 09:22 | PN.HOSP_ITS ---
Reason for Visit Reason for Visit: Diagnoses Elevated white blood cell count, unspecified (02/08/23) Morbid (severe) obesity due to excess calories (02/08/23) Hypokalemia (02/08/23) Essential (primary) hypertension (02/08/23) Paroxysmal atrial fibrillation (02/08/23) Unspecified atrial fibrillation (02/08/23) Acute diastolic (congestive) heart failure (02/08/23) Hyperglycemia, unspecified (02/08/23) Other specified abnormal findings of blood chemistry (02/08/23) Subjective Subjective Cough slightly improved, still has peripheral edema, breathing roughly unchanged Objective Data Objective Data Vital Signs: Vital Signs Temp Pulse Resp BP Pulse Ox O2 Del Method O2 Flow Rate 98.0 F 116 H 16 135/90 H 93 Room Air 2 02/13/23 04:05 02/13/23 04:05 02/13/23 04:05 02/13/23 04:05 02/13/23 04:05 02/13/23 04:07 02/13/23 04:07 Oxygen Flow Rate (L/min) 2 Oxygen Delivery Method Room Air Weight: 116.5 kg Body Mass Index (BMI) 44.1 Intake & Output: Intake and Output for Last 24 Hours 02/11/23 02/12/23 02/13/23 23:59 23:59 23:59 Intake Total 1185 / 1185 560 / 710 150 / 150 Output Total 2575 / 2575 1200 / 1600 400 / 400 Balance -1390 / -1390 -640 / -890 -250 / -250 Lab / Micro Data Result Diagrams: 02/13/23 06:50 02/13/23 06:50 Labs: Laboratory Results - last 24 hr 02/13/23 06:50: WBC 13.0 H, RBC 4.34, Hgb 12.3, Hct 41.3, MCV 95.2, MCH 28.3, MCHC 29.8 L, RDW Std Deviation 50.7 H, RDW Coeff of Ximena 14.5, Plt Count 219, MPV 11.7, Immature Gran % (Auto) 0.300, Neut % (Auto) 73.7 H, Lymph % (Auto) 16.3 L, [place] % (Auto) 8.4, Eos % (Auto) 0.8, Baso % (Auto) 0.5, Absolute Neuts (auto) 9.6 H, Absolute Lymphs (auto) 2.13, Nucleated RBC % 0 02/13/23 06:50: Sodium 140, Potassium 3.6, Chloride 104, Carbon Dioxide 33.0 H, Anion Gap 3 L, BUN 17, Creatinine 0.85, Estim Creat Clear Calc 56.98, Est GFR (MDRD) Af Amer 86, Est GFR (MDRD) Non-Af 71, BUN/Creatinine Ratio 19.9, Glucose 79, Calcium 9.3, Magnesium 2.3 Micro: Microbiology 02/08/23 20:52 Mucosa - Nasopharyngeal Respiratory Panel (PCR) - Final 02/08/23 20:52 Nasal Secretion SARS-CoV-2 & FLU Antigen (Rapid) - Final Rhythm Strip Rhythm Strip: A-fib Physical Exam Narrative General: Alert, oriented, no apparent distress HEENT: Atraumatic, normocephalic Eyes: Anicteric, normal conjunctiva, extraocular movements grossly intact Neck: Supple Respiratory: Somewhat diminished at the bases, normal respiratory effort Cardiovascular: Irregularly irregular, intermittently tacky GI: Soft, nontender, nondistended Extremities: 1+ bilateral lower extremity edema Musculoskeletal: Moving all extremities Neuro: No overt focal neurological deficits Skin: No rashes appreciated Psych: Cooperative Assessment & Plan Assessment/Plan (1) Hypertension: QUALIFIERS: Hypertension type: essential hypertension Qualified Code(s): I10 - Essential (primary) hypertension (2) Paroxysmal atrial fibrillation with RVR: (3) Acute heart failure with preserved ejection fraction (HFpEF): (4) Hypokalemia: (5) Leukocytosis: (6) Elevated d-dimer: (7) Hyperglycemia: PLAN: Plan #New onset A-fib with RVR * -Recommend improved compliance with CPAP * -Current heart rates after 2 doses of Cardizem are in the low 100s to 110 * -Patient is on Coreg at home and has plenty of blood pressure so we will increase this from 6.25 twice daily to 25 p.o. twice daily with a dose given now * -Start Eliquis * -Check echocardiogram * -Patient has previous echocardiogram from June 03, 2020 that shows an EF of 60%, mildly enlarged left atrium and stage II diastolic dysfunction with normal valves * -Check TSH * -Patient overall will likely not tolerate A-fib with RVR well with her marked diastolic dysfunction at baseline and blood pressures are still elevated so improved control with this needs to be addressed -02/09: Given persistently elevated heart rate and blood pressure will give an additional 12.5 of Coreg and monitor how she does, echo pending. Continue to monitor on telemetry -02/10: Improving, increased Coreg -02/11: Despite medication adjustments heart rate was 140s to 170s overnight, cardiology consulted and decrease carvedilol back to 25 mg twice daily and started on diltiazem 60 mg every 6 hours. Lasix changed back to IV twice daily and she was started on SGLT2 inhibitor -02/12: Improving on present management, remains on Lasix IV twice daily. Will assess BMP and clinical status tomorrow and possibly de-escalate Lasix for the following day -02/13: Had been better yesterday from a heart perspective but today still having frequent accelerated heart rate, Cardizem changed to 120 CD, cardiology presently managing medications. Remains on 40 IV Lasix twice daily #Acute decompensated HFpEF * -Secondary to the development of A-fib and diastolic dysfunction * -Check echo as above * -Daily weights * -Fluid restrict * -Sodium restriction * -Bilateral lower extremity Butch bandages * -Check TSH * -Lasix 40 mg IV push twice daily -02/09: Continue daily weights and current dose of Lasix, distal of some swelling in lower extremities. Echo pending -02/10: Echo resulted with EF of 55%, moderate tricuspid valve insufficiency, mild pulmonary hypertension, unable to comment on diastolic function. Lasix changed to p.o. today. Patient tolerates oral Lasix and heart rate under control with present medication may be able to DC tomorrow -02/11: Lasix changed back to IV twice daily, SGLT2 inhibitor started, carvedilol decreased to 25 twice daily and diltiazem started. -02/12:Improving on present management, remains on Lasix IV twice daily. Will assess BMP and clinical status tomorrow and possibly de-escalate Lasix for the following day -02/13: Cardizem changed to CD by cardiology, remains on losartan and carvedilol. Is on 40 IV twice daily of Lasix with stable BUN and creatinine. Continue at this time. Weight on admission 122.2 kg, down to 116.5 kg #Uncontrolled hypertension * -Patient has been on Coreg 6.25 mg p.o. twice daily as well as losartan 25 mg p.o. twice daily at home * -Stage II diastolic dysfunction noted on echocardiogram from 2019 * -Review of our data with regard to her blood pressure shows chronically elevated blood pressure * -Continue losartan as above * -Increase Coreg to 25 mg p.o. twice daily to help with blood pressure and rate control * -Recommend improved compliance with CPAP as this may improve her blood pressure control as well -02/09: Added Coreg dose as above, will continue to adjust medications -02/11: Medications adjusted as above #Leukocytosis * -Etiology unclear * -Suspect reactive * -Viral etiology work-up pending -02/09: Respiratory panel pending, COVID-negative, downtrending without antibiotics, low suspicion for infection -02/10: Downtrending #Elevated D-dimer * -CTA of the chest was negative for any PE * -With lower extremity edema we will check ultrasound however patient will be started on Eliquis but dosing change would need to be pursued with loading dose if patient does have VTE -02/09: Lower extremity duplex also negative for DVT, continue current dose of Eliquis Hypokalemia * -40 mill equivalents p.o. potassium given * -Repeat lab in a.m. * -Check a.m. magnesium level * -We will have to monitor closely with initiation of diuretics -02/09: Replaced Hyperglycemia * -Mild * -Check hemoglobin A1c -02/09: Hemoglobin A1c 5.4 #DEBRA * -Patient has CPAP machine but has not yet started utilizing * -Patient to bring in CPAP machine and will initiate here * -Strongly recommend improved compliance with treatment for her sleep apnea #Asthma * -As needed albuterol #IBS * -Continue home dicyclomine #Morbid obesity * -BMI is 46.2 * -Recommend weight loss * -Complicates treatment, prognosis, outcomes * -Suspect some of this is fluid weight related to heart failure as above DVT ppx: eliquis Charges/Coding Visit Charges Inpatient E&M: 64798 Subs Hosp L2
[2023-02-13 10:00] VITALS: BP 115/89; PULSE 98; RESP 16; TEMP 36.6; O2SAT 93
[2023-02-13] MEDS: Empagliflozin 10 MG Tablet PO (10:09)
[2023-02-13] MEDS: APIXABAN 5 MG TABLET PO ×2 (10:09→21:11)
[2023-02-13] MEDS: Furosemide 40 MG/4 ML Vial IV ×2 (10:10→18:01)
[2023-02-13] MEDS: Losartan Potassium 25 MG Tablet PO (10:10)
[2023-02-13] MEDS: Dicyclomine 10 MG Capsule PO (11:52)
[2023-02-13 16:30] VITALS: BP 129/75; PULSE 89; RESP 16; TEMP 36.5; O2SAT 95
[2023-02-13] MEDS: 0.9% Saline Lock 10 ML Syringe IV (18:01)
[2023-02-13 21:17] VITALS: BP 103/77; PULSE 69; RESP 16; TEMP 36.7; O2SAT 94
[2023-02-14 03:53] VITALS: BMI 44.1
[2023-02-14 04:10] VITALS: BP 118/71; PULSE 100; RESP 18; TEMP 36.7; O2SAT 98
[2023-02-14 06:57] LABS: Absolute Lymphocyte Count 2.39 X10^3/uL (0.83-4.51); Absolute Neutrophil Count 8.9 X10^3/uL (2.0-7.7); Basophil# 0.06 X10^3/uL; Basophil% 0.5 % (0-1); Eosinophil# 0.12 X10^3/uL; Hematocrit 41.6 % (37-47); Hemoglobin 12.6 g/dL (12.0-15.0); Lymphocyte # 2.39 X10^3/ul (0.83-4.51); Lymphocyte % 19.1 % (19-41); Mean Corp Hgb Conc 30.3 g/dL (32-36); Mean Corpuscular Hgb 28.8 pg (27.0-32.0); Mean Corpuscular Volume 95.2 fL (81-99); Mean Platelet Vol. 11.7 fl (6.2-12.0); Monocyte# 0.99 X10^3/uL; Monocyte% 7.9 % (0-10); NRBC Flagged by Analyzer 0 % (0-5); Neutrophil % 71.1 % (47-70); Platelet Count 205 K/mm3 (150-450); RBC Distribution Width CV 14.4 % (11.6-14.6); RBC Distribution Width SD 50.4 fl (35.1-43.9); Red Blood Count 4.37 M/mm3 (4.2-5.4); White Blood Count 12.5 K/mm3 (4.4-11.0)
[2023-02-14 07:11] LABS: Anion Gap 0 (5-15); BUN 18 mg/dL (7-18); BUN/Creat Ratio 22.9 RATIO (10-20); Calcium,Total 9.1 mg/dL (8.5-10.1); Chloride 103 mmol/L (98-107); Creatinine, Serum 0.79 mg/dL (0.55-1.02); EST Glomerular Filtration Rate 78 mL/min (>60); Est Glom Filt Rate - Afr Amer 94 mL/min (>60); Estimated Creatinine Clearance 61.31 ml/min; Glucose 86 mg/dL (74-106); Magnesium 2.4 mg/dL (1.6-2.6); Potassium 3.5 mmol/L (3.5-5.1); Sodium Level 139 mmol/L (136-145)
[2023-02-14 07:34] VITALS: O2SAT 97
--- NOTE | 2023-02-14 08:04 | PN.HOSP_ITS ---
Reason for Visit Reason for Visit: Diagnoses Elevated white blood cell count, unspecified (02/08/23) Morbid (severe) obesity due to excess calories (02/08/23) Hypokalemia (02/08/23) Essential (primary) hypertension (02/08/23) Paroxysmal atrial fibrillation (02/08/23) Unspecified atrial fibrillation (02/08/23) Acute diastolic (congestive) heart failure (02/08/23) Hyperglycemia, unspecified (02/08/23) Other specified abnormal findings of blood chemistry (02/08/23) Subjective Subjective Continues to slowly improve, remains on IV Lasix Objective Data Objective Data Vital Signs: Vital Signs Temp Pulse Resp BP Pulse Ox O2 Del Method O2 Flow Rate 98.0 F 100 18 118/71 97 Room Air 2 02/14/23 04:10 02/14/23 04:10 02/14/23 04:10 02/14/23 04:10 02/14/23 07:34 02/14/23 07:45 02/14/23 07:34 Oxygen Flow Rate (L/min) 2 Oxygen Delivery Method Room Air Weight: 116.8 kg Body Mass Index (BMI) 44.1 Intake & Output: Intake and Output for Last 24 Hours 02/12/23 02/13/23 02/14/23 23:59 23:59 23:59 Intake Total 560 / 710 390 / 690 350 / 350 Output Total 1200 / 1600 1200 / 1200 700 / 700 Balance -640 / -890 -810 / -510 -350 / -350 Lab / Micro Data Result Diagrams: 02/14/23 06:28 02/14/23 06:28 Labs: Laboratory Results - last 24 hr 02/13/23 06:50: Sodium 140, Potassium 3.6, Chloride 104, Carbon Dioxide 33.0 H, Anion Gap 3 L, BUN 17, Creatinine 0.85, Estim Creat Clear Calc 56.98, Est GFR (MDRD) Af Amer 86, Est GFR (MDRD) Non-Af 71, BUN/Creatinine Ratio 19.9, Glucose 79, Calcium 9.3, Magnesium 2.3 02/14/23 06:28: WBC 12.5 H, RBC 4.37, Hgb 12.6, Hct 41.6, MCV 95.2, MCH 28.8, MCHC 30.3 L, RDW Std Deviation 50.4 H, RDW Coeff of Ximena 14.4, Plt Count 205, MPV 11.7, Immature Gran % (Auto) 0.400, Neut % (Auto) 71.1 H, Lymph % (Auto) 19.1, [place] % (Auto) 7.9, Eos % (Auto) 1.0, Baso % (Auto) 0.5, Absolute Neuts (auto) 8.9 H, Absolute Lymphs (auto) 2.39, Nucleated RBC % 0 02/14/23 06:28: Sodium 139, Potassium 3.5, Chloride 103, Carbon Dioxide 36.0 H, Anion Gap 0 L, BUN 18, Creatinine 0.79, Estim Creat Clear Calc 61.31, Est GFR (MDRD) Af Amer 94, Est GFR (MDRD) Non-Af 78, BUN/Creatinine Ratio 22.9 H, Glucose 86, Calcium 9.1, Magnesium 2.4 Micro: Microbiology 02/08/23 20:52 Mucosa - Nasopharyngeal Respiratory Panel (PCR) - Final 02/08/23 20:52 Nasal Secretion SARS-CoV-2 & FLU Antigen (Rapid) - Final Rhythm Strip Rhythm Strip: A-fib Physical Exam Narrative General: Alert, oriented, no apparent distress HEENT: Atraumatic, normocephalic Eyes: Anicteric, normal conjunctiva, extraocular movements grossly intact Neck: Supple Respiratory: Somewhat diminished at the bases, normal respiratory effort Cardiovascular: Irregularly irregular, intermittently tacky GI: Soft, nontender, nondistended Extremities: 1+ bilateral lower extremity edema Musculoskeletal: Moving all extremities Neuro: No overt focal neurological deficits Skin: No rashes appreciated Psych: Cooperative Assessment & Plan Assessment/Plan (1) Hypertension: QUALIFIERS: Hypertension type: essential hypertension Qualified Code(s): I10 - Essential (primary) hypertension (2) Paroxysmal atrial fibrillation with RVR: (3) Acute heart failure with preserved ejection fraction (HFpEF): (4) Hypokalemia: (5) Leukocytosis: (6) Elevated d-dimer: (7) Hyperglycemia: PLAN: Plan #New onset A-fib with RVR * -Recommend improved compliance with CPAP * -Current heart rates after 2 doses of Cardizem are in the low 100s to 110 * -Patient is on Coreg at home and has plenty of blood pressure so we will increase this from 6.25 twice daily to 25 p.o. twice daily with a dose given now * -Start Eliquis * -Check echocardiogram * -Patient has previous echocardiogram from June 03, 2020 that shows an EF of 60%, mildly enlarged left atrium and stage II diastolic dysfunction with normal valves * -Check TSH * -Patient overall will likely not tolerate A-fib with RVR well with her marked diastolic dysfunction at baseline and blood pressures are still elevated so improved control with this needs to be addressed -02/09: Given persistently elevated heart rate and blood pressure will give an additional 12.5 of Coreg and monitor how she does, echo pending. Continue to monitor on telemetry -02/10: Improving, increased Coreg -02/11: Despite medication adjustments heart rate was 140s to 170s overnight, cardiology consulted and decrease carvedilol back to 25 mg twice daily and started on diltiazem 60 mg every 6 hours. Lasix changed back to IV twice daily and she was started on SGLT2 inhibitor -02/12: Improving on present management, remains on Lasix IV twice daily. Will assess BMP and clinical status tomorrow and possibly de-escalate Lasix for the following day -02/13: Had been better yesterday from a heart perspective but today still having frequent accelerated heart rate, Cardizem changed to 120 CD, cardiology presently managing medications. Remains on 40 IV Lasix twice daily -02/14: Still has occasional episodes of RVR but is significantly improving with time and Lasix, cardiology has been adjusting her medications #Acute decompensated HFpEF * -Secondary to the development of A-fib and diastolic dysfunction * -Check echo as above * -Daily weights * -Fluid restrict * -Sodium restriction * -Bilateral lower extremity Butch bandages * -Check TSH * -Lasix 40 mg IV push twice daily -02/09: Continue daily weights and current dose of Lasix, distal of some swelling in lower extremities. Echo pending -02/10: Echo resulted with EF of 55%, moderate tricuspid valve insufficiency, mild pulmonary hypertension, unable to comment on diastolic function. Lasix changed to p.o. today. Patient tolerates oral Lasix and heart rate under control with present medication may be able to DC tomorrow -02/11: Lasix changed back to IV twice daily, SGLT2 inhibitor started, carvedilol decreased to 25 twice daily and diltiazem started. -02/12:Improving on present management, remains on Lasix IV twice daily. Will assess BMP and clinical status tomorrow and possibly de-escalate Lasix for the following day -02/13: Dixon changed to CD by cardiology, remains on losartan and carvedilol. Is on 40 IV twice daily of Lasix with stable BUN and creatinine. Continue at this time. Weight on admission 122.2 kg, down to 116.5 kg -02/14: Continues to tolerate 40 IV Lasix twice daily, continue through today, can consider de-escalation tomorrow pending renal function and heart rate #Uncontrolled hypertension * -Patient has been on Coreg 6.25 mg p.o. twice daily as well as losartan 25 mg p.o. twice daily at home * -Stage II diastolic dysfunction noted on echocardiogram from 2019 * -Review of our data with regard to her blood pressure shows chronically elevated blood pressure * -Continue losartan as above * -Increase Coreg to 25 mg p.o. twice daily to help with blood pressure and rate control * -Recommend improved compliance with CPAP as this may improve her blood pressure control as well -02/09: Added Coreg dose as above, will continue to adjust medications -02/11: Medications adjusted as above #Leukocytosis * -Etiology unclear * -Suspect reactive * -Viral etiology work-up pending -02/09: Respiratory panel pending, COVID-negative, downtrending without antibiotics, low suspicion for infection -02/10: Downtrending #Elevated D-dimer * -CTA of the chest was negative for any PE * -With lower extremity edema we will check ultrasound however patient will be started on Eliquis but dosing change would need to be pursued with loading dose if patient does have VTE -02/09: Lower extremity duplex also negative for DVT, continue current dose of Eliquis Hypokalemia * -40 mill equivalents p.o. potassium given * -Repeat lab in a.m. * -Check a.m. magnesium level * -We will have to monitor closely with initiation of diuretics -02/09: Replaced Hyperglycemia * -Mild * -Check hemoglobin A1c -02/09: Hemoglobin A1c 5.4 #DEBRA * -Patient has CPAP machine but has not yet started utilizing * -Patient to bring in CPAP machine and will initiate here * -Strongly recommend improved compliance with treatment for her sleep apnea #Asthma * -As needed albuterol #IBS * -Continue home dicyclomine #Morbid obesity * -BMI is 46.2 * -Recommend weight loss * -Complicates treatment, prognosis, outcomes * -Suspect some of this is fluid weight related to heart failure as above DVT ppx: eliquis Charges/Coding Visit Charges Inpatient E&M: 90339 Subs Hosp L2
[2023-02-14 08:21] VITALS: BP 134/83; PULSE 98; RESP 18; TEMP 36.6; O2SAT 93
[2023-02-14] MEDS: Multivitamins,Therapeutic Tablet 1 TABLET PO (08:25)
[2023-02-14] MEDS: Carvedilol 25 MG Tablet PO ×2 (08:25→17:49)
[2023-02-14] MEDS: Furosemide 40 MG/4 ML Vial IV ×2 (09:26→17:49)
[2023-02-14] MEDS: Losartan Potassium 25 MG Tablet PO (09:26)
[2023-02-14] MEDS: dilTIAZem CD 120 MG Capsule PO (09:26)
[2023-02-14] MEDS: Potassium Chloride Oral Tablet 20 MEQ PO (09:26)
[2023-02-14] MEDS: APIXABAN 5 MG TABLET PO ×2 (09:26→21:38)
[2023-02-14] MEDS: Empagliflozin 10 MG Tablet PO (09:26)
[2023-02-14] MEDS: guaiFENesin 10 ML UDC (200MG/10ML) PO ×2 (14:35→21:45)
[2023-02-14 14:37] VITALS: BP 126/84; PULSE 80; RESP 18; TEMP 36.6; O2SAT 95
[2023-02-14 21:37] VITALS: BP 123/89; PULSE 82; RESP 20; TEMP 36.9; O2SAT 94
[2023-02-15 03:35] VITALS: BP 143/100; PULSE 86; RESP 16; TEMP 36.8; O2SAT 99
[2023-02-15 05:36] VITALS: BMI 43.2
[2023-02-15 06:03] LABS: Absolute Lymphocyte Count 2.18 X10^3/uL (0.83-4.51); Absolute Neutrophil Count 10.3 X10^3/uL (2.0-7.7); Basophil# 0.06 X10^3/uL; Basophil% 0.4 % (0-1); Eosinophil# 0.11 X10^3/uL; Eosinophils% 0.8 % (0-5); Hemoglobin 12.9 g/dL (12.0-15.0); Lymphocyte # 2.18 X10^3/ul (0.83-4.51); Lymphocyte % 15.6 % (19-41); Mean Corp Hgb Conc 30.7 g/dL (32-36); Mean Corpuscular Hgb 28.7 pg (27.0-32.0); Mean Corpuscular Volume 93.5 fL (81-99); Mean Platelet Vol. 11.5 fl (6.2-12.0); Monocyte# 1.21 X10^3/uL; Monocyte% 8.7 % (0-10); NRBC Flagged by Analyzer 0 % (0-5); Neutrophil # 10.31 X10^3/uL (2.7-7.7); Platelet Count 243 K/mm3 (150-450); RBC Distribution Width CV 14.4 % (11.6-14.6); Red Blood Count 4.49 M/mm3 (4.2-5.4); White Blood Count 13.9 K/mm3 (4.4-11.0)
[2023-02-15 06:41] LABS: Anion Gap 3 (5-15); BUN 17 mg/dL (7-18); BUN/Creat Ratio 20.9 RATIO (10-20); Calcium,Total 9.3 mg/dL (8.5-10.1); Chloride 103 mmol/L (98-107); Creatinine, Serum 0.82 mg/dL (0.55-1.02); EST Glomerular Filtration Rate 75 mL/min (>60); Est Glom Filt Rate - Afr Amer 91 mL/min (>60); Estimated Creatinine Clearance 59.06 ml/min; Glucose 89 mg/dL (74-106); Magnesium 2.4 mg/dL (1.6-2.6); Potassium 3.5 mmol/L (3.5-5.1); Sodium Level 141 mmol/L (136-145)
[2023-02-15 07:32] VITALS: O2SAT 94
--- NOTE | 2023-02-15 09:02 | PN.HOSP_ITS ---
Reason for Visit Reason for Visit: Diagnoses Elevated white blood cell count, unspecified (02/08/23) Morbid (severe) obesity due to excess calories (02/08/23) Hypokalemia (02/08/23) Essential (primary) hypertension (02/08/23) Paroxysmal atrial fibrillation (02/08/23) Unspecified atrial fibrillation (02/08/23) Acute diastolic (congestive) heart failure (02/08/23) Hyperglycemia, unspecified (02/08/23) Other specified abnormal findings of blood chemistry (02/08/23) Subjective Subjective Feels well. Denies any chest pain. Objective Data Objective Data Vital Signs: Vital Signs Temp Pulse Resp BP Pulse Ox O2 Del Method O2 Flow Rate 36.8 C 86 16 143/100 H 99 Nasal Cannula 2 02/15/23 03:35 02/15/23 03:35 02/15/23 03:35 02/15/23 03:35 02/15/23 03:35 02/15/23 04:31 02/15/23 04:31 Oxygen Flow Rate (L/min) 2 Oxygen Delivery Method Nasal Cannula Weight: 114.1 kg Body Mass Index (BMI) 43.2 Intake & Output: Intake and Output for Last 24 Hours 02/13/23 02/14/23 02/15/23 23:59 23:59 23:59 Intake Total 390 / 690 990 / 990 60 / 60 Output Total 1200 / 1200 1750 / 1750 250 / 250 Balance -810 / -510 -760 / -760 -190 / -190 Lab / Micro Data Result Diagrams: 02/15/23 05:40 02/15/23 05:40 Labs: Laboratory Results - last 24 hr 02/15/23 05:40: WBC 13.9 H, RBC 4.49, Hgb 12.9, Hct 42.0, MCV 93.5, MCH 28.7, MCHC 30.7 L, RDW Std Deviation 49.0 H, RDW Coeff of Ximena 14.4, Plt Count 243, MPV 11.5, Immature Gran % (Auto) 0.500, Neut % (Auto) 74.0 H, Lymph % (Auto) 15.6 L, [place] % (Auto) 8.7, Eos % (Auto) 0.8, Baso % (Auto) 0.4, Absolute Neuts (auto) 10.3 H, Absolute Lymphs (auto) 2.18, Nucleated RBC % 0 02/15/23 05:40: Sodium 141, Potassium 3.5, Chloride 103, Carbon Dioxide 35.0 H, Anion Gap 3 L, BUN 17, Creatinine 0.82, Estim Creat Clear Calc 59.06, Est GFR (MDRD) Af Amer 91, Est GFR (MDRD) Non-Af 75, BUN/Creatinine Ratio 20.9 H, Glucose 89, Calcium 9.3, Magnesium 2.4 Micro: Microbiology 02/08/23 20:52 Mucosa - Nasopharyngeal Respiratory Panel (PCR) - Final 02/08/23 20:52 Nasal Secretion SARS-CoV-2 & FLU Antigen (Rapid) - Final Rhythm Strip Rhythm Strip: A-fib Physical Exam Const alert and no apparent distress HEENT head/scalp atraumatic and moist oral mucous membranes Resp normal respiratory effort, no retractions, no use of accessory muscles and clear to auscultation bilaterally Cardio Cardio Narrative: irregularly irregular. GI normal to inspection, nondistended, normoactive bowel sounds and soft to palpation Extremity normal to inspection and full ROM Psych affect normal Assessment & Plan Assessment/Plan (1) Paroxysmal atrial fibrillation with RVR: PLAN: #New onset A-fib with RVR * -Recommend improved compliance with CPAP * -Current heart rates after 2 doses of Cardizem are in the low 100s to 110 * -Patient is on Coreg at home and has plenty of blood pressure so we will increase this from 6.25 twice daily to 25 p.o. twice daily with a dose given now * -Start Eliquis * -Check echocardiogram * -Patient has previous echocardiogram from June 03, 2020 that shows an EF of 60%, mildly enlarged left atrium and stage II diastolic dysfunction with normal valves * -Check TSH * -Patient overall will likely not tolerate A-fib with RVR well with her marked diastolic dysfunction at baseline and blood pressures are still elevated so improved control with this needs to be addressed -02/09: Given persistently elevated heart rate and blood pressure will give an additional 12.5 of Coreg and monitor how she does, echo pending. Continue to monitor on telemetry -02/10: Improving, increased Coreg -02/11: Despite medication adjustments heart rate was 140s to 170s overnight, cardiology consulted and decrease carvedilol back to 25 mg twice daily and started on diltiazem 60 mg every 6 hours. Lasix changed back to IV twice daily and she was started on SGLT2 inhibitor -02/12: Improving on present management, remains on Lasix IV twice daily. Will assess BMP and clinical status tomorrow and possibly de-escalate Lasix for the following day -02/13: Had been better yesterday from a heart perspective but today still having frequent accelerated heart rate, Cardizem changed to 120 CD, cardiology presently managing medications. Remains on 40 IV Lasix twice daily -02/14: Still has occasional episodes of RVR but is significantly improving with time and Lasix, cardiology has been adjusting her medications (2) Acute heart failure with preserved ejection fraction (HFpEF): PLAN: #Acute decompensated HFpEF * -Secondary to the development of A-fib and diastolic dysfunction * -Daily weights * -Fluid restrict * -Sodium restriction * -Bilateral lower extremity Butch bandages * -Check TSH * -Lasix 40 mg IV push twice daily -02/09: Continue daily weights and current dose of Lasix, distal of some swelling in lower extremities. Echo pending -02/10: Echo resulted with EF of 55%, moderate tricuspid valve insufficiency, m ild pulmonary hypertension, unable to comment on diastolic function. Lasix changed to p.o. today. Patient tolerates oral Lasix and heart rate under control with present medication may be able to DC tomorrow -02/11: Lasix changed back to IV twice daily, SGLT2 inhibitor started, carvedilol decreased to 25 twice daily and diltiazem started. -02/12:Improving on present management, remains on Lasix IV twice daily. Will assess BMP and clinical status tomorrow and possibly de-escalate Lasix for the following day -02/13: Cardizem changed to CD by cardiology, remains on losartan and carvedilol. Is on 40 IV twice daily of Lasix with stable BUN and creatinine. Continue at this time. Weight on admission 122.2 kg, down to 116.5 kg -02/14: Continues to tolerate 40 IV Lasix twice daily, continue through today, can consider de-escalation tomorrow pending renal function and heart rate (3) Hypertension: QUALIFIERS: Hypertension type: essential hypertension Qualified Code(s): I10 - Essential (primary) hypertension PLAN: #Uncontrolled hypertension * -Patient has been on Coreg 6.25 mg p.o. twice daily as well as losartan 25 mg p.o. twice daily at home * -Stage II diastolic dysfunction noted on echocardiogram from 2019 * -Review of our data with regard to her blood pressure shows chronically elevated blood pressure * -Continue losartan as above * -Increase Coreg to 25 mg p.o. twice daily to help with blood pressure and rate control * -Recommend improved compliance with CPAP as this may improve her blood pressure control as well -02/09: Added Coreg dose as above, will continue to adjust medications -02/11: Medications adjusted as above (4) Hypokalemia: PLAN: Hypokalemia * -40 mill equivalents p.o. potassium given * -Repeat lab in a.m. * -Check a.m. magnesium level * -We will have to monitor closely with initiation of diuretics -02/09: Replaced (5) Leukocytosis: PLAN: #Leukocytosis * -Etiology unclear * -Suspect reactive * -Viral etiology work-up pending -02/09: Respiratory panel pending, COVID-negative, downtrending without antibiotics, low suspicion for infection -02/10: Downtrending (6) Elevated d-dimer: PLAN: #Elevated D-dimer * -CTA of the chest was negative for any PE * -With lower extremity edema we will check ultrasound however patient will be started on Eliquis but dosing change would need to be pursued with loading dose if patient does have VTE -02/09: Lower extremity duplex also negative for DVT, continue current dose of Eliquis (7) Hyperglycemia: PLAN: Hyperglycemia * -Mild * -Check hemoglobin A1c -02/09: Hemoglobin A1c 5.4 PLAN: Plan Chronic conditions: * DEBRA-Patient has CPAP machine but has not yet started utilizing-Patient to bring in CPAP machine and will initiate here-Strongly recommend improved compliance with treatment for her sleep apnea * Asthma-As needed albuterol * IBS-Continue home dicyclomine * Morbid obesity-BMI is 46.2-Recommend weight loss-Complicates treatment, prognosis, outcomes-Suspect some of this is fluid weight related to heart failure as above DVT ppx: eliquis Charges/Coding Visit Charges Inpatient E&M: 71825 Subs Hosp L2
[2023-02-15 10:42] VITALS: BP 140/87; PULSE 111; RESP 16; TEMP 36.6; O2SAT 94
[2023-02-15] MEDS: dilTIAZem CD 120 MG Capsule PO (10:50)
[2023-02-15] MEDS: Carvedilol 25 MG Tablet PO ×2 (10:50→17:02)
[2023-02-15] MEDS: Empagliflozin 10 MG Tablet PO (10:50)
[2023-02-15] MEDS: Multivitamins,Therapeutic Tablet 1 TABLET PO (10:50)
[2023-02-15] MEDS: Losartan Potassium 25 MG Tablet PO (10:50)
[2023-02-15] MEDS: APIXABAN 5 MG TABLET PO (10:51)
[2023-02-15] MEDS: Potassium Chloride Oral Tablet 20 MEQ PO (10:56)
[2023-02-15] MEDS: Furosemide 40 MG/4 ML Vial IV (10:56)
--- NOTE | 2023-02-15 16:44 | DCINST_ITS ---
Discharge Instructions Diet Discharge Diet: 8 Cup Fluid Restriction and 2000 mg Sodium Diet Dressing / Incision Call your doctor if you observe: Shortness of breath and Increased palpitations (irregular heartbeat) Follow Up Care Test Results: Test results from this visit will be discussed in further detail at your follow- up appointment, if applicable. Discharge Plan Admission Admit Date/Time: 02/08/23 20:26 Primary Reason for Your Visit: heart failure exacerbation. atrial fibrillation with rapid ventriuclar rate Attending Provider: Bronson Rowley Primary Care Provider: Denise Marvin Consulting Providers: Nargis Cochran ; Douglas Russo ; Chelsie Camargo Instructions Additional Instructions / Restrictions: Daily weights and keep a record. Notify physician if weight increased 2 pounds in 1 day or 3 pounds in 1 week. Discharge Orders/Prescriptions Prescriptions: New carvedilol 25 mg Tablet 25 mg PO BIDCM Qty: 60 0RF Eliquis 5 mg Tablet 5 mg PO BID Qty: 60 0RF diltiazem HCl 120 mg Capsule,Extended Release 24hr 120 mg PO DAILY Qty: 30 0RF Jardiance 10 mg Tablet 10 mg PO DAILY Qty: 30 0RF potassium chloride [Klor-Con M20] 20 mEq Tablet,Er Particles/Crystals 20 meq PO DAILYCM Qty: 30 0RF guaifenesin [Mucinex] 600 mg tablet extended release 12hr 600 mg PO BID Qty: 20 0RF furosemide 40 mg tablet 40 mg PO DAILY Qty: 30 0RF Continued losartan 25 MG tablet 25 mg PO DAILY albuterol sulfate 1 PUFF inhaler 2 puff IH Q4H PRN PRN (Reason: Wheezing) Label Comments: INHALE 2 PUFFS BY MOUTH EVERY 6 HOURS NEEDED DIRECTED multivitamin Tablet 1 tab PO DAILY omega-3 fatty acids Capsule 1,000 mg PO DAILY Metamucil Plus Calcium 1-60 gram-mg Capsule 1 cap PO DAILY Rx Instructions: administer with large glass of water Probiotic Acidophilus Beads 2 billion cell Capsule 1 cap PO DAILY albuterol sulfate 2.5 mg /3 mL (0.083 %) solution for nebulization 2.5 mg continuous nebulization Q6H PRN (Reason: SOB) Label Comments: USE 1 VIAL IN NEBULIZER EVERY 6 HOURS NEEDED FOR WHEEZING OR SHORTNESS OF BREATH dicyclomine 10 mg capsule 10 mg PO ACHS Label Comments: TAKE 1 CAPSULE BY MOUTH BEFORE MEAL(S) AND AT BEDTIME Discontinued carvedilol 6.25 MG tablet 6.25 mg PO BID Label Comments: TAKE 1 TABLET BY MOUTH TWICE DAILY hydrochlorothiazide 25 MG tablet 12.5 mg PO DAILY Referrals / Follow Up: [facility] [Provider Group] - Within 1 Month Denise Marvin MD [Primary Care Provider] - Within 2 Weeks Disposition Disposition (needs filled in before D/C Order can be placed): Home, Self Care
--- NOTE | 2023-02-15 16:51 | DS.PCM_ITS ---
Providers Date of Admission: 02/08/23 Primary Care Physician: Dr. Denise Marvin MD Consultations 02/11/23 06:43 Consult: Cardiology Routine Consulting Provider: Douglas Russo Reason for Consult: afib w/ RVR, on tele still into 140's-170's despite escalating doses of BB EMERGENT Consult: No MD Notified: Yes Date Notified: 02/11/23 Time Notified: 08:07 Method of Notification: Text Comments:: Widly variable HR but still frequent bouts of RVR Reason For Visit: HFPEEF/NEW ONSET AFIB Diagnosis Discharge Diagnosis (1) Paroxysmal atrial fibrillation with RVR: Status: Acute Code(s): I48.0 - Paroxysmal atrial fibrillation Plan: #New onset A-fib with RVR * -Recommend improved compliance with CPAP * -Current heart rates after 2 doses of Cardizem are in the low 100s to 110 * -Patient is on Coreg at home and has plenty of blood pressure so we will increase this from 6.25 twice daily to 25 p.o. twice daily with a dose given now * -Start Eliquis * -Check echocardiogram * -Patient has previous echocardiogram from June 03, 2020 that shows an EF of 60%, mildly enlarged left atrium and stage II diastolic dysfunction with normal valves * -Check TSH * -Patient overall will likely not tolerate A-fib with RVR well with her marked diastolic dysfunction at baseline and blood pressures are still elevated so improved control with this needs to be addressed -02/09: Given persistently elevated heart rate and blood pressure will give an additional 12.5 of Coreg and monitor how she does, echo pending. Continue to monitor on telemetry -02/10: Improving, increased Coreg -02/11: Despite medication adjustments heart rate was 140s to 170s overnight, cardiology consulted and decrease carvedilol back to 25 mg twice daily and started on diltiazem 60 mg every 6 hours. Lasix changed back to IV twice daily and she was started on SGLT2 inhibitor -02/12: Improving on present management, remains on Lasix IV twice daily. Will assess BMP and clinical status tomorrow and possibly de-escalate Lasix for the following day -02/13: Had been better yesterday from a heart perspective but today still having frequent accelerated heart rate, Cardizem changed to 120 CD, cardiology presently managing medications. Remains on 40 IV Lasix twice daily -02/14: Still has occasional episodes of RVR but is significantly improving with time and Lasix, cardiology has been adjusting her medications 02/15: Improved. continue carvedilol and diltiazem. Anticoagulation with apixaban. (2) Acute heart failure with preserved ejection fraction (HFpEF): Status: Acute Code(s): I50.31 - Acute diastolic (congestive) heart failure Plan: #Acute decompensated HFpEF * -Secondary to the development of A-fib and diastolic dysfunction * -Daily weights * -Fluid restrict * -Sodium restriction * -Bilateral lower extremity Butch bandages * -Check TSH * -Lasix 40 mg IV push twice daily -02/09: Continue daily weights and current dose of Lasix, distal of some swelling in lower extremities. Echo pending -02/10: Echo resulted with EF of 55%, moderate tricuspid valve insufficiency, mild pulmonary hypertension, unable to comment on diastolic function. Lasix changed to p.o. today. Patient tolerates oral Lasix and heart rate under control with present medication may be able to DC tomorrow -02/11: Lasix changed back to IV twice daily, SGLT2 inhibitor started, carvedilol decreased to 25 twice daily and diltiazem started. -02/12:Improving on present management, remains on Lasix IV twice daily. Will assess BMP and clinical status tomorrow and possibly de-escalate Lasix for the following day -02/13: Cardizem changed to CD by cardiology, remains on losartan and carvedilol. Is on 40 IV twice daily of Lasix with stable BUN and creatinine. Continue at this time. Weight on admission 122.2 kg, down to 116.5 kg -02/14: Continues to tolerate 40 IV Lasix twice daily, continue through today, can consider de-escalation tomorrow pending renal function and heart rate 02/15: continue furosemide with subsequent potassium supplementation. Follow up with cardiology as outpt. (3) Hypertension: Status: Chronic Code(s): I10 - Essential (primary) hypertension Qualifiers: Hypertension type: essential hypertension Qualified Code(s): I10 - Essential (primary) hypertension Plan: #Uncontrolled hypertension * -Patient has been on Coreg 6.25 mg p.o. twice daily as well as losartan 25 mg p.o. twice daily at home * -Stage II diastolic dysfunction noted on echocardiogram from 2019 * -Review of our data with regard to her blood pressure shows chronically elevated blood pressure * -Continue losartan as above * -Increase Coreg to 25 mg p.o. twice daily to help with blood pressure and rate control * -Recommend improved compliance with CPAP as this may improve her blood pressure control as well -02/09: Added Coreg dose as above, will continue to adjust medications -02/11: Medications adjusted as above (4) Hypokalemia: Status: Acute Code(s): E87.6 - Hypokalemia Plan: Hypokalemia * -40 mill equivalents p.o. potassium given * -Repeat lab in a.m. * -Check a.m. magnesium level * -We will have to monitor closely with initiation of diuretics -02/09: Replaced (5) Leukocytosis: Status: Acute Code(s): D72.829 - Elevated white blood cell count, unspecified Plan: #Leukocytosis * -Etiology unclear * -Suspect reactive * -Viral etiology work-up pending -02/09: Respiratory panel pending, COVID-negative, downtrending without ant ibiotics, low suspicion for infection -02/10: Downtrending (6) Elevated d-dimer: Status: Acute Code(s): R79.89 - Other specified abnormal findings of blood chemistry Plan: #Elevated D-dimer * -CTA of the chest was negative for any PE * -With lower extremity edema we will check ultrasound however patient will be started on Eliquis but dosing change would need to be pursued with loading dose if patient does have VTE -02/09: Lower extremity duplex also negative for DVT, continue current dose of Eliquis (7) Hyperglycemia: Status: Acute Code(s): R73.9 - Hyperglycemia, unspecified Plan: Hyperglycemia * -Mild * -Check hemoglobin A1c -02/09: Hemoglobin A1c 5.4 Plan Chronic conditions: * DEBRA-Patient has CPAP machine but has not yet started utilizing-Patient to bring in CPAP machine and will initiate here-Strongly recommend improved compliance with treatment for her sleep apnea * Asthma-As needed albuterol * IBS-Continue home dicyclomine * Morbid obesity-BMI is 46.2-Recommend weight loss-Complicates treatment, prognosis, outcomes-Suspect some of this is fluid weight related to heart failure as above DVT ppx: eliquis Medications at Discharge Home Medications albuterol sulfate 90 mcg/actuation aerosol inhaler 2 puff IH Q4H PRN PRN Wheezing 12/17/20 losartan 25 mg tablet 25 mg PO DAILY 12/17/20 L.acidophilus-L.plantarum-B.animalis-B.longum 2 billion cell capsule (Probiotic Acidophilus Beads) 1 cap PO DAILY 02/08/23 albuterol sulfate 2.5 mg/3 mL (0.083 %) solution for nebulization 2.5 mg continuous nebulization Q6H PRN SOB 02/08/23 dicyclomine 10 mg capsule 10 mg PO ACHS . 02/08/23 multivitamin 1 tab PO DAILY 02/08/23 omega-3 fatty acids 1,000 mg PO DAILY 02/08/23 psyllium husk-calcium 1 gram-60 mg capsule (Metamucil Plus Calcium) 1 cap PO DAILY 02/08/23 apixaban 5 mg tablet (Eliquis) 5 mg PO BID #60 tabs 02/15/23 carvedilol 25 mg tablet 25 mg PO BIDCM #60 tabs 02/15/23 diltiazem HCl 120 mg capsule,extended release 24 hr 120 mg PO DAILY #30 caps 02/15/23 empagliflozin 10 mg tablet (Jardiance) 10 mg PO DAILY #30 tabs 02/15/23 furosemide 40 mg tablet 40 mg PO DAILY #30 tabs 02/15/23 guaifenesin 600 mg tablet, extended release 12 hr (Mucinex) 600 mg PO BID #20 tabs 02/15/23 potassium chloride 20 mEq tablet,extended release(part/cryst) (Klor-Con M) 20 m eq PO DAILYCM #30 tabs 02/15/23 Hospital Course Operations None Procedures 2-D Echocardiogram Summary of Care Provided Minutes Spent on Discharge: 35 Weight / BMI Weight Weight: 114.1 kg Body Mass Index (BMI) 43.2 ABG / Lab / Microbiology Data Result Diagrams: 02/15/23 05:40 02/15/23 05:40 Laboratory: Laboratory Results - last 24 hr 02/15/23 05:40: WBC 13.9 H, RBC 4.49, Hgb 12.9, Hct 42.0, MCV 93.5, MCH 28.7, MCHC 30.7 L, RDW Std Deviation 49.0 H, RDW Coeff of Ximena 14.4, Plt Count 243, MPV 11.5, Immature Gran % (Auto) 0.500, Neut % (Auto) 74.0 H, Lymph % (Auto) 15.6 L, [place] % (Auto) 8.7, Eos % (Auto) 0.8, Baso % (Auto) 0.4, Absolute Neuts (auto) 10.3 H, Absolute Lymphs (auto) 2.18, Nucleated RBC % 0 02/15/23 05:40: Sodium 141, Potassium 3.5, Chloride 103, Carbon Dioxide 35.0 H, Anion Gap 3 L, BUN 17, Creatinine 0.82, Estim Creat Clear Calc 59.06, Est GFR (MDRD) Af Amer 91, Est GFR (MDRD) Non-Af 75, BUN/Creatinine Ratio 20.9 H, Glucose 89, Calcium 9.3, Magnesium 2.4 Microbiology: Microbiology 02/08/23 20:52 Mucosa - Nasopharyngeal Respiratory Panel (PCR) - Final 02/08/23 20:52 Nasal Secretion SARS-CoV-2 & FLU Antigen (Rapid) - Final D/C Instructions Discharge Diet: 8 Cup Fluid Restriction and 2000 mg Sodium Diet Call your doctor if you observe: Shortness of breath and Increased palpitations (irregular heartbeat) Meaningful Use Info Meaningful Use Diagnoses (Choose all that apply): CHF CHF BUTCH/ARB ordered at discharge?: Yes Documented LVEF (%): 55 Discharge Plan Admission Admit Date/Time: 02/08/23 20:26 Primary Reason for Your Visit: heart failure exacerbation. atrial fibrillation with rapid ventriuclar rate Attending Provider: Bronson Rowley Primary Care Provider: Denise Marvin Consulting Providers: Nargis Cochran ; Douglas Russo ; Chelsie Camargo Instructions Additional Instructions / Restrictions: Daily weights and keep a record. Notify physician if weight increased 2 pounds in 1 day or 3 pounds in 1 week. Discharge Orders/Prescriptions Prescriptions: New carvedilol 25 mg Tablet 25 mg PO BIDCM Qty: 60 0RF Eliquis 5 mg Tablet 5 mg PO BID Qty: 60 0RF diltiazem HCl 120 mg Capsule,Extended Release 24hr 120 mg PO DAILY Qty: 30 0RF Jardiance 10 mg Tablet 10 mg PO DAILY Qty: 30 0RF potassium chloride [Klor-Con M20] 20 mEq Tablet,Er Particles/Crystals 20 meq PO DAILYCM Qty: 30 0RF guaifenesin [Mucinex] 600 mg tablet extended release 12hr 600 mg PO BID Qty: 20 0RF furosemide 40 mg tablet 40 mg PO DAILY Qty: 30 0RF Continued losartan 25 MG tablet 25 mg PO DAILY albuterol sulfate 1 PUFF inhaler 2 puff IH Q4H PRN PRN (Reason: Wheezing) Label Comments: INHALE 2 PUFFS BY MOUTH EVERY 6 HOURS NEEDED DIRECTED multivitamin Tablet 1 tab PO DAILY omega-3 fatty acids Capsule 1,000 mg PO DAILY Metamucil Plus Calcium 1-60 gram-mg Capsule 1 cap PO DAILY Rx Instructions: administer with large glass of water Probiotic Acidophilus Beads 2 billion cell Capsule 1 cap PO DAILY albuterol sulfate 2.5 mg /3 mL (0.083 %) solution for nebulization 2.5 mg continuous nebulization Q6H PRN (Reason: SOB) Label Comments: USE 1 VIAL IN NEBULIZER EVERY 6 HOURS NEEDED FOR WHEEZING OR SHORTNESS OF BREATH dicyclomine 10 mg capsule 10 mg PO ACHS Label Comments: TAKE 1 CAPSULE BY MOUTH BEFORE MEAL(S) AND AT BEDTIME Discontinued carvedilol 6.25 MG tablet 6.25 mg PO BID Label Comments: TAKE 1 TABLET BY MOUTH TWICE DAILY hydrochlorothiazide 25 MG tablet 12.5 mg PO DAILY Referrals / Follow Up: [facility] [Provider Group] - Within 1 Month Denise Marvin MD [Primary Care Provider] - Within 2 Weeks Disposition Disposition (needs filled in before D/C Order can be placed): Home, Self Care Charges/Coding Visit Charges Inpatient E&M: 20516 Disch Hosp >30min
[2023-02-15 17:00] VITALS: BP 146/91; PULSE 74; RESP 16; TEMP 36.6; O2SAT 95
--- NOTE | 2023-02-19 10:45 | NURSING ---
ALLYSON CM Discharge follow-up phone call LACE:10 Strata:3 Date of call:02/19/23 Time of Call:1045 Admitting diagnosis:HFpEEF/ New onset Atrial Fibrillation Summary of call: Spoke with patient regarding recent hospitalization. Pt denies questions or concerns regarding recent care. Pt instructed to contact PCP with any questions or concerns should they arise.
== END 2023-02-15 19:08 | disposition home or self-care (01) | DRG 291 ==
LOC: ED 20:54 → PCU 21:08
PROVIDERS: Internal Medicine; Admitting Provider Internal Medicine; Emergency Provider Student in an Organized Health Care Education/Training Program; PCP Internal Medicine
DX: I11.0 Hypertensive heart disease with heart failure (principal); I50.31 Acute diastolic (congestive) heart failure; Z68.42 Body mass index [BMI] 45.0-49.9, adult; D72.829 Elevated white blood cell count, unspecified; I48.0 Paroxysmal atrial fibrillation; E66.01 Morbid (severe) obesity due to excess calories; E87.6 Hypokalemia; G47.33 Obstructive sleep apnea (adult) (pediatric); K58.9 Irritable bowel syndrome, unspecified; J45.909 Unspecified asthma, uncomplicated; R73.9 Hyperglycemia, unspecified; Z20.822 Contact with and (suspected) exposure to COVID-19; Z79.899 Other long term (current) drug therapy
CPT/HCPCS: 36415; 71045; 71275; 80048; 80053; 80061; 83036; 83735; 83880; 84100; 84443; 84484; 85025; 85379; 87428; 87633; 93005; 93306; 93970; 94668; 99283; Q9957; Q9967; A4216; J1940

== ENCOUNTER → 2023-03-10 | Outpatient (CLI) | payer MEDICARE, SELFPAY ==
[2023-03-10 10:36] LABS: Absolute Lymphocyte Count 1.73 X10^3/uL (0.83-4.51); Absolute Neutrophil Count 9.8 X10^3/uL (2.0-7.7); Basophil# 0.04 X10^3/uL; Basophil% 0.3 % (0-1); Eosinophil# 0.05 X10^3/uL; Eosinophils% 0.4 % (0-5); Hematocrit 41.1 % (37-47); Hemoglobin 12.6 g/dL (12.0-15.0); Lymphocyte # 1.73 X10^3/ul (0.83-4.51); Lymphocyte % 13.7 % (19-41); Mean Corp Hgb Conc 30.7 g/dL (32-36); Mean Corpuscular Hgb 28.3 pg (27.0-32.0); Mean Corpuscular Volume 92.4 fL (81-99); Mean Platelet Vol. 11.5 fl (6.2-12.0); Monocyte# 0.97 X10^3/uL; Monocyte% 7.7 % (0-10); NRBC Flagged by Analyzer 0 % (0-5); Neutrophil # 9.77 X10^3/uL (2.7-7.7); Neutrophil % 77.4 % (47-70); Platelet Count 218 K/mm3 (150-450); RBC Distribution Width CV 15.1 % (11.6-14.6); RBC Distribution Width SD 51.3 fl (35.1-43.9); Red Blood Count 4.45 M/mm3 (4.2-5.4); White Blood Count 12.6 K/mm3 (4.4-11.0)
[2023-03-10 10:43] LABS: Anion Gap 8 (5-15); BUN 11 mg/dL (7-18); BUN/Creat Ratio 12.5 RATIO (10-20); Calcium,Total 9.8 mg/dL (8.5-10.1); Chloride 103 mmol/L (98-107); Creatinine, Serum 0.88 mg/dL (0.55-1.02); EST Glomerular Filtration Rate 68 mL/min (>60); Est Glom Filt Rate - Afr Amer 83 mL/min (>60); Glucose 98 mg/dL (74-106); Potassium 3.6 mmol/L (3.5-5.1); Sodium Level 142 mmol/L (136-145)
[2023-03-10 10:44] LABS: BNP,B-Type NATRIURETIC PEPTIDE 368.3 pg/mL (0-100)
== END | disposition home or self-care (01) ==
LOC: LAB 10:04
PROVIDERS: PCP Internal Medicine; Referring Provider Nurse Practitioner Gerontology; Visit Provider Nurse Practitioner Gerontology
DX: R06.02 Shortness of breath (principal); I10 Essential (primary) hypertension; R53.83 Other fatigue
CPT/HCPCS: 36415; 80048; 83880; 85025

== ENCOUNTER → 2023-03-19 | Outpatient (CLI) | payer MEDICARE, SELFPAY ==
[2023-03-19 16:01] LABS: Anion Gap 3 (5-15); BUN 10 mg/dL (7-18); BUN/Creat Ratio 13.3 RATIO (10-20); Calcium,Total 9.8 mg/dL (8.5-10.1); Chloride 104 mmol/L (98-107); Creatinine, Serum 0.75 mg/dL (0.55-1.02); EST Glomerular Filtration Rate 82 mL/min (>60); Est Glom Filt Rate - Afr Amer 100 mL/min (>60); Glucose 90 mg/dL (74-106); Potassium 3.7 mmol/L (3.5-5.1); Sodium Level 141 mmol/L (136-145)
== END | disposition home or self-care (01) ==
LOC: LAB 13:56
PROVIDERS: PCP Internal Medicine; Referring Provider Nurse Practitioner Gerontology; Visit Provider Nurse Practitioner Gerontology
DX: I50.31 Acute diastolic (congestive) heart failure (principal)
CPT/HCPCS: 36415; 80048

== ENCOUNTER 2023-04-15 15:15 | Emergency (ER) | payer MEDICARE, SELFPAY ==
[2023-04-15 15:15] VITALS: BP 139/71; PULSE 101; PULSE 80; RESP 18; RESP 20; TEMP 36.3; O2SAT 96; O2SAT 97
[2023-04-15 15:17] VITALS: BMI 42.0
--- NOTE | 2023-04-15 15:38 | EKG12_ITS ---
Test Reason : SOB Blood Pressure : / mmHG Vent. Rate : 095 BPM Atrial Rate : 000 BPM P-R Int : 000 ms QRS Dur : 096 ms QT Int : 324 ms P-R-T Axes : 000 075 222 degrees QTc Int : [address] & T wave abnormality, consider inferolateral ischemia Abnormal ECG Confirmed by GENOVEVA VEGA, MONICA ([id number]), pictures editor KATE DODGE ([id number]) on 04/19/2023 10:43:20 A M Referred By: Confirmed By:DELFINA TOMAS MD
--- NOTE | 2023-04-15 15:44 | EDS_ITS ---
HPI History of Present Illness Chief Complaint: Edema Informant: patient and other (Eliezer Galindo) Narrative Narrative: Patient was sent after evaluation by pulm and allergy as an outpatient due to suspicion for acute decompensated congestive heart failure. Patient has had increased fluid retention in her legs especially in the past week or 2, for the past month or 2, she has been having fatigue, mild dyspnea with exertion, she states often she has lower chest/upper abdominal tightness with exertion and makes her rest and then goes away, she denies orthopnea or PND. She was admitted 1 or 2 months ago for this and states she is a lot of medication adjustments and she is not necessarily getting worse but nothing seems to be getting better but her main issue is persistent nonproductive cough. She states it often keeps her up at night. [facility] Medical History Acute heart failure with preserved ejection fraction (HFpEF) Asthma Asthma Cholecystectomy planned HTN (hypertension) Morbid obesity DEBRA on CPAP Home Medications losartan 25 mg tablet 25 mg PO DAILY 12/17/20 [History Last Taken 02/08/23] L.acidophilus-L.plantarum-B.animalis-B.longum 2 billion cell capsule (Probiotic Acidophilus Beads) 1 cap PO DAILY 02/08/23 [History Last Taken 02/08/23] multivitamin 1 tab PO DAILY 02/08/23 [History Last Taken 02/08/23] omega-3 fatty acids 1,000 mg PO DAILY 02/08/23 [History Last Taken 02/08/23] apixaban 5 mg tablet (Eliquis) 5 mg PO BID #180 tabs 03/10/23 [Rx Last Taken Unknown] blood pressure monitor #1 ea 03/10/23 [Rx Last Taken Unknown] carvedilol 25 mg tablet 25 mg PO BIDCM #180 tabs 03/10/23 [Rx Last Taken Unknown] dapagliflozin propanediol 5 mg tablet (Farxiga) 5 mg PO DAILY #30 tabs 03/10/23 [Rx Last Taken Unknown] dicyclomine 10 mg capsule 10 mg PO ACHS PRN . 03/10/23 [History Last Taken Unknown] diltiazem HCl 180 mg capsule,extended release 24 hr 180 mg PO DAILY #30 caps 03/10/23 [Rx Last Taken Unknown] potassium chloride 20 mEq tablet,extended release(part/cryst) (Klor-Con M) 20 meq PO DAILYCM #30 tabs 03/15/23 [Rx Last Taken Unknown] cetirizine 10 mg capsule (Zyrtec) 10 mg PO DAILY PRN allergies 04/15/23 [History Last Taken Unknown] cholecalciferol (vitamin D3) 10 mcg (400 unit) capsule 10 mcg PO DAILY 04/15/23 [History Last Taken Unknown] furosemide 40 mg tablet 40 mg PO DAILY #30 tabs 04/15/23 [Rx Last Taken Unknown] Allergy/AdvReac Type Severity Reaction Status Date / Time Sulfa (Sulfonamide Allergy Rash Verified 04/15/23 13:56 Antibiotics) sulfamethoxazole Allergy Rash Verified 04/15/23 13:56 [From Bactrim] trimethoprim [From Bactrim] Allergy Rash Verified 04/15/23 13:56 Family History Other Diabetes Hypertension Surgical History (Updated 04/15/23 @ 14:00 by Gabriela Gilbetr) History of cholecystectomy History of dilatation and curettage History of foot surgery Social History household members: spouse housing: house Smoking Status: Never smoker alcohol intake: never substance use type: does not use ROS ROS ED Constitutional Constitutional ED: Reports fatigue; Denies chills or fever(s) Eyes Eyes: Denies change in vision or diplopia ENT ENT ED: Denies rhinorrhea or sore throat Cardiovascular Cardiovascular: Reports chest pain and pedal edema; Denies orthopnea, palpitations or paroxysmal nocturnal dyspnea Respiratory/Chest Respiratory/Chest: Reports cough and dyspnea on exertion; Denies orthopnea or paroxysmal nocturnal dyspnea Gastrointestinal Gastrointestinal: Reports abdominal pain; Denies diarrhea, nausea or vomiting Genitourinary Genitourinary ED: Denies dysuria or hematuria Musculoskeletal Musculoskeletal: Denies back pain or neck pain Integumentary Denies abscess or rash Neurologic Neurologic: Denies headache(s), paresthesias or weakness Psychiatric Psychiatric: Denies anxiety or suicidal thoughts EXAM Physical Exam Const Vital Signs: 04/15/23 15:15 04/15/23 15:52 04/15/23 15:15 Temperature 97.4 F L Temperature Source Temporal Pulse Rate 80 101 H Respiratory Rate 18 20 H Respiratory Effort Normal Non-Labored Respiratory Pattern Normal Blood Pressure 139/71 H Blood Pressure Mean 93 Pulse Ox 97 96 Oxygen Delivery Method Room Air Positive well nourished and well developed General Appearance ED: well developed and NAD HEENT Reports moist mucous membranes normocephalic and atraumatic Eyes PERRL and EOMs intact bilaterally Neck full ROM and supple Neck Narrative: Mild JVD Resp normal respiratory effort and clear to auscultation bilaterally Cardio no murmurs Rhythm: abnormal rhythm irregularly irregular GI non-tender and non-distended Auscultation: normoactive bowel sounds Palpation: soft Back/Spine no CVA tenderness General Back: other FROM Extremity normal to inspection General Extremety ED: Yes edema; Negative for pulses abnormal or tenderness General Extremity: edema bilateral lower extremity Details: moderate; Negative for pulses abnormal Neuro oriented x3, CN's II-XII intact bilaterally and no sensory deficits noted Sensorium / Orientation: awake and alert Motor Exam: strength 5/5 throughout Psych mental status grossly normal Skin no rashes or lesions noted and no wounds MDM MDM MDM Narrative Medical decision making narrative: Center out of concern for acute decompensated congestive heart failure and po ssible need for admission. Clinically she looks pretty well, her vital signs look really good, she is not hypoxic even with ambulation after we gave her Lasix here and she urinated a lot. 2 view chest x-ray on mitral rotation shows mild CHF, radiology agrees saying she has increased interstitial markings that would be consistent with that. She does have a leukocytosis, pulmonary thought her chronic cough would get better when her heart failure was treated which may be the case. I see nothing that requires antibiotics at this time. She does not have significant dyspnea with exertion here. Her troponin is normal, her EKG shows [id number] which she is not symptomatic from right now, her rate varies at 1 point it was 80 another time it was in the low 100s, but it is 6 PM and she is about to take her evening medications for rate control which were increased at her last clinic visit 03/10. I reviewed the visit. She was offered cardioversion and antidysrhythmic's because of her fatigue potentially being related to her A-fib, she declined and preferred medical treatment so they increased her Cardizem and carvedilol and she continued anticoagulation. She does not feel bad enough that she needs to be admitted to the hospital and I think medically it would be reasonable to adjust her medications, I cannot see why she had furosemide discontinued but according to her medication list that is what happened and what was replaced with HCTZ. I am going to do the opposite, put her back on her furosemide and have her continue her potassium tablets. I discussed all this with Dr. Graham he is in agreement with that plan and close outpatient follow-up after the weekend. History & Record Review Additional record(s) reviewed:: Prior outpatient record and Prior labs Lab Data Attestation: I reviewed the patient's lab results. Labs: Laboratory Results - last 24 hr 04/15/23 04/15/23 04/15/23 15:48 15:48 15:48 WBC 16.0 H RBC 4.58 Hgb 13.1 Hct 42.5 MCV 92.8 MCH 28.6 MCHC 30.8 L RDW Std Deviation 60.2 H RDW Coeff of Ximena 17.6 H Plt Count 252 MPV 11.8 Immature Gran % (Auto) 0.500 Neut % (Auto) 78.4 H Lymph % (Auto) 12.3 L [place] % (Auto) 8.1 Eos % (Auto) 0.3 Baso % (Auto) 0.4 Absolute Neuts (auto) 12.5 H Absolute Lymphs (auto) 1.97 Nucleated RBC % 0 Sodium 139 Potassium 3.9 Chloride 105 Carbon Dioxide 30.0 Anion Gap 4 L BUN 11 Creatinine 0.84 Estim Creat Clear Calc 57.66 Est GFR (MDRD) Af Amer 88 Est GFR (MDRD) Non-Af 73 BUN/Creatinine Ratio 13.2 Glucose 104 Calcium 11.8 H Troponin I High Sens 10 B-Natriuretic Peptide 493.7 H Radiography Diagnostic Testing: Clinical Impression(s) from Imaging Studies Chest X-Ray 04/15/23 16:05 IMPRESSION: Slight increase in interstitial markings may represent edema and/or infection. 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 Discharge Plan Triage Chief Complaint: Edema ED Provider: Brian Parkinson Dx/Rx/DC Orders Clinical Impression: Acute heart failure with preserved ejection fraction (HFpEF), Atrial fibrillation, Chronic cough Instructions: ED Heart Failure, Congestive (CHF) Prescriptions: New furosemide 40 mg tablet 40 mg PO DAILY Qty: 30 0RF Continued Farxiga 5 mg tablet 5 mg PO DAILY Qty: 30 11RF Eliquis 5 mg tablet 5 mg PO BID Qty: 180 3RF carvedilol 25 mg tablet 25 mg PO BIDCM Qty: 180 3RF diltiazem HCl 180 mg capsule,extended release 24hr 180 mg PO DAILY Qty: 30 11RF (DME) blood pressure monitor Kit See Rx Instructions .Route Qty: 1 0RF Rx Instructions: As directed cholecalciferol (vitamin D3) 10 mcg (400 unit) capsule 10 mcg PO DAILY Zyrtec 10 mg capsule 10 mg PO DAILY PRN (Reason: allergies) losartan 25 MG tablet 25 mg PO DAILY multivitamin Tablet 1 tab PO DAILY omega-3 fatty acids Capsule 1,000 mg PO DAILY Probiotic Acidophilus Beads 2 billion cell Capsule 1 cap PO DAILY dicyclomine 10 mg capsule 10 mg PO ACHS PRN (Reason: .) Label Comments: TAKE 1 CAPSULE BY MOUTH BEFORE MEAL(S) AND AT BEDTIME potassium chloride [Klor-Con M20] 20 mEq tablet,ER particles/crystals 20 meq PO DAILYCM Qty: 30 12RF Discontinued hydrochlorothiazide 25 mg tablet 25 mg PO DAILY Qty: 30 11RF Primary Care Provider: Denise Marvin Referrals: Denise Marvin MD [Primary Care Provider] - Michael Graham MD [Med Staff - Active Staff] - 3-5 Days (Call for appointment to be seen with the first available financial report service sales agent or nurse practitioner/PA for reevaluation) Disposition Disposition: Home, Self Care
[2023-04-15 15:58] LABS: Absolute Lymphocyte Count 1.97 X10^3/uL (0.83-4.51); Absolute Neutrophil Count 12.5 X10^3/uL (2.0-7.7); Basophil# 0.06 X10^3/uL; Basophil% 0.4 % (0-1); Eosinophil# 0.05 X10^3/uL; Eosinophils% 0.3 % (0-5); Hematocrit 42.5 % (37-47); Hemoglobin 13.1 g/dL (12.0-15.0); Lymphocyte # 1.97 X10^3/ul (0.83-4.51); Lymphocyte % 12.3 % (19-41); Mean Corp Hgb Conc 30.8 g/dL (32-36); Mean Corpuscular Hgb 28.6 pg (27.0-32.0); Mean Corpuscular Volume 92.8 fL (81-99); Mean Platelet Vol. 11.8 fl (6.2-12.0); Monocyte# 1.29 X10^3/uL; Monocyte% 8.1 % (0-10); NRBC Flagged by Analyzer 0 % (0-5); Neutrophil # 12.53 X10^3/uL (2.7-7.7); Neutrophil % 78.4 % (47-70); Platelet Count 252 K/mm3 (150-450); RBC Distribution Width CV 17.6 % (11.6-14.6); RBC Distribution Width SD 60.2 fl (35.1-43.9); Red Blood Count 4.58 M/mm3 (4.2-5.4)
--- NOTE | 2023-04-15 16:05 | RAD_ITS ---
INDICATION: sob, cp EXAMINATION/TECHNIQUE: X-RAY - XR Chest 2 Views COMPARISON: 02/08/2023. FINDINGS: Slight increase in interstitial markings. Tortuous and calcified thoracic aorta. The heart is mildly enlarged. Elevation the right hemidiaphragm. No pleural effusion or pneumothorax. Degenerative changes of the thoracic spine. RAD/Chest PA and Lateral IMPRESSION: Slight increase in interstitial markings may represent edema and/or infection. Electronically Signed: Edwin Jensen MD at 16:34 EDT ,
[2023-04-15] MEDS: Furosemide 20 MG/2 ML VIAL IV (16:16)
[2023-04-15 16:23] LABS: Anion Gap 4 (5-15); BUN 11 mg/dL (7-18); BUN/Creat Ratio 13.2 RATIO (10-20); Calcium,Total 11.8 mg/dL (8.5-10.1); Chloride 105 mmol/L (98-107); Creatinine, Serum 0.84 mg/dL (0.55-1.02); EST Glomerular Filtration Rate 73 mL/min (>60); Est Glom Filt Rate - Afr Amer 88 mL/min (>60); Estimated Creatinine Clearance 57.66 ml/min; Glucose 104 mg/dL (74-106); Potassium 3.9 mmol/L (3.5-5.1); Sodium Level 139 mmol/L (136-145); Troponin-I HS 10 pg/mL (3.0-54.0)
[2023-04-15 16:31] LABS: BNP,B-Type NATRIURETIC PEPTIDE 493.7 pg/mL (0-100)
[2023-04-15 17:15] VITALS: BP 127/56; PULSE 102; RESP 17; O2SAT 96
[2023-04-15 18:20] VITALS: O2SAT 97
[2023-04-15 18:32] VITALS: BP 125/74; PULSE 100; RESP 18; O2SAT 96
== END 2023-04-15 19:01 | disposition home or self-care (01) ==
PROVIDERS: Emergency Provider Emergency Medicine; PCP Internal Medicine; Visit Provider Emergency Medicine
DX: I50.31 Acute diastolic (congestive) heart failure (principal); I11.0 Hypertensive heart disease with heart failure; I48.91 Unspecified atrial fibrillation; J45.909 Unspecified asthma, uncomplicated; Z79.01 Long term (current) use of anticoagulants; Z79.899 Other long term (current) drug therapy
CPT/HCPCS: 71046; 80048; 83880; 84484; 85025; 93005; 96374; 99284; A4216; J1940

== ENCOUNTER → 2023-06-10 | Outpatient (CLI) | payer MEDICARE, SELFPAY ==
--- NOTE | 2023-06-10 12:25 | RAD_ITS ---
INDICATION: Cough EXAMINATION/TECHNIQUE: X-RAY - XR Chest 2 Views COMPARISON: April 15, 2023., February 08, 2023 FINDINGS: LINES/DEVICES: None. LUNGS: Chronic elevation right hemidiaphragm. No consolidation, edema or effusion. Linear subsegmental atelectasis in the left lung base. No pneumothorax. MEDIASTINUM AND CARDIOVASCULAR STRUCTURES: Cardiac silhouette not enlarged. BONES AND SOFT TISSUES: Unremarkable. RAD/Chest PA and Lateral IMPRESSION: No radiographic evidence of acute cardiopulmonary disease. Chronic elevation of the right hemidiaphragm. Electronically Signed: Gómez Cartagena MD at 2:40 EDT ,
[2023-06-10 13:07] LABS: Absolute Lymphocyte Count 1.73 X10^3/uL (0.83-4.51); Absolute Neutrophil Count 9.4 X10^3/uL (2.0-7.7); Basophil# 0.06 X10^3/uL; Basophil% 0.5 % (0-1); Eosinophil# 0.04 X10^3/uL; Eosinophils% 0.3 % (0-5); Hematocrit 40.9 % (37-47); Hemoglobin 12.4 g/dL (12.0-15.0); Lymphocyte # 1.73 X10^3/ul (0.83-4.51); Mean Corp Hgb Conc 30.3 g/dL (32-36); Mean Corpuscular Hgb 30.5 pg (27.0-32.0); Mean Corpuscular Volume 100.7 fL (81-99); Mean Platelet Vol. 11.2 fl (6.2-12.0); Monocyte# 1.05 X10^3/uL; Monocyte% 8.5 % (0-10); NRBC Flagged by Analyzer 0 % (0-5); Neutrophil % 76.2 % (47-70); Platelet Count 236 K/mm3 (150-450); RBC Distribution Width CV 17.2 % (11.6-14.6); RBC Distribution Width SD 64.6 fl (35.1-43.9); Red Blood Count 4.06 M/mm3 (4.2-5.4); White Blood Count 12.3 K/mm3 (4.4-11.0)
[2023-06-10 13:30] LABS: BNP,B-Type NATRIURETIC PEPTIDE 395.9 pg/mL (0-100)
[2023-06-10 13:34] LABS: Vitamin D,25 Hydroxy 71.4 ng/mL
[2023-06-10 13:54] LABS: Anion Gap 4 (5-15); BUN 31 mg/dL (7-18); BUN/Creat Ratio 19.1 RATIO (10-20); Calcium,Total 12.9 mg/dL (8.5-10.1); Chloride 107 mmol/L (98-107); Creatinine, Serum 1.62 mg/dL (0.55-1.02); EST Glomerular Filtration Rate 34 mL/min (>60); Est Glom Filt Rate - Afr Amer 41 mL/min (>60); Free T3 1.6 pg/mL (2.18-3.98); Glucose 104 mg/dL (74-106); Potassium 4.4 mmol/L (3.5-5.1); Sodium Level 140 mmol/L (136-145); T4 Free Direct 1.45 ng/dL (0.76-1.46)
[2023-06-10 14:19] LABS: PTHIN 8.4 pg/mL (18.4-80.1)
== END | disposition home or self-care (01) ==
PROVIDERS: PCP Internal Medicine; Referring Provider Nurse Practitioner Gerontology; Visit Provider Nurse Practitioner Gerontology
DX: R53.83 Other fatigue (principal); I50.31 Acute diastolic (congestive) heart failure; I48.91 Unspecified atrial fibrillation; R05.9 Cough, unspecified; E55.9 Vitamin D deficiency, unspecified
CPT/HCPCS: 36415; 71046; 80048; 82306; 83880; 83970; 84439; 84443; 84481; 85025

== ENCOUNTER 2023-06-11 13:18 | Inpatient (IN) | payer MEDICARE, SELFPAY ==
[2023-06-11] VITALS (7 sets, daily range): BP systolic 98–114; BP diastolic 54–74; PULSE 83–102; RESP 16–24; TEMP 35.7–36.7; O2SAT 93–98; BMI 40.1; BMI 39.4
[2023-06-11 14:31] LABS: Absolute Lymphocyte Count 1.68 X10^3/uL (0.83-4.51); Absolute Neutrophil Count 9.6 X10^3/uL (2.0-7.7); Basophil# 0.06 X10^3/uL; Basophil% 0.5 % (0-1); Eosinophil# 0.04 X10^3/uL; Eosinophils% 0.3 % (0-5); Hematocrit 40.1 % (37-47); Hemoglobin 12.5 g/dL (12.0-15.0); Lymphocyte # 1.68 X10^3/ul (0.83-4.51); Lymphocyte % 13.4 % (19-41); Mean Corp Hgb Conc 31.2 g/dL (32-36); Mean Corpuscular Volume 99.5 fL (81-99); Mean Platelet Vol. 11.7 fl (6.2-12.0); Monocyte# 1.06 X10^3/uL; Monocyte% 8.5 % (0-10); NRBC Flagged by Analyzer 0 % (0-5); Neutrophil # 9.62 X10^3/uL (2.7-7.7); Neutrophil % 76.8 % (47-70); Platelet Count 213 K/mm3 (150-450); RBC Distribution Width CV 17.4 % (11.6-14.6); RBC Distribution Width SD 64.1 fl (35.1-43.9); Red Blood Count 4.03 M/mm3 (4.2-5.4); White Blood Count 12.5 K/mm3 (4.4-11.0)
[2023-06-11 14:53] LABS: Anion Gap 1 (5-15); BUN 29 mg/dL (7-18); BUN/Creat Ratio 17.6 RATIO (10-20); Chloride 107 mmol/L (98-107); Creatinine, Serum 1.65 mg/dL (0.55-1.02); EST Glomerular Filtration Rate 33 mL/min (>60); Est Glom Filt Rate - Afr Amer 40 mL/min (>60); Glucose 110 mg/dL (74-106); Potassium 4.4 mmol/L (3.5-5.1); Sodium Level 139 mmol/L (136-145)
--- NOTE | 2023-06-11 15:59 | EDS_ITS ---
HPI History of Present Illness Chief Complaint: Abn Labs Detail of Chief Complaint: Sent in by the pigment pusher office for high calcium and hypothyroidism. Informant: patient Onset/Context/Timing Onset: Days Context: Gradual Onset Timing: Continuous Current Severity: Mild Maximum Severity: Mild Narrative Narrative: 67-year-old female history of A-fib on Eliquis, CHF, hypertension. Recent labs from her pigment pusher office revealed elevated calcium level. Also elevated TSH. She was sent in for probable hypothyroidism. She denies recent illness. She denies vomiting, diarrhea or fever. Prior similar symptoms: No Recent Illness/Hospitalization: No [facility] Medical History Acute heart failure with preserved ejection fraction (HFpEF) Asthma Asthma Cholecystectomy planned HTN (hypertension) Morbid obesity DEBRA on CPAP Home Medications losartan 25 mg tablet 25 mg PO DAILY 12/17/20 [History Last Taken 02/08/23] L.acidophilus-L.plantarum-B.animalis-B.longum 2 billion cell capsule (Probiotic Acidophilus Beads) 1 cap PO DAILY 02/08/23 [History Last Taken 02/08/23] multivitamin 1 tab PO DAILY 02/08/23 [History Last Taken 02/08/23] omega-3 fatty acids 1,000 mg PO DAILY 02/08/23 [History Last Taken 02/08/23] apixaban 5 mg tablet (Eliquis) 5 mg PO BID #180 tabs 03/10/23 [Rx Last Taken Unknown] blood pressure monitor #1 ea 03/10/23 [Rx Last Taken Unknown] carvedilol 25 mg tablet 25 mg PO BIDCM #180 tabs 03/10/23 [Rx Last Taken Unknown] dapagliflozin propanediol 5 mg tablet (Farxiga) 5 mg PO DAILY #30 tabs 03/10/23 [Rx Last Taken Unknown] dicyclomine 10 mg capsule 10 mg PO ACHS PRN . 03/10/23 [History Last Taken Unknown] diltiazem HCl 180 mg capsule,extended release 24 hr 180 mg PO DAILY #30 caps 03/10/23 [Rx Last Taken Unknown] potassium chloride 20 mEq tablet,extended release(part/cryst) (Klor-Con M) 20 meq PO DAILYCM #30 tabs 03/15/23 [Rx Last Taken Unknown] cetirizine 10 mg capsule (Zyrtec) 10 mg PO DAILY PRN allergies 04/15/23 [History Last Taken Unknown] cholecalciferol (vitamin D3) 10 mcg (400 unit) capsule 10 mcg PO DAILY 04/15/23 [History Last Taken Unknown] furosemide 40 mg tablet 40 mg PO DAILY #90 tabs 05/06/23 [Rx Last Taken Unknown] levothyroxine 25 mcg capsule 25 mcg PO DAILY #30 caps 06/11/23 [Rx Last Taken Unknown] Allergy/AdvReac Type Severity Reaction Status Date / Time Sulfa (Sulfonamide Allergy Rash Verified 06/11/23 13:21 Antibiotics) sulfamethoxazole Allergy Rash Verified 06/11/23 13:21 [From Bactrim] trimethoprim [From Bactrim] Allergy Rash Verified 06/11/23 13:21 Family History Other Diabetes Hypertension Surgical History History of cholecystectomy History of dilatation and curettage History of foot surgery Social History household members: spouse housing: house Smoking Status: Never smoker alcohol intake: never substance use type: does not use ROS ROS ED ROS Narrative Denies recent illness. Chronic cough. Review of Systems ROS Unobtainable: Denies due to encephalopathy Constitutional Constitutional ED: Denies chills or fever(s) Eyes Eyes: Denies blurry vision ENT ENT ED: Denies ear pain Cardiovascular Cardiovascular: Denies chest pain Respiratory/Chest Respiratory/Chest: Reports cough Gastrointestinal Gastrointestinal: Denies abdominal pain Genitourinary Genitourinary ED: Denies dysuria or hematuria Musculoskeletal Musculoskeletal: Denies arthralgias Integumentary Denies abscess Neurologic Neurologic: Denies headache(s) Psychiatric Psychiatric: Denies anxiety Endocrine Endocrinology: Denies polyuria Hematologic/Lymphatic Hematologic/Lymphatic: Reports none Allergic/Immunologic Allergic/Immunologic ED: Denies mouth swelling, tongue swelling or urticaria EXAM Physical Exam Narrative Exam Narrative: 67 female no acute distress. Vital signs are stable. Blood pressure is 99/54. She does not look septic or toxic. She is in no distress. H EENT exam unremarkable. Neck nontender. Lungs clear to auscultation bilaterally. Heart regular rhythm rate about 80 no murmur. Chest wall nontender. Abdomen soft nontender. Moving all 4 extremities. Chronic lower extremity edema. She has wraps on both lower legs below the knees. Neurologically she is awake and alert with no focal motor deficits. Const Vital Signs: 06/11/23 13:19 06/11/23 15:53 06/11/23 15:55 Temperature 97.8 F Temperature Source Temporal Pulse Rate 102 H 83 Respiratory Rate 18 21 H Respiratory Effort Short of Breath Labored Respiratory Pattern Tachypnea Blood Pressure 98/67 99/54 L Blood Pressure Mean 77 69 Pulse Ox 98 95 Oxygen Delivery Method Room Air Room Air 06/11/23 15:57 Temperature Temperature Source Pulse Rate Respiratory Rate Respiratory Effort Short of Breath Labored Respiratory Pattern Tachypnea Blood Pressure Blood Pressure Mean Pulse Ox Oxygen Delivery Method Room Air Positive well nourished and well developed; Negative for cachectic, contractures or unkempt General Appearance ED: well developed and NAD; Negative for unkempt, cachectic, contractures, cyanotic, diaphoretic or pallor Nutritional Appearance: Negative for cachectic HEENT Reports moist mucous membranes; Denies dry mucous membranes Negative for trauma or tenderness Mouth ED: No dry mucous membranes Mouth: No dry mucous membranes Eyes PERRL and EOMs intact bilaterally General Eye ED: Negative for pale conjunctiva or scleral icterus Neck no lymphadenopathy, supple and no JVD General: Negative for tenderness Lymph Lymphatic: Negative for other Chest Wall inspection of chest normal and palpation of chest normal Chest: Negative for other Resp normal respiratory effort and clear to auscultation bilaterally Effort and Inspection: Negative for retractions or pain with movement Auscultation: Negative for rales, rhonchi or wheezes Cardio regular rate, regular rhythm, S1 normal heart sound, S2 normal heart sound and no murmurs GI normal to inspection, nondistended, normoactive bowel sounds, non-tender, non- distended and no masses Inspection: Negative for abdominal distention Auscultation: normoactive bowel sounds Palpation: soft; Negative for tender or guarding Back/Spine no CVA tenderness General Back: Negative for CVA tenderness Cervical Spine: Negative for cervical spine tenderness Thoracic Spine / Upper Back: Negative for thoracic spinal tenderness or parasp inal muscle tenderness Lumbar Spine / Lower Back: Negative for lumbar spinal tenderness Extremity Negative for normal to inspection General Extremety ED: Yes edema; Negative for tenderness General Extremity: edema Neuro oriented x3 and CN's II-XII intact bilaterally Sensorium / Orientation: alert; Negative for orientation impaired, lethargic or stuporous Motor Exam: strength 5/5 throughout Psych mental status grossly normal Appearance: Negative for unkempt Attitude: No agitated Mood & Affect: Negative for depressed, anxious or tearful Skin no rashes or lesions noted, no wounds and skin turgor normal General Skin Exam: elasticity normal; Negative for jaundice or pallor Lesions: No lesion noted Rashes: No rashes noted Trauma: Negative for abrasion Wounds: Negative for wounds noted MDM MDM MDM Narrative Medical decision making narrative: 67-year-old female has A-fib and CHF. Had labs drawn yesterday in the pigment pusher office. Her calcium was high at 12.9. Her TSH was high at 12.4. They started on a new prescription for hypothyroidism. Sent her in today to be evaluated. She has no complaints. I discussed the patient's case with the nurse practitioner from the cardiology office and also the hospitalist. Hospitalist will admit her for hypercalcemia. Renal insufficiency. She will be started on normal saline at 100 mL an hour. I will discuss all this with patient. Hypercalcemia may be from parathyroid disease or other etiologies. History & Record Review Discussion w/independent historian: Patient Lab Data Attestation: I reviewed the patient's lab results. Lab results narrative: CBC shows white count 12.5. H&H 12.5 and 40. Platelets 213. Electrolytes show a gap of 1. BUN and creatinine 29 and 1.65 which is her baseline consistent with labs from yesterday. Glucose 110. Calcium was 13.0 and was 12.9 yesterday and 11.8 in January. TSH is also elevated 12.4 Labs: Laboratory Results - last 24 hr 06/11/23 14:20 WBC 12.5 H RBC 4.03 L Hgb 12.5 Hct 40.1 MCV 99.5 H MCH 31.0 MCHC 31.2 L RDW Std Deviation 64.1 H RDW Coeff of Ximena 17.4 H Plt Count 213 MPV 11.7 Immature Gran % (Auto) 0.500 Neut % (Auto) 76.8 H Lymph % (Auto) 13.4 L [place] % (Auto) 8.5 Eos % (Auto) 0.3 Baso % (Auto) 0.5 Absolute Neuts (auto) 9.6 H Absolute Lymphs (auto) 1.68 Nucleated RBC % 0 Sodium 139 Potassium 4.4 Chloride 107 Carbon Dioxide 31.0 Anion Gap 1 L BUN 29 H Creatinine 1.65 H Est GFR (MDRD) Af Amer 40 L Est GFR (MDRD) Non-Af 33 L BUN/Creatinine Ratio 17.6 Glucose 110 H Calcium 13.0 H* Discharge Plan Triage Chief Complaint: Abn Labs ED Provider: Wilfred Lopez Dx/Rx/DC Orders Clinical Impression: Acute kidney injury, History of chronic CHF, Chronic anticoagulation, History of atrial fibrillation, Hypercalcemia Prescriptions: No Action Farxiga 5 mg tablet 5 mg PO DAILY Qty: 30 11RF Eliquis 5 mg tablet 5 mg PO BID Qty: 180 3RF carvedilol 25 mg tablet 25 mg PO BIDCM Qty: 180 3RF diltiazem HCl 180 mg capsule,extended release 24hr 180 mg PO DAILY Qty: 30 11RF (DME) blood pressure monitor Kit See Rx Instructions .Route Qty: 1 0RF Rx Instructions: As directed cholecalciferol (vitamin D3) 10 mcg (400 unit) capsule 10 mcg PO DAILY Zyrtec 10 mg capsule 10 mg PO DAILY PRN (Reason: allergies) furosemide 40 mg tablet 40 mg PO DAILY Qty: 90 3RF losartan 25 MG tablet 25 mg PO DAILY multivitamin Tablet 1 tab PO DAILY omega-3 fatty acids Capsule 1,000 mg PO DAILY Probiotic Acidophilus Beads 2 billion cell Capsule 1 cap PO DAILY dicyclomine 10 mg capsule 10 mg PO ACHS PRN (Reason: .) Patient Comments: TAKE 1 CAPSULE BY MOUTH BEFORE MEAL(S) AND AT BEDTIME potassium chloride [Klor-Con M20] 20 mEq tablet,ER particles/crystals 20 meq PO DAILYCM Qty: 30 12RF levothyroxine 25 mcg capsule 25 mcg PO DAILY Qty: 30 6RF Rx Instructions: Take levothyroxine on an empty stomach with water at least four hours after eating. Then wait 30-60 minutes before consuming any other food or beverage, especially coffee. Separate levothyroxine from vitamins by at least 4 hours. Primary Care Provider: Denise Marvin Referrals: Denise Marvin MD [Primary Care Provider] - Disposition Disposition: Acute Care [facility]
[2023-06-11] MEDS: 0.9% Normal Saline 1,000 ML 100 ML IV (16:58)
--- NOTE | 2023-06-11 19:38 | PCM.HP.STD ---
[facility] - General General Date of Admission: 06/11/23 HPI Narrative MAGUI PULIDO, is a 67 F who presents to the hospital for abnormal lab work. She was being seen by her radiologist physician for follow-up for new onset A-fib and heart failure and during routine lab work was noted to be hypercalcemic to 12.9, she had been 11.8 on 04/15/2023 and is currently 13 on admission today. In March her calcium was normal at 9.8. She was also recently diagnosed with hypothyroidism, she was found to have a TSH of 12.4 with a free T3 of 1.6 and a normal T4. They also added on lab work for a vitamin D and a PTH the vitamin D was normal but her parathyroid hormone was low which would be an appropriate response for her hypercalcemia. She states that she has been feeling unwell since about November she has lost an appetite and and therefore has lost some weight and she feels it is all attributed to her A-fib and her heart failure. [facility] Medical History Acute heart failure with preserved ejection fraction (HFpEF) Asthma Asthma Cholecystectomy planned HTN (hypertension) Morbid obesity DEBRA on CPAP Home Medications losartan 25 mg tablet 25 mg PO DAILY 12/17/20 [History Last Taken 06/11/23] L.acidophilus-L.plantarum-B.animalis-B.longum 2 billion cell capsule (Probiotic Acidophilus Beads) 1 cap PO DAILY 02/08/23 [History Last Taken 06/11/23] multivitamin 1 tab PO DAILY 02/08/23 [History Last Taken 06/11/23] omega-3 fatty acids 1,000 mg PO DAILY 02/08/23 [History Last Taken 06/11/23] apixaban 5 mg tablet (Eliquis) 5 mg PO BID #180 tabs 03/10/23 [Rx Last Taken 06/11/23] blood pressure monitor #1 ea 03/10/23 [Rx Last Taken Unknown] carvedilol 25 mg tablet 25 mg PO BIDCM #180 tabs 03/10/23 [Rx Last Taken 06/11/23] dapagliflozin propanediol 5 mg tablet (Farxiga) 5 mg PO DAILY #30 tabs 03/10/23 [Rx Last Taken 06/11/23] dicyclomine 10 mg capsule 10 mg PO ACHS PRN . 03/10/23 [History Last Taken Unknown] potassium chloride 20 mEq tablet,extended release(part/cryst) (Klor-Con M) 20 meq PO DAILYCM #30 tabs 03/15/23 [Rx Last Taken 06/11/23] cetirizine 10 mg capsule (Zyrtec) 10 mg PO DAILY PRN allergies 04/15/23 [History Last Taken 06/11/23] cholecalciferol (vitamin D3) 10 mcg (400 unit) capsule 10 mcg PO DAILY 04/15/23 [History Last Taken 06/11/23] furosemide 40 mg tablet 40 mg PO BID 06/11/23 [History Last Taken 06/11/23] Allergy/AdvReac Type Severity Reaction Status Date / Time Sulfa (Sulfonamide Allergy Rash Verified 06/11/23 13:21 Antibiotics) sulfamethoxazole Allergy Rash Verified 06/11/23 13:21 [From Bactrim] trimethoprim [From Bactrim] Allergy Rash Verified 06/11/23 13:21 Family History Other Diabetes Hypertension Surgical History History of cholecystectomy History of dilatation and curettage History of foot surgery Social History (Updated 06/11/23 @ 18:41 by Angle Perea) household members: children housing: house Smoking Status: Never smoker alcohol intake: never substance use type: does not use ROS Constitutional Constitutional: Reports fatigue and malaise; Denies chills or fever(s) Eyes Eyes: Denies blurry vision ENT HEENT: Denies headache(s) or nasal discharge Cardiovascular Cardiovascular: Denies chest pain, dyspnea on exertion or syncope Respiratory/Chest Respiratory/Chest: Reports cough; Denies shortness of breath at rest or shortness of breath with exertion Gastrointestinal Gastrointestinal: Denies constipation, diarrhea, nausea or vomiting Genitourinary Genitourinary: Denies dysuria Neurologic Neurologic: Denies focal weakness, numbness or tremor(s) Psychiatric Psychiatric: Denies anxiety or depression Vital Signs Vital Signs Vital Signs: 06/11/23 13:19 06/11/23 15:53 06/11/23 15:55 Temperature 97.8 F Temperature Source Temporal Pulse Rate 102 H 83 Respiratory Rate 18 21 H Respiratory Effort Short of Breath Labored Respiratory Pattern Tachypnea Blood Pressure 98/67 99/54 L Blood Pressure Mean 77 69 Blood Pressure Source Blood Pressure Position Blood Pressure Location Pulse Ox 98 95 Oxygen Delivery Method Room Air Room Air 06/11/23 15:57 06/11/23 16:56 06/11/23 17:49 Temperature 98.0 F Temperature Source Oral Pulse Rate 90 88 Respiratory Rate 24 H 24 H Respiratory Effort Short of Breath Labored Respiratory Pattern Tachypnea Blood Pressure 114/71 107/68 Blood Pressure Mean 85 81 Blood Pressure Source Blood Pressure Position Blood Pressure Location Pulse Ox 95 94 Oxygen Delivery Method Room Air Room Air Room Air 06/11/23 18:19 Temperature 96.2 F L Temperature Source Temporal Pulse Rate 92 Respiratory Rate 16 Respiratory Effort Respiratory Pattern Blood Pressure 106/74 Blood Pressure Mean 84 Blood Pressure Source Monitor Blood Pressure Position Semi-Fowlers Blood Pressure Location Left Arm Pulse Ox 94 Oxygen Delivery Method Room Air Weight Weight: 229 lb 12.605 oz Body Mass Index (BMI) 39.4 Physical Exam Narrative General: Alert, Oriented x3, Cooperative, No apparent distress HEENT: Atraumatic, PERRLA, EOMI, Normocephalic Oral: Moist Mucosa Neck: Supple, No JVD Lungs: Diminished, Normal air movement, No rhonchi, No wheeze, No rales Cardiovascular: Regular rate, Regular Rhythm, Normal S1, Normal S2, No murmurs Abdomen: Soft, Non Tender, Non-Distended, No Hepato-splenomegaly Extremities: No edema, Capillary Refill Less than 3 Seconds Skin: No rashes, No breakdown Musculoskeletal: No Tenderness to Palpation of Joints or Extremities Neurological: Motor Exam 5/5 strength throughout, Sensory exam intact to light touch and pain Psych/Mental Status: Flat affect Results Lab / Micro Data 06/11/23 14:20 06/11/23 14:20 Labs: Laboratory Results - last 24 hr 06/11/23 14:20: WBC 12.5 H, RBC 4.03 L, Hgb 12.5, Hct 40.1, MCV 99.5 H, MCH 31.0, MCHC 31.2 L, RDW Std Deviation 64.1 H, RDW Coeff of Ximena 17.4 H, Plt Count 213, MPV 11.7, Immature Gran % (Auto) 0.500, Neut % (Auto) 76.8 H, Lymph % (Auto) 13.4 L, [place] % (Auto) 8.5, Eos % (Auto) 0.3, Baso % (Auto) 0.5, Absolute Neuts (auto) 9.6 H, Absolute Lymphs (auto) 1.68, Nucleated RBC % 0, Sodium 139, Potassium 4.4, Chloride 107, Carbon Dioxide 31.0, Anion Gap 1 L, BUN 29 H, Creatinine 1.65 H, Est GFR (MDRD) Af Amer 40 L, Est GFR (MDRD) Non-Af 33 L, BUN/Creatinine Ratio 17.6, Glucose 110 H, Calcium 13.0 H* Assessment & Plan Assessment/Plan (1) Hypercalcemia: PLAN: Plan 1. Hypercalcemia ? At this moment etiology is unclear her calcium is 13 and her PTH is low at 8.4, vitamin D is normal ? We will obtain a PTH related peptide and will also obtain a CT scan of her abdomen and pelvis as well as her chest with contrast tomorrow hoping that the IV fluids will help improve her creatinine ? Given her renal impairment we will hold her Lasix and continue with IV fluids we will also provide a dose of pamidronate 2. HTN/HLD/chronic diastolic CHF/A-fib ? We will hold her losartan and her Lasix secondary to her renal failure ? Can resume her Coreg and her Eliquis ? We will hold her Farxiga given her ALFRED 3. Elevated TSH ? Her TSH in January was normal and given the abnormality in her T4 being normal and her T3 being low would recommend repeat testing prior to treatment DVT: Angel 77 minutes was spent on direct patient care, including documentation as well as chart review and collaboration with colleagues Charges/Coding Visit Charges Inpatient E&M: 17941 Init Hosp L3
[2023-06-11 21:17] LABS: Phosphorus 3.8 mg/dL (2.5-4.9)
[2023-06-11] MEDS: APIXABAN 5 MG TABLET PO (22:43)
[2023-06-12] VITALS (14 sets, daily range): BP systolic 99–134; BP diastolic 58–77; PULSE 87–139; RESP 16–21; TEMP 36.3–37.1; O2SAT 90–97
[2023-06-12] MEDS: guaiFENesin 10 ML UDC (200MG/10ML) PO (00:37)
--- NOTE | 2023-06-12 02:10 | CT_ITS ---
INDICATION: Hypercalcemia r/o malignancy EXAMINATION: CT CHEST, ABDOMEN AND PELVIS WITH CONTRAST TECHNIQUE: Helically acquired images were obtained of the chest, abdomen, and pelvis following IV contrast, including delayed imaging of abdomen and pelvis. Sagittal and coronal reconstructions reviewed. A radiation dose optimization technique was used for this scan. IV Contrast dosage and agent: 100 cc Isovue-370 Oral contrast: None. COMPARISON: CTA chest from 02/08/2023 FINDINGS: ----Chest: LUNGS, PLEURA AND LARGE AIRWAYS: Chronically elevated right hemidiaphragm with adjacent mild atelectasis. No pulmonary mass or consolidation. No significant pleural effusion. No pneumothorax. THYROID: Unremarkable as visualized. HEART AND PERICARDIUM: Stable borderline cardiomegaly. Trace pericardial effusion noted. VESSELS: No thoracic aortic aneurysm or dissection. Great vessels are patent. No obvious central pulmonary embolism although this study was not performed with the pulmonary embolism protocol. MEDIASTINUM AND DIONTE: No pathologically enlarged mediastinal or hilar lymph nodes detected. Esophagus is unremarkable. BONES: Intact with no suspicious osseous lesion. Multilevel endplate spondylosis along spine. ----Abdomen/Pelvis: LIVER: Enlarged liver contains innumerable low-attenuation lesions with heterogeneous peripheral enhancement. Secondary lobulated contour of liver. Liver measures 26.5 cm craniocaudal length. GALLBLADDER AND BILIARY TREE: No calcified gallstones. No significant biliary ductal dilation. PANCREAS: No discrete mass or peripancreatic edema. SPLEEN: Enlarged spleen measures 16 cm craniocaudal length. No discrete splenic mass. ADRENAL GLANDS: Unremarkable. KIDNEYS AND URETERS: Normal renal size and position. No hydronephrosis. Small simple appearing 1.8 cm left renal cyst requiring no additional follow-up. No concerning renal lesion. PERITONEUM: Moderate volume ascites. No free peritoneal air. BOWEL: Normal appendix within right lower quadrant. No bowel obstruction or significant bowel thickening. Scattered colonic diverticula. No focal inflammatory change. LYMPH NODES: Enlarged upper abdominal celiac and mesenteric lymph nodes measuring up to 15 mm short axis diameter. Borderline enlarged periaortic lymph nodes. VESSELS: Major vessels are patent. Minimal atherosclerosis. URINARY BLADDER: Almendarez catheter within urinary bladder. REPRODUCTIVE ORGANS: Prominent and heterogeneous attenuation endometrium measuring up to 17 mm diameter. Small 1.5 cm enhancing nodule along uterine fundus likely subserosal fibroid. There is separate punctate uterine myometrial calcification, also likely fibroid. ABDOMINAL WALL: Mild abdominal wall subcutaneous edema. BONES: Couple small sclerotic foci within pelvic bones with no associated cortical destruction or periosteal reaction. CT/CT Chest, Abd, Pel w/Contrast IMPRESSION: 1. Hepatosplenomegaly with innumerable complex liver lesions highly suggestive of metastatic disease, unknown primary. There is also moderate volume ascites. 2. Thickened and abnormal appearance of uterine endometrium. Considering above findings, further evaluation recommended for possible endometrial carcinoma. Differential also includes endometrial hemorrhage secondary to uterine fibroids. 3. Chronically elevated right hemidiaphragm. Otherwise, no acute intrathoracic abnormality. 4. Pathologically enlarged upper abdominal lymph nodes possibly related to malignancy. 5. Couple small nonaggressive sclerotic lesions within pelvis. Favor benign bone islands but early sclerotic metastases also in the differential. 6. Colonic diverticulosis with no evidence of diverticulitis. 7. Other nonurgent findings within body of report. Electronically Signed: César Hackett MD at 4:09 EDT ,
--- NOTE | 2023-06-12 03:01 | CPS ---
Pt has home unit set up by RT with 2L Bled in.
[2023-06-12] MEDS: 0.9% Normal Saline 1,000 ML 100 ML IV (05:00)
[2023-06-12 08:16] LABS: Absolute Lymphocyte Count 1.42 X10^3/uL (0.83-4.51); Absolute Neutrophil Count 9.2 X10^3/uL (2.0-7.7); Basophil# 0.04 X10^3/uL; Basophil% 0.3 % (0-1); Eosinophil# 0.02 X10^3/uL; Eosinophils% 0.2 % (0-5); Hematocrit 39.3 % (37-47); Hemoglobin 12.1 g/dL (12.0-15.0); Lymphocyte # 1.42 X10^3/ul (0.83-4.51); Lymphocyte % 12.1 % (19-41); Mean Corp Hgb Conc 30.8 g/dL (32-36); Mean Corpuscular Hgb 31.3 pg (27.0-32.0); Mean Corpuscular Volume 101.6 fL (81-99); Monocyte# 1.02 X10^3/uL; Monocyte% 8.7 % (0-10); NRBC Flagged by Analyzer 0 % (0-5); Neutrophil # 9.16 X10^3/uL (2.7-7.7); Neutrophil % 78.4 % (47-70); POSITIVE MORPHOLOGY YES; Platelet Count 219 K/mm3 (150-450); RBC Distribution Width CV 17.5 % (11.6-14.6); RBC Distribution Width SD 65.4 fl (35.1-43.9); Red Blood Count 3.87 M/mm3 (4.2-5.4); White Blood Count 11.7 K/mm3 (4.4-11.0)
[2023-06-12 08:22] LABS: Differential Indicated SCAN CRITERIA MET
[2023-06-12 08:34] LABS: ALB/GLOB Ratio 0.6 RATIO (0.9-2.4); AST(SGOT) 61 U/L (15-37); Alanine Aminotransfer ALT/SGPT 28 U/L (13-56); Albumin, Serum 2.6 g/dL (3.2-5.0); Alkaline Phosphatase 351 U/L (45-117); Anion Gap 1 (5-15); BUN 28 mg/dL (7-18); BUN/Creat Ratio 18.4 RATIO (10-20); Calcium,Total 12.5 mg/dL (8.5-10.1); Chloride 108 mmol/L (98-107); Creatinine, Serum 1.52 mg/dL (0.55-1.02); EST Glomerular Filtration Rate 36 mL/min (>60); Est Glom Filt Rate - Afr Amer 44 mL/min (>60); Estimated Creatinine Clearance 31.86 ml/min; Globulin 4.2 g/dL (2.2-4.2); Glucose 108 mg/dL (74-106); Potassium 4.5 mmol/L (3.5-5.1); Protein, Total 6.8 g/dL (6.4-8.2); Sodium Level 139 mmol/L (136-145)
[2023-06-12 08:59] LABS: Anisocytosis 2+; Differential Comment SCANNED
[2023-06-12] MEDS: Enoxaparin 100 MG/ML Syringe SC ×2 (09:23→21:07)
[2023-06-12] MEDS: Carvedilol 25 MG Tablet PO ×2 (09:23→17:16)
--- NOTE | 2023-06-12 11:53 | CON.PCM_ITS ---
Assessment & Plan Assessment/Plan (1) Thickened endometrium: PLAN: Reviewed with patient findings on CT scan that are concerning for an e ndometrial cancer. Discussed cannot say for certain that this is an endometrial cancer unless we are able to obtain pathology. She denies any past or current vaginal bleeding. Discussed patient with hospitalist who reports she will likely be discharged within the next few days. If this is the case, will schedule patient in office this week for an endometrial biopsy given it could be technically difficult to perform in PCU bed with age, BMI, and on anticoagulation. However if anticipated discharge is not anytime soon, can attempt an endometrial biopsy in the PCU tomorrow. Will allow patient some time today to process CT scan results, and will re evaluate tomorrow. HPI Consult Data Date of Consult: 06/12/23 HPI Narrative Reason for Consultation: thickened endometrium HPI Narrative: MAGUI PULIDO, is a 67 F who presented weakness, cough, and difficulty with ambulation. She was found to have hypercalcemia for which she is currently admitted and being treated for by the medicine team. A consult was placed given concern for endometrial cancer. The patient reports that she has seen Dr. Kelsi Garza and our nurse practitioners in our office in the past, although it has been several years since she has been seen per her report. She states she went through menopause around age 52 and has had no vaginal bleeding since then. She reports some difficulty eating. No nausea or vomiting. No bloating. No pelvic pain. She reports she has had 4 pregnancies and 4 vaginal deliveries. She believes she had several D&Cs in the past, but she is not uncertain as to why she had these D&Cs. [facility] Medical History Acute heart failure with preserved ejection fraction (HFpEF) Asthma Asthma Cholecystectomy planned HTN (hypertension) Morbid obesity DEBRA on CPAP Home Medications losartan 25 mg tablet 25 mg PO DAILY 12/17/20 [History Last Taken 06/11/23] L.acidophilus-L.plantarum-B.animalis-B.longum 2 billion cell capsule (Probiotic Acidophilus Beads) 1 cap PO DAILY 02/08/23 [History Last Taken 06/11/23] multivitamin 1 tab PO DAILY 02/08/23 [History Last Taken 06/11/23] omega-3 fatty acids 1,000 mg PO DAILY 02/08/23 [History Last Taken 06/11/23] apixaban 5 mg tablet (Eliquis) 5 mg PO BID #180 tabs 03/10/23 [Rx Last Taken 06/11/23] blood pressure monitor #1 ea 03/10/23 [Rx Last Taken Unknown] carvedilol 25 mg tablet 25 mg PO BIDCM #180 tabs 03/10/23 [Rx Last Taken 06/11/23] dapagliflozin propanediol 5 mg tablet (Farxiga) 5 mg PO DAILY #30 tabs 03/10/23 [Rx Last Taken 06/11/23] dicyclomine 10 mg capsule 10 mg PO ACHS PRN . 03/10/23 [History Last Taken Unknown] potassium chloride 20 mEq tablet,extended release(part/cryst) (Klor-Con M) 20 meq PO DAILYCM #30 tabs 03/15/23 [Rx Last Taken 06/11/23] cetirizine 10 mg capsule (Zyrtec) 10 mg PO DAILY PRN allergies 04/15/23 [History Last Taken 06/11/23] cholecalciferol (vitamin D3) 10 mcg (400 unit) capsule 10 mcg PO DAILY 04/15/23 [History Last Taken 06/11/23] furosemide 40 mg tablet 40 mg PO BID 06/11/23 [History Last Taken 06/11/23] Allergy/AdvReac Type Severity Reaction Status Date / Time Sulfa (Sulfonamide Allergy Rash Verified 06/11/23 13:21 Antibiotics) sulfamethoxazole Allergy Rash Verified 06/11/23 13:21 [From Bactrim] trimethoprim [From Bactrim] Allergy Rash Verified 06/11/23 13:21 Family History Other Diabetes Hypertension Surgical History History of cholecystectomy History of dilatation and curettage History of foot surgery Social History (Updated 06/11/23 @ 18:41 by Angle Perea) household members: children housing: house Smoking Status: Never smoker alcohol intake: never substance use type: does not use Physical Exam Const alert and no apparent distress General Appearance: comfortable Lab / Micro Data 06/12/23 07:04 06/12/23 07:04 Labs: Laboratory Results - last 24 hr 06/11/23 14:20: WBC 12.5 H, RBC 4.03 L, Hgb 12.5, Hct 40.1, MCV 99.5 H, MCH 31.0, MCHC 31.2 L, RDW Std Deviation 64.1 H, RDW Coeff of Ximena 17.4 H, Plt Count 213, MPV 11.7, Immature Gran % (Auto) 0.500, Neut % (Auto) 76.8 H, Lymph % (Auto) 13.4 L, [place] % (Auto) 8.5, Eos % (Auto) 0.3, Baso % (Auto) 0.5, Absolute Neuts (auto) 9.6 H, Absolute Lymphs (auto) 1.68, Nucleated RBC % 0, Sodium 139, Potassium 4.4, Chloride 107, Carbon Dioxide 31.0, Anion Gap 1 L, BUN 29 H, Creatinine 1.65 H, Est GFR (MDRD) Af Amer 40 L, Est GFR (MDRD) Non-Af 33 L, BUN/Creatinine Ratio 17.6, Glucose 110 H, Calcium 13.0 H* 06/11/23 20:46: Phosphorus 3.8 06/12/23 07:04: WBC 11.7 H, RBC 3.87 L, Hgb 12.1, Hct 39.3, MCV 101.6 H, MCH 31.3, MCHC 30.8 L, RDW Std Deviation 65.4 H, RDW Coeff of Ximena 17.5 H, Plt Count 219, MPV 12.0, Immature Gran % (Auto) 0.300, Neut % (Auto) 78.4 H, Lymph % (Auto) 12.1 L, [place] % (Auto) 8.7, Eos % (Auto) 0.2, Baso % (Auto) 0.3, Absolute Neuts (auto) 9.2 H, Absolute Lymphs (auto) 1.42, Nucleated RBC % 0, Differential Comment SCANNED, Anisocytosis 2+, Sodium 139, Potassium 4.5, Chloride 108 H, Carbon Dioxide 30.0, Anion Gap 1 L, BUN 28 H, Creatinine 1.52 H, Estim Creat Clear Calc 31.86, Est GFR (MDRD) Af Amer 44 L, Est GFR (MDRD) Non-Af 36 L, BUN/Creatinine Ratio 18.4, Glucose 108 H, Calcium 12.5 H, Total Bilirubin 1.10 H , AST 61 H, ALT 28, Alkaline Phosphatase 351 H, Total Protein 6.8, Albumin 2.6 L , Globulin 4.2, Albumin/Globulin Ratio 0.6 L Radiology Impression Chest/Abdomen/Pelvis CT 06/12/23 02:10 IMPRESSION: 1. Hepatosplenomegaly with innumerable complex liver lesions highly suggestive of metastatic disease, unknown primary. There is also moderate volume ascites. 2. Thickened and abnormal appearance of uterine endometrium. Considering above findings, further evaluation recommended for possible endometrial carcinoma. Differential also includes endometrial hemorrhage secondary to uterine fibroids. 3. Chronically elevated right hemidiaphragm. Otherwise, no acute intrathoracic abnormality. 4. Pathologically enlarged upper abdominal lymph nodes possibly related to malignancy. 5. Couple small nonaggressive sclerotic lesions within pelvis. Favor benign bone islands but early sclerotic metastases also in the differential. 6. Colonic diverticulosis with no evidence of diverticulitis. 7. Other nonurgent findings within body of report. Electronically Signed: César Hackett MD at 4:09 EDT ,
[2023-06-12] MEDS: Acetaminophen 325 MG Tablet 650 MG PO (11:56)
--- NOTE | 2023-06-12 12:38 | CASEMGMT ---
Social Work SW introduced self and role to patient. Pt admission indicated SDOH needed. SW explained SDOH and completed assessment with patient. Patient did not indicate any needs besides interest in handicap placard and transportation if her family is unable to tranport her to appointments. SW printed [employer] handicap placard application and information off [employer] website. SW provided local transportation list for patient. 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
--- NOTE | 2023-06-12 12:45 | PN_ITS ---
Subjective Subjective Patient seen and examined. She had no active complaints today. She was admitted on account of abnormal lab findings of hypercalcemia. She denies any fever, chills, nausea vomiting or any other symptoms. She does complain of some abdominal fullness and denies any episodes of abnormal vaginal bleeding. She has remained hemodynamically stable. Objective Data Objective Data Vital Signs: Vital Signs Temp Pulse Resp BP Pulse Ox O2 Del Method O2 Flow Rate 97.3 F L 90 16 100/59 L 94 Room Air 2 06/12/23 10:41 06/12/23 10:41 06/12/23 10:41 06/12/23 10:41 06/12/23 10:41 06/12/23 10:41 06/12/23 02:56 Oxygen Flow Rate (L/min) 2 Oxygen Delivery Method Room Air Weight: 229 lb 12.605 oz Body Mass Index (BMI) 39.4 Intake & Output: Intake and Output for Last 24 Hours 06/10/23 06/11/23 06/12/23 23:59 23:59 23:59 Intake Total 516.67 / 516.67 1229.9967 / 1229.9967 Output Total 100 / 200 250 / 250 Balance 416.67 / 316.67 979.9967 / 979.9967 Lab / Micro Data 06/12/23 07:04 06/12/23 07:04 Labs: Laboratory Results - last 24 hr 06/11/23 14:20: WBC 12.5 H, RBC 4.03 L, Hgb 12.5, Hct 40.1, MCV 99.5 H, MCH 31.0, MCHC 31.2 L, RDW Std Deviation 64.1 H, RDW Coeff of Ximena 17.4 H, Plt Count 213, MPV 11.7, Immature Gran % (Auto) 0.500, Neut % (Auto) 76.8 H, Lymph % (Auto) 13.4 L, [place] % (Auto) 8.5, Eos % (Auto) 0.3, Baso % (Auto) 0.5, Absolute Neuts (auto) 9.6 H, Absolute Lymphs (auto) 1.68, Nucleated RBC % 0, Sodium 139, Potassium 4.4, Chloride 107, Carbon Dioxide 31.0, Anion Gap 1 L, BUN 29 H, Creatinine 1.65 H, Est GFR (MDRD) Af Amer 40 L, Est GFR (MDRD) Non-Af 33 L, BUN/Creatinine Ratio 17.6, Glucose 110 H, Calcium 13.0 H* 06/11/23 20:46: Phosphorus 3.8 06/12/23 07:04: WBC 11.7 H, RBC 3.87 L, Hgb 12.1, Hct 39.3, MCV 101.6 H, MCH 31.3, MCHC 30.8 L, RDW Std Deviation 65.4 H, RDW Coeff of Ximena 17.5 H, Plt Count 219, MPV 12.0, Immature Gran % (Auto) 0.300, Neut % (Auto) 78.4 H, Lymph % (Auto) 12.1 L, [place] % (Auto) 8.7, Eos % (Auto) 0.2, Baso % (Auto) 0.3, Absolute Neuts (auto) 9.2 H, Absolute Lymphs (auto) 1.42, Nucleated RBC % 0, Differential Comment SCANNED, Anisocytosis 2+, Sodium 139, Potassium 4.5, Chloride 108 H, Carbon Dioxide 30.0, Anion Gap 1 L, BUN 28 H, Creatinine 1.52 H, Estim Creat Clear Calc 31.86, Est GFR (MDRD) Af Amer 44 L, Est GFR (MDRD) Non-Af 36 L, BUN/Creatinine Ratio 18.4, Glucose 108 H, Calcium 12.5 H, Total Bilirubin 1.10 H , AST 61 H, ALT 28, Alkaline Phosphatase 351 H, Total Protein 6.8, Albumin 2.6 L , Globulin 4.2, Albumin/Globulin Ratio 0.6 L Radiography Diagnostic Testing: Radiology Impression Chest/Abdomen/Pelvis CT 06/12/23 02:10 IMPRESSION: 1. Hepatosplenomegaly with innumerable complex liver lesions highly suggestive of metastatic disease, unknown primary. There is also moderate volume ascites. 2. Thickened and abnormal appearance of uterine endometrium. Considering above findings, further evaluation recommended for possible endometrial carcinoma. Differential also includes endometrial hemorrhage secondary to uterine fibroids. 3. Chronically elevated right hemidiaphragm. Otherwise, no acute intrathoracic abnormality. 4. Pathologically enlarged upper abdominal lymph nodes possibly related to malignancy. 5. Couple small nonaggressive sclerotic lesions within pelvis. Favor benign bone islands but early sclerotic metastases also in the differential. 6. Colonic diverticulosis with no evidence of diverticulitis. 7. Other nonurgent findings within body of report. Electronically Signed: César Hackett MD at 4:09 EDT , Physical Exam Const alert, oriented x3 and no apparent distress General Appearance: cooperative HEENT normocephalic, head/scalp atraumatic and moist oral mucous membranes Eyes PERRL and EOMs intact bilaterally Neck no lymphadenopathy, supple and no JVD Lymph Lymphatic: no lymphadenopathy noted and no lymphedema noted Resp Resp Narrative: mildly diminished breath sounds bibasally, no wheezes or crackles. on room air. Cardio regular rate, regular rhythm, S1 normal heart sound, S2 normal heart sound and no murmurs Palpation: normal PMI GI GI Narrative: mild abdominal distension, no organomegaly, no tenderness Extremity normal capillary refill, no clubbing, cyanosis or edema and no calf tenderness Skin General Skin Exam: no breakdown Neuro CN's II-XII intact bilaterally, no focal motor deficits, no sensory deficits noted and deep tendon reflexes 2+ bilaterally Motor Exam: strength 5/5 throughout Psych thought process normal, cooperative and affect normal Appearance: appropriate Assessment & Plan Assessment/Plan (1) Thickened endometrium: (2) Hypercalcemia: PLAN: Plan #Hypercalcemia * likely due to metastatic cancer, of probable endometrial origin * calcium was 13 on admission. Now down to 12.5 * PTH was low. * findings of metastatic lesions in the liver and thickened endometrial lining, concerning for cancer, makes it likely that the hypercalcemia is likely related to malignancy * will give a dose of zolendronic acid * continue hydration with IVF. * gynecology and oncology consulted * Ca 125 pending. #ALFRED * lasix on hold. Continue gentle hydration with IVF * CR is down to 1.52 from 1.65 on admission. * #Hypertension: losartan on hold. On coreg. #HFpEF: losartan and lasix on hold due to ALFRED. Being hydrated with IVF. #Elevated TSH:TSH is 12.4, and free T3 is low. Free T4 is WNL. This is indicated for T3 hypothyroidism. Repeat labs today as it was normal just a few months ago. #AFib: on carvedilol. On eliquis. Eliquis held as she may have endometrial biopsy. On therapeutic lovenox DVT prophylaxis: On therapeutic Lovenox Charges/Coding Visit Charges Inpatient E&M: 19838 Subs Hosp L3
--- NOTE | 2023-06-12 13:20 | CASEMGMT ---
ALLYSON CAROLINA Discharge Planning Assessment: Face to Face with patient for initial transition planning/care coordination assessment. ALLYSON CAROLINA introduced self and role at [facility], pt alert, sitting up in the chair, voices understanding, and is agreeable to participating in assessment. Care providers, pharmacy, and demographics verified. Admitting dx: hypercalcemia, ALFRED PCP: Sh[facility]onne Specialists: [facility] Preferred Pharmacy: [facility] Insurance: [facility] Prescription Benefit: yes LNOK: son Kleber Living Arrangements: Pt states her son 15yo granddaughter with her in a single story home with steps to enter. Pt states she her son assists her with going up and down the stairs as there is not a handrail. Pt states she is able to bathe herself but her son assists her with her feet and applying the JOSE wraps to her LE. Pt's son assists with household tasks and obtains the groceries. Pt states she manages her own medications. Pt states she also has a daughter who assists intermittently. Transportation: pt's son provides transportation. Pt did request resources for alternative forms of transportation for when her son is not available. Discussed with SW who had previously provided these to pt. Pt unable to recall that these had been provided and noted they were sitting on window ledge. DME: shower chair, raised toilet seat, grab bars, hand held shower, lift chair, home O2 at 2l/min from [employer], CPAP, medical alert, and states she has an adjustable bed. SNF/HHC: pt denies previous providers Pt requested information on assistance to have her steps fixed or ramp be built. List of contractor who build ramps and information on [employer] provided to pt. Pt's goal: Pt states she plans to return home at discharge with the support of her son. PT/OT evals pending. Pt does state that she feels weak. Will continue to monitor and assist with further discharge planning needs as determined. Pt may benefit from home healthcare services for SN, PT/OT. Michelle Patel RN CM
[2023-06-12] MEDS: Furosemide 40 MG/4 ML Vial IV (14:56)
--- NOTE | 2023-06-12 16:02 | ONC.CONSULT ---
Assessment & Plan Assessment/Plan (1) Thickened endometrium: Status: Acute Code(s): R93.89 - Abnormal findings on diagnostic imaging of other specified body structures (2) Liver lesion: Status: Acute Code(s): K76.9 - Liver disease, unspecified (3) Hypercalcemia: Status: Acute Code(s): E83.52 - Hypercalcemia Plan: Assessment: 67-year-old female with past medical history positive for A-fib, CHF, morbid obesity and hypertension with newly diagnosed hypercalcemia and abnormal CT findings to include innumerable liver lesions, sclerotic lesions within the pelvis, abdominal adenopathy, and thickened, abnormal appearance of endometrium. Plan: 1. Advise hold Eliquis in preparation for CT-guided liver biopsy with interventional radiology as soon as possible, ideally 06/14/2023. 2. Obtain bone scan to address sclerotic lesions identified on CT. 3. Hypercalcemia- possibly secondary to malignancy. S/p 1 dose of Aredia, gentle hydration. Managed by primary team. Patient to follow-up with [facility] to review pathology reports when available in the ambulatory setting if not available for review during this admission. Case was discussed with Dr. Gómez who was in agreement with aforementioned plan. HPI Consult Data Date of Service:: 06/12/23 PCP / Referring Provider: Dr. Denise Marvin MD Attending: Dr. Aliyah Leiva MD Chief Complaint Chief Complaint: Liver lesions History of Present Illness History of Present Illness: Ms. Yolanda Neil is a pleasant 67 year old f with a PMH significant for CHF, A fib,?HTN, morbid obesity, DEBRA who presented to [facility] ED on 06/11/23 as advised by her cardiology team when incidentally hypercalcemia was noted on blood work obtained in the ambulatory setting.?Ca 12.9. TSH was also newly elevated.? She was subsequently admitted for management of hypercalcemia.? Hydration was provided and she received one dose of pamidronate.? 06/12/23 Pt was noted to have elevated bilirubin, AST and alkaline phosphatase level.? A CT C/A/P was performed and demonstrated innumerable complex liver lesions, moderate volume ascites, thickened endometrium, abdominal adenopathy, sclerotic lesions within the pelvis, and diverticulosis without evidence for diverticulitis. A CA125 is pending. Interval History Interval History: Upon entering the room, the patient is sitting upright in bedside chair. She endorses progressively worsening generalized weakness times several months and estimates 20 pound weight loss in the last 6 months due to decreased appetite. States mammogram is not up-to-date she is unable to estimate date of her last mammogram believes could have been done at the [facility]. Nonetheless she does not perform dedicated breast self-exam at home but denies any changes in her breasts that she may have noticed while bathing or dressing. Notes intermittent RUQ pain for quite a while, rates pain 8/10 when occurs. Unable to describe further. No changes in her bowel habits. Family history positive for a sister with ovarian cancer. Advanced Directives Power of Director Corporate Security: Yes Living Will: Yes [facility] Medical History (Updated 06/12/23 @ 16:17 by Maranda Rollins [employer]) Acute heart failure with preserved ejection fraction (HFpEF) Asthma Asthma Cholecystectomy planned HTN (hypertension) Liver lesion Morbid obesity DEBRA on CPAP Home Medications losartan 25 mg tablet 25 mg PO DAILY 12/17/20 [History Last Taken 06/11/23] L.acidophilus-L.plantarum-B.animalis-B.longum 2 billion cell capsule (Probiotic Acidophilus Beads) 1 cap PO DAILY 02/08/23 [History Last Taken 06/11/23] multivitamin 1 tab PO DAILY 02/08/23 [History Last Taken 06/11/23] omega-3 fatty acids 1,000 mg PO DAILY 02/08/23 [History Last Taken 06/11/23] apixaban 5 mg tablet (Eliquis) 5 mg PO BID #180 tabs 03/10/23 [Rx Last Taken 06/11/23] blood pressure monitor #1 ea 03/10/23 [Rx Last Taken Unknown] carvedilol 25 mg tablet 25 mg PO BIDCM #180 tabs 03/10/23 [Rx Last Taken 06/11/23] dapagliflozin propanediol 5 mg tablet (Farxiga) 5 mg PO DAILY #30 tabs 03/10/23 [Rx Last Taken 06/11/23] dicyclomine 10 mg capsule 10 mg PO ACHS PRN . 03/10/23 [History Last Taken Unknown] potassium chloride 20 mEq tablet,extended release(part/cryst) (Klor-Con M) 20 meq PO DAILYCM #30 tabs 03/15/23 [Rx Last Taken 06/11/23] cetirizine 10 mg capsule (Zyrtec) 10 mg PO DAILY PRN allergies 04/15/23 [History Last Taken 06/11/23] cholecalciferol (vitamin D3) 10 mcg (400 unit) capsule 10 mcg PO DAILY 04/15/23 [History Last Taken 06/11/23] furosemide 40 mg tablet 40 mg PO BID 06/11/23 [History Last Taken 06/11/23] Allergy/AdvReac Type Severity Reaction Status Date / Time Sulfa (Sulfonamide Allergy Rash Verified 06/11/23 13:21 Antibiotics) sulfamethoxazole Allergy Rash Verified 06/11/23 13:21 [From Bactrim] trimethoprim [From Bactrim] Allergy Rash Verified 06/11/23 13:21 Family History Other Diabetes Hypertension Surgical History History of cholecystectomy History of dilatation and curettage History of foot surgery Social History (Updated 06/11/23 @ 18:41 by Angle Perea) household members: children housing: house Smoking Status: Never smoker alcohol intake: never substance use type: does not use ROS Constitutional Constitutional: Reports fatigue and malaise; Denies chills or fever(s) Eyes Eyes: Denies blurry vision ENT HEENT: Denies headache(s) or nasal discharge Cardiovascular Cardiovascular: Denies chest pain, dyspnea on exertion or syncope Respiratory/Chest Respiratory/Chest: Reports cough; Denies shortness of breath at rest or shortness of breath with exertion Gastrointestinal Gastrointestinal: Denies constipation, diarrhea, nausea or vomiting Genitourinary Genitourinary: Denies dysuria Neurologic Neurologic: Denies focal weakness, numbness or tremor(s) Psychiatric Psychiatric: Denies anxiety or depression Physical Exam Const alert, oriented x3 and no apparent distress HEENT normocephalic, head/scalp atraumatic and moist oral mucous membranes Eyes conjunctivae normal and no scleral icterus Eyes Narrative: wears glasses Neck no lymphadenopathy, supple and no JVD Lymph Lymphatic: no lymphadenopathy noted and no lymphedema noted Chest Chest Narrative: Breast examined in upright seated position. Breasts are pendulous and symmetrical. No palpable masses, skin abnormalities, nipple discharge or retraction noted. No axillary adenopathy bilateral. Resp Auscultation: diminished lung sounds Cardio regular rate, regular rhythm, S1 normal heart sound and S2 normal heart sound GI GI Narrative: Soft to palpation nontender. Bowel sounds normal active x4. Hepatomegaly difficult to discern due to large body habitus. Extremity normal capillary refill Extremity Narrative: Bilateral leg wraps General Extremity: edema bilateral lower extremity Skin no jaundice and no petechiae Neuro CN's II-XII intact bilaterally and no focal motor deficits Psych affect normal Speech: slow Vital Signs Temperature 97.6 F L 06/12/23 15:17 Temperature Source Temporal 06/12/23 15:17 Pulse Rate 105 H 06/12/23 15:17 Respiratory Rate 16 06/12/23 15:17 Respiratory Effort Normal 06/12/23 14:00 Respiratory Depth Normal 06/12/23 14:00 Respiratory Pattern Normal 06/12/23 14:00 Blood Pressure 105/58 L 06/12/23 15:17 Blood Pressure Mean 73 06/12/23 15:17 Blood Pressure Source Monitor 06/12/23 13:14 Blood Pressure Position Sitting 06/12/23 09:19 Blood Pressure Location Right Arm 06/12/23 09:19 Pulse Ox 96 06/12/23 15:17 Oxygen Delivery Method Room Air 06/12/23 15:17 Oxygen Flow Rate (L/min) 2 06/12/23 02:56 Laboratory Results - last 24 hr 06/11/23 20:46: Phosphorus 3.8 06/12/23 07:04: WBC 11.7 H, RBC 3.87 L, Hgb 12.1, Hct 39.3, MCV 101.6 H, MCH 31.3, MCHC 30.8 L, RDW Std Deviation 65.4 H, RDW Coeff of Ximena 17.5 H, Plt Count 219, MPV 12.0, Immature Gran % (Auto) 0.300, Neut % (Auto) 78.4 H, Lymph % (Auto) 12.1 L, Ramsey % (Auto) 8.7, Eos % (Auto) 0.2, Baso % (Auto) 0.3, Absolute Neuts (auto) 9.2 H, Absolute Lymphs (auto) 1.42, Nucleated RBC % 0, Differential Comment SCANNED, Anisocytosis 2+, Sodium 139, Potassium 4.5, Chloride 108 H, Carbon Dioxide 30.0, Anion Gap 1 L, BUN 28 H, Creatinine 1.52 H, Estim Creat Clear Calc 31.86, Est GFR (MDRD) Af Amer 44 L, Est GFR (MDRD) Non-Af 36 L, BUN/Creatinine Ratio 18.4, Glucose 108 H, Calcium 12.5 H, Total Bilirubin 1.10 H, AST 61 H, ALT 28, Alkaline Phosphatase 351 H, Total Protein 6.8, Albumin 2.6 L, Globulin 4.2, Albumin/Globulin Ratio 0.6 L Diagnostic Data Chest/Abdomen/Pelvis CT 06/12/23 02:10 IMPRESSION: 1. Hepatosplenomegaly with innumerable complex liver lesions highly suggestive of metastatic disease, unknown primary. There is also moderate volume ascites. 2. Thickened and abnormal appearance of uterine endometrium. Considering above findings, further evaluation recommended for possible endometrial carcinoma. Differential also includes endometrial hemorrhage secondary to uterine fibroids. 3. Chronically elevated right hemidiaphragm. Otherwise, no acute intrathoracic abnormality. 4. Pathologically enlarged upper abdominal lymph nodes possibly related to malignancy. 5. Couple small nonaggressive sclerotic lesions within pelvis. Favor benign bone islands but early sclerotic metastases also in the differential. 6. Colonic diverticulosis with no evidence of diverticulitis. 7. Other nonurgent findings within body of report. Electronically Signed: César Hackett MD at 4:09 EDT ,
[2023-06-12] MEDS: dilTIAZem CD 180 MG Capsule PO (20:07)
--- NOTE | 2023-06-12 22:35 | PCM.HOSP.N ---
Hospitalist Note Patient with PAF with RVR, just given oral cardizem not too long prior, BP low range. Will trial dig x 1. If ongoing despite may try again or consider amiodarone.
[2023-06-12] MEDS: Digoxin 250 MCG/ML Ampul 500 MCG IV (23:00)
[2023-06-13] VITALS (8 sets, daily range): BP systolic 90–133; BP diastolic 48–87; PULSE 62–97; RESP 18; TEMP 36.4–36.9; O2SAT 92–100
--- NOTE | 2023-06-13 | EMB_PTH ---
PATIENT: MAGUI PULIDO LOC: [facility] U#:[id number] AGE/SX: 67/F ROOM: [facility] RE06/11/[address]: Dr. César Woodard DO : 1955 BED: 1 DIS: 06/15/2023 SPEC #: [id number] RECD: 06/14/23 09:08 STATUS: ABELARDO RETammy #: [id number] ARI: 06/13/23 00:[address]: Shayy Santo DEPT: SURGICAL PATHOLOGY RECD BY: Colby Berwster ENTERED: 06/14/23 09:08 SP TYPE: ENDOM BX/C OTHR DR: MD Dr. Shankar Mclain MD Dr. Joseph Prah, MD Dr. Jennifer Vande Velde, DO Dr. Mansour Isckarus, MD Dr. Mark Tereletsky, DO Dr. Nana Yaa Koram, MD Dr. Nicholas F Kotsonis, MD Dr. Robert Field, MD Dr. Ryan Jin, MD Dr. Roger Macklis, MD Dr. Steve Walston, DO Tyra Schlabach, NP-C Tissues: Endometrium, NOS Procedures: Surgery Specimen Level IV Comments: @ Ordering doctor for SUIV edited from to @ by SHAYY at 06/14/23 1419 @ Submitting doctor edited from to @ sreekanth LUCAS at 06/14/23 1419 HEADER OPERATION: Not noted PRE-OP DIAGNOSIS: Thickened endometrium TISSUE SUBMITTED: Endometrium MICROSCOPIC DIAGNOSIS Endometrium, biopsy: Rare atypical epithelial cells present. See Comment. Brigitte 06/16/23 COMMENT The specimen is markedly hypocellular. Rare, atypical epithelial cells are noted in the specimen of uncertain type or significance Clinical correlation is necessary. Immunohistochemistry ([id number]) supports the above diagnosis. MICROSCOPIC DESCRIPTION Slides are reviewed. GROSS DESCRIPTION Received in fixative is one container labeled with the patient's name and designated uterus. The specimen consists of multiple minute fragments of light bautista soft tissue that in aggregate measure 1.5 x 1.0 x <0.1 cm. The specimen is totally submitted in one cassette. / AM:consuelo 06/14/2023 TC:? CPT: 91476
--- NOTE | 2023-06-13 | IMM_PTH ---
PATIENT: MAGUI PULIDO LOC: [facility] U#:[id number] AGE/SX: 67/F ROOM: [facility] RE06/11/[address]: Dr. César Woodard DO : 1955 BED: 1 DIS: 06/15/2023 SPEC #: [id number] RECD: 06/15/23 12:01 STATUS: ABELARDO REQ #: [id number] ARI: 06/13/23 00:[address]: Shayy Santo DEPT: IMMUNOHISTOCHEMISTRY RECD BY: Harini Cotto ENTERED: 06/15/23 12:03 SP TYPE: IMMUNO OTHR DR: MD Dr. Shankar Mclain MD Dr. Gabriele Pedicelli, MD Dr. Joseph Prah, MD Dr. Jennifer Vande Velde, DO Dr. Mansour Isckarus, MD Dr. Mark Tereletsky, DO Dr. Nana Yaa Koram, MD Dr. Nicholas F Kotsonis, MD Dr. Robert Field, MD Dr. Ryan Jin, MD Dr. Roger Macklis, MD Dr. Steve Walston, DO Tyra Schlabach MULTIPLE CUT OFF SAW OPERATOR-C Tissues: Endometrium, NOS Procedures: CA-125 (add) CEA (add) CK5-6 (add) P40 (add) Vimentin (initial) PHYSICIAN [facility] INSTITUTION [address] [address] SPECIMEN INFORMATION: Tissue Source: Endometrium Clinical Info: Thickened endometrium Specimen Number: [id number] CPT code: 03713, 62282 x4 METHODOLOGY: Deparaffinized sections of prefer/formalin-fixed tissue or PAP/DQ stained slides are incubated with monoclonal/polyclonal antibodies/oligonucleotide probes. Localization is made via biotin free immunoperoxidase method. Appropriate controls are performed and reacted as expected. Results on target cell population are indicated in the following table: RESULTS: ANTIBODY / CLONE RESULT P40 (BC28) negative CK5-6 (D5 & 1684) negative Vimentin (V9) positive, focal CEA (11-7/TF-3HB-1) negative CA125 (OC125) negative These tests were developed and their performance characteristics determined by [facility]. They may not have been cleared or approved by the U.S. Food and Drug Administration. The FDA has determined that such clearance or approval is not necessary. The above immunohistochemical/dualISH markers are ordered and reviewed by the Pathologist. INTERPRETATION: Endometrium, biopsy: Atypical epithelioid cells present. AM:consuelo 06/16/2023
[2023-06-13] MEDS: 0.9% Normal Saline 1,000 ML 10 ML IV (02:06)
[2023-06-13] MEDS: Levothyroxine 25 MCG TABLET PO (05:59)
[2023-06-13 06:13] LABS: Absolute Lymphocyte Count 0.66 X10^3/uL (0.83-4.51); Absolute Neutrophil Count 7.5 X10^3/uL (2.0-7.7); Basophil# 0.04 X10^3/uL; Basophil% 0.4 % (0-1); Eosinophil# 0.03 X10^3/uL; Eosinophils% 0.3 % (0-5); Hematocrit 40.5 % (37-47); Hemoglobin 12.2 g/dL (12.0-15.0); Lymphocyte # 0.66 X10^3/ul (0.83-4.51); Lymphocyte % 7.3 % (19-41); Mean Corp Hgb Conc 30.1 g/dL (32-36); Mean Corpuscular Hgb 30.3 pg (27.0-32.0); Mean Corpuscular Volume 100.5 fL (81-99); Mean Platelet Vol. 11.4 fl (6.2-12.0); Monocyte# 0.83 X10^3/uL; Monocyte% 9.1 % (0-10); NRBC Flagged by Analyzer 0 % (0-5); Neutrophil # 7.49 X10^3/uL (2.7-7.7); Neutrophil % 82.4 % (47-70); POSITIVE MORPHOLOGY YES; Platelet Count 169 K/mm3 (150-450); RBC Distribution Width CV 17.6 % (11.6-14.6); RBC Distribution Width SD 65.1 fl (35.1-43.9); Red Blood Count 4.03 M/mm3 (4.2-5.4); White Blood Count 9.1 K/mm3 (4.4-11.0)
[2023-06-13 06:45] LABS: ALB/GLOB Ratio 0.6 RATIO (0.9-2.4); AST(SGOT) 62 U/L (15-37); Alanine Aminotransfer ALT/SGPT 28 U/L (13-56); Albumin, Serum 2.6 g/dL (3.2-5.0); Alkaline Phosphatase 366 U/L (45-117); Anion Gap 3 (5-15); BUN 29 mg/dL (7-18); BUN/Creat Ratio 18.2 RATIO (10-20); Calcium,Total 12.1 mg/dL (8.5-10.1); Chloride 109 mmol/L (98-107); Creatinine, Serum 1.59 mg/dL (0.55-1.02); EST Glomerular Filtration Rate 35 mL/min (>60); Est Glom Filt Rate - Afr Amer 42 mL/min (>60); Estimated Creatinine Clearance 30.46 ml/min; Globulin 4.1 g/dL (2.2-4.2); Glucose 94 mg/dL (74-106); LDH 201 U/L (84-246); Potassium 4.5 mmol/L (3.5-5.1); Protein, Total 6.7 g/dL (6.4-8.2); Sodium Level 138 mmol/L (136-145)
[2023-06-13 06:46] LABS: Differential Indicated SCAN CRITERIA MET
[2023-06-13 07:00] LABS: Anisocytosis 2+
[2023-06-13] MEDS: Omega-3 Acid Ethyl Esters 1 GM Capsule PO (09:56)
[2023-06-13] MEDS: Enoxaparin 100 MG/ML Syringe SC (09:57)
[2023-06-13] MEDS: Empagliflozin 10 MG Tablet PO (09:57)
[2023-06-13] MEDS: dilTIAZem CD 180 MG Capsule PO (10:51)
--- NOTE | 2023-06-13 11:13 | PN_ITS ---
Subjective Subjective Patient seen and examined. She had no active complaints today. She denied any chest pain, shortness of breath, abdominal pain, nausea or vomiting or any other symptoms. Review of systems is otherwise negative. Objective Data Objective Data Vital Signs: Vital Signs Temp Pulse Resp BP Pulse Ox O2 Del Method O2 Flow Rate 98.5 F 71 18 100/77 96 Room Air 2 06/13/23 10:50 06/13/23 10:50 06/13/23 10:50 06/13/23 10:50 06/13/23 10:50 06/13/23 10:50 06/13/23 09:45 Oxygen Flow Rate (L/min) 2 Oxygen Delivery Method Room Air Weight: 229 lb 12.605 oz Body Mass Index (BMI) 39.4 Intake & Output: Intake and Output for Last 24 Hours 06/11/23 06/12/23 06/13/23 23:59 23:59 23:59 Intake Total 516.67 / 516.67 2376.3367 / 2376.3367 234.67 / 234.67 Output Total 100 / 200 400 / 650 600 / 600 Balance 416.67 / 316.67 1976.3367 / 1726.3367 -365.33 / -365.33 Medical Nutrition Assessment Dietitian: Malnutrition Criteria Met Start: 06/12/23 18:38 Freq: Status: Active Protocol: Document 06/12/23 18:38 ZEINAB (Rec: 06/12/23 18:38 DARON [id number]) Nutrition Malnutrition Evidence of Malnutrition Exists Yes Malnutrition (severe): Acute Illness/Injury Evidenced By Suboptimal Energy Intake ( Severe),Weight Loss (Severe), Not Applicable Clinical Problem Acute Disease or Injury Related Malnutrition Etiology related to physiological changes decreasing oral intakes Signs/Symptoms as evidenced by pt report of decreased appetite and oral intakes x 2 weeks with 50% intakes noted as well as significant weight loss of 7.7 % in 3 months based upon weight of 248lb. Status Active Problem Recommendation Dietitian Recommendations/Changes Will continue with Cardiac diet as ordered 2/2 admission reason. Pt not interested in ONS use at this time. Will continue to follow and monitor oral intakes, and implement interventions and provide education as needed. Lab / Micro Data 06/13/23 05:38 06/13/23 05:38 Labs: Laboratory Results - last 24 hr 06/12/23 08:19: CA 125 Antigen 300.0 H 06/13/23 05:38: WBC 9.1, RBC 4.03 L, Hgb 12.2, Hct 40.5, MCV 100.5 H, MCH 30.3, MCHC 30.1 L, RDW Std Deviation 65.1 H, RDW Coeff of Ximena 17.6 H, Plt Count 169, MPV 11.4, Immature Gran % (Auto) 0.500, Neut % (Auto) 82.4 H, Lymph % (Auto) 7.3 L, Snyder % (Auto) 9.1, Eos % (Auto) 0.3, Baso % (Auto) 0.4, Absolute Neuts (auto) 7.5, Absolute Lymphs (auto) 0.66 L, Nucleated RBC % 0, Anisocytosis 2+, Sodium 138, Potassium 4.5, Chloride 109 H, Carbon Dioxide 26.0, Anion Gap 3 L, BUN 29 H , Creatinine 1.59 H, Estim Creat Clear Calc 30.46, Est GFR (MDRD) Af Amer 42 L, Est GFR (MDRD) Non-Af 35 L, BUN/Creatinine Ratio 18.2, Glucose 94, Calcium 12.1 H, Total Bilirubin 0.90, AST 62 H, ALT 28, Alkaline Phosphatase 366 H, Lactate Dehydrogenase 201, Total Protein 6.7, Albumin 2.6 L, Globulin 4.1, Albumin/Globulin Ratio 0.6 L Physical Exam Const alert, oriented x3 and no apparent distress General Appearance: cooperative HEENT normocephalic, head/scalp atraumatic and moist oral mucous membranes Eyes PERRL and EOMs intact bilaterally Neck no lymphadenopathy, supple and no JVD Lymph Lymphatic: no lymphadenopathy noted and no lymphedema noted Resp Resp Narrative: mildly diminished breath sounds bibasally, no wheezes or crackles. on room air. Cardio regular rate, regular rhythm, S1 normal heart sound, S2 normal heart sound and no murmurs Palpation: normal PMI GI GI Narrative: mild abdominal distension, no organomegaly, no tenderness Extremity normal capillary refill, no clubbing, cyanosis or edema and no calf tenderness Skin General Skin Exam: no breakdown Neuro CN's II-XII intact bilaterally, no focal motor deficits, no sensory deficits noted and deep tendon reflexes 2+ bilaterally Motor Exam: strength 5/5 throughout Psych thought process normal, cooperative and affect normal Appearance: appropriate Assessment & Plan Assessment/Plan (1) Thickened endometrium: (2) Hypercalcemia: PLAN: Plan #Hypercalcemia * likely due to metastatic cancer, of probable endometrial origin * calcium was 13 on admission. Calcium is 12.1 today. * PTH was low. * findings of metastatic lesions in the liver and thickened endometrial lining, concerning for cancer, makes it likely that the hypercalcemia is likely related to malignancy * received pamindronate. * continue hydration with IVF. * gynecology and oncology on board. For CT guided biopsy of the liver tomorrow. Gynecology considering an endometrial biopsy, inpatient or outpatient. * Ca 125 markedly elevated at 300 #ALFRED * Cr today is 1.59. Will coninue gentle hydration with IVF. * #Hypertension: losartan on hold. On coreg. #HFpEF: losartan and lasix on hold due to ALFRED. Being hydrated with IVF. Will resume lasix. #Elevated TSH:TSH is 12.4, and free T3 is low. Free T4 is WNL. This is indic ated for T3 hypothyroidism. Repeat labs today as it was normal just a few months ago. #AFib: on carvedilol. On eliquis. Eliquis held as she may have endometrial biopsy. On therapeutic lovenox DVT prophylaxis: On therapeutic Lovenox. Hold lovenox this evening
[2023-06-13] MEDS: Multivitamins,Therapeutic Tablet 1 TABLET PO (11:47)
[2023-06-13 12:26] LABS: Free T3 0.8 pg/mL (2.18-3.98); T4 Free Direct 1.31 ng/dL (0.76-1.46); Thyroid Stim Hormone (TSH) 6.46 uIU/mL (0.358-3.74)
--- NOTE | 2023-06-13 17:18 | PN.OBGYN_ITS ---
Subjective Subjective Patient offers no gynecologic complaints. Still no vaginal bleeding. Objective Data Objective Data Vital Signs: Vital Signs Temp Pulse Resp BP Pulse Ox O2 Del Method O2 Flow Rate 98.0 F 62 18 95/59 L 95 Room Air 2 06/13/23 16:10 06/13/23 16:10 06/13/23 16:10 06/13/23 16:10 06/13/23 16:10 06/13/23 16:10 06/13/23 09:45 Oxygen Flow Rate (L/min) 2 Oxygen Delivery Method Room Air Weight: 229 lb 12.605 oz Body Mass Index (BMI) 39.4 Intake & Output: Intake and Output for Last 24 Hours 06/11/23 06/12/23 06/13/23 23:59 23:59 23:59 Intake Total 516.67 / 516.67 2376.3367 / 2376.3367 554.67 / 554.67 Output Total 100 / 200 400 / 650 700 / 700 Balance 416.67 / 316.67 1976.3367 / 1726.3367 -145.33 / -145.33 Medical Nutrition Assessment Dietitian: Malnutrition Criteria Met Start: 06/12/23 18:38 Freq: Status: Active Protocol: Document 06/12/23 18:38 ZEINAB (Rec: 06/12/23 18:38 DARON [id number]) Nutrition Malnutrition Evidence of Malnutrition Exists Yes Malnutrition (severe): Acute Illness/Injury Evidenced By Suboptimal Energy Intake ( Severe),Weight Loss (Severe), Not Applicable Clinical Problem Acute Disease or Injury Related Malnutrition Etiology related to physiological changes decreasing oral intakes Signs/Symptoms as evidenced by pt report of decreased appetite and oral intakes x 2 weeks with 50% intakes noted as well as significant weight loss of 7.7 % in 3 months based upon weight of 248lb. Status Active Problem Recommendation Dietitian Recommendations/Changes Will continue with Cardiac diet as ordered 2/2 admission reason. Pt not interested in ONS use at this time. Will continue to follow and monitor oral intakes, and implement interventions and provide education as needed. Lab / Micro Data 06/13/23 05:38 06/13/23 05:38 Labs: Laboratory Results - last 24 hr 06/12/23 08:19: CA 125 Antigen 300.0 H 06/13/23 05:38: WBC 9.1, RBC 4.03 L, Hgb 12.2, Hct 40.5, MCV 100.5 H, MCH 30.3, MCHC 30.1 L, RDW Std Deviation 65.1 H, RDW Coeff of Ximena 17.6 H, Plt Count 169, MPV 11.4, Immature Gran % (Auto) 0.500, Neut % (Auto) 82.4 H, Lymph % (Auto) 7.3 L, [place] % (Auto) 9.1, Eos % (Auto) 0.3, Baso % (Auto) 0.4, Absolute Neuts (auto) 7.5, Absolute Lymphs (auto) 0.66 L, Nucleated RBC % 0, Anisocytosis 2+, Sodium 138, Potassium 4.5, Chloride 109 H, Carbon Dioxide 26.0, Anion Gap 3 L, BUN 29 H , Creatinine 1.59 H, Estim Creat Clear Calc 30.46, Est GFR (MDRD) Af Amer 42 L, Est GFR (MDRD) Non-Af 35 L, BUN/Creatinine Ratio 18.2, Glucose 94, Calcium 12.1 H, Total Bilirubin 0.90, AST 62 H, ALT 28, Alkaline Phosphatase 366 H, Lactate Dehydrogenase 201, Total Protein 6.7, Albumin 2.6 L, Globulin 4.1, Albumin/Globulin Ratio 0.6 L, TSH 6.46 H, Free T4 1.31, Free T3 pg/dL 0.8 L Assessment & Plan (1) Thickened endometrium: PLAN: Endometrial biopsy performed at bedside today. See procedure note for details.
--- NOTE | 2023-06-13 17:19 | PCM.OPRPT ---
Problems Associated Problem List Diagnoses (1) Thickened endometrium: Report of Operation Date of Procedure: 06/13/23 Pre-Operative Diagnosis: Thickened endometrium on CT scan Post-Operative Diagnosis: As above Surgery/Procedure Performed:: Endometrial biopsy Description of Surgical Findings:: Normal-appearing vaginal mucosa and cervix. Surgeon: Shayy Santo Type of Anesthesia: None Special Medications: None Specimen's removed: Endometrial biopsy Drains: N/A Estimated Blood Loss (mL): < 500 Fluids Replaced: N/A Description of Procedure: Risks, benefits, alternatives to endometrial biopsy were discussed and consent signed and obtained. Patient desires to proceed. A speculum was placed in the vagina to expose the cervix. The cervix was cleaned with Betadine. The anterior lip of the cervix was grasped with a single-tooth tenaculum. The uterus sounded to 9 cm. Using a Pipelle 3 passes were made to obtain a sample of the endometrium. The endometrial biopsy was sent to pathology for review. Scant bleeding on exam. All instruments were removed from the vagina. Grafts/Implants Used: None Complications None
[2023-06-13 17:38] LABS: Pathology Specimen Additional SEE PATHOLOGY REPORT
[2023-06-14] VITALS (17 sets, daily range): BP systolic 85–176; BP diastolic 39–115; PULSE 52–88; RESP 16–22; TEMP 35.7–36.5; O2SAT 88–100
--- NOTE | 2023-06-14 | IMM_PTH ---
PATIENT: MAGUI PULIDO LOC: [facility] U#:[id number] AGE/SX: 67/F ROOM: [facility] RE06/11/[address]: Dr. César Woodard DO : 1955 BED: 1 DIS: 06/15/2023 SPEC #: [id number] RECD: 06/15/23 12:13 STATUS: ABELARDO REQ #: [id number] ARI: 06/14/23 00:[address]: Maranda Rollins NP DEPT: IMMUNOHISTOCHEMISTRY RECD BY: Harini Cotto ENTERED: 06/15/23 12:17 SP TYPE: IMMUNO OTHR DR: MD Dr. Shankar Mclain MD Dr. Gabriele Pedicelli, MD Dr. Joseph Prah, MD Dr. Jennifer Vande Velde, DO Dr. Mansour Isckarus, MD Dr. Mark Tereletsky, DO Dr. Nana Yaa Koram, MD Dr. Nicholas F Kotsonis, MD Dr. Robert Field, MD Dr. Ryan Jin, MD Dr. Roger Macklis, MD Dr. Steve Walston, DO Tyra Schlabach ALARM MECHANISM ADJUSTER-C Tissues: Liver, NOS Procedures: RCC (add) NAPSIN A (add) CA-125 (add) CEA (add) CK20 (add) CK5-6 (add) CK7 (add) CK8 (add) SHERLEY (add) HEP PAR (add) KI-67 (add) MAMM (add) P53 (add) ME (add) TTF1 (add) Vimentin (add) Pankeratin (add) GATA3 (add) P40 (add) CDX2 (add) ER (initial) NSE (add) S-100 (add) Comments: @ Ordering doctor for ER edited from to ALARM MECHANISM ADJUSTER.[email or web address] @ by RGOOD at 06/15/23 1218 @ Ordering doctor for NSE. edited from to ALARM MECHANISM ADJUSTER.[email or web address] @ by RGOOD at 06/15/23 1218 @ Ordering doctor for s100. edited from to ALARM MECHANISM ADJUSTER.TSCHLA @ by RGOOD at 06/15/23 1218 @ Ordering doctor for RCC. edited from to ALARM MECHANISM ADJUSTER.TSCHLA @ by RGOOD at 06/15/23 1218 @ Ordering doctor for NAP. edited from to ALARM MECHANISM ADJUSTER.TSCHLA @ by RGOOD at 06/15/23 1218 @ Ordering doctor for CA125. edited from to ALARM MECHANISM ADJUSTER.TSCHLA @ by RGOOD at 06/15/23 1218 @ Ordering doctor for CEA. edited from to ALARM MECHANISM ADJUSTER.TSCHLA @ by RGOOD at 06/15/23 1218 @ Ordering doctor for CK20. edited from to ALARM MECHANISM ADJUSTER.TSCHLA @ by RGOOD at 06/15/23 1218 @ Ordering doctor for CK5-6. edited from to ALARM MECHANISM ADJUSTER.TSCHLA @ by RGOOD at 06/15/23 1218 @ Ordering doctor for CK7. edited from to ALARM MECHANISM ADJUSTER.TSCHLA @ by RGOOD at 06/15/23 1218 @ Ordering doctor for CK8. edited from to ALARM MECHANISM ADJUSTER.TSCHLA @ by RGOOD at 06/15/23 1218 @ Ordering doctor for SHERLEY. edited from to ALARM MECHANISM ADJUSTER.TSCHLA @ by RGOOD at 06/15/23 1218 @ Ordering doctor for HEPPAR. edited from to ALARM MECHANISM ADJUSTER.TSCHLA @ by RGOOD at 06/15/23 1218 @ Ordering doctor for KI67. edited from to ALARM MECHANISM ADJUSTER.TSCHLA @ by RGOOD at 06/15/23 1218 @ Ordering doctor for SORAYA. edited from to ALARM MECHANISM ADJUSTER.TSCHLA @ by RGOOD at 06/15/23 1218 @ Ordering doctor for P53. edited from to ALARM MECHANISM ADJUSTER.TSCHLA @ by RGOOD at 06/15/23 1218 @ Ordering doctor for ME. edited from to ALARM MECHANISM ADJUSTER.TSCHLA @ by RGOOD at 06/15/23 1218 @ Ordering doctor for TTF1. edited from to ALARM MECHANISM ADJUSTER.TSCHLA @ by RGOOD at 06/15/23 1218 @ Ordering doctor for VIM. edited from to ALARM MECHANISM ADJUSTER.TSCHLA @ by RGOOD at 06/15/23 1218 @ Ordering doctor for PANK. edited from to ALARM MECHANISM ADJUSTER.TSCHLA @ by RGOOD at 06/15/23 1218 @ Ordering doctor for GATA3 edited from to ALARM MECHANISM ADJUSTER.TSCHLA @ by RGOOD at 06/15/23 1218 @ Ordering doctor for P40. edited from to ALARM MECHANISM ADJUSTER[facility] @ by RGOOD at 06/15/23 1218 @ Ordering doctor for CDX2. edited from to ALARM MECHANISM ADJUSTER.[facility] @ by RGOOD at 06/15/23 1218 @ Submitting doctor edited from to ALARM MECHANISM ADJUSTER.[facility] @ by RGOOD at 06/15/23 1218 PHYSICIAN & [place] [address] SPECIMEN INFORMATION: Tissue Source: Left lobe of liver Clinical Info: Left lobe liver lesion Specimen Number: [id number] CPT code: 63425, 57571 x22 METHODOLOGY: Deparaffinized sections of prefer/formalin-fixed tissue or PAP/DQ stained slides are incubated with monoclonal/polyclonal antibodies/oligonucleotide probes. Localization is made via biotin free immunoperoxidase method. Appropriate controls are performed and reacted as expected. Results on target cell population are indicated in the following table: RESULTS: ANTIBODY / CLONE RESULT ER (6F11) negative ME (1E2) negative Mammaglobin (31A5) negative GATA3 (L50-823) negative AE1-3 (AE1/AE3/PCK26) positive CK7 (OV-TL12/30) positive CK8 (48nrxjL31) positive CK20 (KS20.8) negative CDX2 (KMW7013L) negative Vimentin (V9) negative S-100 (4C4.9) negative NSE Neuron Specific Enolase negative TTF-1 (8G7G3/1) negative Napsin A (Rabbit Polyclonal) negative HepPar (OCh1E5) negative RCC (PN-15) negative CK5-6 (D5 & 1684) negative P40 (BC28) negative SHERLEY (E29) positive CEA (11-7/TF-3HB-1) negative CA125 (OC125) negative P53 (DO-7) positive, 35% Ki-67 (30-9) positive, 15% These tests were developed and their performance characteristics determined by [facility]. They may not have been cleared or approved by the U.S. Food and Drug Administration. The FDA has determined that such clearance or approval is not necessary. The above immunohistochemical/dualISH markers are ordered and reviewed by the Pathologist. INTERPRETATION: Liver, CT-guided core biopsy: Metastatic adenocarcinoma. See comment. AM:consuelo 06/16/2023 Comment: An upper gastrointestinal primary including the pancreatobiliary system is favored.
--- NOTE | 2023-06-14 | ASPIGT_PTH ---
PATIENT: MAGUI PULIDO LOC: [facility] U#:[id number] AGE/SX: 67/F [facility]OM[facility] RE06/11/[address]: Dr. César Woodard DO : 1955 BED: 1 DIS: 06/15/2023 SPEC #: [id number] RECD: 06/14/23 10:36 STATUS: ABELARDO REQ #: [id number] ARI: 06/14/23 00:[address]: Maranda Rollins NP DEPT: SURGICAL PATHOLOGY RECD BY: Kirstie Catherine ENTERED: 06/14/23 10:37 SP TYPE: ASP RAD OTHR DR: MD Dr. Shankar Mclain MD Dr. Gabriele Pedicelli, MD Dr. Joseph Prah, MD Dr. Jennifer Vande Velde, DO Dr. Mansour Isckarus, MD Dr. Mark Tereletsky, DO Dr. Nana Yaa Koram, MD Dr. Nicholas F Kotsonis, MD Dr. Robert Field, MD Dr. Ryan Jin, MD Dr. Roger Macklis, MD Dr. Steve Walston, DO Tyra Schlabach, NP-C Tissues: Liver, NOS Procedures: FNA Specimen Adequacy Special Stain Group II Surgery Specimen Level IV Surgery Specimen Level V Imprint (control) Comments: @ Ordering doctor for SSII edited from to JASWANT Palmer by SHAYY at 06/15/23 1219 @ Ordering doctor for SUIV edited from to JASWANT @ by SHAYY at 06/15/23 1219 @ Ordering doctor for SUV edited from to JASWANT Palmer by SHAYY at 06/15/23 1219 @ Ordering doctor for IMPRINT edited from to TOP CAGER.ZO @ by RGOOD at 06/15/23 1219 @ Ordering doctor for FNASA edited from to RENATONeelam @ by RGOOD at 06/15/23 1219 @ Submitting doctor edited from to ZO @ by RGOOD at 06/15/23 1219 HEADER OPERATION: Liver biopsy PRE-OP DIAGNOSIS: Left lobe liver lesion TISSUE SUBMITTED: Left lobe liver 18-gauge core x4 MICROSCOPIC DIAGNOSIS Lesion left lobe of liver, CT-guided core biopsy: Metastatic adenocarcinoma. See comment. AM:consuelo 06/15/2023 COMMENT The specimen is evaluated at the time of biopsy by Dr. Whitney. Immediate Evaluation = Positive for malignant cells, favor non-small cell carcinoma. Immunohistochemistry ([id number]) supports the above diagnosis and favors an upper gastrointestinal tract primary including the pancreatobiliary system. Clinical correlation is suggested. MICROSCOPIC DESCRIPTION Slides are reviewed. GROSS DESCRIPTION Received is one container labeled with the patient's name and not further designated. The specimen consists of multiple elongated cores of bautista tissue that in aggregate measure 1.0 x 0.3 x <0.1 cm. The specimen is totally submitted in one cassette. / AM:consuelo 06/14/2023 TC:0 [facility]: [id number], [id number] ADDENDUM ADDENDUM ADDENDUM ADDENDUM ADDENDUM ADDENDUM ADDENDUM ADDENDUM ADDENDUM ADDENDUM ADDENDUM ADDENDUM ADDENDUM ADDENDUM ADDENDUM ADDENDUM ADDENDUM ADDENDUM 07/07/2023 09:43 ADDENDUM 07/07/2023 09:43 ADDENDUM 07/07/2023 09:43 ADDENDUM 07/07/2023 09:43 ADDENDUM 07/07/2023 09:43 [facility] REPORT FROM [facility] RESULT SUMMARY: Abnormal IMMUNOTHERAPY BIOMARKERS: Tumor Mutation [place]: Low (0 Mutations / MB) Microsatellite Instability: MSI Negative (2.44%) PERTINENT NEGATIVE RESULTS: The following genes are NEGATIVE for clinically relevant mutations. Mutational hotspots and surrounding exonic regions were interrogated for DNA level point mutations and indels (fusions not assayed). AKT1, APC, BENNY, BRAF, BRCA1, BRCA2, CDH1, CDKN2A, CTNNB1, EGFR, EPCAM, ERBB2, ERBB4, FBXW7, FGFR1, FGFR2, FGFR3, GNA11, GNAQ, GNAS, HRAS, IDH1, KDR, KIT, KRAS, MEN1, MET, MLH1, MSH2, MSH6, NOTCH1, NRAS, PDGFRA, PIK3CA, PMS2, POLE, PTEN, PTPN11, RB1, RET, SMAD4, SMO, STK11, TERT, TP53, TSC1, TSC2, VHL Please see complete report in e-chart or EMR
[2023-06-14 06:22] LABS: Absolute Lymphocyte Count 1.35 X10^3/uL (0.83-4.51); Absolute Neutrophil Count 8.8 X10^3/uL (2.0-7.7); Basophil# 0.05 X10^3/uL; Basophil% 0.4 % (0-1); Eosinophil# 0.04 X10^3/uL; Eosinophils% 0.3 % (0-5); Hematocrit 36.3 % (37-47); Hemoglobin 11.6 g/dL (12.0-15.0); Lymphocyte # 1.35 X10^3/ul (0.83-4.51); Lymphocyte % 11.7 % (19-41); Mean Corpuscular Volume 100.3 fL (81-99); Mean Platelet Vol. 12.1 fl (6.2-12.0); Monocyte# 1.27 X10^3/uL; NRBC Flagged by Analyzer 0 % (0-5); Neutrophil # 8.82 X10^3/uL (2.7-7.7); Neutrophil % 76.3 % (47-70); POSITIVE MORPHOLOGY YES; Platelet Count 183 K/mm3 (150-450); RBC Distribution Width CV 17.5 % (11.6-14.6); RBC Distribution Width SD 65.2 fl (35.1-43.9); Red Blood Count 3.62 M/mm3 (4.2-5.4); White Blood Count 11.6 K/mm3 (4.4-11.0)
[2023-06-14 06:25] LABS: Differential Indicated SCAN CRITERIA MET
[2023-06-14 06:59] LABS: ALB/GLOB Ratio 0.6 RATIO (0.9-2.4); AST(SGOT) 51 U/L (15-37); Alanine Aminotransfer ALT/SGPT 26 U/L (13-56); Albumin, Serum 2.4 g/dL (3.2-5.0); Alkaline Phosphatase 310 U/L (45-117); Anion Gap 4 (5-15); BUN 32 mg/dL (7-18); BUN/Creat Ratio 23.5 RATIO (10-20); Calcium,Total 11.4 mg/dL (8.5-10.1); Chloride 111 mmol/L (98-107); Creatinine, Serum 1.36 mg/dL (0.55-1.02); EST Glomerular Filtration Rate 41 mL/min (>60); Est Glom Filt Rate - Afr Amer 50 mL/min (>60); Estimated Creatinine Clearance 35.61 ml/min; Globulin 3.8 g/dL (2.2-4.2); Glucose 88 mg/dL (74-106); Potassium 4.5 mmol/L (3.5-5.1); Protein, Total 6.2 g/dL (6.4-8.2); Sodium Level 141 mmol/L (136-145)
--- NOTE | 2023-06-14 07:00 | NM_ITS ---
CLINICAL: Female, 67 years old. sclerotic lesions pelvis WHOLE BODY NUCLEAR BONE SCAN TECHNIQUE: Following the IV administration of 25.5 mCi of Tc MDP, whole body bone imaging was performed with a gamma camera following a three hour delay. COMPARISON STUDIES : NM - None. CR - Not available for review at this time. CT - Not available for review at this time. MR - Not available for review at this time. US - Not available for review at this time. FINDINGS: There is a normal concentration of radiopharmaceutical throughout the axial and appendicular skeletal system without either a focal decrease or increase in uptake. NM/Bone Scan Whole Body IMPRESSION: Normal whole body nuclear bone scan. Electronically Signed: Moe Miranda MD at 11:51 EDT ,
[2023-06-14 07:07] LABS: Anisocytosis RARE
[2023-06-14] MEDS: dilTIAZem CD 180 MG Capsule PO (08:20)
[2023-06-14] MEDS: Carvedilol 25 MG Tablet PO (08:20)
[2023-06-14] MEDS: Levothyroxine 25 MCG TABLET PO (08:20)
[2023-06-14 08:26] LABS: International Normalized Ratio 1.5
[2023-06-14 08:27] LABS: Partial Thromboplast Time 55.7 Seconds (24.1-36.2)
[2023-06-14] MEDS: 0.9% Saline Lock 10 ML Syringe IV ×2 (08:37→11:17)
--- NOTE | 2023-06-14 09:00 | CT_ITS ---
PROCEDURE: CT DIRECTED CORE LIVER BIOPSY INDICATION: Female, 67 years old. Hepatomegaly and liver metastasis. PHYSICIAN: Dr. Ruth Fischer CONSENT: Written informed consent was obtained having explained the risks, benefits and alternatives in detail with the patient who accepted the risks and agreed to proceed. Laboratory review and clinical assessment was performed. CONSCIOUS SEDATION PROTOCOL: The Drugs used were: 1 mg Versed, IV., and 50 mcg Fentanyl, IV. The sedation time was: 27 minutes. Conscious sedation was started at 9:51 AM and terminated at 10:18 AM. The conscious sedation protocol was independently monitored. RADIATION DOSAGE (If Supplied By Facility): CTDIvol = ( 24 ) mGy, DLP = ( 553.23 ) mGycm Individualized dose optimization techniques were used for this CT. TECHNIQUE: Using CT image guidance with image documentation, a suitable location in the left lobe of the liver was identified. Using an anterior approach, puncture of the liver was uneventful with an 18-gauge core needle system. 4, 18-gauge core samples were obtained, and submitted in formalin to the pathologist for further assessment. Followup CT scan revealed no distinct sequelae. CT/Biopsy/Inj or Needle Placement IMPRESSION: 1. CT directed core needle biopsy of the liver, using CT image guidance with image documentation as described. 2. Conscious Sedation protocol utilized with independent monitoring. Electronically Signed: Moe Miranda MD at 10:43 EDT ,
[2023-06-14] MEDS: Midazolam 2 MG/2 ML Syringe IV (09:51)
[2023-06-14] MEDS: fentaNYL 100 MCG/2 ML Ampul IV (09:53)
[2023-06-14] MEDS: Lidocaine 2% (20 ml mdv) 20 ML Vial INFILT (10:10)
[2023-06-14] MEDS: Omega-3 Acid Ethyl Esters 1 GM Capsule PO (12:31)
[2023-06-14] MEDS: Empagliflozin 10 MG Tablet PO (12:31)
[2023-06-14] MEDS: Multivitamins,Therapeutic Tablet 1 TABLET PO (12:31)
--- NOTE | 2023-06-14 15:27 | CASEMGMT ---
Discharge Planning HH list created and sent to [facility]. Ghazal Hansen, Dischage Planning Asst.
--- NOTE | 2023-06-14 15:46 | WOUNDNOTE ---
wound photo: left lower leg
--- NOTE | 2023-06-14 15:46 | WOUNDNOTE ---
wound photo: left posterior lower leg
--- NOTE | 2023-06-14 15:47 | WOUNDNOTE ---
wound photo: right posterior lower leg
--- NOTE | 2023-06-14 15:48 | CASEMGMT ---
RN CM reviewed therapy notes. PT recommending HHC at discharge. RN CM in to discussed HHC with patient. A list of HHC providers including quality and resource use data and consistent with the patient?s preferred geographical region, medical needs, and insurance network were provided from the [employer] Guide. Patient to review list and provide preferences. CM will continue to follow this patient and plan for a safe discharge.
--- NOTE | 2023-06-14 18:53 | PCM.PN.HOSP ---
Reason for Visit Reason for Visit: Diagnoses Hypercalcemia (06/11/23) Liver disease, unspecified (06/11/23) Abnormal findings on diagnostic imaging of other specified body structures (06/11/23) Subjective Subjective Patient was seen and examined today, she had a liver biopsy performed today, I have elected to remove her Almendarez at this time to see if she can void. Patient's calcium today was 11.4. Objective Data Objective Data Vital Signs: Vital Signs Temp Pulse Resp BP Pulse Ox O2 Del Method O2 Flow Rate 96.4 F L 75 16 87/53 L 92 Room Air 2 06/14/23 18:07 06/14/23 18:07 06/14/23 18:07 06/14/23 18:07 06/14/23 18:07 06/14/23 18:07 06/14/23 15:48 FiO2 35 06/14/23 09:50 Oxygen Flow Rate (L/min) [7] 8 Oxygen Flow Rate (L/min) [6] 8 Oxygen Flow Rate (L/min) [5] 8 Oxygen Flow Rate (L/min) [4] 8 Oxygen Flow Rate (L/min) [3] 4 Oxygen Flow Rate (L/min) [2] 4 Oxygen Flow Rate (L/min) [1 ( 2 Initial Baseline)] Oxygen Flow Rate (L/min) 2 Oxygen Delivery Method [7] Venturi Mask Oxygen Delivery Method [6] Venturi Mask Oxygen Delivery Method [5] Venturi Mask Oxygen Delivery Method [4] Venturi Mask Oxygen Delivery Method [3] Nasal Cannula Oxygen Delivery Method [2] Nasal Cannula Oxygen Delivery Method [1 ( Nasal Cannula Initial Baseline)] Oxygen Delivery Method Room Air Weight: 104.23 kg Body Mass Index (BMI) 39.4 Intake & Output: Intake and Output for Last 24 Hours 06/12/23 06/13/23 06/14/23 23:59 23:59 23:59 Intake Total 2376.3367 / 2376.3367 794.67 / 1064.67 301.25 / 301.25 Output Total 400 / 650 850 / 1000 550 / 550 Balance 1975.3367 / 1726.3367 -55.33 / 64.67 -248.75 / -248.75 Medical Nutrition Assessment Dietitian: Malnutrition Criteria Met Start: 06/12/23 18:38 Freq: Status: Active Protocol: Document 06/12/23 18:38 ZEINAB (Rec: 06/12/23 18:38 DARON [id number]) Nutrition Malnutrition Evidence of Malnutrition Exists Yes Malnutrition (severe): Acute Illness/Injury Evidenced By Suboptimal Energy Intake ( Severe),Weight Loss (Severe), Not Applicable Clinical Problem Acute Disease or Injury Related Malnutrition Etiology related to physiological changes decreasing oral intakes Signs/Symptoms as evidenced by pt report of decreased appetite and oral intakes x 2 weeks with 50% intakes noted as well as significant weight loss of 7.7 % in 3 months based upon weight of 248lb. Status Active Problem Recommendation Dietitian Recommendations/Changes Will continue with Cardiac diet as ordered 2/2 admission reason. Pt not interested in ONS use at this time. Will continue to follow and monitor oral intakes, and implement interventions and provide education as needed. Lab / Micro Data 06/14/23 05:52 06/14/23 05:52 Labs: Laboratory Results - last 24 hr 06/14/23 05:52: WBC 11.6 H, RBC 3.62 L, Hgb 11.6 L, Hct 36.3 L, MCV 100.3 H, MCH 32.0, MCHC 32.0 D, RDW Std Deviation 65.2 H, RDW Coeff of Ximena 17.5 H, Plt Count 183, MPV 12.1 H, Immature Gran % (Auto) 0.300, Neut % (Auto) 76.3 H, Lymph % (Auto) 11.7 L, Braxton % (Auto) 11.0 H, Eos % (Auto) 0.3, Baso % (Auto) 0.4, Absolute Neuts (auto) 8.8 H, Absolute Lymphs (auto) 1.35, Nucleated RBC % 0, Anisocytosis RARE, Sodium 141, Potassium 4.5, Chloride 111 H, Carbon Dioxide 26.0, Anion Gap 4 L, BUN 32 H, Creatinine 1.36 H, Estim Creat Clear Calc 35.61, Est GFR (MDRD) Af Amer 50 L, Est GFR (MDRD) Non-Af 41 L, BUN/Creatinine Ratio 23.5 H, Glucose 88, Calcium 11.4 H, Total Bilirubin 0.60, AST 51 H, ALT 26, Alkaline Phosphatase 310 H, Total Protein 6.2 L, Albumin 2.4 L, Globulin 3.8, Albumin/Globulin Ratio 0.6 L 06/14/23 07:46: PT 18.0 H, INR 1.5, APTT 55.7 H Radiography Diagnostic Testing: Radiology Impression Bone Scan Nuclear Medicine 06/14/23 07:00 IMPRESSION: Normal whole body nuclear bone scan. Electronically Signed: Moe Miranda MD at 11:51 EDT , Biopsy CT 06/14/23 09:00 IMPRESSION: 1. CT directed core needle biopsy of the liver, using CT image guidance with image documentation as described. 2. Conscious Sedation protocol utilized with independent monitoring. Electronically Signed: Moe Miranda MD at 10:43 EDT , Physical Exam Const alert, oriented x3, no apparent distress and average body habitus General Appearance: cooperative, well kempt and well developed Orientation / Consciousness: awake, oriented to person, oriented to place and oriented to time HEENT normocephalic, head/scalp atraumatic and moist oral mucous membranes Eyes PERRL, EOMs intact bilaterally and conjunctivae normal Neck supple, no JVD, thyroid normal and no carotid bruits General: trachea midline Resp normal respiratory effort, no retractions, no use of accessory muscles and clear to auscultation bilaterally Auscultation: Negative for rales, rhonchi or wheezes Cardio regular rate, regular rhythm, S1 normal heart sound, S2 normal heart sound, no murmurs, no rub and no gallops GI normal to inspection, nondistended, normoactive bowel sounds, soft to palpation, non-tender and non-distended Extremity no clubbing, cyanosis or edema Skin no rashes or lesions noted General Skin Exam: no breakdown Neuro oriented x3, CN's II-XII intact bilaterally, moves all extremities, no focal motor deficits and no sensory deficits noted Sensorium / Orientation: awake and alert Speech: speech normal Psych affect normal Assessment & Plan Assessment/Plan (1) Serum calcium elevated: PLAN: Plan 1. Hypercalcemia-likely due to metastatic cancer-primary unknown at this time, patient's calcium is improved, and will be rechecked tomorrow #2 metastatic cancer-origin unknown at this time, pathology reports are pending at this time, patient was seen by HYDRAULIC SPECIALIST #3 essential hypertension-patient is on Coreg #4 elevated creatinine-patient's creatinine is improved today, and will be rechecked tomorrow #5 atrial fibrillation-patient remains on Coreg and diltiazem and will resume Eliquis tomorrow #6 hypothyroidism-patient is on Synthroid #7 obstructive sleep apnea-patient uses CPAP Total clinical time spent by myself addressing the patient's medical issues, reviewing all of her data, and collaborating with patient's care team: 35 minutes Charges/Coding Visit Charges Inpatient E&M: 79763 Subs Hosp L2
[2023-06-15] MEDS: Levothyroxine 25 MCG TABLET PO (05:18)
[2023-06-15 05:19] VITALS: BP 101/82; PULSE 74; RESP 16; TEMP 36.4; O2SAT 96
[2023-06-15 06:46] LABS: Absolute Lymphocyte Count 1.19 X10^3/uL (0.83-4.51); Absolute Neutrophil Count 8.2 X10^3/uL (2.0-7.7); Basophil# 0.05 X10^3/uL; Basophil% 0.5 % (0-1); Eosinophil# 0.06 X10^3/uL; Eosinophils% 0.6 % (0-5); Hemoglobin 11.6 g/dL (12.0-15.0); Lymphocyte # 1.19 X10^3/ul (0.83-4.51); Lymphocyte % 11.3 % (19-41); Mean Corp Hgb Conc 30.5 g/dL (32-36); Mean Corpuscular Hgb 30.8 pg (27.0-32.0); Mean Corpuscular Volume 100.8 fL (81-99); Mean Platelet Vol. 11.8 fl (6.2-12.0); Monocyte# 0.97 X10^3/uL; Monocyte% 9.2 % (0-10); NRBC Flagged by Analyzer 0 % (0-5); Neutrophil # 8.24 X10^3/uL (2.7-7.7); Neutrophil % 77.8 % (47-70); POSITIVE MORPHOLOGY YES; Platelet Count 198 K/mm3 (150-450); RBC Distribution Width CV 17.8 % (11.6-14.6); RBC Distribution Width SD 66.7 fl (35.1-43.9); Red Blood Count 3.77 M/mm3 (4.2-5.4); White Blood Count 10.6 K/mm3 (4.4-11.0)
[2023-06-15 06:51] LABS: Differential Indicated SCAN CRITERIA MET
[2023-06-15 07:16] LABS: Anisocytosis 1+; Differential Comment SCANNED; Macrocytosis 1+
[2023-06-15 07:20] VITALS: O2SAT 96
[2023-06-15 07:22] LABS: ALB/GLOB Ratio 0.6 RATIO (0.9-2.4); AST(SGOT) 68 U/L (15-37); Alanine Aminotransfer ALT/SGPT 30 U/L (13-56); Albumin, Serum 2.5 g/dL (3.2-5.0); Alkaline Phosphatase 479 U/L (45-117); Anion Gap 3 (5-15); BUN 34 mg/dL (7-18); BUN/Creat Ratio 22.4 RATIO (10-20); Calcium,Total 11.1 mg/dL (8.5-10.1); Chloride 110 mmol/L (98-107); Creatinine, Serum 1.52 mg/dL (0.55-1.02); EST Glomerular Filtration Rate 36 mL/min (>60); Est Glom Filt Rate - Afr Amer 44 mL/min (>60); Estimated Creatinine Clearance 31.86 ml/min; Globulin 3.9 g/dL (2.2-4.2); Glucose 93 mg/dL (74-106); Potassium 4.3 mmol/L (3.5-5.1); Protein, Total 6.4 g/dL (6.4-8.2); Sodium Level 140 mmol/L (136-145)
[2023-06-15 10:12] VITALS: BP 105/56; PULSE 66; RESP 16; TEMP 36.1; O2SAT 97
[2023-06-15] MEDS: Omega-3 Acid Ethyl Esters 1 GM Capsule PO (10:54)
[2023-06-15] MEDS: Carvedilol 12.5 MG Tablet PO (10:54)
[2023-06-15] MEDS: Empagliflozin 10 MG Tablet PO (10:54)
[2023-06-15] MEDS: Multivitamins,Therapeutic Tablet 1 TABLET PO (10:54)
--- NOTE | 2023-06-15 11:22 | DCINST_ITS ---
Discharge Instructions Diet Discharge Diet: No restrictions Activity Discharge Activity: Return to Normal Activity Weight Bearing Status: Full weight bearing Follow Up Care Test Results: Test results from this visit will be discussed in further detail at your follow- up appointment, if applicable. Discharge Plan Admission Admit Date/Time: 06/11/23 18:40 Primary Reason for Your Visit: High calcium, neoplasm of the liver and endometrium Attending Provider: César Woodard Primary Care Provider: Denise Marvin Consulting Providers: Klever Garza; Sarah Sanon; Shankar Amin; Booker Haas; Valerie Gómez; Abdon Tolbert; Kali Mendez; Adrian Garcia; Harley Gill; Maranda Rollins NP; Aliyah Leiva; Moe Miranda Instructions Patient Instructions: MARICRUZ VALADEZ Biopsy Liver Dc, MARICRUZ RN Procedural Sedation Additional Instructions / Restrictions: You will need your serum calcium rechecked by your primary care physician- at your next visit Discharge Orders/Prescriptions Prescriptions: Continued Farxiga 5 mg tablet 5 mg PO DAILY Qty: 30 11RF (DME) blood pressure monitor Kit See Rx Instructions .Route Qty: 1 0RF Rx Instructions: As directed Eliquis 5 mg tablet 5 mg PO BID Qty: 180 4RF Zyrtec 10 mg capsule 10 mg PO DAILY PRN (Reason: allergies) multivitamin Tablet 1 tab PO DAILY omega-3 fatty acids Capsule 1,000 mg PO DAILY Probiotic Acidophilus Beads 2 billion cell Capsule 1 cap PO DAILY dicyclomine 10 mg capsule 10 mg PO ACHS PRN (Reason: .) Patient Comments: TAKE 1 CAPSULE BY MOUTH BEFORE MEAL(S) AND AT BEDTIME levothyroxine 25 mcg tablet 25 mcg PO DAILY diltiazem HCl 180 mg capsule,extended release 24hr 180 mg PO DAILY furosemide 40 mg tablet 40 mg PO DAILY Qty: 1 0RF potassium chloride [Klor-Con M20] 20 mEq tablet,ER particles/crystals 20 meq PO DAILYCM Qty: 30 12RF Changed carvedilol 25 mg tablet 12.5 mg PO BIDCM Qty: 180 3RF Discontinued cholecalciferol (vitamin D3) 10 mcg (400 unit) capsule 10 mcg PO DAILY losartan 25 MG tablet 25 mg PO DAILY Referrals / Follow Up: Denise Marvin MD [Primary Care Provider] - 06/21/23 10:00 am (Appointment is with Mary Jo Alva N.P.) Disposition Disposition (needs filled in before D/C Order can be placed): Home Health Service
--- NOTE | 2023-06-15 11:59 | CASEMGMT ---
Addendum entered by Azeb Maria 06/15/23 14:12: RN CAITY received call back from [facility] and they are able to accept the patient with planned start of care for Wednesday06/18/23. RN CAITY updated the patient. Patient had no further questions or concerns at this time. Original Note: [facility] in to discuss [facility] with patient. After reviewing, patient prefers [facility]. Patient had no further questions or concerns. RN CM called and made referral to [facility], awaiting acceptance. CM will continue to follow this patient and plan for a safe discharge.
--- NOTE | 2023-06-15 12:06 | PHA.DC.MR.R ---
Pharmacy [place] Med Reconciliation Pharmacy Service has performed discharge medication reconciliation for this patient. The patient's discharge medication list was reviewed for discrepancies and discrepancies were resolved. Medications at Discharge Home Medications L.acidophilus-L.plantarum-B.animalis-B.longum 2 billion cell capsule (Probiotic Acidophilus Beads) 1 cap PO DAILY supplement 02/08/23 multivitamin 1 tab PO DAILY vitamin 02/08/23 omega-3 fatty acids 1,000 mg PO DAILY supplement 02/08/23 blood pressure monitor #1 ea 03/10/23 dapagliflozin propanediol 5 mg tablet (Farxiga) 5 mg PO DAILY diabetes #30 tabs 03/10/23 dicyclomine 10 mg capsule 10 mg PO ACHS PRN irritable bowel 03/10/23 potassium chloride 20 mEq tablet,extended release(part/cryst) (Klor-Con M) 20 meq PO DAILYCM supplement #30 tabs 03/15/23 cetirizine 10 mg capsule (Zyrtec) 10 mg PO DAILY PRN allergies 04/15/23 diltiazem HCl 180 mg capsule,extended release 24 hr 180 mg PO DAILY HR 06/12/23 levothyroxine 25 mcg tablet 25 mcg PO DAILY Thyroid 06/12/23 apixaban 5 mg tablet (Eliquis) 5 mg PO BID blood thinner #180 tabs 06/14/23 carvedilol 25 mg tablet 12.5 mg (1/2 x 25 mg) PO BIDCM #180 tabs 06/15/23 furosemide 40 mg tablet 40 mg PO DAILY #1 TAB 06/15/23
[2023-06-15 12:10] VITALS: O2SAT 92; O2SAT 96
[2023-06-15 15:06] VITALS: BP 101/58; PULSE 60; RESP 16; TEMP 35.9; O2SAT 98
[2023-06-16 11:54] LABS: Surgical Specimen Collection SEE PATHOLOGY REPORT
--- NOTE | 2023-06-28 07:52 | DS.PCM_ITS ---
Providers Date of Admission: 06/11/23 Date of Discharge: 06/15/23 Primary Care Physician: Dr. 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 Hypercalcemia-likely due to metastatic cancer-primary unknown at this time, patient's calcium is improved, and will be rechecked tomorrow #2 metastatic adenocarcinoma -origin unknown at this time, pathology reports are pending at this time, patient was seen by ADULT LITERACY TEACHER #3 essential hypertension-patient is on Coreg #4 elevated creatinine-patient's creatinine is improved today, and will be rechecked tomorrow #5 atrial fibrillation-patient remains on Coreg and diltiazem and will resume Eliquis tomorrow #6 hypothyroidism-patient is on Synthroid #7 obstructive sleep apnea-patient uses CPAP #8 acute severe protein and caloric malnutrition-as evidenced by patient reported decreased appetite and oral intake x2 weeks with 50% intake noted as well as significant weight loss of 7.7% in 3 months based upon previous weight on 03/10/2023 of 248 pounds Total clinical time spent by myself addressing the patient's medical issues, reviewing all of her data, and collaborating with patient's care team: 35 minut es Medications at Discharge Home Medications L.acidophilus-L.plantarum-B.animalis-B.longum 2 billion cell capsule (Probiotic Acidophilus Beads) 1 cap PO DAILY supplement 02/08/23 multivitamin 1 tab PO DAILY vitamin 02/08/23 blood pressure monitor #1 ea 03/10/23 dapagliflozin propanediol 5 mg tablet (Farxiga) 5 mg PO DAILY diabetes #30 tabs 03/10/23 dicyclomine 10 mg capsule 10 mg PO ACHS PRN irritable bowel 03/10/23 potassium chloride 20 mEq tablet,extended release(part/cryst) (Klor-Con M) 20 meq PO DAILYCM supplement #30 tabs 03/15/23 cetirizine 10 mg capsule (Zyrtec) 10 mg PO DAILY PRN allergies 04/15/23 diltiazem HCl 180 mg capsule,extended release 24 hr 180 mg PO DAILY HR 06/12/23 apixaban 5 mg tablet (Eliquis) 5 mg PO BID blood thinner #180 tabs 06/14/23 carvedilol 25 mg tablet 12.5 mg (1/2 x 25 mg) PO BIDCM #180 tabs 06/15/23 furosemide 40 mg tablet 40 mg PO DAILY #1 TAB 06/15/23 levothyroxine 25 mcg tablet 25 mcg PO DAILY #90 tabs 06/15/23 Hospital Course Procedures - (Endometrial biopsy, CT directed core liver biopsy) Summary of Care Provided Minutes Spent on Discharge: 31 Hospital Course: This 67-year-old white female was seen in the emergency room at [facility] after being sent to the emergency room for evaluation of abnormal lab work which was detected by her pit furnace melter. It was noted on her outpatient lab work that her calcium was 12.9, patient complained of feeling unwell for several months with loss of appetite and weight loss. She has a history of atrial fibrillation and congestive heart failure. Lab work obtained in the emergency room revealed her calcium to be 13, her PTH was low at 8.4, patient's creatinine was noted to be elevated at 1.65, BUN was 29, white blood cell count was 12.5. Patient was admitted to PCU, a CT scan of her abdomen and pelvis was obtained, her Lasix was held and she was given IV fluids and she was given a dose of Benadryl a dose of pamidronate. She was seen in consultation by oncology and ADULT LITERACY TEACHER. Imaging studies revealed hepatosplenomegaly with innumerable complex liver lesions highly suggestive metastatic disease, there is also thickened and abnormal appearance of uterine endometrium. Patient underwent an endometrial biopsy and also a liver biopsy, patient's calcium improved, she appeared stable for discharge home on 06/15/2023. Patient was seen and examined on 06/15/2023: On examination she appeared in good health and spirits, she does not appear to be in any distress. Vital signs as documented. Skin warm and dry and without overt rashes. Neck without JVD, thyroid appears normal, trachea is midline, neck is supple. Lungs clear, normal air movement was noted. Heart exam notable for regular rhythm, normal sounds and absence of murmurs, rubs or gallops. Abdomen unremarkable and without evidence of organomegaly, masses, or abdominal aortic enlargement, bowel sounds are pre sent in all 4 quadrants, no abdominal tenderness was noted. Extremities nonedematous, no cyanosis was noted, no clubbing was noted. Neuro: Cranial nerves II through XII are grossly intact, no focal motor deficits were noted, sensation to light touch and pinprick is intact, motor exam 5/5 throughout. Psych: Patient is alert and oriented x3, she does not appear anxious or depressed, she does not appear agitated. Patient was discharged home in stable condition on 06/15/2023 and instructed to follow-up with oncology as an outpatient. Further addendum patient's pathology report revealed adenocarcinoma from an unknown source. Weight / BMI Weight Weight: 104.23 kg Body Mass Index (BMI) 39.4 ABG / Lab / Microbiology Data 06/15/23 06:01 06/15/23 06:01 D/C Instructions Discharge Diet: No restrictions Weight Bearing Status: Full weight bearing Discharge Plan Admission Admit Date/Time: 06/11/23 18:40 Primary Reason for Your Visit: High calcium, neoplasm of the liver and endometrium Attending Provider: César Woodard Primary Care Provider: Denise Marvin Consulting Providers: Klever Garza; Sarah Sanon; Shankar Amin; Booker Haas; Valerie Gómez; Abdon Tolbert; Kali Mendez; Adrian Garcia; Harley Gill; Maranda Rollins NP; Aliyah Leiva; Moe Miranda Instructions Patient Instructions: MARICRUZ RN Biopsy Liver Darren, MARICRUZ RN Procedural Sedation Additional Instructions / Restrictions: You will need your serum calcium rechecked by your primary care physician- at your next visit Discharge Orders/Prescriptions Prescriptions: Continued Farxiga 5 mg tablet 5 mg PO DAILY Qty: 30 11RF (DME) blood pressure monitor Kit See Rx Instructions .Route Qty: 1 0RF Rx Instructions: As directed Eliquis 5 mg tablet 5 mg PO BID Qty: 180 4RF Zyrtec 10 mg capsule 10 mg PO DAILY PRN (Reason: allergies) multivitamin Tablet 1 tab PO DAILY Probiotic Acidophilus Beads 2 billion cell Capsule 1 cap PO DAILY dicyclomine 10 mg capsule 10 mg PO ACHS PRN (Reason: irritable bowel) Patient Comments: TAKE 1 CAPSULE BY MOUTH BEFORE MEAL(S) AND AT BEDTIME diltiazem HCl 180 mg capsule,extended release 24hr 180 mg PO DAILY furosemide 40 mg tablet 40 mg PO DAILY Qty: 1 0RF potassium chloride [Klor-Con M20] 20 mEq tablet,ER particles/crystals 20 meq PO DAILYCM Qty: 30 12RF Changed carvedilol 25 mg tablet 12.5 mg PO BIDCM Qty: 180 3RF Discontinued cholecalciferol (vitamin D3) 10 mcg (400 unit) capsule 10 mcg PO DAILY losartan 25 MG tablet 25 mg PO DAILY No Action levothyroxine 25 mcg tablet 25 mcg PO DAILY Qty: 90 3RF Referrals / Follow Up: Denise Marvin MD [Primary Care Provider] - 06/21/23 10:00 am (Appointment is with Mary Jo Alva N.P.) Shayy Santo DO [Med Staff - Active Staff] - 06/24/23 2:00 pm (call to confirm appointment) Disposition Disposition (needs filled in before D/C Order can be placed): Home Health Service
== END 2023-06-15 15:45 | disposition home health service (06) | DRG 987 ==
LOC: ED 16:41 → PCU 17:16
PROVIDERS: Obstetrics & Gynecology; Radiology Diagnostic Radiology; Student in an Organized Health Care Education/Training Program; Admitting Provider Family Medicine; Emergency Provider Emergency Medicine; PCP Internal Medicine; Visit Provider Internal Medicine
DX: C78.7 Secondary malignant neoplasm of liver and intrahepatic bile duct (principal); E43 Unspecified severe protein-calorie malnutrition; I50.33 Acute on chronic diastolic (congestive) heart failure; N17.9 Acute kidney failure, unspecified; R18.8 Other ascites; C80.1 Malignant (primary) neoplasm, unspecified; I11.0 Hypertensive heart disease with heart failure; E66.01 Morbid (severe) obesity due to excess calories; I48.0 Paroxysmal atrial fibrillation; E03.9 Hypothyroidism, unspecified; J45.909 Unspecified asthma, uncomplicated; E83.52 Hypercalcemia; E78.5 Hyperlipidemia, unspecified; G47.33 Obstructive sleep apnea (adult) (pediatric); R93.89 Abnormal findings on diagnostic imaging of other specified body structures; Z79.01 Long term (current) use of anticoagulants; Z68.39 Body mass index [BMI] 39.0-39.9, adult
CPT/HCPCS: 36415; 71046; 71260; 74177; 77012; 78306; 80048; 80053; 82306; 83615; 83880; 83970; 84100; 84439; 84443; 84481; 85025; 85610; 85730; 86304; 88172; 88305; 88307; 88313; 88341; 88342; 97162; 97166; 97530; 97535; 97802; 97803; 99156; 99284; A9503; J7030; J7040; J7050; Q9967; A4216; J1940; J2430

== ENCOUNTER 2023-06-18 16:58 | Emergency (ER) | payer MEDICARE, SELFPAY ==
[2023-06-18 17:01] VITALS: BP 117/76; PULSE 69; RESP 16; TEMP 36.1; O2SAT 90
[2023-06-18 17:05] VITALS: BP 117/76; PULSE 69; RESP 16; TEMP 36.1; O2SAT 90
--- NOTE | 2023-06-18 17:16 | EX.ED.DYSGE1 ---
HPI History of Present Illness Chief Complaint: Complaint Onset/Context/Timing Onset: Today Context: Sudden Onset Timing: Continuous Worsened by: Nothing Relieved by: Nothing Narrative Narrative: Patient presents with hematuria that began today. Patient states it began rather suddenly this morning. Patient states she is actually unsure if it was blood in her urine or blood in her stools. Patient denies any pain. Patient states she had a recent Almendarez catheter while she was admitted in the hospital and is concerned that this could be from a urinary tract infection. Patient denies any fevers or chills. Patient denies any dysuria. Patient admits to some nausea but denies any vomiting. [facility] Medical History Acute heart failure with preserved ejection fraction (HFpEF) Acute kidney injury Adenocarcinoma of unknown primary Asthma Asthma Cholecystectomy planned HTN (hypertension) Morbid obesity DEBRA on CPAP Home Medications L.acidophilus-L.plantarum-B.animalis-B.longum 2 billion cell capsule (Probiotic Acidophilus Beads) 1 cap PO DAILY supplement 02/08/23 [History Last Taken 06/11/23] multivitamin 1 tab PO DAILY vitamin 02/08/23 [History Last Taken 06/11/23] blood pressure monitor #1 ea 03/10/23 [Rx Last Taken Unknown] dapagliflozin propanediol 5 mg tablet (Farxiga) 5 mg PO DAILY diabetes #30 tabs 03/10/23 [Rx Last Taken 06/11/23] dicyclomine 10 mg capsule 10 mg PO ACHS PRN irritable bowel 03/10/23 [History Last Taken Unknown] potassium chloride 20 mEq tablet,extended release(part/cryst) (Klor-Con M) 20 meq PO DAILYCM supplement #30 tabs 03/15/23 [Rx Last Taken 06/11/23] cetirizine 10 mg capsule (Zyrtec) 10 mg PO DAILY PRN allergies 04/15/23 [History Last Taken 06/11/23] diltiazem HCl 180 mg capsule,extended release 24 hr 180 mg PO DAILY HR 06/12/23 [History Last Taken Unknown] apixaban 5 mg tablet (Eliquis) 5 mg PO BID blood thinner #180 tabs 06/14/23 [Rx Last Taken Unknown] carvedilol 25 mg tablet 12.5 mg (1/2 x 25 mg) PO BIDCM #180 tabs 06/15/23 [Rx Last Taken 06/11/23] furosemide 40 mg tablet 40 mg PO DAILY #1 TAB 06/15/23 [Rx Last Taken 06/11/23] levothyroxine 25 mcg tablet 25 mcg PO DAILY #90 tabs 06/15/23 [Rx Last Taken Unknown] Allergy/AdvReac Type Severity Reaction Status Date / Time Sulfa (Sulfonamide Allergy Rash Verified 06/18/23 16:59 Antibiotics) sulfamethoxazole Allergy Rash Verified 06/18/23 16:59 [From Bactrim] trimethoprim [From Bactrim] Allergy Rash Verified 06/18/23 16:59 Family History Other Diabetes Hypertension Surgical History History of cholecystectomy History of dilatation and curettage History of foot surgery Social History household members: children housing: house Smoking Status: Never smoker alcohol intake: never substance use type: does not use ROS ROS ED Constitutional Constitutional ED: Denies chills or fever(s) Eyes Eyes: Denies blurry vision or change in vision ENT ENT ED: Denies rhinorrhea or sore throat Cardiovascular Cardiovascular: Denies chest pain or palpitations Respiratory/Chest Respiratory/Chest: Reports cough; Denies dyspnea Gastrointestinal Gastrointestinal: Reports nausea; Denies vomiting Genitourinary Genitourinary ED: Reports hematuria; Denies dysuria Musculoskeletal Musculoskeletal: Denies back pain or neck pain Integumentary Denies abscess or rash Neurologic Neurologic: Denies headache(s) or weakness Allergic/Immunologic Allergic/Immunologic ED: Denies mouth swelling or urticaria EXAM Physical Exam Const Vital Signs: 06/18/23 17:01 06/18/23 17:05 06/18/23 17:48 Temperature 96.9 F L 96.9 F L Temperature Source Temporal Temporal Pulse Rate 69 69 Respiratory Rate 16 16 16 Blood Pressure 117/76 117/76 Blood Pressure Mean 89 89 Pulse Ox 90 90 Oxygen Delivery Method 06/18/23 19:22 Temperature Temperature Source Pulse Rate 65 Respiratory Rate 15 Blood Pressure 103/67 Blood Pressure Mean 79 Pulse Ox 96 Oxygen Delivery Method CPAP Positive well nourished, well developed and obese General Appearance ED: well developed and NAD Nutritional Appearance: obese HEENT Reports moist mucous membranes Neck supple and no JVD Resp normal respiratory effort and clear to auscultation bilaterally Cardio regular rate Rhythm: abnormal rhythm irregularly irregular GI normal to inspection, nondistended, normoactive bowel sounds and non-tender Palpation: soft Neuro oriented x3, CN's II-XII intact bilaterally and no sensory deficits noted Sensorium / Orientation: alert Motor Exam: strength 5/5 throughout Psych mental status grossly normal Skin no rashes or lesions noted MDM MDM MDM Narrative Medical decision making narrative: Differential diagnosis includes urinary tract infection, coagulopathy, anemia, and electrolyte abnormality. Urinalysis will be obtained to assess for hematuria and urinary tract infection. PT with INR and PTT will be obtained to assess for coagulopathy. CBC will be obtained to assess for anemia and leukocytosis. Basic metabolic profile will be obtained to assess for kidney function and electrolyte abnormality. History & Record Review Additional record(s) reviewed:: Prior labs Lab Data Attestation: I reviewed the patient's lab results. Lab results narrative: CBC was reviewed. There is a slight leukocytosis of 14.3. The remainder is within normal limits. Basic metabolic profile was reviewed. BUN was 39 and creatinine was 1.89. These are consistent with prior results. PT with INR and PTT were reviewed. Pro time was 22.3 and INR is 1.9. PTT was 42.9. Urinalysis was repeated. There is no evidence of urinary tract infection or hematuria. Labs: Laboratory Results - last 24 hr 06/18/23 06/18/23 17:37 18:20 WBC 14.3 H RBC 4.00 L Hgb 12.4 Hct 39.9 MCV 99.8 H MCH 31.0 MCHC 31.1 L RDW Std Deviation 65.8 H RDW Coeff of Ximena 17.9 H Plt Count 196 MPV 11.6 Immature Gran % (Auto) 0.500 Neut % (Auto) 82.1 H Lymph % (Auto) 7.9 L [place] % (Auto) 8.5 Eos % (Auto) 0.4 Baso % (Auto) 0.6 Absolute Neuts (auto) 11.7 H Absolute Lymphs (auto) 1.13 Nucleated RBC % 0 Platelet Estimate ADEQUATE RBC Morphology N CHROM Anisocytosis 2+ Macrocytosis 1+ Ovalocytes RARE PT 22.3 H INR 1.9 APTT 42.9 H Sodium 140 Potassium 4.4 Chloride 111 H Carbon Dioxide 26.0 Anion Gap 3 L BUN 39 H Creatinine 1.89 H Est GFR (MDRD) Af Amer 34 L Est GFR (MDRD) Non-Af 28 L BUN/Creatinine Ratio 20.6 H Glucose 107 H Calcium 10.7 H Urine Color Yellow Urine Clarity Cloudy Urine pH 6.0 Ur Specific [place] 1.010 Urine Protein 500 H Urine Glucose (UA) Normal Urine Ketones Negative Urine Occult Blood Negative Urine Nitrite Negative Urine Bilirubin Negative Urine Urobilinogen Normal Ur Leukocyte Esterase 25 H Urine RBC 0 SEEN Urine WBC 0-5 SEEN Ur Squamous Epith Cells 0-5 SEEN Amorphous Sediment 3+ Urine Bacteria 0 SEEN Urine Mucus 0 SEEN Treatment and Re-Evaluation :: Patient was advised of her findings. Patient is feeling better on reevaluation. Patient was instructed to follow-up with her primary care physician in 5 to 7 days for further evaluation. Patient understood and was agreeable with the plan. All questions were answered. Discharge Plan Triage Chief Complaint: Complaint ED Provider: Bronson Naik Dx/Rx/DC Orders Clinical Impression: Hematuria Instructions: ED Hematuria Prescriptions: No Action Farxiga 5 mg tablet 5 mg PO DAILY Qty: 30 11RF (DME) blood pressure monitor Kit See Rx Instructions .Route Qty: 1 0RF Rx Instructions: As directed Eliquis 5 mg tablet 5 mg PO BID Qty: 180 4RF Zyrtec 10 mg capsule 10 mg PO DAILY PRN (Reason: allergies) multivitamin Tablet 1 tab PO DAILY Probiotic Acidophilus Beads 2 billion cell Capsule 1 cap PO DAILY dicyclomine 10 mg capsule 10 mg PO ACHS PRN (Reason: irritable bowel) Patient Comments: TAKE 1 CAPSULE BY MOUTH BEFORE MEAL(S) AND AT BEDTIME diltiazem HCl 180 mg capsule,extended release 24hr 180 mg PO DAILY furosemide 40 mg tablet 40 mg PO DAILY Qty: 1 0RF carvedilol 25 mg tablet 12.5 mg PO BIDCM Qty: 180 3RF potassium chloride [Klor-Con M20] 20 mEq tablet,ER particles/crystals 20 meq PO DAILYCM Qty: 30 12RF levothyroxine 25 mcg tablet 25 mcg PO DAILY Qty: 90 3RF Primary Care Provider: Denise Marvin Referrals: Denise Marvin MD [Primary Care Provider] - 5-7 Days Disposition Disposition: Home, Self Care
[2023-06-18 17:48] VITALS: RESP 16
[2023-06-18 17:53] LABS: Absolute Lymphocyte Count 1.13 X10^3/uL (0.83-4.51); Absolute Neutrophil Count 11.7 X10^3/uL (2.0-7.7); Basophil# 0.09 X10^3/uL; Basophil% 0.6 % (0-1); Eosinophil# 0.06 X10^3/uL; Eosinophils% 0.4 % (0-5); Hematocrit 39.9 % (37-47); Hemoglobin 12.4 g/dL (12.0-15.0); Lymphocyte # 1.13 X10^3/ul (0.83-4.51); Lymphocyte % 7.9 % (19-41); Mean Corp Hgb Conc 31.1 g/dL (32-36); Mean Corpuscular Volume 99.8 fL (81-99); Mean Platelet Vol. 11.6 fl (6.2-12.0); Monocyte# 1.21 X10^3/uL; Monocyte% 8.5 % (0-10); NRBC Flagged by Analyzer 0 % (0-5); Neutrophil # 11.69 X10^3/uL (2.7-7.7); Neutrophil % 82.1 % (47-70); POSITIVE MORPHOLOGY YES; Platelet Count 196 K/mm3 (150-450); RBC Distribution Width CV 17.9 % (11.6-14.6); RBC Distribution Width SD 65.8 fl (35.1-43.9); White Blood Count 14.3 K/mm3 (4.4-11.0)
[2023-06-18 18:03] LABS: Differential Indicated SCAN CRITERIA MET
[2023-06-18 18:04] LABS: Anion Gap 3 (5-15); BUN 39 mg/dL (7-18); BUN/Creat Ratio 20.6 RATIO (10-20); Calcium,Total 10.7 mg/dL (8.5-10.1); Chloride 111 mmol/L (98-107); Creatinine, Serum 1.89 mg/dL (0.55-1.02); EST Glomerular Filtration Rate 28 mL/min (>60); Est Glom Filt Rate - Afr Amer 34 mL/min (>60); Glucose 107 mg/dL (74-106); Potassium 4.4 mmol/L (3.5-5.1); Sodium Level 140 mmol/L (136-145)
[2023-06-18 18:06] LABS: International Normalized Ratio 1.9; Prothrombin Time (Protime)PT. 22.3 SECONDS (11.7-14.9)
[2023-06-18 18:07] LABS: Partial Thromboplast Time 42.9 Seconds (24.1-36.2)
[2023-06-18 18:17] LABS: Platelet Estimate ADEQUATE (ADEQ); Red Cell Morphology N CHROM NORMAL (NORM C&C)
[2023-06-18 18:18] LABS: Anisocytosis 2+; Macrocytosis 1+; Ovalocyte RARE
[2023-06-18 18:26] LABS: Bacteria 0 SEEN /hpf (None Seen); Mucous, Urine 0 SEEN /hpf (<or=2+); Red Blood Cells-Urine 0 SEEN /hpf (0-5)
[2023-06-18 18:38] LABS: Color, Urine Yellow (Yellow); Glucose, Dipstick Normal (Normal); Ketone-Dipstick Negative (Negative); Leukocyte Esterase-Dipstick 25 /ul (Negative); Nitrite-Dipstick Negative (Negative); Occult Blood-Urine Negative /ul (Negative); Protein-Dipstick 500 mg/dl (Negative); Urine Bilirubin Dipstick Negative (Negative); Urine Clarity Cloudy (Clear); Urine Urobilinogen Normal (Normal)
[2023-06-18 18:55] LABS: White Blood Cells 0-5 SEEN /hpf (0-5)
[2023-06-18 18:56] LABS: Amorphous Sediment 3+; Squamous Epithelial Cells - UA 0-5 SEEN /hpf (5-10)
[2023-06-18 19:22] VITALS: BP 103/67; PULSE 65; RESP 15; O2SAT 96
[2023-06-18 19:48] VITALS: BMI 41.8
[2023-06-18 20:03] VITALS: BP 103/67; PULSE 65; RESP 15; O2SAT 96
== END 2023-06-18 20:26 | disposition home or self-care (01) ==
PROVIDERS: Emergency Provider Emergency Medicine; PCP Internal Medicine; Visit Provider Emergency Medicine
DX: R31.9 Hematuria, unspecified (principal); I11.0 Hypertensive heart disease with heart failure; I50.31 Acute diastolic (congestive) heart failure; E66.01 Morbid (severe) obesity due to excess calories; R11.0 Nausea; J45.909 Unspecified asthma, uncomplicated
CPT/HCPCS: 80048; 81001; 85025; 85610; 85730; 99283; A4216

== ENCOUNTER 2023-06-24 14:00 | Outpatient (RCR) | payer MEDICARE, SELFPAY ==
[2023-06-04 10:50] VITALS: BP 122/89; PULSE 92; RESP 20; TEMP 35.8
--- NOTE | 2023-06-04 14:06 | PCM.WC.HP ---
History of Present Illness Date of Service: 06/04/23 Chief Complaint: Bilateral lower leg blisters/wounds History of Wound: Patient presents today for evaluation and management of bilateral lower extremity blisters which have ruptured and turned into wounds. She first noticed the blisters around the first of May. She was initially evaluated by cardiology on 05/06 for these and was sent to urgent care who initiated Keflex and referred her to dermatology. Dermatology initiated Unna boots which were changed once weekly for the last 2-3 weeks. She reports they look better than they did initially as far as reduced redness and pain, but still about the same size. She had never had wounds like this in the past. She reports in November she was diagnosed with Afib/CHF and since then has had a lot of swelling in her bilateral lower extremities which has been difficult to manage. She has not worn compression stockings. Today, she complains of fatigue and a persistent, dry cough which has been present for a while. No N/V, F/C, acutely worsened swelling. Her pain/discomfort is localized to the wounds themselves. [facility] Medical History Acute heart failure with preserved ejection fraction (HFpEF) Asthma Asthma Cholecystectomy planned HTN (hypertension) Morbid obesity DEBRA on CPAP Home Medications losartan 25 mg tablet 25 mg PO DAILY 12/17/20 [History Last Taken 02/08/23] L.acidophilus-L.plantarum-B.animalis-B.longum 2 billion cell capsule (Probiotic Acidophilus Beads) 1 cap PO DAILY 02/08/23 [History Last Taken 02/08/23] multivitamin 1 tab PO DAILY 02/08/23 [History Last Taken 02/08/23] omega-3 fatty acids 1,000 mg PO DAILY 02/08/23 [History Last Taken 02/08/23] apixaban 5 mg tablet (Eliquis) 5 mg PO BID #180 tabs 03/10/23 [Rx Last Taken Unknown] blood pressure monitor #1 ea 03/10/23 [Rx Last Taken Unknown] carvedilol 25 mg tablet 25 mg PO BIDCM #180 tabs 03/10/23 [Rx Last Taken Unknown] dapagliflozin propanediol 5 mg tablet (Farxiga) 5 mg PO DAILY #30 tabs 03/10/23 [Rx Last Taken Unknown] dicyclomine 10 mg capsule 10 mg PO ACHS PRN . 03/10/23 [History Last Taken Unknown] diltiazem HCl 180 mg capsule,extended release 24 hr 180 mg PO DAILY #30 caps 03/10/23 [Rx Last Taken Unknown] potassium chloride 20 mEq tablet,extended release(part/cryst) (Klor-Con M) 20 meq PO DAILYCM #30 tabs 03/15/23 [Rx Last Taken Unknown] cetirizine 10 mg capsule (Zyrtec) 10 mg PO DAILY PRN allergies 04/15/23 [History Last Taken Unknown] cholecalciferol (vitamin D3) 10 mcg (400 unit) capsule 10 mcg PO DAILY 04/15/23 [History Last Taken Unknown] furosemide 40 mg tablet 40 mg PO DAILY #90 tabs 05/06/23 [Rx Last Taken Unknown] Allergy/AdvReac Type Severity Reaction Status Date / Time Sulfa (Sulfonamide Allergy Rash Verified 06/04/23 11:41 Antibiotics) sulfamethoxazole Allergy Rash Verified 06/04/23 11:41 [From Bactrim] trimethoprim [From Bactrim] Allergy Rash Verified 06/04/23 11:41 Family History Other Diabetes Hypertension Surgical History (Updated 04/15/23 @ 14:00 by Gabriela Gilbert) History of cholecystectomy History of dilatation and curettage History of foot surgery Social History household members: spouse housing: house Smoking Status: Never smoker alcohol intake: never substance use type: does not use Vital Signs Vital Signs Vital Signs: 06/04/23 10:50 Temperature 96.4 F L Temperature Source Temporal Pulse Rate 92 Respiratory Rate 20 H Blood Pressure 122/89 H Blood Pressure Mean 100 Blood Pressure Source Monitor Physical Exam Const alert, oriented x3 and no apparent distress General Appearance: cooperative HEENT normocephalic, head/scalp atraumatic, hearing grossly normal bilaterally, external ears normal and external nose normal Eyes EOMs intact bilaterally General Eye: normal appearance of both eyes Resp normal respiratory effort, no retractions and no use of accessory muscles Effort and Inspection: able to speak in complete sentences; Negative for labored, grunting or stridor Cardio regular rate Rhythm: abnormal rhythm irregularly irregular Extremity Extremity Narrative: Bilateral lower extremities with significant edema. Skin Wound Narrative: R posterior calf blister which has recently ruptured, superficial wound with granulation tissue. Serous drainage. L posterior and and anterior calf wounds with granulation tissue at base, minimal slough. Some surrounding erythema but no significant warmth or foul odor. Serous drainage. Neuro oriented x3, CN's II-XII intact bilaterally, moves all extremities and no focal motor deficits Psych Appearance: grossly normal Attitude: calm Activity / Motor Behavior: appropriate eye contact Speech: normal speech Mood & Affect: euthymic mood Debridement Note Debridement Note Wound debrided: L posterior lower leg Laterality: Left Type of Debridement: Excisional debridement Anesthesia Used: 5% Lidocaine Gel Depth: Down to and including healthy tissue Percentage of wound debrided: 100 Instrument Used: 5mm curette Tissue Removed: slough, devitalized tissue Patient tolerated procedure: Patient tolerated procedure well Post-Debridement Measurements and Additional Note: Post-Debridement Measurements/Treatment - Nurse 1 - General Ulcer Assessment Start: 06/04/23 10:50 Freq: Status: Active Protocol: CRICKET Activity Type Activity Date Activity User E-sign Co-sign Detail Recorded Client Recorded Date Recorded By Document 06/04/23 10:50 DL [id number] 06/04/23 11:25 DL 06/04/23 10:50 - Today's Visit Information Type of service Initial Visit Arrival Mode Ambulatory, Wheelchair Transfer Assistance Manual Transfer Assist (Other) x2 Patient Identification Verified (Name & Yes ) Patient Requires Transmission-Based No Precautions Vital Signs Temperature (97.8 F-99.1 F) 96.4 F L Temperature Source Temporal Pulse Rate (60-100) 92 Pulse Location Monitor Respiratory Rate (12-18) 20 H Respiratory rate source Observation Blood Pressure (90/60-120/80) 122/89 H Blood Pressure Mean 100 Source Monitor History Since Last Visit- (Skip if this is Patient's initial visit) Left Footwear Slipper Right Footwear Slipper Pain Scale: 0-10 Numeric Is Patient Pain Free? Yes Lower Extremity Assessment/ Foot Assessment/ Toe Nail Assessment Left -Posterior Tibial Palpable No -Posterior Tibial Doppler Multiphasic -Dorsalis Pedis Palpable No -Dorsalis Pedis Doppler Multiphasic -Extremity Color Red -Temperature of Extremity Warm -Capillary Refill Greater than 3 Seconds -Dependent Rubor No -Blanched when Elevated No -Lipodermatosclerosis No -Other Deformity No -Prior Foot Ulcer No -Charcot Joint No -Prior Amputation No -Thick No -Discolored No -Deformed No -Improper Length & Hygeine No Right -Posterior Tibial Palpable No -Posterior Tibial Doppler Multiphasic -Dorsalis Pedis Palpable No -Dorsalis Pedis Doppler Multiphasic -Extremity Color Red -Hair Growth on Legs No -Hair Growth on Toes No -Temperature of Extremity Warm -Capillary Refill Greater than 3 Seconds -Dependent Rubor No -Blanched when Elevated No -Lipodermatosclerosis No -Other Deformity No -Prior Foot Ulcer No -Charcot Joint No -Prior Amputation No -Thick No -Discolored No -Deformed No -Improper Length & Hygeine No Neuropathy Assessment Feet - Top Side and Bottom <Entered> (a) Communication Assessment Preferred language Khmer Able to Read Yes Able to Write Yes Communication Tools None Right Hearing Abillity Normal Left Hearing Abillity Normal Visual Assistive Devices Glasses Teaching Assessment Preferences Verbal,Written Barriers to Learning None Readiness To Learn Good Willingness to Engage in Self Management Med Activies Readiness to Engage in Self Management Med Activities Anxiety Level Anxious Cooperation Cooperative Perception Coherent Interest in Health Problem Asks Questions Education Importance Acknowledges Need Does Patient Smoke tobacco or other No substances Is Patient Diabetic No Functional Assessment Recent Decline in Ability to Perform Ambulation, Bathing,Lower Body Dressing, Transferring, Upper Body Dressing Culture/Sabianist/Exercise Planner Cultural/Sabianist Needs that may affect No Treatment Plan Would you allow our hospital business machines teacher to No meet you for the purpose of spiritual/ emotional support? Exercise Planner to contact place of religious No Teaching: Wound Center *Welcome to the Wound Center -Person Taught Patient,Family (a) 1 - + WC - Nurse 1 - General Ulcer Measurement Start: 06/04/23 10:50 Freq: Status: Active Protocol: Activity Type Activity Date Activity User E-sign Co-sign Detail Recorded Client Recorded Date Recorded By Document 06/04/23 10:50 DL [id number] 06/04/23 11:25 DL 06/04/23 10:50 Wound Center Nurse 1 #3 L Post LE -Current Size (cm) - Length 5 -Current Size (cm) - Width 10 -Current Size (cm) - Depth 0.1 -Total Square Cm 50 -Photo Taken Yes -Classification - Thickness Full Thickness without Exposed Support Structure -Exudate Amt Medium -Exudate Type Serosanguineous -Wound Margin Distinct, Outline Attached -Granulation Amt Large (67-100%) -Granulation Quality Numidia -Necrosis Amt None Present (0 %) -Structure Exposed N/A -Texture (Kasia-wound Skin Appearance) Localized Edema -Moisture (Kasia-wound Skin Appearance) No Abnormality -Color (Kasia-wound Skin Appearance) Hemosiderin Staining -Temperature (Kasia-wound Skin No Abnormality Appearance) (Pt Warm) -Tenderness on Palpation (Kasia-wound No Skin Appearance) -Ulcer Cleansing Soap and Water -Foul Odor after Cleansing No -Anesthetic Used 5% Lidocaine Gel #2 L Griffith -Current Size (cm) - Length 8.6 -Current Size (cm) - Width 6 -Current Size (cm) - Depth 0.1 -Total Square Cm 51.6 -Photo Taken Yes -Exudate Amt Medium -Exudate Type Serosanguineous -Wound Margin Distinct, Outline Attached -Granulation Amt Large (67-100%) -Granulation Quality Numidia -Necrosis Amt None Present (0 %) -Structure Exposed N/A -Texture (Kasia-wound Skin Appearance) Localized Edema -Moisture (Kasia-wound Skin Appearance) No Abnormality -Color (Kasia-wound Skin Appearance) Erythema -Temperature (Kasia-wound Skin No Abnormality Appearance) (Pt Warm) -Tenderness on Palpation (Kasia-wound Yes Skin Appearance) -Ulcer Cleansing Soap and Water -Foul Odor after Cleansing No -Anesthetic Used 5% Lidocaine Gel #1 R Post LE -Current Size (cm) - Length 7 -Current Size (cm) - Width 6 -Current Size (cm) - Depth 0.1 -Total Square Cm 42 -Photo Taken Yes -Exudate Amt Medium -Exudate Type Serosanguineous -Wound Margin Distinct, Outline Attached -Granulation Amt Large (67-100%) -Granulation Quality Numidia,Red -Necrosis Amt None Present (0 %) -Structure Exposed N/A -Texture (Kasia-wound Skin Appearance) Localized Edema -Moisture (Kasia-wound Skin Appearance) No Abnormality, Weeping -Color (Kasia-wound Skin Appearance) Erythema -Temperature (Kasia-wound Skin No Abnormality Appearance) (Pt Warm) -Tenderness on Palpation (Kasia-wound No Skin Appearance) -Ulcer Cleansing Soap and Water -Foul Odor after Cleansing No -Anesthetic Used 5% Lidocaine Gel Right Calf (cm) 45.8 Right Ankle (cm) 29.5 Left Calf (cm) 47 Left Ankle (cm) 31 WC - Nurse 2 - General Ulcer CM Notes Start: 06/04/23 10:50 Freq: Status: Active Protocol: Activity Type Activity Date Activity User E-sign Co-sign Detail Recorded Client Recorded Date Recorded By Document 06/04/23 12:15 PL [id number] 06/04/23 12:17 PL 06/04/23 12:15 Wound Center Nurse 2 #3 L Post LE -Procedure Performed No #2 L Griffith -Procedure Performed No #1 R Post LE -Time 11:44 -Correct Patient Yes -Correct Side, Site, Position Yes -Correct Procedure Yes -Procedure Performed Yes -Type of Procedure Debridement -Clinical Debridement Subcutaneous -Tissue Removed Subcutaneous -Post Debridement (cm) - Length 7.0 -Post Debridement (cm) - Width 6.0 -Post Debridement (cm) - Depth 0.1 -Total Square (Post) (cm) 42.00 -Area of Debridement (cm) - Length 7.0 -Area of Debridement (cm) - Width 6.0 -Total Square (Area) (cm) 42.00 -Tunneling No -Undermining/Tunneling No -Circular Undermining No -Wound/Ulcer Outcome Not Healed -Ulcer Cleansing Rinsed/ Irrigated with Saline -Foul Odor after Cleansing No -Bioengineered Tissue No -Bleeding Controlled with Pressure -Treatment Response Procedure Tolerated Well -Debridement - Subq, 1st 20sq cm Yes -Debridement, SubQ, ea addt'l 20sq cm 2 or part thereof Pain Scale: 0-10 Numeric Is Patient Pain Free? Yes Additional Wound Wound debrided: L anterior lower leg Laterality: Left Additional Wound Wound debrided: R posterior lower leg Laterality: Right Type of Debridement: Excisional debridement Anesthesia Used: 5% Lidocaine Gel Depth: Down to and including healthy tissue Percentage of wound debrided: 100 Instrument Used: Forceps and - (scissors) Tissue Removed: devitalized tissue Amount of bleeding with debridement: None Patient tolerated procedure: Patient tolerated procedure well Charges/Coding Visit Charges Office Visits / Consults: [id number] OV L3 New Procedures Integumentary [id number]: [id number] Denice subq tissue 20 sq cm/< Assessment/Plan Assessment/Plan (1) Bilateral lower extremity edema: CODE(S): R60.0 - Localized edema (2) Ulcer of lower extremity, limited to breakdown of skin: CODE(S): L97.901 - Non-pressure chronic ulcer of unspecified part of unspecified lower leg limited to breakdown of skin PLAN: Plan Will apply Aquacel Ag to the wound beds, cover with super absorber, tubigrips for compression. Patient was instructed to elevate her legs when resting and to avoid prolonged idle sitting or standing. She was instructed not to submerge the wounds in water such as with a bath or swimming. It is okay to shower and allow soapy water to rinse over the wounds, pat to dry. She was instructed to change her dressing at least once daily, but more often if it becomes soaked or soiled. Cultures were obtained today from L posterior wound as it had some surrounding erythema. Will prescribed antibiotics as indicated by C&S. Return to clinic in 1 week.
[2023-06-11 11:55] VITALS: BP 127/63; PULSE 70; RESP 18; TEMP 35.4
--- NOTE | 2023-06-17 07:37 | PN.PCM_ITS ---
History of Present Illness Date of Service: 06/11/23 Chief Complaint: Bilateral lower leg blisters/wounds History of Wound: Patient presents today for evaluation and management of bilateral lower extremity blisters which have ruptured and turned into wounds. She first noticed the blisters around the first of May. She was initially evaluated by cardiology on 05/06 for these and was sent to urgent care who initiated Keflex and referred her to dermatology. Dermatology initiated Unna boots which were changed once weekly for the last 2-3 weeks. She reports they look better than they did initially as far as reduced redness and pain, but still about the same size. She had never had wounds like this in the past. She reports in November she was diagnosed with Afib/CHF and since then has had a lot of swelling in her bilateral lower extremities which has been difficult to manage. She has not worn compression stockings. Today, she complains of fatigue and a persistent, dry cough which has been present for a while. No N/V, F/C, acutely worsened swelling. Her pain/discomfort is localized to the wounds themselves. Subjective Subjective Patient presented to [facility] today accompanied by her son. She has significant fatigue. Cardiology obtained labs as part of their workup for her persistent fatigue and cough/SOB which revealed hypothyroidism and hypercalcemia, their office just called her and instructed her to proceed to the ER for IV hydration and further evaluation. She states she would like to complete her appointment today first. Wounds are overall stable, no new or worsening pain, redness, drainage, focal swelling. She has been doing okay with dressing changes, drainage is not soaking through the dressings. Objective Data Objective Data Vital Signs: Vital Signs Temp Pulse Resp BP O2 Del Method 95.7 F L 70 18 127/63 H Room Air 06/11/23 11:55 06/11/23 11:55 06/11/23 11:55 06/11/23 11:55 06/11/23 11:55 Oxygen Delivery Method Room Air Lab / Micro Data Micro: Microbiology 06/04/23 12:00 Wound - Leg, Left Gram Stain - Final 06/04/23 12:00 Wound - Leg, Left Wound Culture - Final Pseudomonas alcaligenes Leclercia adecarboxylata Aerococcus viridans. 06/04/23 12:00 Wound - Leg, Left Anaerobic Culture - Final No anaerobic bacteria isolated. Charges/Coding Visit Charges Office Visits / Consults: [id number] OV L3 Est Physical Exam Const alert, oriented x3 and no apparent distress General Appearance: cooperative HEENT normocephalic, head/scalp atraumatic, hearing grossly normal bilaterally, external ears normal and external nose normal Eyes EOMs intact bilaterally General Eye: normal appearance of both eyes Resp normal respiratory effort, no retractions and no use of accessory muscles Effort and Inspection: able to speak in complete sentences; Negative for labored, grunting or stridor Cardio regular rate Rhythm: abnormal rhythm irregularly irregular Extremity Extremity Narrative: Bilateral lower extremities with significant edema. Skin Wound Narrative: R posterior calf blister which has recently ruptured, superficial wound with granulation tissue. Serous drainage. L posterior and and anterior calf wounds with granulation tissue at base, minimal slough. Some surrounding erythema but no significant warmth or foul odor. Serous drainage. Neuro oriented x3, CN's II-XII intact bilaterally, moves all extremities and no focal motor deficits Psych Appearance: grossly normal Attitude: calm Activity / Motor Behavior: appropriate eye contact Speech: normal speech Mood & Affect: euthymic mood Debridement Note Debridement Note No debridement was completed: No debridement was completed today Post-Debridement Measurements and Additional Note: Post-Debridement Measurements/Treatment - Nurse 1 - General Ulcer Assessment Start: 06/04/23 10:50 Freq: Status: Active Protocol: CRICKET Activity Type Activity Date Activity User E-sign Co-sign Detail Recorded Client Recorded Date Recorded By Document 06/04/23 10:50 DL [id number] 06/04/23 11:25 DL Document 06/11/23 11:55 MW [id number] 06/11/23 11:58 MW 06/04/23 06/11/23 10:50 11:55 - Today's Visit Information Type of service Initial Visit Follow-up Visit (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/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 ) Arrival Mode Ambulatory, Wheelchair Wheelchair Transfer Assistance Manual None Transfer Assist (Other) x2 Accompanied by son Patient Identification Verified (Name & Yes Yes ) Patient Requires Transmission-Based No No Precautions Vital Signs Temperature (97.8 F-99.1 F) 96.4 F L 95.7 F L Temperature Source Temporal Temporal Pulse Rate (60-100) 92 70 Pulse Location Monitor Monitor Respiratory Rate (12-18) 20 H 18 Respiratory rate source Observation Observation Oxygen Delivery Method Room Air Blood Pressure (90/60-120/80) 122/89 H 127/63 H Blood Pressure Mean (mm Hg) 100 84 Source Monitor Monitor Position Sitting Blood Pressure Location Right Arm History Since Last Visit- (Skip if this is Patient's initial visit) Have you changed medications since your No last visit? Any new allergies or adverse reactions No Had a fall/change in ADL's that may No increase risk of falls Signs or symptoms of abuse and/or No neglect since last visit Have you been in the hospital since your No last visit? Has dressing in place as prescribed Yes Has compression in place as prescribed Yes Has offloadiing in place as prescribed N/A Experienced any changes in pain level or No management Left Footwear Slipper Regular Shoe Right Footwear Slipper Regular Shoe Pain Scale: 0-10 Numeric Is Patient Pain Free? Yes Yes Lower Extremity Assessment/ Foot Assessment/ Toe Nail Assessment Left -Posterior Tibial Palpable No -Posterior Tibial Doppler Multiphasic -Dorsalis Pedis Palpable No -Dorsalis Pedis Doppler Multiphasic -Extremity Color Red -Temperature of Extremity Warm -Capillary Refill Greater than 3 Seconds -Dependent Rubor No -Blanched when Elevated No -Lipodermatosclerosis No -Other Deformity No -Prior Foot Ulcer No -Charcot Joint No -Prior Amputation No -Thick No -Discolored No -Deformed No -Improper Length & Hygeine No Right -Posterior Tibial Palpable No -Posterior Tibial Doppler Multiphasic -Dorsalis Pedis Palpable No -Dorsalis Pedis Doppler Multiphasic -Extremity Color Red -Hair Growth on Legs No -Hair Growth on Toes No -Temperature of Extremity Warm -Capillary Refill Greater than 3 Seconds -Dependent Rubor No -Blanched when Elevated No -Lipodermatosclerosis No -Other Deformity No -Prior Foot Ulcer No -Charcot Joint No -Prior Amputation No -Thick No -Discolored No -Deformed No -Improper Length & Hygeine No Neuropathy Assessment Feet - Top Side and Bottom <Entered> (a) Communication Assessment Preferred language Japanese Able to Read Yes Able to Write Yes Communication Tools None Right Hearing Abillity Normal Left Hearing Abillity Normal Visual Assistive Devices Glasses Teaching Assessment Preferences Verbal,Written Barriers to Learning None Readiness To Learn Good Willingness to Engage in Self Management Med Activies Readiness to Engage in Self Management Med Activities Anxiety Level Anxious Cooperation Cooperative Perception Coherent Interest in Health Problem Asks Questions Education Importance Acknowledges Need Does Patient Smoke tobacco or other No substances Is Patient Diabetic No Functional Assessment Recent Decline in Ability to Perform Ambulation, Bathing,Lower Body Dressing, Transferring, Upper Body Dressing Culture/Moravian/Vending Service Technician Cultural/Moravian Needs that may affect No Treatment Plan Would you allow our new [facility] aquaculture director to No meet you for the purpose of spiritual/ emotional support? Vending Service Technician to contact place of yarsanism No Teaching: Wound Center *Welcome to the Wound Center -Person Taught Patient,Family (a) 1 - + WC - Nurse 1 - General Ulcer Measurement Start: 06/04/23 10:50 Freq: Status: Active Protocol: Activity Type Activity Date Activity User E-sign Co-sign Detail Recorded Client Recorded Date Recorded By Document 06/04/23 10:50 DL [id number] 06/04/23 11:25 DL Document 06/11/23 11:55 MW [id number] 06/11/23 11:58 MW 06/04/23 06/11/23 10:50 11:55 Wound Center Nurse 1 #3 L Post LE -Combined with other wound No -Current Size (cm) - Length 5 0.1 -Current Size (cm) - Width 10 0.1 -Current Size (cm) - Depth 0.1 0.1 -Total Square Cm 50 0.01 -Photo Taken Yes No -Epithelialization None Present -Tunneling No -Undermining/Tunneling No -Circular Undermining No -Classification - Thickness Full Thickness without Exposed Support Structure -Exudate Amt Medium Large -Exudate Type Serosanguineous Yellow/Green -Wound Margin Distinct, Flat & Intact Outline Attached -Granulation Amt Large (67-100%) None Present (0 %) -Granulation Quality Jewett N/A -Slough/Fibrin Yes -Necrosis Amt None Present (0 Large (67-100%) %) -Necrotic Tissue Type Adherent Slough -Structure Exposed N/A N/A -Texture (Kasia-wound Skin Appearance) Localized Edema Assessed, Localized Edema -Moisture (Kasia-wound Skin Appearance) No Abnormality Assessed, Weeping -Color (Kasia-wound Skin Appearance) Hemosiderin Assessed,Rubor Staining -Temperature (Kasia-wound Skin No Abnormality No Abnormality Appearance) (Pt Warm) (Pt Warm) -Tenderness on Palpation (Kasia-wound No Yes Skin Appearance) -Ulcer Cleansing Soap and Water Rinsed/ Irrigated with Saline -Foul Odor after Cleansing No No -Anesthetic Used 5% Lidocaine 4% Lidocaine Gel Solution #2 L Griffith -Combined with other wound No -Current Size (cm) - Length 8.6 0.1 -Current Size (cm) - Width 6 0.1 -Current Size (cm) - Depth 0.1 0.1 -Total Square Cm 51.6 0.01 -Photo Taken Yes No -Epithelialization Small 1-33% -Tunneling No -Undermining/Tunneling No -Circular Undermining No -Exudate Amt Medium Large -Exudate Type Serosanguineous Yellow/Green -Wound Margin Distinct, Flat & Intact Outline Attached -Granulation Amt Large (67-100%) None Present (0 %) -Granulation Quality Jewett N/A -Slough/Fibrin Yes -Necrosis Amt None Present (0 Large (67-100%) %) -Necrotic Tissue Type Adherent Slough -Structure Exposed N/A N/A -Texture (Kasia-wound Skin Appearance) Localized Edema Assessed, Localized Edema -Moisture (Kasia-wound Skin Appearance) No Abnormality Assessed, Maceration -Color (Kasia-wound Skin Appearance) Erythema Assessed,Rubor -Temperature (Kasai-wound Skin No Abnormality No Abnormality Appearance) (Pt Warm) (Pt Warm) -Tenderness on Palpation (Kasia-wound Yes No Skin Appearance) -Ulcer Cleansing Soap and Water Rinsed/ Irrigated with Saline -Foul Odor after Cleansing No No -Anesthetic Used 5% Lidocaine 4% Lidocaine Gel Solution #1 R Post LE -Combined with other wound No -Current Size (cm) - Length 7 0.1 -Current Size (cm) - Width 6 0.1 -Current Size (cm) - Depth 0.1 0.1 -Total Square Cm 42 0.01 -Photo Taken Yes No -Epithelialization None Present -Tunneling No -Undermining/Tunneling No -Circular Undermining No -Exudate Amt Medium Large -Exudate Type Serosanguineous Yellow/Green -Wound Margin Distinct, Flat & Intact Outline Attached -Granulation Amt Large (67-100%) None Present (0 %) -Granulation Quality Jewett,Red N/A -Slough/Fibrin Yes -Necrosis Amt None Present (0 Large (67-100%) %) -Necrotic Tissue Type Adherent Slough -Structure Exposed N/A N/A -Texture (Kasia-wound Skin Appearance) Localized Edema Assessed, Localized Edema -Moisture (Kasia-wound Skin Appearance) No Abnormality, Assessed, Weeping Maceration -Color (Kasia-wound Skin Appearance) Erythema Assessed,Rubor -Temperature (Kasia-wound Skin No Abnormality No Abnormality Appearance) (Pt Warm) (Pt Warm) -Tenderness on Palpation (Kasia-wound No No Skin Appearance) -Ulcer Cleansing Soap and Water Rinsed/ Irrigated with Saline -Foul Odor after Cleansing No No -Anesthetic Used 5% Lidocaine 4% Lidocaine Gel Solution Lower Limb Edema Present Yes Right Calf (cm) 45.8 47.5 Right Ankle (cm) 29.5 28.5 Left Calf (cm) 47 45.5 Left Ankle (cm) 31 31.0 WC - Nurse 2 - General Ulcer CM Notes Start: 06/04/23 10:50 Freq: Status: Active Protocol: Activity Type Activity Date Activity User E-sign Co-sign Detail Recorded Client Recorded Date Recorded By Document 06/04/23 12:15 PL [id number] 06/04/23 12:17 PL 06/04/23 12:15 Wound Center Nurse 2 #3 L Post LE -Procedure Performed No #2 L Griffith -Procedure Performed No #1 R Post LE -Time 11:44 -Correct Patient Yes -Correct Side, Site, Position Yes -Correct Procedure Yes -Procedure Performed Yes -Type of Procedure Debridement -Clinical Debridement Subcutaneous -Tissue Removed Subcutaneous -Post Debridement (cm) - Length 7.0 -Post Debridement (cm) - Width 6.0 -Post Debridement (cm) - Depth 0.1 -Total Square (Post) (cm) 42.00 -Area of Debridement (cm) - Length 7.0 -Area of Debridement (cm) - Width 6.0 -Total Square (Area) (cm) 42.00 -Tunneling No -Undermining/Tunneling No -Circular Undermining No -Wound/Ulcer Outcome Not Healed -Ulcer Cleansing Rinsed/ Irrigated with Saline -Foul Odor after Cleansing No -Bioengineered Tissue No -Bleeding Controlled with Pressure -Treatment Response Procedure Tolerated Well -Debridement - Subq, 1st 20sq cm Yes -Debridement, SubQ, ea addt'l 20sq cm 2 or part thereof Pain Scale: 0-10 Numeric Is Patient Pain Free? Yes - Nurse 3 - General Ulcer D/C NN Start: 06/04/23 10:50 Freq: Status: Active Protocol: Activity Type Activity Date Activity User E-sign Co-sign Detail Recorded Client Recorded Date Recorded By Document 06/11/23 12:48 ASIF [id number] 06/11/23 12:50 ASIF 06/11/23 12:48 Wound Care Center Nurse 3 #3 L Post LE -Ulcer Cleansing Rinsed/ Irrigated with Saline -Foul Odor after Cleansing No -Primary Dressing Applied Aquacel AG 4x4 -Primary Dressing Covered/Secured with Dry Gauze & Roll Gauze -Aquacel AG 4x4 1 #2 L Griffith -Ulcer Cleansing Rinsed/ Irrigated with Saline -Foul Odor after Cleansing No -Primary Dressing Applied Aquacel AG 4x4 -Primary Dressing Covered/Secured with Dry Gauze & Roll Gauze, Secured with Tape -Aquacel AG 4x4 1 #1 R Post LE -Ulcer Cleansing Rinsed/ Irrigated with Saline -Foul Odor after Cleansing No -Primary Dressing Applied Aquacel AG 4x4 -Primary Dressing Covered/Secured with Dry Gauze & Roll Gauze, Secured with Tape -Aquacel AG 4x4 1 Right -Tubular Bandage Single Layer -Size of Tubigrip Used Size E -Size E ($) 2 Left -Tubular Bandage Single Layer -Size of Tubigrip Used Size F -Size F ($) 2 Pain Scale: 0-10 Numeric Is Patient Pain Free? Yes - Visit Discharge Discharge Condition Stable Ambulatory Status Ambulatory, Wheelchair Transportation Private Auto Accompanied by SON Medication Reconcilliation completed & Yes provided to patient/care provider Clinical Summary of Care Provided Yes Assessment/Plan Assessment/Plan (1) Bilateral lower extremity edema: CODE(S): R60.0 - Localized edema (2) Ulcer of lower extremity, limited to breakdown of skin: CODE(S): L97.901 - Non-pressure chronic ulcer of unspecified part of unspecified lower leg limited to breakdown of skin PLAN: Plan There was no significant slough in wound beds so no debridement was performed today. Cultures grew what are most likely skin contaminants and no signs of apparent infection today. With refrain from antibiotics at this time. Will continue with Aquacel to the wound beds and foam dressing. Change once daily or more often as needed to keep clean and dry. With dressing changes, wash area with gentle soap, rinse with water, and pat to dry. Do not submerge the wounds in water such as with a bath, swimming, hot tub, etc. Continue tubigrips for compression. Avoid prolonged idle standing or sitting with legs dependent, elevate legs when resting. Return to wound care center in 2 weeks as I am out next week.
[2023-06-24 14:29] VITALS: BP 98/71; PULSE 68; RESP 18; TEMP 36.1
--- NOTE | 2023-06-25 12:29 | PCM.WC.PN ---
History of Present Illness Date of Service: 06/25/23 Chief Complaint: Bilateral lower leg blisters/wounds History of Wound: Patient presents today for evaluation and management of bilateral lower extremity blisters which have ruptured and turned into wounds. She first noticed the blisters around the first of May. She was initially evaluated by cardiology on 05/06 for these and was sent to urgent care who initiated Keflex and referred her to dermatology. Dermatology initiated Unna boots which were changed once weekly for the last 2-3 weeks. She reports they look better than they did initially as far as reduced redness and pain, but still about the same size. She had never had wounds like this in the past. She reports in November she was diagnosed with Afib/CHF and since then has had a lot of swelling in her bilateral lower extremities which has been difficult to manage. She has not worn compression stockings. Subjective Subjective After visit last week, patient presented to the ER for evaluation and treatment of her abnormal lab work. Unfortunately, work up ultimately revealed metastatic cancer of unknown primary. She continues to have significant fatigue and weakness, her lower extremity edema seems to have worsened. She has f/u appt scheduled with [facility] next Wednesday. Her daughter accompanies her to the appointment today and is the one changing her dressings daily. She does have C nurses 2x weekly, her daughter is trying to arrange for more help and is in contact with social work. Both patient and daughter are feeling overwhelmed. She has had copious serous drainage. No new or worsening redness, foul odor, purulence. Objective Data Objective Data Vital Signs: Vital Signs Temp Pulse Resp BP O2 Del Method 96.9 F L 68 18 98/71 Room Air 06/24/23 14:29 06/24/23 14:29 06/24/23 14:29 06/24/23 14:29 06/24/23 14:29 Oxygen Delivery Method Room Air Lab / Micro Data Micro: Microbiology 06/04/23 12:00 Wound - Leg, Left Gram Stain - Final 06/04/23 12:00 Wound - Leg, Left Wound Culture - Final Pseudomonas alcaligenes Leclercia adecarboxylata Aerococcus viridans. 06/04/23 12:00 Wound - Leg, Left Anaerobic Culture - Final No anaerobic bacteria isolated. Charges/Coding Visit Charges Office Visits / Consults: [id number] OV L3 Est Physical Exam Const alert, oriented x3 and no apparent distress General Appearance: cooperative Resp normal respiratory effort, no retractions and no use of accessory muscles Effort and Inspection: able to speak in complete sentences Extremity Extremity Narrative: Bilateral lower extremities with significant edema. Skin Wound Narrative: R posterior calf blister wound is superficial, large, pink granulation tissue at the base, minimal slough. Serous drainage. L posterior calf wound with granulation tissue at base, minimal slough. Serous drainage. L anterior calf blister/wound is healed. Psych Appearance: grossly normal Attitude: calm Activity / Motor Behavior: appropriate eye contact Speech: normal speech Debridement Note Debridement Note No debridement was completed: No debridement was completed today Post-Debridement Measurements and Additional Note: Post-Debridement Measurements/Treatment - Nurse 1 - General Ulcer Assessment Start: 06/04/23 10:50 Freq: Status: Active Protocol: CRICKET Activity Type Activity Date Activity User E-sign Co-sign Detail Recorded Client Recorded Date Recorded By Document 06/04/23 10:50 DL [id number] 06/04/23 11:25 DL Document 06/11/23 11:55 MW [id number] 06/11/23 11:58 MW Document 06/24/23 14:29 DL [id number] 06/24/23 14:34 DL 06/04/23 06/11/23 06/24/23 10:50 11:55 14:29 - Today's Visit Information Type of service Initial Visit Follow-up Visit Follow-up Visit (Physician/SHRIMPER (Physician/SHRIMPER ) ) Arrival Mode Ambulatory, Wheelchair Wheelchair Wheelchair Transfer Assistance Manual None Other Transfer Assist (Other) x2 2 Accompanied by son ana and cherelle brody Patient Identification Verified (Name & Yes Yes Yes ) Patient Requires Transmission-Based No No No Precautions Vital Signs Temperature (97.8 F-99.1 F) 96.4 F L 95.7 F L 96.9 F L Temperature Source Temporal Temporal Temporal Pulse Rate (60-100) 92 70 68 Pulse Location Monitor Monitor Monitor Respiratory Rate (12-18) 20 H 18 18 Respiratory rate source Observation Observation Observation Oxygen Delivery Method Room Air Room Air Blood Pressure (90/60-120/80) 122/89 H 127/63 H 98/71 Blood Pressure Mean (mm Hg) 100 84 80 Source Monitor Monitor Monitor Position Sitting Sitting Blood Pressure Location Right Arm Left Forearm History Since Last Visit- (Skip if this is Patient's initial visit) Have you changed medications since your No No last visit? Any new allergies or adverse reactions No No Had a fall/change in ADL's that may No No increase risk of falls Signs or symptoms of abuse and/or No No neglect since last visit Have you been in the hospital since your No No last visit? Has dressing in place as prescribed Yes Yes Has compression in place as prescribed Yes Yes Has offloadiing in place as prescribed N/A N/A Experienced any changes in pain level or No No management Left Footwear Slipper Regular Shoe Right Footwear Slipper Regular Shoe Pain Scale: 0-10 Numeric Is Patient Pain Free? Yes Yes Yes Lower Extremity Assessment/ Foot Assessment/ Toe Nail Assessment Left -Posterior Tibial Palpable No -Posterior Tibial Doppler Multiphasic -Dorsalis Pedis Palpable No -Dorsalis Pedis Doppler Multiphasic -Extremity Color Red -Temperature of Extremity Warm -Capillary Refill Greater than 3 Seconds -Dependent Rubor No -Blanched when Elevated No -Lipodermatosclerosis No -Other Deformity No -Prior Foot Ulcer No -Charcot Joint No -Prior Amputation No -Thick No -Discolored No -Deformed No -Improper Length & Hygeine No Right -Posterior Tibial Palpable No -Posterior Tibial Doppler Multiphasic -Dorsalis Pedis Palpable No -Dorsalis Pedis Doppler Multiphasic -Extremity Color Red -Hair Growth on Legs No -Hair Growth on Toes No -Temperature of Extremity Warm -Capillary Refill Greater than 3 Seconds -Dependent Rubor No -Blanched when Elevated No -Lipodermatosclerosis No -Other Deformity No -Prior Foot Ulcer No -Charcot Joint No -Prior Amputation No -Thick No -Discolored No -Deformed No -Improper Length & Hygeine No Neuropathy Assessment Feet - Top Side and Bottom <Entered> (a) Communication Assessment Preferred language Faroese Able to Read Yes Able to Write Yes Communication Tools None Right Hearing Abillity Normal Left Hearing Abillity Normal Visual Assistive Devices Glasses Teaching Assessment Preferences Verbal,Written Barriers to Learning None Readiness To Learn Good Willingness to Engage in Self Management Med Activies Readiness to Engage in Self Management Med Activities Anxiety Level Anxious Cooperation Cooperative Perception Coherent Interest in Health Problem Asks Questions Education Importance Acknowledges Need Does Patient Smoke tobacco or other No substances Is Patient Diabetic No Functional Assessment Recent Decline in Ability to Perform Ambulation, Bathing,Lower Body Dressing, Transferring, Upper Body Dressing Culture/Presybeterian/Gauger Delivery Cultural/Presybeterian Needs that may affect No Treatment Plan Would you allow our hospital para educator to No meet you for the purpose of spiritual/ emotional support? Gauger Delivery to contact place of church No Teaching: Wound Center *Welcome to the Wound Center -Person Taught Patient,Family (a) 1 - + WC - Nurse 1 - General Ulcer Measurement Start: 06/04/23 10:50 Freq: Status: Active Protocol: Activity Type Activity Date Activity User E-sign Co-sign Detail Recorded Client Recorded Date Recorded By Document 06/04/23 10:50 DL [id number] 06/04/23 11:25 DL Document 06/11/23 11:55 MW [id number] 06/11/23 11:58 MW Document 06/24/23 14:29 DL [id number] 06/24/23 14:34 DL 06/04/23 06/11/23 06/24/23 10:50 11:55 14:29 Wound Center Nurse 1 #2 L Griffith -Combined with other wound No No -Current Size (cm) - Length 8.6 0.1 0.1 -Current Size (cm) - Width 6 0.1 0.1 -Current Size (cm) - Depth 0.1 0.1 0.1 -Total Square Cm 51.6 0.01 0.01 -Photo Taken Yes No -Epithelialization Small 1-33% Large 67-100% -Tunneling No No -Undermining/Tunneling No No -Circular Undermining No No -Exudate Amt Medium Large -Exudate Type Serosanguineous Yellow/Green -Wound Margin Distinct, Flat & Intact Outline Attached -Granulation Amt Large (67-100%) None Present (0 %) -Granulation Quality Colony N/A -Slough/Fibrin Yes -Necrosis Amt None Present (0 Large (67-100%) %) -Necrotic Tissue Type Adherent Slough -Structure Exposed N/A N/A -Texture (Kasia-wound Skin Appearance) Localized Edema Assessed, Assessed Localized Edema -Moisture (Kasia-wound Skin Appearance) No Abnormality Assessed, Assessed Maceration -Color (Kasia-wound Skin Appearance) Erythema Assessed,Rubor Assessed -Temperature (Kasia-wound Skin No Abnormality No Abnormality No Abnormality Appearance) (Pt Warm) (Pt Warm) (Pt Warm) -Tenderness on Palpation (Kasia-wound Yes No Yes Skin Appearance) -Ulcer Cleansing Soap and Water Rinsed/ Soap and Water Irrigated with Saline -Foul Odor after Cleansing No No No -Anesthetic Used 5% Lidocaine 4% Lidocaine 4% Lidocaine Gel Solution Solution #3 L Post LE -Combined with other wound No No -Current Size (cm) - Length 5 0.1 3.7 -Current Size (cm) - Width 10 0.1 4.8 -Current Size (cm) - Depth 0.1 0.1 0.1 -Total Square Cm 50 0.01 17.76 -Photo Taken Yes No No -Epithelialization None Present None Present -Tunneling No No -Undermining/Tunneling No No -Circular Undermining No No -Classification - Thickness Full Thickness without Exposed Support Structure -Exudate Amt Medium Large Large -Exudate Type Serosanguineous Yellow/Green Serosanguineous -Wound Margin Distinct, Flat & Intact Distinct, Outline Outline Attached Attached -Granulation Amt Large (67-100%) None Present (0 Medium (34-66%) %) -Granulation Quality Colony N/A Red -Slough/Fibrin Yes Yes -Necrosis Amt None Present (0 Large (67-100%) Medium (34-66%) %) -Necrotic Tissue Type Adherent Slough Adherent Slough -Structure Exposed N/A N/A -Texture (Kasia-wound Skin Appearance) Localized Edema Assessed, Assessed, Localized Edema Scarring -Moisture (Kasia-wound Skin Appearance) No Abnormality Assessed, Assessed Weeping -Color (Kasia-wound Skin Appearance) Hemosiderin Assessed,Rubor Assessed Staining -Temperature (Kasia-wound Skin No Abnormality No Abnormality No Abnormality Appearance) (Pt Warm) (Pt Warm) (Pt Warm) -Tenderness on Palpation (Kasia-wound No Yes No Skin Appearance) -Ulcer Cleansing Soap and Water Rinsed/ Soap and Water Irrigated with Saline -Foul Odor after Cleansing No No No -Anesthetic Used 5% Lidocaine 4% Lidocaine 4% Lidocaine Gel Solution Solution #1 R Post LE -Combined with other wound No No -Current Size (cm) - Length 7 0.1 9 -Current Size (cm) - Width 6 0.1 8 -Current Size (cm) - Depth 0.1 0.1 0.1 -Total Square Cm 42 0.01 72 -Photo Taken Yes No No -Epithelialization None Present None Present -Tunneling No No -Undermining/Tunneling No No -Circular Undermining No No -Exudate Amt Medium Large Large -Exudate Type Serosanguineous Yellow/Green Serosanguineous -Wound Margin Distinct, Flat & Intact Distinct, Outline Outline Attached Attached -Granulation Amt Large (67-100%) None Present (0 Medium (34-66%) %) -Granulation Quality Colony,Red N/A Pale -Slough/Fibrin Yes Yes -Necrosis Amt None Present (0 Large (67-100%) Medium (34-66%) %) -Necrotic Tissue Type Adherent Slough Adherent Slough -Structure Exposed N/A N/A -Texture (Kasia-wound Skin Appearance) Localized Edema Assessed, Assessed, Localized Edema Scarring -Moisture (Kasia-wound Skin Appearance) No Abnormality, Assessed, Assessed Weeping Maceration -Color (Kasia-wound Skin Appearance) Erythema Assessed,Rubor Assessed -Temperature (Kasia-wound Skin No Abnormality No Abnormality No Abnormality Appearance) (Pt Warm) (Pt Warm) (Pt Warm) -Tenderness on Palpation (Kasia-wound No No No Skin Appearance) -Ulcer Cleansing Soap and Water Rinsed/ Soap and Water Irrigated with Saline -Foul Odor after Cleansing No No No -Anesthetic Used 5% Lidocaine 4% Lidocaine 4% Lidocaine Gel Solution Solution Lower Limb Edema Present Yes Yes Right Calf (cm) 45.8 47.5 48.8 Right Ankle (cm) 29.5 28.5 29.7 Left Calf (cm) 47 45.5 50 Left Ankle (cm) 31 31.0 30.1 WC - Nurse 2 - General Ulcer CM Notes Start: 06/04/23 10:50 Freq: Status: Active Protocol: Activity Type Activity Date Activity User E-sign Co-sign Detail Recorded Client Recorded Date Recorded By Document 06/04/23 12:15 PL [id number] 06/04/23 12:17 PL Document 06/24/23 17:34 PL [id number] 06/24/23 17:36 PL 06/04/23 06/24/23 12:15 17:34 Wound Center Nurse 2 #2 L Griffith -Procedure Performed No No -Wound/Ulcer Outcome Healed- Epithelialized #3 L Post LE -Procedure Performed No No -Post Debridement (cm) - Length 4.5 -Post Debridement (cm) - Width 10.0 -Post Debridement (cm) - Depth 0.1 -Total Square (Post) (cm) 45.00 -Wound/Ulcer Outcome Healed- Epithelialized #1 R Post LE -Time 11:44 -Correct Patient Yes -Correct Side, Site, Position Yes -Correct Procedure Yes -Procedure Performed Yes No -Type of Procedure Debridement -Clinical Debridement Subcutaneous -Tissue Removed Subcutaneous -Post Debridement (cm) - Length 7.0 9.5 -Post Debridement (cm) - Width 6.0 8.5 -Post Debridement (cm) - Depth 0.1 0.1 -Total Square (Post) (cm) 42.00 80.75 -Area of Debridement (cm) - Length 7.0 -Area of Debridement (cm) - Width 6.0 -Total Square (Area) (cm) 42.00 -Tunneling No -Undermining/Tunneling No -Circular Undermining No -Wound/Ulcer Outcome Not Healed -Ulcer Cleansing Rinsed/ Irrigated with Saline -Foul Odor after Cleansing No -Bioengineered Tissue No -Bleeding Controlled with Pressure -Treatment Response Procedure Tolerated Well -Debridement - Subq, 1st 20sq cm Yes -Debridement, SubQ, ea addt'l 20sq cm 2 or part thereof Pain Scale: 0-10 Numeric Is Patient Pain Free? Yes Yes WC - Nurse 3 - General Ulcer D/C NN Start: 06/04/23 10:50 Freq: Status: Active Protocol: Activity Type Activity Date Activity User E-sign Co-sign Detail Recorded Client Recorded Date Recorded By Document 06/11/23 12:48 [id number] 06/11/23 12:50 Document 06/24/23 15:15 [facility] [id number] 06/24/23 15:17 [facility] 06/11/23 06/24/23 12:48 15:15 Wound Care Center Nurse 3 #2 L Griffith -Ulcer Cleansing Rinsed/ Rinsed/ Irrigated with Irrigated with Saline Saline -Foul Odor after Cleansing No No -Primary Dressing Applied Aquacel AG 4x4 NonAdherent Contact Layer -Other Dressing PER DL LEARNING SOLUTIONS SPECIALIST; ABD -Primary Dressing Covered/Secured with Dry Gauze & Dry Gauze & Roll Gauze, Roll Gauze, Secured with Secured with Tape Tape -Aquacel AG 4x4 1 #3 L Post LE -Ulcer Cleansing Rinsed/ Rinsed/ Irrigated with Irrigated with Saline Saline -Foul Odor after Cleansing No No -Primary Dressing Applied Aquacel AG 4x4 Aquacel AG 4x4, Optilok 6.5x10 -Other Dressing PER DL LEARNING SOLUTIONS SPECIALIST -Primary Dressing Covered/Secured with Dry Gauze & Dry Gauze & Roll Gauze Roll Gauze, Secured with Tape -Aquacel AG 4x4 1 2 -Optilok 6.5x10 2 #1 R Post LE -Ulcer Cleansing Rinsed/ Rinsed/ Irrigated with Irrigated with Saline Saline -Foul Odor after Cleansing No No -Primary Dressing Applied Aquacel AG 4x4 Aquacel AG 4x4, Optilok 6.5x10 -Other Dressing PER DL LEARNING SOLUTIONS SPECIALIST -Primary Dressing Covered/Secured with Dry Gauze & Dry Gauze & Roll Gauze, Roll Gauze, Secured with Secured with Tape Tape -Aquacel AG 4x4 1 0 -Optilok 6.5x10 0 Right -Tubular Bandage Single Layer Single Layer -Size of Tubigrip Used Size E Size E -Size E ($) 2 2 Left -Tubular Bandage Single Layer Single Layer -Size of Tubigrip Used Size F Size E -Size E ($) 2 -Size F ($) 2 Treatment Response Procedure Tolerated Well Pain Scale: 0-10 Numeric Is Patient Pain Free? Yes Yes WC - Visit Discharge Discharge Condition Stable Stable Ambulatory Status Ambulatory, Wheelchair Wheelchair Transportation Private Auto Private Auto Accompanied by CORI BRODY AND CHERELLE BRODY Medication Reconcilliation completed & Yes provided to patient/care provider Clinical Summary of Care Provided Yes Facility Type Home Health Assessment/Plan Assessment/Plan (1) Bilateral lower extremity edema: CODE(S): R60.0 - Localized edema (2) Ulcer of lower extremity, limited to breakdown of skin: CODE(S): L97.901 - Non-pressure chronic ulcer of unspecified part of unspecified lower leg limited to breakdown of skin PLAN: Plan There was no significant slough in wound beds and the area is hypersensitive for her so no debridement was performed today. Will continue with Aquacel to the wound beds. Change to super absorber over top. Change at least once daily or more often if possible to keep the dressing from staying in place if soaked with drainage. Do not submerge the wounds in water such as with a bath, swimming, hot tub, etc. Will increase to high-strength tubigrips for compression, will add a cotton stockinette underneath to see if this makes it more comfortable against her skin. Unfortunately, due to her cough/dyspnea, she has to sit upright with feet hanging down to rest comfortably, advised to elevate feet as much as tolerable and also to place a pillow behind her legs to reduce pressure if possible. Return to wound care center in 1-2 weeks.
== END 2023-07-01 23:59 | disposition home or self-care (01) ==
LOC: WC 14:00
PROVIDERS: PCP Internal Medicine; Referring Provider Dermatology Pediatric Dermatology; Visit Provider Physician Assistant
DX: L97.921 Non-pressure chronic ulcer of unspecified part of left lower leg limited to breakdown of skin (principal); I48.91 Unspecified atrial fibrillation; G62.9 Polyneuropathy, unspecified; Z79.2 Long term (current) use of antibiotics; F41.9 Anxiety disorder, unspecified; Z79.01 Long term (current) use of anticoagulants; R60.0 Localized edema; G47.33 Obstructive sleep apnea (adult) (pediatric); Z99.89 Dependence on other enabling machines and devices; I10 Essential (primary) hypertension
CPT/HCPCS: 11042; 11045; 87070; 87075; 87077; 87186; 87205; 99213; G0463